=== PATIENT | female | born 1950 | race Caucasian/White ===

== ENCOUNTER 2018-10-10 15:31 | Inpatient (IN) | payer MEDICARE ==
--- NOTE | 2018-10-10 15:56 | ED ---
General Adult HPI <Murtaza Jewell - Last Filed: 10/10/18 18:41> - General Source: patient, RN notes reviewed Mode of arrival: ambulatory Limitations: no limitations <Anish Traylor - Last Filed: 10/10/18 19:13> - General Chief complaint: Recheck/Abnormal Lab/Rx Stated complaint: Side pain, Cough Time Seen by Provider: 10/10/18 15:50 - History of Present Illness Initial comments: 68 year old female presents to the emergency department for a chief cough 1.5 months. Patient states she has had a dry hacking cough since right after [place]. She states she was seen by her primary care provider who gave her oral antibiotics for 10 days and breathing treatments. She states she was not getting better. She states that she has had increasing shortness of breath. She states that 2 days ago she started to have left-sided pleuritic chest pain. She states she can no longer handle the pain and this is what brought her in to the emergency department. Patient denies any recent admissions to the hospital.Patient has no other complaints at this time including shortness of breath, chest pain, abdominal pain, nausea or vomiting, headache, or visual changes. (Anish Traylor) - Related Data Home Medications Medication Instructions Recorded Confirmed ALPRAZolam [Xanax] 0.5 mg PO DAILY PRN 10/10/18 10/10/18 Cyanocobalamin [Vitamin B-12 1,000 mcg SQ Q14D 10/10/18 10/10/18 Injection] Escitalopram [Lexapro] 20 mg PO DAILY 10/10/18 10/10/18 Allergies Allergy/AdvReac Type Severity Reaction Status Date / Time codeine AdvReac Nausea & Verified 10/10/18 16:43 Vomiting prednisone AdvReac Rapid Verified 10/10/18 16:43 Heart Rate Review of Systems ROS Other: All systems not noted in ROS Statement are negative. <Murtaza Jewell - Last Filed: 10/10/18 18:41> ROS Other: All systems not noted in ROS Statement are negative. <Anish Traylor - Last Filed: 10/10/18 19:13> ROS Statement: Those systems with pertinent positive or pertinent negative responses have been documented in the HPI. Past Medical History Past Medical History: Pneumonia, Thyroid Disorder History of Any Multi-Drug Resistant Organisms: None Reported Past Surgical History: Breast Surgery, Cholecystectomy, Tonsillectomy Additional Past Surgical History / Comment(s): thyroid lobectomy, partial hysterecomy, multiple D&C Past Psychological History: Anxiety Smoking Status: Current every day smoker Past Alcohol Use History: Occasional Past Drug Use History: None Reported <Anish Traylor - Last Filed: 10/10/18 19:13> General Exam Limitations: no limitations General appearance: alert, in no apparent distress Head exam: Present: atraumatic, normocephalic, normal inspection Eye exam: Present: normal appearance, PERRL, EOMI. Absent: scleral icterus, conjunctival injection, periorbital swelling ENT exam: Present: normal exam, mucous membranes moist Neck exam: Present: normal inspection, full ROM. Absent: tenderness, meningismus, lymphadenopathy Respiratory exam: Present: decreased breath sounds (Diminished breath sounds due to decreased inspiration from pain). Absent: respiratory distress, wheezes , rales, rhonchi, stridor Cardiovascular Exam: Present: normal rhythm, tachycardia, other (murmur noted, patient states this is chronic). Absent: rubs, gallop, clicks GI/Abdominal exam: Present: soft, normal bowel sounds. Absent: distended, tenderness, guarding, rebound, rigid Neurological exam: Present: alert, oriented X3, CN II-XII intact Psychiatric exam: Present: normal affect, normal mood <Anish Traylor - Last Filed: 10/10/18 19:13> Vital Signs 10/10/18 10/10/18 15:34 18:35 Temperature 98.4 F Pulse Rate 117 H 107 H Respiratory 18 18 Rate Blood Pressure 105/64 138/82 O2 Sat by Pulse 94 L 91 L Oximetry EKG Findings - EKG Comments: EKG Findings:: Sinus tachycardia, ventricular rate 110, KS interval 148, QTC 446 <Anish Traylor - Last Filed: 10/10/18 19:13> Medical Decision Making - Lab Data Result diagrams: 10/10/18 16:30 10/10/18 16:30 <Murtaza Jewell - Last Filed: 10/10/18 18:41> - Lab Data Result diagrams: 10/10/18 16:30 10/10/18 16:30 <Anish Traylor - Last Filed: 10/10/18 19:13> - Medical Decision Making Medical decision making; this is a 68-year-old female reports she's been on antibiotics for approximately 20 days for a left-sided pneumonia. She presents today to emergency room because of persistent cough and left lateral rib cage pain. The workup here included a white count of 14.6. Her d- dimer is elevated at 1.47. Chest x-ray showed left pleural consolidation and pleural effusion but no evidence of congestive heart failure. Because of the elevated d-dimer persistent pain the patient had a CAT scan done with IV contrast. The radiologist reports no pulmonary embolism. But does report that there is a left pleural effusion with lower lobe consolidation and also a 3 cm rounded low-density area in the left lower lobe possible lung abscess. In emergency room the patient was started on Rocephin and a azithromycin. I discussed the case with , patient be admitted his service with consultation from Dr. Sow . I discussed the case Dr. Sow. He recommends Zosyn and Levaquin. Dr. Jewell (Murtaza Jewell) 68-year-old female presents to the emergency department for a chief complaint of left-sided chest pain and cough 1.5 months. Patient has had outpatient antibiotic therapy about 1.5 months ago but did not get better. She has had increasing shortness of breath and pleuritic chest pain. She does have tenderness noted to the lateral chest wall. Patient is tachycardic with a pulse rate of 117 and 94% on room air. Patient was put on 2 L of nasal cannula and given a liter fluid bolus. CBC does show a white count of 14.6. Chest x-ray shows a left-sided pulmonary consolidation and pleural fluid. Blood cultures and lactic ordered at the time x-ray was reviewed. Patient was started on azithromycin and Rocephin. Due to tachycardia, pleuritic chest pain and shortness of breath d-dimer was ordered which was elevated to 1.47. CT showed no evidence of pulmonary embolism. However there is a moderate left pleural effusion with left lower lobe consolidation and atelectasis. There is also a 3 cm rounded low-density area in the left lower lobe that could be a lung abscess. Dr. Jewell also saw the patient. At this time patient will be admitted for IV antibiotics with pulmonary consult due to possible abscess. ( Kymberly,Anihs P) - Lab Data Lab Results 10/10/18 10/10/18 10/10/18 Range/Units 16:30 16:30 16:30 WBC 14.6 H (3.8-10.6) k/uL RBC 4.13 (3.80-5.40) m/uL Hgb 11.8 (11.4-16.0) gm/dL Hct 36.0 (34.0-46.0) % MCV 87.1 (80.0-100.0) fL MCH 28.5 (25.0-35.0) pg MCHC 32.7 (31.0-37.0) g/dL RDW 15.6 H (11.5-15.5) % Plt Count 379 (150-450) k/uL Neutrophils % 83 % Lymphocytes % 11 % Monocytes % 5 % Eosinophils % 0 % Basophils % 0 % Neutrophils # 12.2 H (1.3-7.7) k/uL Lymphocytes # 1.6 (1.0-4.8) k/uL Monocytes # 0.7 (0-1.0) k/uL Eosinophils # 0.1 (0-0.7) k/uL Basophils # 0.0 (0-0.2) k/uL PT 10.6 (9.0-12.0) sec INR 1.0 (<1.2) APTT 24.6 (22.0-30.0) sec D-Dimer 1.47 H (<0.60) mg/L FEU Sodium 140 (137-145) mmol/L Potassium 5.0 (3.5-5.1) mmol/L Chloride 105 (98-107) mmol/L Carbon Dioxide 26 (22-30) mmol/L Anion Gap 9 mmol/L BUN 14 (7-17) mg/dL Creatinine 0.70 (0.52-1.04) mg/dL Est GFR (CKD-EPI)AfAm >90 (>60 ml/min/1.73 sqM) Est GFR (CKD-EPI)NonAf >90 (>60 ml/min/1.73 sqM) Glucose 135 H (74-99) mg/dL Plasma Lactic Acid Albert (0.7-2.0) mmol/L Calcium 9.7 (8.4-10.2) mg/dL Total Bilirubin 0.6 (0.2-1.3) mg/dL AST 15 (14-36) U/L ALT 32 (9-52) U/L Alkaline Phosphatase 110 (38-126) U/L Troponin I (0.000-0.034) ng/mL NT-Pro-B Natriuret Pep pg/mL Total Protein 6.6 (6.3-8.2) g/dL Albumin 3.5 (3.5-5.0) g/dL 10/10/18 10/10/18 10/10/18 Range/Units 16:30 16:30 18:27 WBC (3.8-10.6) k/uL RBC (3.80-5.40) m/uL Hgb (11.4-16.0) gm/dL Hct (34.0-46.0) % MCV (80.0-100.0) fL MCH (25.0-35.0) pg MCHC (31.0-37.0) g/dL RDW (11.5-15.5) % Plt Count (150-450) k/uL Neutrophils % % Lymphocytes % % Monocytes % % Eosinophils % % Basophils % % Neutrophils # (1.3-7.7) k/uL Lymphocytes # (1.0-4.8) k/uL Monocytes # (0-1.0) k/uL Eosinophils # (0-0.7) k/uL Basophils # (0-0.2) k/uL PT (9.0-12.0) sec INR (<1.2) APTT (22.0-30.0) sec D-Dimer (<0.60) mg/L FEU Sodium (137-145) mmol/L Potassium (3.5-5.1) mmol/L Chloride (98-107) mmol/L Carbon Dioxide (22-30) mmol/L Anion Gap mmol/L BUN (7-17) mg/dL Creatinine (0.52-1.04) mg/dL Est GFR (CKD-EPI)AfAm (>60 ml/min/1.73 sqM) Est GFR (CKD-EPI)NonAf (>60 ml/min/1.73 sqM) Glucose (74-99) mg/dL Plasma Lactic Acid Albert 1.7 (0.7-2.0) mmol/L Calcium (8.4-10.2) mg/dL Total Bilirubin (0.2-1.3) mg/dL AST (14-36) U/L ALT (9-52) U/L Alkaline Phosphatase (38-126) U/L Troponin I <0.012 (0.000-0.034) ng/mL NT-Pro-B Natriuret Pep 1080 pg/mL Total Protein (6.3-8.2) g/dL Albumin (3.5-5.0) g/dL Disposition <Murtaza Jewell - Last Filed: 10/10/18 18:41> Is patient prescribed a controlled substance at d/c from ED?: No Time of Disposition: 18:41 <Anish Traylor - Last Filed: 10/10/18 19:13> Clinical Impression: Pneumonia, Leukocytosis Disposition: ADMITTED IP TO THIS HOSP Condition: Fair Referrals: Murtaza Silver MD [Primary Care Provider] - 1-2 days
[2018-10-10] MEDS ORDERED: SODIUM CHLORIDE 0.9% 1,000 ML IV STA (16:09)
[2018-10-10 16:58] LABS: Basophils % (A) 0 %; Eosinophils # (A) 0.1 k/uL (0-0.7); Eosinophils % (A) 0 %; HGB 11.8 gm/dL (11.4-16.0); Lymphocytes # (A) 1.6 k/uL (1.0-4.8); Lymphocytes % (A) 11 %; MCH 28.5 pg (25.0-35.0); MCHC 32.7 g/dL (31.0-37.0); MCV 87.1 fL (80.0-100.0); Mean Platelet Volume 7.1; Monocytes # (A) 0.7 k/uL (0-1.0); Monocytes % (A) 5 %; Neutrophils # (A) 12.2 k/uL (1.3-7.7); Neutrophils % (A) 83 %; Platelet Count 379 k/uL (150-450); RBC 4.13 m/uL (3.80-5.40); RDW 15.6 % (11.5-15.5); WBC 14.6 k/uL (3.8-10.6)
[2018-10-10 17:04] LABS: ALT 32 U/L (9-52); AST 15 U/L (14-36); Albumin 3.5 g/dL (3.5-5.0); Alkaline Phosphatase 110 U/L (38-126); Anion Gap 9 mmol/L; Blood Urea Nitrogen 14 mg/dL (7-17); Calcium 9.7 mg/dL (8.4-10.2); Carbon Dioxide 26 mmol/L (22-30); Chloride 105 mmol/L (98-107); Glucose 135 mg/dL (74-99); Sodium 140 mmol/L (137-145); Total Bilirubin 0.6 mg/dL (0.2-1.3); Total Protein 6.6 g/dL (6.3-8.2)
[2018-10-10 17:08] LABS: Prothrombin Time 10.6 sec (9.0-12.0)
[2018-10-10 17:09] LABS: Partial Thromboplastin Time 24.6 sec (22.0-30.0)
[2018-10-10 17:15] LABS: D-Dimer 1.47 mg/L FEU (<0.60)
--- NOTE | 2018-10-10 17:27 | XR ---
EXAMINATION TYPE: XR chest 2V DATE OF EXAM: 10/10/2018 COMPARISON: NONE HISTORY: Difficulty breathing TECHNIQUE: Frontal and lateral views of the chest are obtained. FINDINGS: Heart is enlarged. There is hiatal hernia. There is infiltrate in the left lower lobe with consolidation. There is probably also pleural effusion on the left side. Right lung is clear. There is no heart failure. Bony thorax is intact. IMPRESSION: There is left side pulmonary consolidation and pleural fluid. Hiatal hernia. No heart fa ilure.
[2018-10-10] MEDS ORDERED: AZITHROMYCIN 500 MG in SODIUM CHLORIDE 0.9% 250 ML IVPB STA (17:52)
--- NOTE | 2018-10-10 17:58 | CT ---
EXAMINATION TYPE: CT chest angio for PE DATE OF EXAM: 10/10/2018 COMPARISON: None HISTORY: LEFT SIDE CHEST PAIN, SOB CT DLP: 256.9 mGycm Automated exposure control for dose reduction was used. CONTRAST: CT Chest for pulmonary embolism performed with with IV Contrast, patient injected with 100 mL of Isov ue 370. There are 3-D post processed images. FINDINGS: There is moderate left pleural effusion. There is left lower lobe consolidation and atelectasis. Ther e is a rounded 3 cm area of fluid density within the posterior left lower lobe. There is no pericardial effusion. The ascending aorta measures 3.8 cm. There is no evidence of dissec tion. There is normal contrast opacification of the pulmonary arteries. I see no filling defect. Ther e is a large hiatal hernia. There is no pneumothorax. The bony thorax is intact. IMPRESSION: No evidence of pulmonary embolism. Moderate left pleural effusion with left lower lobe consolidation and atelectasis. 3 cm rounded low-d ensity area in the left lower lobe could be lung abscess. Large hiatal hernia.
[2018-10-10] MEDS ORDERED: MORPHINE SULFATE 2 MG/ML SYRINGE IVP STA (18:18)
[2018-10-10] MEDS ORDERED: ONDANSETRON 4 MG/2 ML VIAL IVP STA (18:29)
[2018-10-10] MEDS ORDERED: SODIUM CHLORIDE 0.9% 500 ML 500 ML IV STA (19:06)
[2018-10-10] MEDS ORDERED: MORPHINE SULFATE 2 MG/ML SYRINGE IV PRN (19:09)
[2018-10-10] MEDS ORDERED: IBUPROFEN 400 MG TAB PO PRN (19:09)
[2018-10-10] MEDS ORDERED: NALOXONE 0.4 MG/ML 1 ML VIAL IV PRN (19:09)
[2018-10-10] MEDS: LEVOFLOXACIN 750MG-D5W PMX 750 MG in DEXTROSE/WATER 1 150ML.BAG IVPB SCH (19:16)
[2018-10-10] MEDS: SODIUM CHLORIDE 0.9% 1,000 ML IV SCH (19:46)
[2018-10-10] MEDS: ESCITALOPRAM 20 MG TAB PO SCH (20:33)
[2018-10-10] MEDS: PIPERACILLIN-TAZOBACTAM 3.375 GM in SODIUM CHLORIDE 0.9% 100 ML IVPB SCH (21:00)
--- NOTE | 2018-10-10 23:51 | P.HPIM ---
History of Present Illness H&P Date: 10/10/18 Chief Complaint: Cough, left-sided chest pain 68-year-old female with history of anxiety, hypothyroid Patient presented the hospital with 1 day history of left-sided chest pain, described it as severe pleuritic chest pain that gets worse with coughing and movement localized to the left side of the chest over the lower aspect of the lateral left-sided chest, nonradiating. Patient has been complaining of lingering cough over the past one month and a half. She has seen her PCP gave her a course of antibiotics for pneumonia that she finished 3 weeks ago. She has never been hospitalized for this problem and denies any recent hospitalization. Her cough kept on getting worse initially was nonproductive hacking dry cough but recently has become occasionally productive of greenish sputum denies any hemoptysis denies any recent traveling denies any leg pain. She reports occasional subjective fevers and some chills. She also reports some weight loss of around 12 pounds over the past 2 months which she thinks due to poor appetite. However last night she felt severe pain over the right side of the chest for which she decided come to the hospital today seeking medical attention. In the emergency department she was found to have elevated d-dimer for which computed tomography scan of the chest was done there was no evidence of acute PE however did show consolidation over the left lower lung with pleural effusion and possibility of lung abscess. Patient admitted for further care and workup Otherwise she reports generalized decrease in energy and sleeping more than usual, denies any nausea vomiting or abdominal pain denies any GI bleeding. She denies any sick contacts or recent travel Review of Systems Pertinent positives as noted in HPI. All other systems were reviewed and are negative Past Medical History Past Medical History: Pneumonia, Thyroid Disorder History of Any Multi-Drug Resistant Organisms: None Reported Past Surgical History: Breast Surgery, Cholecystectomy, Tonsillectomy Additional Past Surgical History / Comment(s): thyroid lobectomy, partial hysterecomy, multiple D&C Past Anesthesia/Blood Transfusion Reactions: No Reported Reaction Past Psychological History: Anxiety Smoking Status: Current every day smoker Past Alcohol Use History: Occasional Past Drug Use History: None Reported - Past Family History Father Family Medical History: Coronary Artery Disease (CAD), Renal Disease Mother Family Medical History: No Reported History Medications and Allergies Home Medications Medication Instructions Recorded Confirmed Type ALPRAZolam [Xanax] 0.5 mg PO DAILY PRN 10/10/18 10/10/18 History Cyanocobalamin [Vitamin B-12 1,000 mcg SQ Q14D 10/10/18 10/10/18 History Injection] Escitalopram [Lexapro] 20 mg PO DAILY 10/10/18 10/10/18 History Allergies Allergy/AdvReac Type Severity Reaction Status Date / Time codeine AdvReac Nausea & Verified 10/10/18 16:43 Vomiting prednisone AdvReac Rapid Verified 10/10/18 16:43 Heart Rate Physical Exam Vitals: Vital Signs Temp Pulse Resp BP Pulse Ox 10/10/18 20:34 94 L 10/10/18 19:15 99.7 F H 88 20 112/96 95 10/10/18 18:35 107 H 18 138/82 91 L 10/10/18 15:34 98.4 F 117 H 18 105/64 94 L Intake and Output 10/10/18 10/10/18 10/10/18 06:59 14:59 22:59 Other: Weight 166.9 kg Constitutional: No acute distress, conversant, pleasant Eyes: Anicteric sclerae, moist conjunctiva, no lid-lag Pupils equal round reactive to light ENMT: NC/AT Oropharynx clear, no erythema, exudates Neck: Supple, FROM, no masses, or JVD No carotid bruits No thyromegaly Lungs: Clear to auscultation Clear to percussion Normal respiratory effort, no accessory muscle use Cardiovascular: Heart regular in rate and rhythm, Loud systolic murmur mostly over the aortic region, no gallops, or rubs No peripheral edema Abdominal: Soft Nontender, no guarding, rebound or rigidity Abdomen moving with respiration Normoactive bowel sounds No hepatomegaly, No splenomegaly No palpable mass No abdominal wall hernia noted Skin: Normal temperature, tone, texture, turgor No induration No subcutaneous nodules No rash, lesions No ulcers Extremities: No digital cyanosis No clubbing Pedal pulses intact and symmetrical Radial pulses intact and symmetrical No calf tenderness Psychiatric: Alert and oriented to person, place and time Appropriate affect fair judgment Neuro Muscles Strength 4/5 in all 4 extremities Sensation to light touch grossly present throughout Cranial nerves II-XII grossly intact No focal sensory deficits Lymphatics: no palpable cervical or supraclavicular , or inguinal lymph nodes Results CBC & Chem 7: 10/10/18 16:30 10/10/18 16:30 Labs: Abnormal Lab Results - Last 24 Hours (Table) 10/10/18 10/10/18 10/10/18 Range/Units 16:30 16:30 16:30 WBC 14.6 H (3.8-10.6) k/uL RDW 15.6 H (11.5-15.5) % Neutrophils # 12.2 H (1.3-7.7) k/uL D-Dimer 1.47 H (<0.60) mg/L FEU Glucose 135 H (74-99) mg/dL Thrombosis Risk Factor Assmnt - Choose All That Apply Each Risk Factor Represents 2 Points: Age 61-74 years Thrombosis Risk Factor Assessment Total Risk Factor Score: 2 Thrombosis Risk Factor Assessment Level: Low Risk Assessment and Plan Assessment: 68-year-old female with history of hypothyroid and anxiety admitted as an inpatient with anticipated length of stay more than 48 hours due to left-sided pleuritic chest pain and pneumonia with possible underlying lung abscess for further care and evaluation by pulmonary service. Patient reports 1.5 month history of dry hacking cough with progressive worsening of her coughing and energy level. 3 weeks ago she finished a course of antibiotic for pneumonia Plan: Sepsis Community-acquired pneumonia, rule out lung abscess Cultures obtained IV fluid hydration Zosyn and levofloxacin seen Pulmonary consult Follow-up vital signs and labs Hypothyroidism Patient is not sure of the levothyroxine dose DVT prophylaxis Heparin subcu 3 times a day Continue home medications for anxiety Surrogate decision-maker: Patient CODE STATUS: Full code Discussed with: Patient, ER, RN Anticipated discharge: 48-[address]: Home A total of 60 minutes was spent on the care of this complex patient more than 50 % of the time was spent in counseling and care coordination.
[2018-10-11] MEDS: KETOROLAC 30 MG/ML 1 ML VIAL IVP SCH ×4 (00:13→17:27)
[2018-10-11] MEDS: HEPARIN SODIUM,PORCINE 5,000 UNIT/ML 1 ML VIAL SQ SCH ×3 (00:13→15:16)
[2018-10-11] MEDS: MELATONIN 3 MG TABLET PO SCH ×2 (00:13→20:11)
[2018-10-11] MEDS: ONDANSETRON 4 MG/2 ML VIAL IVP PRN (02:53)
[2018-10-11] MEDS: PIPERACILLIN-TAZOBACTAM 3.375 GM in SODIUM CHLORIDE 0.9% 100 ML IVPB SCH ×3 (02:54→22:31)
[2018-10-11] MEDS: MORPHINE SULFATE 4 MG/ML SYRINGE IV PRN ×3 (02:54→12:30)
[2018-10-11] MEDS: SODIUM CHLORIDE 0.9% 1,000 ML IV SCH ×2 (05:27→15:17)
[2018-10-11] MEDS: ESCITALOPRAM 20 MG TAB PO SCH (08:18)
[2018-10-11] MEDS ORDERED: VANCOMYCIN IV PER PHARMACY 1 EACH MISC MISCELLANE PRN (11:53)
[2018-10-11] MEDS ORDERED: VANCOMYCIN 1,500 MG in SODIUM CHLORIDE 0.9% 250 ML IVPB ONE (13:00)
--- NOTE | 2018-10-11 13:08 | XR ---
EXAMINATION TYPE: XR chest 1V portable DATE OF EXAM: 10/11/2018 COMPARISON: 10/10/2018 HISTORY: Status post left-sided thoracentesis TECHNIQUE: Single frontal view of the chest is obtained. FINDINGS: There is a small left layering pleural effusion and left-sided airspace disease. No postpr ocedural pneumothorax is appreciated. Right lung remains clear. Cardiomediastinal silhouette is enlar ged as seen on the prior. Osseous structures are grossly intact. IMPRESSION: Small residual left pleural effusion with associated left-sided airspace disease, likely atelectasis. No postprocedural pneumothorax.
--- NOTE | 2018-10-11 13:52 | P.PN ---
Subjective Progress Note Date: 10/11/18 Principal diagnosis: The patient is a 68-year-old female that was admitted for sepsis secondary to a complicated pneumonia after failing previous outpatient therapy after completing 2 courses of oral antibiotics with azithromycin and clindamycin respectively. she presented with pleuritic chest pain fever and a white count of 14.6 with elevated d-dimer subsequent CTA of the chest was negative for PE but did show consolidation of the left lower lung with pleural effusion and concern for rule out abscess. She was started on empiric IV antibiotics with Levaquin and Zosyn and vancomycin. Pulmonary was consulted and a left-sided thoracentesis was performed Patient complaining of pleuritic chest discomfort on the left with shortness of breath and cough. Patient afebrile overnight, family present at bedside. Patient with saturations of 93.94% on 2 L nasal cannula. Objective - Vital Signs Vital signs: Vital Signs Temp 98.5 F 10/11/18 09:25 Pulse 80 10/11/18 09:25 Resp 16 10/11/18 09:25 BP 96/66 10/11/18 09:25 Pulse Ox 93 L 10/11/18 09:25 Intake & Output 10/10/18 10/11/18 10/11/18 18:59 06:59 18:59 Intake Total 300 Balance 300 Weight 166.9 kg 75.551 kg Intake: Oral 300 Other: Voiding Method Toilet # Voids 1 - Exam Constitutional: No acute distress, conversant, pleasant Eyes: Anicteric sclerae, moist conjunctiva, no lid-lag, PERRLA ENMT: NC/AT,Oropharynx clear, no erythema, exudates Neck:Supple, FROM, no masses, or JVD, No carotid bruits; No thyromegaly Lungs: Diminished in the bases left greater than right Normal respiratory effort , no accessory muscle use Cardiovascular: Heart regular in rate and rhythm, No murmurs, gallops, or rubs no peripheral edema Abdominal: Soft Nontender, nom distended, no guarding, no rebound or rigidity, Normoactive bowel sounds No hepatomegaly, No splenomegaly, No palpable mass No abdominal wall hernia noted Skin: Normal temperature, tone, texture, turgor, No induration No subcutaneous nodules, No rash, lesions, No ulcers Extremities:No digital cyanosis No clubbing, Pedal pulses intact and symmetrical Radial pulses intact and symmetrical Normal gait and station, No calf tenderness Psychiatric: Alert and oriented to person, place and time, Appropriate affect Intact judgement Neuro: Muscles Strength 5/5 in all 4 extremities, Sensation to light touch grossly present throughout, Cranial nerves II-XII grossly intact. No focal sensory deficits - Labs CBC & Chem 7: 10/10/18 16:30 10/10/18 16:30 Labs: Abnormal Lab Results - Last 24 Hours (Table) 10/10/18 10/10/18 10/10/18 Range/Units 16:30 16:30 16:30 WBC 14.6 H (3.8-10.6) k/uL RDW 15.6 H (11.5-15.5) % Neutrophils # 12.2 H (1.3-7.7) k/uL D-Dimer 1.47 H (<0.60) mg/L FEU Glucose 135 H (74-99) mg/dL Assessment and Plan (1) Sepsis Narrative/Plan: * Secondary to complicated pneumonia concern for underlying lung abscess and parapneumonic effusion * Recheck CBC today, continue empiric IV antibiotics with vancomycin and Zosyn and Levaquin * Pulmonary consulted for thoracentesis Current Visit: Yes Status: Acute Code(s): A41.9 - SEPSIS, UNSPECIFIED ORGANISM SNOMED Code(s): 92682518 (2) Pneumonia Narrative/Plan: * Treatment regimen as above * Initiated Albuterol Atrovent DuoNeb bronchodilator breathing treatments Current Visit: Yes Status: Acute Code(s): J18.9 - PNEUMONIA, UNSPECIFIED ORGANISM SNOMED Code(s): 068098455 (3) Parapneumonic effusion Narrative/Plan: * Moderate pleural effusion with left lower lobe consolidation and atelectasis * Patient scheduled for thoracentesis later today Current Visit: Yes Status: Acute Code(s): J18.9 - PNEUMONIA, UNSPECIFIED ORGANISM; J91.8 - PLEURAL EFFUSION IN OTHER CONDITIONS CLASSIFIED ELSEWHERE SNOMED Code(s): 14813188 Plan: * Anticipated discharge to be determined by course * Continue current treatment regimen
[2018-10-11] MEDS ORDERED: IPRATROPIUM-ALBUTEROL 3 ML NEB INHALATION PRN (13:55)
[2018-10-11] MEDS: ALPRAZolam 0.5 MG TAB PO PRN (14:18)
[2018-10-11 14:35] LABS: Calcium 8.4 mg/dL (8.4-10.2); Potassium 4.4 mmol/L (3.5-5.1)
[2018-10-11 14:37] LABS: Basophils % (A) 0 %; Eosinophils # (A) 0.1 k/uL (0-0.7); Eosinophils % (A) 1 %; HCT 31.1 % (34.0-46.0); Hypochromasia Moderate; Lymphocytes % (A) 8 %; MCH 27.9 pg (25.0-35.0); MCHC 31.6 g/dL (31.0-37.0); MCV 88.5 fL (80.0-100.0); Mean Platelet Volume 6.4; Monocytes # (A) 0.7 k/uL (0-1.0); Monocytes % (A) 5 %; Neutrophils % (A) 85 %; Platelet Count 315 k/uL (150-450); RBC 3.51 m/uL (3.80-5.40); RDW 15.5 % (11.5-15.5)
[2018-10-11 14:47] LABS: HGB 9.8 gm/dL (11.4-16.0)
[2018-10-11 14:52] LABS: Appearance,BF Cloudy; Color,BF Orange; Nucleated Cells, Body Fluid 19240 /uL
[2018-10-11 14:53] LABS: RBC, Body Fluid 8240 /uL
[2018-10-11 14:56] LABS: Mononuclear WBC,Body Fluid 4 %; Polynuclear WBC,Body Fluid 96 %; Total Cells Counted,Body Fluid 100
--- NOTE | 2018-10-11 15:27 | P.CNPUL ---
History of Present Illness Consult date: 10/11/18 Reason for consult: pneumonia History of present illness: Very pleasant 68-year-old female patient with a batwing pneumonias since early August. The patient presents her primary care physician and she was having symptoms of pneumonia with cough and congestion and shortness of breath. She was initially given a course of antibiotics which she thinks was Zithromax. Subsequently, she went back as the patient was not improving and she was seen by the nurse practitioner and the patient was given another round of antibiotics. I recovery was not complete. Yesterday she came into the emergency department with a subacute pleuritic chest pain involving the left chest which progressively got worse over the past 24 hours. She was having considerable amount of pain. She was still having cough. No stiffness sputum production. She reported occasional subjective fevers and chills. She had some weight loss in order of 12 pounds over the past 2 months. No hemoptysis. She is a chronic smoker. The chest x-ray was done that showed a left lower lobe consolidation. Following that the patient a CAT scan of the chest that showed evidence of a moderate-sized left-sided pleural effusion and a left lower lobe consolidation/atelectasis. There was a rounded 3 cm area of fluid density within the posterior segment of the left lower lobe which obviously raises the concern for a lung abscess. There was no evidence of any pulmonary embolism. The patient was given IV antibiotics. The patient was given a combination of Zosyn and Levaquin and vancomycin was also added to the regimen. The patient is currently hemodynamically stable. I saw this patient the bedside. She had diminished breath on the left lung base along with some dullness to percussion. I performed a bedside thoracentesis and a turbid dark yellowish pleural effusion was drained from the left lung and the total amount was around 500 mL. The procedure done without any complications. Her current white cell count is at 14.6. Rest of the blood work and electrodes are all within normal limits. Awaiting the results from the fluid analysis. She is a chronic smoker. No history of pulmonary disease although the CAT scan of the chest showed some emphysematous changes bilaterally. Review of Systems Constitutional: Reports fatigue, Reports fever Eyes: denies as per HPI, denies blurred vision, denies bulging eye, denies decreased vision, denies diplopia, denies discharge, denies dry eye, denies irritation, denies itching, denies pain, denies photophobia, denies loss of peripheral vision, denies loss of vision, denies tunnel vision/blind spots Ears: deny: decreased hearing, ear discharge, earache, tinnitus Ears, nose, mouth and throat: Denies headache, Denies sore throat Breasts: absent: as per HPI, change in shape, gynecomastia, masses, nipple discharge, pain, skin changes, swelling Cardiovascular: Reports decreased exercise tolerance, Reports dyspnea on exertion Respiratory: Reports cough, Reports dyspnea Gastrointestinal: Reports as per HPI Genitourinary: Reports as per HPI Menstruation: Reports as per HPI Musculoskeletal: Reports as per HPI Musculoskeletal: absent: ankle pain, ankle stiffness, ankle swelling, as per HPI , elbow pain, elbow stiffness, elbow swelling, foot pain, foot stiffness, foot swelling, hand pain, hand stiffness, hand swelling, hip pain, hip stiffness, hip swelling, knee pain, knee stiffness, knee swelling, shoulder pain, shoulder stiffness, shoulder swelling, wrist pain, wrist stiffness, wrist swelling Integumentary: Reports as per HPI Neurological: Reports as per HPI Psychiatric: Reports as per HPI Past Medical History Past Medical History: COPD, Pneumonia, Thyroid Disorder History of Any Multi-Drug Resistant Organisms: None Reported Past Surgical History: Breast Surgery, Cholecystectomy, Tonsillectomy Additional Past Surgical History / Comment(s): thyroid lobectomy, partial hysterecomy, multiple D&C Past Anesthesia/Blood Transfusion Reactions: No Reported Reaction Past Psychological History: Anxiety Smoking Status: Current every day smoker Past Alcohol Use History: Occasional Past Drug Use History: None Reported - Past Family History Father Family Medical History: Coronary Artery Disease (CAD), Renal Disease Mother Family Medical History: No Reported History Medications and Allergies Home Medications Medication Instructions Recorded Confirmed Type ALPRAZolam [Xanax] 0.5 mg PO DAILY PRN 10/10/18 10/10/18 History Cyanocobalamin [Vitamin B-12 1,000 mcg SQ Q14D 10/10/18 10/10/18 History Injection] Escitalopram [Lexapro] 20 mg PO DAILY 10/10/18 10/10/18 History Allergies Allergy/AdvReac Type Severity Reaction Status Date / Time codeine AdvReac Nausea & Verified 10/10/18 16:43 Vomiting prednisone AdvReac Rapid Verified 10/10/18 16:43 Heart Rate Physical Exam Vitals: Vital Signs Temp Pulse Pulse Resp BP BP Pulse Ox 10/11/18 14:33 98.3 F 76 16 93/59 98 10/11/18 09:25 98.5 F 80 16 96/66 93 L 10/11/18 02:38 98.1 F 77 15 91/55 94 L 10/10/18 20:34 94 L 10/10/18 20:04 98.4 F 101 H 16 106/63 95 10/10/18 19:15 99.7 F H 88 20 112/96 95 10/10/18 18:35 107 H 18 138/82 91 L 10/10/18 15:34 98.4 F 117 H 18 105/64 94 L Intake and Output 10/11/18 10/11/18 10/11/18 06:59 14:59 22:59 Intake Total 300 Balance 300 Intake: Oral 300 Other: # Voids 2 Weight 75.551 kg Gen. appearance, comfortable no acute distress Head exam was generally normal. There was no scleral icterus or corneal arcus. Mucous membranes were moist. Neck was supple and without jugular venous distension, thyromegaly, or carotid bruits. Carotids were easily palpable bilaterally. There was no adenopathy. Lungs sounds are diminished in the left lung base along with some dullness to percussion Cardiac exam revealed the PMI to be normally situated and sized. The rhythm was regular and no extrasystoles were noted during several minutes of auscultation. The first and second heart sounds were normal and physiologic splitting of the second heart sound was noted. There were no murmurs, rubs, clicks, or gallops. Abdominal exam revealed normal bowel sounds. The abdomen was soft, non-tender, and without masses, organomegaly, or appreciable enlargement of the abdominal aorta. Examination of the extremities revealed easily palpable radial, femoral and pedal pulses. There was no cyanosis, clubbing or edema. Examination of the skin revealed no evidence of significant rashes, suspicious appearing nevi or other concerning lesions. Neurologically the patient is awake and alert and is no focal neurological deficits. Results - Laboratory Findings CBC and BMP: 10/11/18 13:59 10/11/18 13:59 PT/INR, D-dimer PT 10.6 sec (9.0-12.0) 10/10/18 16:30 INR 1.0 (<1.2) 10/10/18 16:30 D-Dimer 1.47 mg/L FEU (<0.60) H 10/10/18 16:30 Abnormal lab findings: Abnormal Labs 10/10/18 10/10/18 10/10/18 16:30 16:30 16:30 WBC 14.6 H RBC Hgb Hct RDW 15.6 H Neutrophils # 12.2 H D-Dimer 1.47 H Chloride BUN Glucose 135 H 10/11/18 10/11/18 13:59 13:59 WBC 13.0 H RBC 3.51 L Hgb 9.8 L D Hct 31.1 L RDW Neutrophils # 11.0 H D-Dimer Chloride 108 H BUN 18 H Glucose 136 H - Diagnostic Findings Chest x-ray: image reviewed CT scan - chest: image reviewed Assessment and Plan Plan: Assessment 1 left lower lobe pneumonia with consolidation and a parapneumonic loculated left-sided pleural effusion, questionable early abscess formation in the posterior segment of the left lower lobe. The patient underwent a thoracentesis with evacuation of 500 mL of turbid dark yellowish pleural fluid from the left pleural space. Fluid analysis still pending for now. Procedure was done without any complications. The patient is currently on a combination of Zosyn and Levaquin and vancomycin 2 left-sided pleural effusion, loculated, likely parapneumonic 3 questionable left lung abscess 4 COPD 5 smoker 6 hypothyroidism Plan Repeat CAT scan of the chest in a.m. Continue same antibiotic coverage. Send the pleural fluid for analysis including LDH, protein, glucose, cytology Gram stain and culture, and cytology. Provide the patient incentive spirometer. Pain control. We'll continue to follow. Case was explained and discussed with the family at the bedside. We'll offer this patient DuoNeb nebulized treatments around the clock. We'll continue to follow.
[2018-10-11] MEDS ORDERED: RX INFO: IV CONTRAST WAS GIVEN 1 EACH MISC MISCELLANE PRN (15:30)
[2018-10-11] MEDS: IPRATROPIUM-ALBUTEROL 3 ML NEB INHALATION SCH ×3 (16:24→23:57)
[2018-10-11 18:50] LABS: Total Protein, Body Fluid 4100 mg/dL
[2018-10-11] MEDS: LEVOFLOXACIN 750MG-D5W PMX 750 MG in DEXTROSE/WATER 1 150ML.BAG IVPB SCH (20:10)
[2018-10-12] MEDS: HEPARIN SODIUM,PORCINE 5,000 UNIT/ML 1 ML VIAL SQ SCH ×4 (00:34→23:43)
[2018-10-12] MEDS: KETOROLAC 30 MG/ML 1 ML VIAL IVP SCH ×5 (00:34→23:42)
[2018-10-12] MEDS: MORPHINE SULFATE 4 MG/ML SYRINGE IV PRN ×2 (02:10→20:00)
[2018-10-12] MEDS: ONDANSETRON 4 MG/2 ML VIAL IVP PRN ×2 (02:10→20:01)
[2018-10-12] MEDS: SODIUM CHLORIDE 0.9% 1,000 ML IV SCH ×2 (03:10→14:21)
[2018-10-12] MEDS: IPRATROPIUM-ALBUTEROL 3 ML NEB INHALATION SCH ×6 (04:08→23:32)
[2018-10-12] MEDS: VANCOMYCIN 1,250 MG in SODIUM CHLORIDE 0.9% 250 ML IVPB SCH ×2 (04:41→16:29)
[2018-10-12] MEDS: PIPERACILLIN-TAZOBACTAM 3.375 GM in SODIUM CHLORIDE 0.9% 100 ML IVPB SCH ×3 (05:01→20:01)
--- NOTE | 2018-10-12 06:42 | PCN ---
PROCEDURE NOTE THORACENTESIS: PREOP DIAGNOSIS: Left sided pleural effusion. POSTOP DIAGNOSIS: Left sided pleural effusion. A time-out was completed verifying correct patient, procedure, site, positioning , and implant (s) or special equipment if applicable. Ultrasound guidance was not used and appropriate fluid pocket was identified and marked. Patient was positioned, prepped and draped in usual sterile fashion. Lidocaine was used to anesthetize the area. A Thoracentesis catheter was introduced into the pleural space and fluid was removed. Blood loss was none. A chest x-ray was ordered to evaluate for pneumothorax. Total Fluid Removed: 500 mL Color of Fluid: Dark turbid yellow pleural effusion. Fluid was sent for appropriate laboratory tests. Patient tolerated the procedure well and there were no complications. The fluid was sent for analysis. No bedside complication or bleeding. No pneumothorax. MMODL / IJN: [id number] /
[2018-10-12 07:53] LABS: Potassium 4.5 mmol/L (3.5-5.1)
[2018-10-12 08:04] LABS: Basophils % (A) 0 %; Eosinophils # (A) 0.2 k/uL (0-0.7); Eosinophils % (A) 2 %; HCT 26.2 % (34.0-46.0); HGB 8.5 gm/dL (11.4-16.0); Hypochromasia Moderate; Lymphocytes # (A) 1.1 k/uL (1.0-4.8); Lymphocytes % (A) 12 %; MCH 28.6 pg (25.0-35.0); MCHC 32.4 g/dL (31.0-37.0); MCV 88.4 fL (80.0-100.0); Mean Platelet Volume 6.5; Monocytes # (A) 0.4 k/uL (0-1.0); Monocytes % (A) 4 %; Neutrophils % (A) 80 %; Platelet Count 258 k/uL (150-450); RBC 2.96 m/uL (3.80-5.40); RDW 15.5 % (11.5-15.5); WBC 8.8 k/uL (3.8-10.6)
--- NOTE | 2018-10-12 08:12 | CT ---
EXAMINATION TYPE: CT chest w con DATE OF EXAM: 10/12/2018 COMPARISON: 10/10/2017 HISTORY: Pneumonia CT DLP: 286.9 mGycm Automated exposure control for dose reduction was used. CONTRAST: CT scan of the chest is performed with IV Contrast, patient injected with 100 mL of Isovue 300. FINDINGS: LUNGS: Is a persistent left-sided pleural effusion with small amount of air-containing the pleural ef fusion likely related to recent thoracentesis. There remains a small rounded density within the left lung with consolidation. Measures similar in size of 2.7 cm. Difficult to determine if this is relate d to an intrapulmonary abscess or portal part of the pleural fluid. Small amount of fluid in the medi astinum is also noted adjacent to the esophagus and there is a small right pleural effusion with basi lar consolidation. Changes of COPD are noted. There is a 3 mm right lower lobe pulmonary nodule. MEDIASTINUM: The heart is enlarged and there is a large hiatal hernia. Ascending aorta measures 4.1 c m suggest mild aneurysmal dilation. There is faint coronary artery calcification. Small shotty adenop athy in the left cardiophrenic angle. OTHER: Hypertrophic and degenerative change of the vertebral column. Postcholecystectomy changes are noted. Small accessory spleen IMPRESSION: 1. Remains a sizable left-sided pleural effusion with a few tiny air bubbles slightly postthoracentes is. Persistent consolidation and rounded 2.7 cm area of low density within an area of consolidated vernon ng. This still may represent a small intrapulmonary abscess. Due to the amount of pleural fluid is di fficult to determine if this communicates with the surrounding pleural effusion. 2. COPD 3. Small amount of mediastinal fluid cardiomegaly 4. Large hiatal hernia 5. Right lower lobe subsegmental consolidation and small pleural effusion. 6. There is a 3 mm right lower lobe pulmonary nodule too small to characterize recommend 6 month foll ow-up CT of the chest to assess for stability given small size.
[2018-10-12] MEDS: ESCITALOPRAM 20 MG TAB PO SCH (09:30)
--- NOTE | 2018-10-12 11:21 | P.PN ---
Subjective Progress Note Date: 10/12/18 Principal diagnosis: The patient is a 68-year-old female that was admitted for sepsis secondary to a complicated pneumonia after failing previous outpatient therapy after completing 2 courses of oral antibiotics with azithromycin and clindamycin respectively. she presented with pleuritic chest pain fever and a white count of 14.6 with elevated d-dimer subsequent CTA of the chest was negative for PE but did show consolidation of the left lower lung with pleural effusion and concern for rule out abscess. She was started on empiric IV antibiotics with Levaquin and Zosyn and vancomycin. Pulmonary was consulted and a left-sided thoracentesis was performed Patient reporting some left-sided pleuritic chest pain with coughing and receiving her breathing treatments, the patient had repeat chest CT earlier this morning, hemoglobin down 3 g down to 8.5 g today, patient reports she is scheduled to have a colonoscopy later this year. patient afebrile, patient denies any lightheadedness or dizziness. Blood pressure borderline this morning. Objective - Vital Signs Vital signs: Vital Signs Temp 98.5 F 10/12/18 08:47 Pulse 88 10/12/18 08:47 Resp 16 10/12/18 08:47 BP 88/56 10/12/18 09:06 Pulse Ox 91 L 10/12/18 08:47 Intake & Output 10/11/18 10/12/18 10/12/18 18:59 06:59 18:59 Intake Total 300 650 Balance 300 650 Intake: Intake, IV Titration 650 Amount Sodium Chloride 0.9% 1, 400 000 ml @ 100 mls/hr IV . Q10H [facility] Rx#:[id number] Vancomycin 1,250 mg In 250 Sodium Chloride 0.9% 250 ml @ 125 mls/hr IVPB Q12H [facility] Rx#:[id number] Oral 300 Other: Voiding Method Toilet # Voids 2 1 - Exam Constitutional: No acute distress, conversant, pleasant Eyes: Anicteric sclerae, moist conjunctiva, no lid-lag, PERRLA ENMT: NC/AT,Oropharynx clear, no erythema, exudates Neck:Supple, FROM, no masses, or JVD, No carotid bruits; No thyromegaly Lungs: Diminished in the bases left greater than right Normal respiratory effort , no accessory muscle use Cardiovascular: Heart regular in rate and rhythm, No murmurs, gallops, or rubs no peripheral edema Abdominal: Soft Nontender, nom distended, no guarding, no rebound or rigidity, Normoactive bowel sounds No hepatomegaly, No splenomegaly, No palpable mass No abdominal wall hernia noted Skin: Normal temperature, tone, texture, turgor, No induration No subcutaneous nodules, No rash, lesions, No ulcers Extremities:No digital cyanosis No clubbing, Pedal pulses intact and symmetrical Radial pulses intact and symmetrical Normal gait and station, No calf tenderness Psychiatric: Alert and oriented to person, place and time, Appropriate affect Intact judgement Neuro: Muscles Strength 5/5 in all 4 extremities, Sensation to light touch grossly present throughout, Cranial nerves II-XII grossly intact. No focal sensory deficits - Labs CBC & Chem 7: 10/12/18 07:05 10/12/18 07:05 Labs: Abnormal Lab Results - Last 24 Hours (Table) 10/11/18 10/11/18 10/12/18 Range/Units 13:59 13:59 07:05 WBC 13.0 H (3.8-10.6) k/uL RBC 3.51 L 2.96 L (3.80-5.40) m/uL Hgb 9.8 L D 8.5 L (11.4-16.0) gm/dL Hct 31.1 L 26.2 L (34.0-46.0) % Neutrophils # 11.0 H (1.3-7.7) k/uL Chloride 108 H (98-107) mmol/L BUN 18 H (7-17) mg/dL Glucose 136 H (74-99) mg/dL Calcium (8.4-10.2) mg/dL 10/12/18 Range/Units 07:05 WBC (3.8-10.6) k/uL RBC (3.80-5.40) m/uL Hgb (11.4-16.0) gm/dL Hct (34.0-46.0) % Neutrophils # (1.3-7.7) k/uL Chloride 108 H (98-107) mmol/L BUN 19 H (7-17) mg/dL Glucose 109 H (74-99) mg/dL Calcium 8.0 L (8.4-10.2) mg/dL Microbiology - Last 24 Hours (Table) 10/11/18 12:43 Acid Fast Bacilli Smear - Final Pleural Fluid Acid Fast Bacilli Culture - Preliminary 10/11/18 12:43 Gram Stain - Preliminary Pleural Fluid Body Fluid Culture - Preliminary 10/10/18 18:27 Blood Culture - Preliminary Blood No Growth after 24 hours 10/11/18 12:43 Fungal Culture - Preliminary Pleural Fluid Assessment and Plan (1) Sepsis Narrative/Plan: * Secondary to complicated pneumonia concern for underlying lung abscess and parapneumonic effusion * Leukocytosis now resolved, continue empiric IV antibiotics with vancomycin and Zosyn and Levaquin * Pulmonary consulted for thoracentesis Current Visit: Yes Status: Acute Code(s): A41.9 - SEPSIS, UNSPECIFIED ORGANISM SNOMED Code(s): 76959420 (2) Pneumonia Narrative/Plan: * Treatment regimen as above * Consult ID for further recommendations * Initiated Albuterol Atrovent DuoNeb bronchodilator breathing treatments Current Visit: Yes Status: Acute Code(s): J18.9 - PNEUMONIA, UNSPECIFIED ORGANISM SNOMED Code(s): 065569718 (3) Parapneumonic effusion Narrative/Plan: * Status post left-sided thoracentesis * Chest CT shows a stable left-sided pleural effusion with a few tiny air bubbles with persistent consolidation approximately 2.7 cm which may represent abscess * Patient will likely need IR consultation for ultrasound-guided drainage we'll continue to follow Current Visit: Yes Status: Acute Code(s): J18.9 - PNEUMONIA, UNSPECIFIED ORGANISM; J91.8 - PLEURAL EFFUSION IN OTHER CONDITIONS CLASSIFIED ELSEWHERE SNOMED Code(s): 14284726 (4) Normocytic anemia Narrative/Plan: * Check Hemoccult and iron studies * Continue to follow hemoglobin * We'll plan to transfuse if it drops below 7 Current Visit: Yes Status: Acute Code(s): D64.9 - ANEMIA, UNSPECIFIED SNOMED Code(s): 062732734 Plan: * Anticipated discharge to be determined by course * Continue current treatment regimen * Awaiting consultants recommendations
[2018-10-12] MEDS: ALPRAZolam 0.5 MG TAB PO PRN (12:45)
--- NOTE | 2018-10-12 14:14 | P.PN ---
Subjective Progress Note Date: 10/12/18 Principal diagnosis: Lower lobe pneumonia with consolidation and parapneumonic loculated left sided pleural effusion. Very pleasant 68-year-old female patient with a batwing pneumonias since early August. The patient presents her primary care physician and she was having symptoms of pneumonia with cough and congestion and shortness of breath. She was initially given a course of antibiotics which she thinks was Zithromax. Subsequently, she went back as the patient was not improving and she was seen by the nurse practitioner and the patient was given another round of antibiotics. I recovery was not complete. Yesterday she came into the emergency department with a subacute pleuritic chest pain involving the left chest which progressively got worse over the past 24 hours. She was having considerable amount of pain. She was still having cough. No stiffness sputum production. She reported occasional subjective fevers and chills. She had some weight loss in order of 12 pounds over the past 2 months. No hemoptysis. She is a chronic smoker. The chest x-ray was done that showed a left lower lobe consolidation. Following that the patient a CAT scan of the chest that showed evidence of a moderate-sized left-sided pleural effusion and a left lower lobe consolidation/atelectasis. There was a rounded 3 cm area of fluid density within the posterior segment of the left lower lobe which obviously raises the concern for a lung abscess. There was no evidence of any pulmonary embolism. The patient was given IV antibiotics. The patient was given a combination of Zosyn and Levaquin and vancomycin was also added to the regimen. The patient is currently hemodynamically stable. I saw this patient the bedside. She had diminished breath on the left lung base along with some dullness to percussion. I performed a bedside thoracentesis and a turbid dark yellowish pleural effusion was drained from the left lung and the total amount was around 500 mL. The procedure done without any complications. Her current white cell count is at 14.6. Rest of the blood work and electrodes are all within normal limits. Awaiting the results from the fluid analysis. She is a chronic smoker. No history of pulmonary disease although the CAT scan of the chest showed some emphysematous changes bilaterally. The patient is seen today 10/12/2017 in follow-up on the regular medical floor. She is awake and alert in no acute distress. He is maintaining O2 saturations in the low 90s on room air. She's afebrile. She is status post left-sided thoracentesis with 500 ml's. Cultures are pending. Fluid analysis reveals glucose less than 4, protein 4100, LDH 1412. Suspect parapneumonic effusion. She has been initiated on vancomycin, Zosyn and Levaquin. Follow-up computed tomography scan of the chest revealed acute recurrent sizable left pleural effusion with persistent consolidation and rounded 2.7 cm area of low density within the consolidated lung. Intrapulmonary abscess is within the differential. There is a 3 mm right lower lobe pulmonary nodule too small to characterize as well. Objective - Vital Signs Vital signs: Vital Signs Temp 98.5 F 10/12/18 08:47 Pulse 88 10/12/18 08:47 Resp 16 10/12/18 08:47 BP 88/56 10/12/18 09:06 Pulse Ox 91 L 10/12/18 08:47 Intake & Output 10/11/18 10/12/18 10/12/18 18:59 06:59 18:59 Intake Total 300 650 Balance 300 650 Intake: Intake, IV Titration 650 Amount Sodium Chloride 0.9% 1, 400 000 ml @ 100 mls/hr IV . Q10H [facility] Rx#:[id number] Vancomycin 1,250 mg In 250 Sodium Chloride 0.9% 250 ml @ 125 mls/hr IVPB Q12H [facility] Rx#:[id number] Oral 300 Other: Voiding Method Toilet # Voids 2 1 - Exam GENERAL EXAM: Alert, active, comfortable in no apparent distress. HEAD: Normocephalic. EYES: Normal reaction of pupils, equal size. NOSE: Clear with pink turbinates. THROAT: No erythema or exudates. NECK: No masses, no JVD. CHEST: No chest wall deformity. LUNGS: Equal air entry with scattered rhonchi as, crackles in the left posterior bases. Diminished. CVS: S1 and S2 normal with no audible murmur, regular rhythm. ABDOMEN: No hepatosplenomegaly, normal bowel sounds, no guarding or rigidity. SPINE: No scoliosis or deformity SKIN: No rashes CENTRAL NERVOUS SYSTEM: No focal deficits, tone is normal in all 4 extremities. EXTREMITIES: There is no peripheral edema. No clubbing, no cyanosis. Peripheral pulses are intact. - Labs CBC & Chem 7: 10/12/18 07:05 10/12/18 07:05 Labs: Abnormal Lab Results - Last 24 Hours (Table) 10/11/18 10/11/18 10/12/18 Range/Units 13:59 13:59 07:05 WBC 13.0 H (3.8-10.6) k/uL RBC 3.51 L 2.96 L (3.80-5.40) m/uL Hgb 9.8 L D 8.5 L (11.4-16.0) gm/dL Hct 31.1 L 26.2 L (34.0-46.0) % Neutrophils # 11.0 H (1.3-7.7) k/uL Chloride 108 H (98-107) mmol/L BUN 18 H (7-17) mg/dL Glucose 136 H (74-99) mg/dL Calcium (8.4-10.2) mg/dL 10/12/18 Range/Units 07:05 WBC (3.8-10.6) k/uL RBC (3.80-5.40) m/uL Hgb (11.4-16.0) gm/dL Hct (34.0-46.0) % Neutrophils # (1.3-7.7) k/uL Chloride 108 H (98-107) mmol/L BUN 19 H (7-17) mg/dL Glucose 109 H (74-99) mg/dL Calcium 8.0 L (8.4-10.2) mg/dL Microbiology - Last 24 Hours (Table) 10/11/18 12:43 Gram Stain - Preliminary Pleural Fluid Body Fluid Culture - Preliminary 10/11/18 12:43 Acid Fast Bacilli Smear - Final Pleural Fluid Acid Fast Bacilli Culture - Preliminary 10/10/18 18:27 Blood Culture - Preliminary Blood No Growth after 24 hours 10/11/18 12:43 Fungal Culture - Preliminary Pleural Fluid Assessment and Plan Assessment: Assessment 1 left lower lobe pneumonia with consolidation and a parapneumonic loculated left-sided pleural effusion, questionable early abscess formation in the posterior segment of the left lower lobe. The patient underwent a thoracentesis with evacuation of 500 mL of turbid dark yellowish pleural fluid from the left pleural space. Fluid analysis reveals suspected parapneumonic effusion with glucose < 4, protein 4.1, LDH 1412. The patient is currently on a combination of Zosyn and Levaquin and vancomycin and there was significant reaccumulation of fluid on the follow-up computed tomography scan of the chest. A pigtail catheter was inserted today per interventional radiology. 2 left-sided pleural effusion, loculated, likely parapneumonic 3 questionable left lung abscess 4 COPD 5 smoker 6 hypothyroidism Plan The patient was seen and evaluated by Dr. Sow. CAT scan and labs were reviewed. Fluid analysis reviewed. He did request interventional radiology to place a left-sided pigtail catheter for continued drainage of the suspected empyema. We'll continue with the current antibiotic coverage for now. We will increase her activity as tolerated. We'll continue to follow and make further recommendations based on her clinical status. I, the cosigning physician, performed a history & physical examination of the patient. Lungs sounds few scattered rhonchi, crackles, diminished over left posterior base. Maintaining good O2 saturations in the 90s on room air. I discussed the assessment and plan of care with my nurse practitioner, Evelyn Benites. I attest to the above note as dictated by her.
[2018-10-12] MEDS: LEVOFLOXACIN 750MG-D5W PMX 750 MG in DEXTROSE/WATER 1 150ML.BAG IVPB SCH (20:01)
[2018-10-12] MEDS: MELATONIN 3 MG TABLET PO SCH (21:22)
[2018-10-13] MEDS: IPRATROPIUM-ALBUTEROL 3 ML NEB INHALATION SCH ×3 (03:05→21:53)
[2018-10-13] MEDS: PIPERACILLIN-TAZOBACTAM 3.375 GM in SODIUM CHLORIDE 0.9% 100 ML IVPB SCH ×3 (04:36→19:40)
[2018-10-13] MEDS: VANCOMYCIN 1,250 MG in SODIUM CHLORIDE 0.9% 250 ML IVPB SCH ×2 (04:36→17:29)
--- NOTE | 2018-10-13 06:12 | CONS ---
CONSULTATION DATE OF SERVICE: 10/12/2018 REASON FOR CONSULTATION: wound antibiotic recommendation. HISTORY OF PRESENT ILLNESS: The patient is a 68-year-old, female presenting to the ER at [facility] 10/10/2018 with chief complaints of chest pain and cough. The patient's symptoms has been going on for almost a month and a half. The symptoms started after the Martin. The patient did have some cough, congestion, with initial URI symptoms, the patient at this time was evaluated by her primary care physician and the patient treated with a course of Zithromax. The patient subsequently presented to the PCP within 10 days where the patient did have a chest x-ray that showed the patient did have a left lower lobe pneumonia. She was given a 2nd course of oral antibiotic. Unfortunately, the patient the antibiotic. The patient did follow up after 10 days and she did have a repeat x-ray. She thought the pneumonia was improving and she was given another course of antibiotics. The patient's symptoms never completely resolved and presented to the ER at [facility] 10/10/2018 with chief complaints of left-sided chest pain that apparently has been getting worse. Up to 3 days before she was admitted to the hospital, the patient described the pain on the left chest to be sharp almost 8/10, and she was admitted hospital with no radiation, worse with a deep breath. The patient continued to have a dry hacking cough, but not bringing up any sputum. With these symptoms, the patient was evaluated by the ER physician. On arrival to the ER, the patient did have a low-grade fever. White count elevated to 14.6. The patient did have a chest x-ray followed by a CT angiogram that was negative for PE. However, the patient did have moderate left pleural effusion with left lower lobe consolidation atelectasis low-density area in the left lower lobe could be a lung abscess. The patient has been started on Levaquin, Zosyn and vancomycin. Infectious disease was consulted for further recommendation of antibiotic therapy as of today. The patient did have left-sided thoracentesis done by Dr. Sow and a chest tube placement. The pleural fluid obtained was with an LDH of 1412 and white count of gram-negative PMNs. REVIEW OF SYMPTOMS: Constitutional: Positive for weakness and some chills. Eyes: No complaint. ENT no complaint. Respiratory: As per HPI. Cardiovascular: No complaint. Genitourinary: No complaint. Gastrointestinal: No complaint. Musculoskeletal: No complaint. INTEGUMENTARY: No complaint. Psychological: No complaint. Endocrine: No complaint. NEUROLOGICAL: No complaint. PAST MEDICAL HISTORY: COPD, pneumonia, hypothyroidism. PAST SURGICAL HISTORY: Cholecystectomy, tonsillectomy and partial hysterectomy D&C. SOCIAL HISTORY: Patient currently every day smoker. Occasionally drinks. No drug use. FAMILY HISTORY: Father history of coronary artery disease. and insufficiency. ALLERGIES: TO CODEINE, PENICILLIN. MEDICATION: Medications include the patient is currently on Tylenol, DuoNeb, Xanax, Lexapro, heparin, Toradol, Levaquin, Zosyn, vancomycin 1250 q.12 hours, Narcan, morphine sulfate and Zofran. PHYSICAL EXAMINATION: Blood pressure 106/70 with a pulse of 99, temperature 98.8, T-max is 99. She is 95% on 2 L nasal cannula. General description is an elderly female up in the bed in no distress. No tachypnea or accessory muscles of respiration use. HEENT: Shows slight pallor. No scleral icterus. Oral mucosa membranes are dry. No pharyngeal erythema or thrush. Neck: Trachea is central. No thyromegaly. Lungs unlabored breathing with decreased breath sounds in the bases. No wheeze or crackles. Heart S1, S2. Regular rate and rhythm. ABDOMEN: Soft, no tenderness. No guarding. No rigidity. Extremities: No edema of the feet. Skin examination: No rash or mass palpable. Neurological: Patient is awake, alert, oriented. Mood and affect normal. LABS: Hemoglobin 8.5, admission white count was 14.6, BUN of 19, creatinine 0.95, white count has been normal. Liver enzymes have been normal. culture [place] [address], . Chest x-ray and CT report as mentioned above. DIAGNOSTIC IMPRESSION AND PLAN: Patient admitted to the hospital with left-sided pneumonia failing outpatient oral antibiotic therapy with evidence of /empyema status post chest tube placement. In view of failure of oral antibiotic, we will need to cover for resistant gram positive as well as gram-negative pathogen and less likely atypical pathogen. PLAN: 1. Vancomycin, pharmacy to dose target of 15 while watching clinical course closely and Vanco trough. 2. Zosyn 3.375 g q.8 hours and discontinue the . 3. We will follow up on clinical condition and culture to further adjust medication if needed. However in view of extensive infection, she will need a PICC line for outpatient IV antibiotic therapy. 4. Continue supportive care. MMODL / IJN: [id number] /
[2018-10-13 06:58] LABS: Basophils % (A) 0 %; Eosinophils # (A) 0.3 k/uL (0-0.7); Eosinophils % (A) 3 %; HCT 26.4 % (34.0-46.0); HGB 8.2 gm/dL (11.4-16.0); Hypochromasia Marked; Lymphocytes # (A) 0.9 k/uL (1.0-4.8); Lymphocytes % (A) 11 %; MCH 27.5 pg (25.0-35.0); MCHC 31.2 g/dL (31.0-37.0); MCV 88.1 fL (80.0-100.0); Mean Platelet Volume 6.9; Monocytes # (A) 0.5 k/uL (0-1.0); Monocytes % (A) 6 %; Neutrophils # (A) 6.5 k/uL (1.3-7.7); Neutrophils % (A) 79 %; Platelet Count 301 k/uL (150-450); RBC 2.99 m/uL (3.80-5.40); RDW 15.3 % (11.5-15.5); WBC 8.2 k/uL (3.8-10.6)
[2018-10-13 07:16] LABS: Anion Gap 1 mmol/L; Blood Urea Nitrogen 14 mg/dL (7-17); Calcium 8.3 mg/dL (8.4-10.2); Carbon Dioxide 26 mmol/L (22-30); Chloride 111 mmol/L (98-107); Glucose 102 mg/dL (74-99); Potassium 4.7 mmol/L (3.5-5.1); Sodium 138 mmol/L (137-145)
[2018-10-13] MEDS: KETOROLAC 30 MG/ML 1 ML VIAL IVP SCH ×3 (08:02→19:39)
[2018-10-13] MEDS: ESCITALOPRAM 20 MG TAB PO SCH (08:03)
[2018-10-13] MEDS: HEPARIN SODIUM,PORCINE 5,000 UNIT/ML 1 ML VIAL SQ SCH ×2 (08:03→19:22)
--- NOTE | 2018-10-13 09:24 | P.PN ---
Subjective Progress Note Date: 10/13/18 Principal diagnosis: The patient is a 68-year-old female that was admitted for sepsis secondary to a complicated pneumonia after failing previous outpatient therapy after completing 2 courses of oral antibiotics with azithromycin and clindamycin respectively. she presented with pleuritic chest pain fever and a white count of 14.6 with elevated d-dimer subsequent CTA of the chest was negative for PE but did show consolidation of the left lower lung with pleural effusion and concern for rule out abscess. She was started on empiric IV antibiotics with Levaquin and Zosyn and vancomycin. Pulmonary was consulted and a left-sided thoracentesis was performed Patient reporting some improvement left-sided pleuritic chest pain with coughing , patient has been working with her incentive spirometry achieving approximately 550 hemoglobin down approximately 3 g from presentation down to 8.2 g today, patient reports she is scheduled to have a colonoscopy later this year. patient afebrile, patient denies any lightheadedness or dizziness. Status post left thoracentesis and thoracotomy with placement of catheter having approximately 250 mL of blood-tinged purulent drainage. Patient continues to be afebrile without leukocytosis Objective - Vital Signs Vital signs: Vital Signs Temp 97.7 F 10/13/18 07:14 Pulse 84 10/13/18 07:14 Resp 16 10/13/18 07:14 BP 113/64 10/13/18 07:14 Pulse Ox 100 10/13/18 08:50 Intake & Output 10/12/18 10/13/18 10/13/18 18:59 06:59 18:59 Intake Total 1750 Output Total 190 95 Balance -190 1655 Intake: Intake, IV Titration 1150 Amount Piperacillin-Tazobactam 3 100 .375 gm In Sodium Chloride 0.9% 100 ml @ 25 mls/hr IVPB Q8H [facility]I Rx#: [id number] Sodium Chloride 0.9% 1, 800 000 ml @ 100 mls/hr IV . Q10H [facility]I Rx#:[id number] Vancomycin 1,250 mg In 250 Sodium Chloride 0.9% 250 ml @ 125 mls/hr IVPB Q12H [facility]I Rx#:[id number] Oral 600 Output: Chest Tube Drainage 190 95 Pleural Catheter Left 190 95 Posterior Chest Other: Voiding Method Toilet # Voids 3 - Exam Constitutional: No acute distress, conversant, pleasant Eyes: Anicteric sclerae, moist conjunctiva, no lid-lag, PERRLA ENMT: NC/AT,Oropharynx clear, no erythema, exudates Neck:Supple, FROM, no masses, or JVD, No carotid bruits; No thyromegaly Lungs: Left-sided pigtail catheter from thoracotomy, diminished in the bases Cardiovascular: Heart regular in rate and rhythm, No murmurs, gallops, or rubs no peripheral edema Abdominal: Soft Nontender, nom distended, no guarding, no rebound or rigidity, Normoactive bowel sounds No hepatomegaly, No splenomegaly, No palpable mass No abdominal wall hernia noted Skin: Normal temperature, tone, texture, turgor, No induration No subcutaneous nodules, No rash, lesions, No ulcers Extremities:No digital cyanosis No clubbing, Pedal pulses intact and symmetrical Radial pulses intact and symmetrical Normal gait and station, No calf tenderness Psychiatric: Alert and oriented to person, place and time, Appropriate affect Intact judgement Neuro: Muscles Strength 5/5 in all 4 extremities, Sensation to light touch grossly present throughout, Cranial nerves II-XII grossly intact. No focal sensory deficits - Labs CBC & Chem 7: 10/13/18 06:35 10/13/18 06:35 Labs: Abnormal Lab Results - Last 24 Hours (Table) 10/13/18 10/13/18 Range/Units 06:35 06:35 RBC 2.99 L (3.80-5.40) m/uL Hgb 8.2 L (11.4-16.0) gm/dL Hct 26.4 L (34.0-46.0) % Lymphocytes # 0.9 L (1.0-4.8) k/uL Chloride 111 H (98-107) mmol/L Glucose 102 H (74-99) mg/dL Calcium 8.3 L (8.4-10.2) mg/dL Microbiology - Last 24 Hours (Table) 10/10/18 18:27 Blood Culture - Preliminary Blood No Growth after 48 hours 10/11/18 12:43 Gram Stain - Preliminary Pleural Fluid Body Fluid Culture - Preliminary 10/11/18 12:43 Acid Fast Bacilli Smear - Final Pleural Fluid Acid Fast Bacilli Culture - Preliminary Assessment and Plan (1) Sepsis Narrative/Plan: * Secondary to complicated pneumonia concern for underlying lung abscess and empyema and parapneumonic effusion * Leukocytosis now resolved, continue empiric IV antibiotics with vancomycin and Zosyn and Levaquin * Appreciate ID recommendations Current Visit: Yes Status: Acute Code(s): A41.9 - SEPSIS, UNSPECIFIED ORGANISM SNOMED Code(s): 80446451 (2) Pneumonia Narrative/Plan: * Treatment regimen as above * Consult ID for further recommendations * Initiated Albuterol Atrovent DuoNeb bronchodilator breathing treatments Current Visit: Yes Status: Acute Code(s): J18.9 - PNEUMONIA, UNSPECIFIED ORGANISM SNOMED Code(s): 678700987 (3) Parapneumonic effusion Narrative/Plan: * Status post left-sided thoracentesis and thoracotomy with pigtail catheter placement * Chest CT shows a stable left-sided pleural effusion with a few tiny air bubbles with persistent consolidation approximately 2.7 cm which may represent abscess * Pleural fluid analysis consistent with parapneumonic effusion with glucose < 4, protein 4.1, LDH 1412. Pleural fluid cultures are pending, ID following Current Visit: Yes Status: Acute Code(s): J18.9 - PNEUMONIA, UNSPECIFIED ORGANISM; J91.8 - PLEURAL EFFUSION IN OTHER CONDITIONS CLASSIFIED ELSEWHERE SNOMED Code(s): 44379182 (4) Empyema Narrative/Plan: * Treatment as above Current Visit: Yes Status: Acute Code(s): J86.9 - PYOTHORAX WITHOUT FISTULA SNOMED Code(s): 806156648 (5) Normocytic anemia Narrative/Plan: * Check Hemoccult and iron studies * Continue to follow hemoglobin * We'll plan to transfuse if it drops below 7 Current Visit: Yes Status: Acute Code(s): D64.9 - ANEMIA, UNSPECIFIED SNOMED Code(s): 505321277
[2018-10-13] MEDS ORDERED: ALTEPLASE 10 MG in SODIUM CHLORIDE 0.9% 100 ML IRRIGATION ONE (10:37)
--- NOTE | 2018-10-13 11:21 | XR ---
EXAMINATION TYPE: XR chest 1V portable DATE OF EXAM: 10/13/2018 COMPARISON: 10/11/2018 INDICATION: Chest tube placement TECHNIQUE: Single frontal view of the chest is obtained. FINDINGS: The heart size is at the upper limits of normal. The pulmonary vasculature is normal. Left pleural fluid collection is present. Left lower lobe infiltrate may be present. Small right pleu ral effusion has developed. Left-sided chest tube is present in the left infrahilar region. IMPRESSION: 1. Diminished small left pleural effusion. Developing small right pleural effusion. 2. Mild infiltrate at the left base may be atelectasis. 3. No pneumothorax is evident.
[2018-10-13] MEDS: MORPHINE SULFATE 4 MG/ML SYRINGE IV PRN ×2 (12:50→21:40)
[2018-10-13] MEDS: ONDANSETRON 4 MG/2 ML VIAL IVP PRN (12:50)
[2018-10-13] MEDS ORDERED: VANCOMYCIN TROUGH DUE 1 EACH MISC MISCELLANE ONE (15:00)
[2018-10-13] MEDS ORDERED: FUROSEMIDE 10 MG/ML 4 ML VIAL IV STA (15:10)
--- NOTE | 2018-10-13 15:14 | P.PN ---
Subjective Progress Note Date: 10/13/18 Principal diagnosis: Very pleasant 68-year-old female patient with a batwing pneumonias since early August. The patient presents her primary care physician and she was having symptoms of pneumonia with cough and congestion and shortness of breath. She was initially given a course of antibiotics which she thinks was Zithromax. Subsequently, she went back as the patient was not improving and she was seen by the nurse practitioner and the patient was given another round of antibiotics. I recovery was not complete. Yesterday she came into the emergency department with a subacute pleuritic chest pain involving the left chest which progressively got worse over the past 24 hours. She was having considerable amount of pain. She was still having cough. No stiffness sputum production. She reported occasional subjective fevers and chills. She had some weight loss in order of 12 pounds over the past 2 months. No hemoptysis. She is a chronic smoker. The chest x-ray was done that showed a left lower lobe consolidation. Following that the patient a CAT scan of the chest that showed evidence of a moderate-sized left-sided pleural effusion and a left lower lobe consolidation/atelectasis. There was a rounded 3 cm area of fluid density within the posterior segment of the left lower lobe which obviously raises the concern for a lung abscess. There was no evidence of any pulmonary embolism. The patient was given IV antibiotics. The patient was given a combination of Zosyn and Levaquin and vancomycin was also added to the regimen. The patient is currently hemodynamically stable. I saw this patient the bedside. She had diminished breath on the left lung base along with some dullness to percussion. I performed a bedside thoracentesis and a turbid dark yellowish pleural effusion was drained from the left lung and the total amount was around 500 mL. The procedure done without any complications. Her current white cell count is at 14.6. Rest of the blood work and electrodes are all within normal limits. Awaiting the results from the fluid analysis. She is a chronic smoker. No history of pulmonary disease although the CAT scan of the chest showed some emphysematous changes bilaterally. The patient is seen today 10/12/2018 in follow-up on the regular medical floor. She is awake and alert in no acute distress. He is maintaining O2 saturations in the low 90s on room air. She's afebrile. She is status post left-sided thoracentesis with 500 ml's. Cultures are pending. Fluid analysis reveals glucose less than 4, protein 4100, LDH 1412. Suspect parapneumonic effusion. She has been initiated on vancomycin, Zosyn and Levaquin. Follow-up computed tomography scan of the chest revealed acute recurrent sizable left pleural effusion with persistent consolidation and rounded 2.7 cm area of low density within the consolidated lung. Intrapulmonary abscess is within the differential. There is a 3 mm right lower lobe pulmonary nodule too small to characterize as well. On 10/13/2018, the patient is being seen in follow-up. She is doing well. Her pain on the left lung has subsided. The patient is afebrile. She is post an initial thoracentesis and the fluid with a complicated parapneumonic effusion with low glucose high LDH and high protein. Obviously complicated exudate, R early empyema. Subsequent CAT scan of the chest shows atrial fibrillation of a left-sided pleural effusion possibly an abscess formation. A percutaneous catheter was inserted, a pigtail catheter and the residual fluid was removed. Output is past several hours have dropped. I reviewed the chest x-ray and there is still residual opacification of left lung base and consolidation. Based on that, I infused into the pleural TPA and will monitor this patient's progress. On today's chest x-ray there is also development of a small right- sided pleural effusion. Despite all this changes, the patient is feeling better. White cell count is down to 8.2. She is hemodynamically stable. The cultures collected from the pleural fluid are still negative for now. We'll continue to follow. She is using incentive spirometer. Objective - Vital Signs Vital signs: Vital Signs Temp 97.7 F 10/13/18 07:14 Pulse 84 10/13/18 07:14 Resp 16 10/13/18 07:14 BP 113/64 10/13/18 07:14 Pulse Ox 100 10/13/18 08:50 Intake & Output 10/12/18 10/13/18 10/13/18 18:59 06:59 18:59 Intake Total 1750 Output Total 190 95 40 Balance -190 1655 -40 Intake: Intake, IV Titration 1150 Amount Piperacillin-Tazobactam 3 100 .375 gm In Sodium Chloride 0.9% 100 ml @ 25 mls/hr IVPB Q8H [facility] Rx#: [id number] Sodium Chloride 0.9% 1, 800 000 ml @ 100 mls/hr IV . Q10H [facility] Rx#:[id number] Vancomycin 1,250 mg In 250 Sodium Chloride 0.9% 250 ml @ 125 mls/hr IVPB Q12H [facility] Rx#:[id number] Oral 600 Output: Chest Tube Drainage 190 95 40 Pleural Catheter Left 190 95 40 Posterior Chest Other: Voiding Method Toilet # Voids 3 - Exam GENERAL EXAM: Alert, active, comfortable in no apparent distress. HEAD: Normocephalic. EYES: Normal reaction of pupils, equal size. NOSE: Clear with pink turbinates. THROAT: No erythema or exudates. NECK: No masses, no JVD. CHEST: No chest wall deformity. LUNGS: Equal air entry with scattered rhonchi as, crackles in the left posterior bases. Diminished. The patient has a pigtail catheter and left lung posteriorly. This is attached to Pleur-evac. CVS: S1 and S2 normal with no audible murmur, regular rhythm. ABDOMEN: No hepatosplenomegaly, normal bowel sounds, no guarding or rigidity. SPINE: No scoliosis or deformity SKIN: No rashes CENTRAL NERVOUS SYSTEM: No focal deficits, tone is normal in all 4 extremities. EXTREMITIES: There is no peripheral edema. No clubbing, no cyanosis. Peripheral pulses are intact. - Labs CBC & Chem 7: 10/13/18 06:35 10/13/18 06:35 Labs: Abnormal Lab Results - Last 24 Hours (Table) 10/13/18 10/13/18 Range/Units 06:35 06:35 RBC 2.99 L (3.80-5.40) m/uL Hgb 8.2 L (11.4-16.0) gm/dL Hct 26.4 L (34.0-46.0) % Lymphocytes # 0.9 L (1.0-4.8) k/uL Chloride 111 H (98-107) mmol/L Glucose 102 H (74-99) mg/dL Calcium 8.3 L (8.4-10.2) mg/dL Microbiology - Last 24 Hours (Table) 10/11/18 12:43 Gram Stain - Preliminary Pleural Fluid Body Fluid Culture - Preliminary 10/10/18 18:27 Blood Culture - Preliminary Blood No Growth after 48 hours Assessment and Plan Plan: Assessment 1 left lower lobe pneumonia with consolidation and a parapneumonic loculated left-sided pleural effusion, questionable early abscess formation in the posterior segment of the left lower lobe. The patient underwent a thoracentesis with evacuation of 500 mL of turbid dark yellowish pleural fluid from the left pleural space. Fluid was a complicated parapneumonic effusion/ empyema and the cultures of been negative. The follow-up CAT scan shows reaccumulation of the pleural fluid with loculation concern for an underlying lung abscess. A pig tail catheter was inserted. The patient remains on broad- spectrum antibiotics for now 2 left-sided pleural effusion, loculated, likely parapneumonic 3 questionable left lung abscess 4 COPD 5 smoker 6 hypothyroidism Plan Suggest infusion of a intrapleural TPA and monitor the output from the pigtail catheter from the left lung. Repeat chest x-ray in the morning. Continue same antibiotic coverage. Awaiting the final cultures and sensitivities from the pleural fluid cultures. May need a follow-up CAT scan probably within next 24 hours. We'll continue to follow make further recommendations based on her progress. She will need long-term antibiotics. ID is on the case. May need a thoracoscopic evaluation F no improvement by percutaneous drainage and TPA instillation.
[2018-10-14] MEDS: MELATONIN 3 MG TABLET PO SCH ×2 (01:17→22:27)
[2018-10-14] MEDS: HEPARIN SODIUM,PORCINE 5,000 UNIT/ML 1 ML VIAL SQ SCH ×2 (01:18→09:27)
[2018-10-14] MEDS: KETOROLAC 30 MG/ML 1 ML VIAL IVP SCH ×4 (01:18→17:29)
[2018-10-14] MEDS: PIPERACILLIN-TAZOBACTAM 3.375 GM in SODIUM CHLORIDE 0.9% 100 ML IVPB SCH ×2 (04:50→12:34)
[2018-10-14] MEDS: VANCOMYCIN 1,500 MG in SODIUM CHLORIDE 0.9% 250 ML IVPB SCH ×2 (04:50→18:07)
--- NOTE | 2018-10-14 06:42 | PN ---
PROGRESS NOTE DATE OF SERVICE: 10/13/2018. REASON FOR FOLLOWUP: Left sided pneumonia and empyema. INTERVAL HISTORY: The patient is currently afebrile. She is breathing comfortably. Patient has been complaining of urinary frequency after she received. Her overall breathing has improved. Cough is decreased intensity and left-sided chest pain decreased in intensity. PHYSICAL EXAMINATION: On examination, blood pressure 124/82 with a pulse of 110, temperature 97.7. She is 92% on room air. General description is an elderly female up in the chair in no distress. RESPIRATORY SYSTEM: Unlabored breathing with decreased breath sounds at the bases. No wheeze. HEART: S1, S2. Regular rate and rhythm. ABDOMEN: Soft, no tenderness. LABS: Hemoglobin 8.2 with a white count 8.2, BUN of 14, creatinine 0.72. Cultures are currently pending. DIAGNOSTIC IMPRESSION AND PLAN: Patient with left-sided complicated pneumonia with empyema status post chest tube placement. Cultures are currently pending. The patient is covered with vancomycin and Zosyn. Will continue for now. Will monitor her clinical course closely. Continue supportive care. MMODL / IJN: [id number] /
[2018-10-14 07:51] LABS: Basophils % (A) 0 %; Eosinophils # (A) 0.1 k/uL (0-0.7); Eosinophils % (A) 2 %; HCT 27.8 % (34.0-46.0); HGB 8.8 gm/dL (11.4-16.0); Hypochromasia Slight; Lymphocytes # (A) 1.1 k/uL (1.0-4.8); Lymphocytes % (A) 15 %; MCH 27.7 pg (25.0-35.0); MCHC 31.7 g/dL (31.0-37.0); MCV 87.5 fL (80.0-100.0); Monocytes # (A) 0.6 k/uL (0-1.0); Monocytes % (A) 8 %; Neutrophils % (A) 72 %; Platelet Count 328 k/uL (150-450); RBC 3.17 m/uL (3.80-5.40); RDW 15.5 % (11.5-15.5); WBC 6.9 k/uL (3.8-10.6)
[2018-10-14] MEDS: ESCITALOPRAM 20 MG TAB PO SCH (09:17)
[2018-10-14 09:41] LABS: Iron Saturation 7.27 (12.00-45.00)
--- NOTE | 2018-10-14 09:41 | CT ---
EXAMINATION TYPE: CT chest wo con DATE OF EXAM: 10/14/2018 COMPARISON: Chest CT from 2 days ago. HISTORY: Pleural effusion. CT DLP: 289 mGycm. Automated Exposure Control for Dose Reduction was Utilized. TECHNIQUE: CT scan of the thorax is performed without IV contrast. FINDINGS: LUNGS: There is increasing size small right pleural effusion now identified with associated right bas ilar compressive atelectasis. New patchy groundglass opacities posterior right lung apex in the anter ior right lung apex are noted near axial image 7. There is interval placement of posterior pigtail dr aijudy catheter in left-sided pleural fluid collection. Small to moderate-sized left pleural fluid co llection is slightly smaller in size versus prior CT. There is associated left mid to lower lung cent ral atelectasis and/or consolidation redemonstrated. A few scattered thin-walled cysts are identified bilaterally. No suspicious nodules or masses. No new mediastinal shift. MEDIASTINUM: Lack of IV contrast is noted to limit evaluation for mediastinal and especially hilar a denopathy. There are no definitive greater than 1 cm hilar or mediastinal lymph nodes. New tiny peric ardial pericardial effusion is seen. Heart size is upper limits of normal. Coronary artery calcificat ion is redemonstrated which is noted marker for coronary artery disease. Moderate to severe Calcifica tion at level of aortic valve is redemonstrated. Stable moderate size hiatal hernia is noted. Ascendi ng aorta measures up to 3.9 cm in diameter on today's study. OTHER: No cholecystectomy clips are present. Visualized liver is heterogeneously hypodense consisten t with fatty infiltration. Slight underlying scoliotic curvature is seen. Exaggerated thoracic kyphos is is noted. IMPRESSION: 1. New percutaneous left-sided pigtail drainage catheter. Persistent small to moderate-sized left ple ural fluid collection only slightly diminished in size from prior study with associated compressive a telectasis and/or Limited consolidation. 2. Small to tiny right pleural effusion slightly larger versus prior study with associated compressiv e atelectasis. New small foci of groundglass opacity right lung apex could reflect developing infiltr ates. Correlate clinically.
[2018-10-14] MEDS ORDERED: ALTEPLASE 10 MG in SODIUM CHLORIDE 0.9% 100 ML IRRIGATION ONE (11:08)
[2018-10-14] MEDS: HYDROcodone/APAP 5-325MG 1 EACH TAB PO SCH ×3 (12:35→22:26)
--- NOTE | 2018-10-14 14:16 | P.GSCN ---
History of Present Illness Consult date: 10/14/18 Reason for Consult: Left-sided pneumonia, possible abscess, status post pigtail chest tube placement , surgical recommendations Requesting physician: Nancy Sow History of present illness: This is a 68-year-old female patient to follows on an outpatient basis with Dr. Murtaza Silver. She has a medical history of current tobacco dependence approximately half a pack a day for 50 years, COPD, pneumonia, and anxiety. Apparently she has had a dry hacking type cough since . She did see her primary care physician who prescribed antibiotics and updrafts without any relief for the patient. She began to develop pleuritic type left sided chest pain which she tolerated for a couple of days, but then the pain got so bad that she presented to [facility] emergency room on 10/10/2018. Chest x- ray was completed demonstrating a left effusion and consolidation. Computed tomography scan of the chest confirmed left-sided pleural effusion and consolidation, and there was evidence of a 3 cm density questionable as an abscess. She was diagnosed with left lower lobe pneumonia and was admitted for evaluation and treatment with consults placed for pulmonology and infectious disease. She has remained afebrile. Upon admission her white blood cell count was 14.6, now down to 6.9. Lactic acid was 1.7. She is being treated with IV vancomycin and Zosyn. On October 11 Dr. Sow performed a left sided thoracentesis with evacuation of 500 mL of dark turbid yellow pleural fluid which was sent for analysis, protein 4100, LDH 1412, glucose less than 4. Cultures remain negative at this time. Repeat computed tomography scan demonstrated continued sizable left-sided pleural effusion. Pigtail catheter was placed by interventional radiology and alteplase was instilled yesterday to break up any loculations. Repeat computed tomography scan this morning demonstrated persistent small to moderate size left pleural effusion only slightly diminished in size as well as new small right pleural effusion. Dr. Hayden from cardiothoracic surgery was consulted for surgical recommendations. Review of Systems Review of systems was completed and was negative except as noted. - Cardiovascular Reports as per HPI, Reports chest pain - Respiratory Reports as per HPI, Reports cough Past Medical History Past Medical History: COPD, Pneumonia, Thyroid Disorder History of Any Multi-Drug Resistant Organisms: None Reported Past Surgical History: Breast Surgery, Cholecystectomy, Tonsillectomy Additional Past Surgical History / Comment(s): thyroid lobectomy, partial hysterecomy, multiple D&C Past Anesthesia/Blood Transfusion Reactions: No Reported Reaction Past Psychological History: Anxiety Smoking Status: Current every day smoker Past Alcohol Use History: Occasional Past Drug Use History: None Reported - Past Family History Father Family Medical History: Coronary Artery Disease (CAD), Renal Disease Mother Family Medical History: No Reported History Medications and Allergies Home Medications Medication Instructions Recorded Confirmed Type ALPRAZolam [Xanax] 0.5 mg PO DAILY PRN 10/10/18 10/10/18 History Cyanocobalamin [Vitamin B-12 1,000 mcg SQ Q14D 10/10/18 10/10/18 History Injection] Escitalopram [Lexapro] 20 mg PO DAILY 10/10/18 10/10/18 History Allergies Allergy/AdvReac Type Severity Reaction Status Date / Time codeine AdvReac Nausea & Verified 10/10/18 16:43 Vomiting prednisone AdvReac Rapid Verified 10/10/18 16:43 Heart Rate Surgical - Exam Vital Signs Temp Pulse Resp BP Pulse Ox 98.4 F 117 H 18 105/64 94 L 10/10/18 15:34 10/10/18 15:34 10/10/18 15:34 10/10/18 15:34 10/10/18 15:34 - General well developed, well nourished, no distress, moderate pain - Eyes PERRL, normal ocular movement - ENT no hearing loss - Neck no masses, no bruits, trachea midline - Respiratory Lungs sounds very diminished on the left. Respirations even, nonlabored. Currently on 2 L nasal cannula with oxygen saturation 97%. Able to achieve 1000 mL on her incentive spirometry. Left-sided pigtail catheter present, 380 mL drainage in the last 24 hours, 950 mL total output in the atrium, no air leak present. - Cardiovascular S1, S2 present. Regular rate and rhythm. Palpable peripheral pulses bilaterally. No edema present. No calf pain or tenderness noted. - Abdomen Abdomen: soft, non tender, bowel sounds - Genitourinary Deferred - Rectum Deferred - Integumentary no rash, no growths - Neurologic normal coordination, normal sensation - Musculoskeletal normal posture - Psychiatric oriented to time, oriented to person, oriented to place, speech is normal, memory intact Results - Labs 10/14/18 06:50 10/13/18 06:35 Abnormal Lab Results - Last 24 Hours (Table) 10/13/18 10/14/18 Range/Units 06:35 06:50 RBC 3.17 L (3.80-5.40) m/uL Hgb 8.8 L (11.4-16.0) gm/dL Hct 27.8 L (34.0-46.0) % Iron 16 L (50-170) ug/dL TIBC 220 L (228-460) ug/dL Iron Saturation 7.27 L (12.00-45.00) Microbiology - Last 24 Hours (Table) 10/10/18 18:27 Blood Culture - Preliminary Blood No Growth after 72 hours 10/11/18 12:43 Gram Stain - Preliminary Pleural Fluid Body Fluid Culture - Preliminary - Imaging Chest x-ray: report reviewed, image reviewed CT scan - chest: report reviewed, image reviewed EKG: image reviewed Assessment and Plan Assessment: 1. Left-sided loculated pleural effusion status post thoracentesis, pigtail placement, questionable abscess formation 2. Left lower lobe pneumonia 3. Current tobacco dependence 4. COPD 5. Anxiety Plan: The patient was seen and examined at the bedside. Chart/diagnostics were reviewed. Alteplase was instilled again today. Continue antibiotics per infectious disease recommendations, will monitor for final culture results. Bronchodilators per pulmonology. Encourage continued incentive spirometry use. Encourage smoking cessation. Pain control per primary care service. Will discuss the case in detail with Dr. Hayden to determine if surgical intervention is warranted at this point in time. Continue medical management per primary care service. Thank you Dr. Sow for this consult. We look forward to working with you in the care of your patient. Time with Patient: Greater than 30
[2018-10-14] MEDS: IPRATROPIUM-ALBUTEROL 3 ML NEB INHALATION SCH ×2 (15:50→19:05)
--- NOTE | 2018-10-14 16:13 | P.PN ---
Subjective Progress Note Date: 10/14/18 Principal diagnosis: Left lower lobe pneumonia with consolidation in the parapneumonic loculated left-sided pleural effusion Very pleasant 68-year-old female patient with a batwing pneumonias since early August. The patient presents her primary care physician and she was having symptoms of pneumonia with cough and congestion and shortness of breath. She was initially given a course of antibiotics which she thinks was Zithromax. Subsequently, she went back as the patient was not improving and she was seen by the nurse practitioner and the patient was given another round of antibiotics. I recovery was not complete. Yesterday she came into the emergency department with a subacute pleuritic chest pain involving the left chest which progressively got worse over the past 24 hours. She was having considerable amount of pain. She was still having cough. No stiffness sputum production. She reported occasional subjective fevers and chills. She had some weight loss in order of 12 pounds over the past 2 months. No hemoptysis. She is a chronic smoker. The chest x-ray was done that showed a left lower lobe consolidation. Following that the patient a CAT scan of the chest that showed evidence of a moderate-sized left-sided pleural effusion and a left lower lobe consolidation/atelectasis. There was a rounded 3 cm area of fluid density within the posterior segment of the left lower lobe which obviously raises the concern for a lung abscess. There was no evidence of any pulmonary embolism. The patient was given IV antibiotics. The patient was given a combination of Zosyn and Levaquin and vancomycin was also added to the regimen. The patient is currently hemodynamically stable. I saw this patient the bedside. She had diminished breath on the left lung base along with some dullness to percussion. I performed a bedside thoracentesis and a turbid dark yellowish pleural effusion was drained from the left lung and the total amount was around 500 mL. The procedure done without any complications. Her current white cell count is at 14.6. Rest of the blood work and electrodes are all within normal limits. Awaiting the results from the fluid analysis. She is a chronic smoker. No history of pulmonary disease although the CAT scan of the chest showed some emphysematous changes bilaterally. The patient is seen today 10/12/2018 in follow-up on the regular medical floor. She is awake and alert in no acute distress. He is maintaining O2 saturations in the low 90s on room air. She's afebrile. She is status post left-sided thoracentesis with 500 ml's. Cultures are pending. Fluid analysis reveals glucose less than 4, protein 4100, LDH 1412. Suspect parapneumonic effusion. She has been initiated on vancomycin, Zosyn and Levaquin. Follow-up computed tomography scan of the chest revealed acute recurrent sizable left pleural effusion with persistent consolidation and rounded 2.7 cm area of low density within the consolidated lung. Intrapulmonary abscess is within the differential. There is a 3 mm right lower lobe pulmonary nodule too small to characterize as well. On 10/13/2018, the patient is being seen in follow-up. She is doing well. Her pain on the left lung has subsided. The patient is afebrile. She is post an initial thoracentesis and the fluid with a complicated parapneumonic effusion with low glucose high LDH and high protein. Obviously complicated exudate, R early empyema. Subsequent CAT scan of the chest shows atrial fibrillation of a left-sided pleural effusion possibly an abscess formation. A percutaneous catheter was inserted, a pigtail catheter and the residual fluid was removed. Output is past several hours have dropped. I reviewed the chest x-ray and there is still residual opacification of left lung base and consolidation. Based on that, I infused into the pleural TPA and will monitor this patient's progress. On today's chest x-ray there is also development of a small right- sided pleural effusion. Despite all this changes, the patient is feeling better. White cell count is down to 8.2. She is hemodynamically stable. The cultures collected from the pleural fluid are still negative for now. We'll continue to follow. She is using incentive spirometer. On 10/14/2018 patient seen in follow-up on medical surgical floor. She is resting comfortably in bed, in no acute distress, lung sounds are diminished, with some limited rales at the right base. Patient has a left-sided pigtail chest tube in place and there is a total of 760 mL of serosanguineous thin pleural fluid drainage in the Pleur-evac. She was given a dose of TPA yesterday , today we obtain a follow-up CT chest in showed resistance small to moderate- sized left pleural fluid collection which only slightly diminished in size from prior study with associated compressive atelectasis and consolidation. Small to tiny right pleural effusion slightly larger and associated compressive atelectasis. Today's labs have been reviewed, with blood cell, 6.9, hemoglobin is 8.8. Pleural fluid cultures remain negative thus far, blood culture showed no growth. Patient is on antibiotic coverage including Zosyn and vancomycin. Patient is on 2 L per nasal cannula she is maintaining O2 saturations above 90% , she is 92-97%, afebrile, hemodynamically patient is stable. Objective - Vital Signs Vital signs: Vital Signs Temp 98.2 F 10/14/18 14:34 Pulse 75 10/14/18 14:34 Resp 16 10/14/18 07:25 BP 95/63 10/14/18 14:34 Pulse Ox 92 L 10/14/18 14:34 Intake & Output 10/13/18 10/14/18 10/14/18 18:59 06:59 18:59 Intake Total 830 Output Total 100 45 520 Balance -100 785 -520 Intake: Intake, IV Titration 350 Amount Piperacillin-Tazobactam 3 100 .375 gm In Sodium Chloride 0.9% 100 ml @ 25 mls/hr IVPB Q8H [facility] Rx#: [id number] Vancomycin 1,250 mg In 250 Sodium Chloride 0.9% 250 ml @ 125 mls/hr IVPB Q12H [facility] Rx#:[id number] Oral 480 Output: Chest Tube Drainage 100 45 520 Pleural Catheter Left 100 45 520 Posterior Chest Other: Voiding Method Toilet # Voids 4 3 - Exam GENERAL EXAM: Alert, pleasant, 68-year-old white female on 2 L per nasal cannula resting in bed comfortable in no apparent distress. HEAD: Normocephalic/atraumatic. EYES: Normal reaction of pupils, equal size. Conjunctiva pink, sclera white. NOSE: Clear with pink turbinates. THROAT: No erythema or exudates. NECK: No masses, no JVD, no thyroid enlargement, no adenopathy. CHEST: No chest wall deformity. Symmetrical expansion. Left posterior pigtail chest tube connected to Pleur-evac and wall suction, 760 mL of thin serosanguineous output in the Pleur-evac LUNGS: Equal air entry sounds bilaterally, with some limited crackles at the right base CVS: Regular rate and rhythm, normal S1 and S2, no gallops, no murmurs, no rubs ABDOMEN: Soft, nontender. No hepatosplenomegaly, normal bowel sounds, no guarding or rigidity. EXTREMITIES: No clubbing, no edema, no cyanosis, 2+ pulses and upper and lower extremities. MUSCULOSKELETAL: Muscle strength and tone normal. SPINE: No scoliosis or deformity SKIN: No rashes CENTRAL NERVOUS SYSTEM: Alert and oriented -3. No focal deficits, tone is normal in all 4 extremities. PSYCHIATRIC: Alert and oriented -3. Appropriate affect. Intact judgment and insight. - Labs CBC & Chem 7: 10/14/18 06:50 10/13/18 06:35 Labs: Abnormal Lab Results - Last 24 Hours (Table) 10/13/18 10/14/18 Range/Units 06:35 06:50 RBC 3.17 L (3.80-5.40) m/uL Hgb 8.8 L (11.4-16.0) gm/dL Hct 27.8 L (34.0-46.0) % Iron 16 L (50-170) ug/dL TIBC 220 L (228-460) ug/dL Iron Saturation 7.27 L (12.00-45.00) Microbiology - Last 24 Hours (Table) 10/10/18 18:27 Blood Culture - Preliminary Blood No Growth after 72 hours 10/11/18 12:43 Gram Stain - Preliminary Pleural Fluid Body Fluid Culture - Preliminary Assessment and Plan Plan: Assessment: 1 left lower lobe pneumonia with consolidation and a parapneumonic loculated left-sided pleural effusion, questionable early abscess formation in the posterior segment of the left lower lobe. The patient underwent a thoracentesis with evacuation of 500 mL of turbid dark yellowish pleural fluid from the left pleural space. Fluid was a complicated parapneumonic effusion/ empyema and the cultures of been negative. The follow-up CAT scan shows reaccumulation of the pleural fluid with loculation concern for an underlying lung abscess. A pig tail catheter was inserted. The patient remains on broad- spectrum antibiotics for now 2 left-sided pleural effusion, loculated, likely parapneumonic 3 questionable left lung abscess 4 COPD 5 smoker 6 hypothyroidism Plan: Patient was given a dose of TPA in the left-sided chest tube yesterday, today's follow-up CT chest has been reviewed by Dr. Sow, and shows only slight decrease in size of the loculated left pleural effusion, with extensive consolidation. We will likely order another dose of TPA, consult Dr. Hayden of CT surgery. Cultures the pleural fluid remained negative thus far, clinically patient is afebrile, vital signs are stable, continue with Zosyn and vancomycin. Maintaining stable oxygenation on 2 L per nasal cannula, no worsening dyspnea, no hemoptysis, no worsening shortness of breath, continue encouraging incentive spirometer. We'll continue to follow and make further recommendations based on the clinical course I performed a history & physical examination of the patient and discussed their management with my nurse practitioner, Angelika Sharma. I reviewed the nurse practitioner's note and agree with the documented findings and plan of care. Lung sounds are positive for diminished breath sounds, with some crackles at the right base. The findings and the impression was discussed with the patient. I attest to the documentation by the nurse practitioner. Time with Patient: Less than 30
--- NOTE | 2018-10-14 17:01 | PN ---
PROGRESS NOTE DATE OF SERVICE: October 14, 2018. PRESENTING COMPLAINT: Short of breath. INTERVAL HISTORY: This patient who failed outpatient treatment for pneumonia presented with worsening pneumonia and found to have a left parapneumonic effusion. Thoracentesis of 100 mL was carried out. Now has a pigtail catheter. TPA was also placed. Pain is controlled. Tolerating some diet. Daughter at the bedside. REVIEW OF SYSTEMS: Done for constitutional, cardiovascular, GI, pulmonary; relevant findings as above. CURRENT MEDICATIONS: Reviewed that include IV Zosyn and vancomycin. PHYSICAL EXAMINATION: VITAL SIGNS: Temperature 98.2, pulse 75, respiration 16, blood pressure 95/63, pulse ox 92 percent on 2 L. GENERAL: Sitting up, not in distress. EYES: Pupils are equal. Conjunctivae normal. NECK: JVD unable to assess. Mass not palpable. RESPIRATORY: Effort increased. LUNGS: Diminished breath sounds. CARDIOVASCULAR: 1st and 2nd sounds normal. No edema. ABDOMEN: Soft, nontender. Liver and spleen not palpable. PSYCHIATRY: Alert and oriented times three. Mood and affect normal. CHEST WALL: Left chest wall pigtail catheter in place. INVESTIGATIONS: White count 6.9, hemoglobin 8.8. CT scan of the chest showing decreased left pleural effusion. ASSESSMENT: 1. Left-sided pneumonia having failed outpatient treatment with secondary parapneumonic effusion followed by thoracentesis, now pigtail catheter in place. Clinically improving. No fever. White count has come down. 2. Chronic nicotine dependence. Patient an active cigarette smoker. 3. Chronic obstructive pulmonary disease in a current smoker. 4. Hypothyroid. 5. Anxiety/depression otherwise specified. PLAN: Continue with current medication and treatment plan including IV Zosyn and vancomycin. We will change patient's DuoNeb to scheduled. Care was discussed with the patient daughter at the bedside. Follow. MMODL / IJN: [id number] /
--- NOTE | 2018-10-14 17:19 | PN ---
PROGRESS NOTE DATE OF SERVICE: 10/14/2018. REASON FOR FOLLOW UP: Left-sided pneumonia, empyema. INTERVAL HISTORY: The patient is currently afebrile. The patient is breathing comfortably. The patient pain to the left lower chest area slightly improved with pain medication. She did have some cough, not bringing up any sputum. No nausea, vomiting, or any diarrhea. PHYSICAL EXAMINATION: Blood pressure is 95/63 with pulse of 75, temperature 98.2. She is 92% on 2 L nasal cannula. General description is an elderly female, lying in bed in no distress. Respiratory system: Unlabored breathing with decreased breath sounds in the base, with no wheeze. Heart S1, S2. Regular rate and rhythm. ABDOMEN: Soft, no tenderness. Extremities are feet. LABS: Hemoglobin 8.8, white count 6.9, vanco trough of 14.1, pleural culture so far pending. DIAGNOSTIC IMPRESSION AND PLAN: Patient with left side pneumonia with empyema status post chest tube placement. Culture so far negative for any resistant pathogen. We will go ahead and discontinue the Zosyn and add Rocephin 2 g daily. Continue vancomycin. However morphine will be discontinued vancomycin and will need a PICC line for outpatient IV antibiotic therapy. Continue supportive care. MMODL / IJN: [id number] /
[2018-10-15] MEDS: SODIUM CHLORIDE 0.9% 1,000 ML IV SCH ×2 (00:07→18:38)
[2018-10-15] MEDS: VANCOMYCIN 1,500 MG in SODIUM CHLORIDE 0.9% 250 ML IVPB SCH (04:55)
[2018-10-15] MEDS: HYDROcodone/APAP 5-325MG 1 EACH TAB PO SCH ×3 (05:07→20:00)
[2018-10-15] MEDS: IPRATROPIUM-ALBUTEROL 3 ML NEB INHALATION SCH ×4 (07:21→20:16)
--- NOTE | 2018-10-15 08:11 | XR ---
EXAMINATION TYPE: XR chest 1V portable DATE OF EXAM: 10/15/2018 COMPARISON: Prior chest x-ray 10/13/2018 HISTORY: Pleural effusion and chest tube TECHNIQUE: Single frontal view of the chest is obtained. FINDINGS: Left-sided pleural drainage catheter remains in place. There is blunting the costophrenic angles. Heart remains borderline enlarged. No evident pneumothorax. Patchy basilar density again seen . IMPRESSION: Essentially stable findings. Pleural effusions. There is associated atelectasis, correla te to exclude pneumonia.
[2018-10-15] MEDS ORDERED: FUROSEMIDE 10 MG/ML 2 ML VIAL IV ONE (08:27)
[2018-10-15] MEDS ORDERED: ALTEPLASE 10 MG in SODIUM CHLORIDE 0.9% 100 ML IRRIGATION ONE (09:00)
[2018-10-15 09:18] LABS: Basophils % (A) 0 %; Eosinophils # (A) 0.3 k/uL (0-0.7); Eosinophils % (A) 3 %; HCT 32.9 % (34.0-46.0); Hypochromasia Moderate; Lymphocytes # (A) 1.2 k/uL (1.0-4.8); Lymphocytes % (A) 11 %; MCH 26.7 pg (25.0-35.0); MCHC 30.2 g/dL (31.0-37.0); MCV 88.2 fL (80.0-100.0); Mean Platelet Volume 6.2; Monocytes # (A) 1.1 k/uL (0-1.0); Monocytes % (A) 10 %; Neutrophils % (A) 74 %; Platelet Count 452 k/uL (150-450); RBC 3.73 m/uL (3.80-5.40); RDW 15.5 % (11.5-15.5); WBC 10.7 k/uL (3.8-10.6)
--- NOTE | 2018-10-15 09:57 | P.PN ---
Subjective Progress Note Date: 10/15/18 Principal diagnosis: Left-sided pneumonia, possible abscess, status post pigtail chest tube placement. Medical history of current tobacco dependence, COPD, pneumonia, and anxiety. The patient was currently sitting up in bed this morning in no significant distress, although she does complain of some pain under her left breast which she states is not as bad as when she came in, denies shortness of breath except when she gets this pain. She has been ambulatory back and forth to the bathroom without difficulty. Alteplase instilled the last 2 days with increase in drainage amount over the last 24 hours. Pleural cultures remain negative to date. Patient does remain afebrile but does have a white blood cell count today of 10.7, was 6.9 yesterday. Objective - Vital Signs Vital signs: Vital Signs Temp 98.1 F 10/15/18 01:10 Pulse 64 10/15/18 01:10 Resp 14 10/15/18 01:10 BP 91/53 10/15/18 01:10 Pulse Ox 97 10/15/18 01:10 Intake & Output 10/14/18 10/15/18 10/15/18 18:59 06:59 18:59 Output Total 670 700 50 Balance -670 -700 -50 Output: Chest Tube Drainage 670 700 50 Pleural Catheter Left 670 700 50 Posterior Chest Other: Voiding Method Toilet # Voids 3 1 - Constitutional General appearance: Present: no acute distress - Respiratory Details: Lungs sounds remained very diminished on the left. Respirations even, nonlabored. Currently on 2 L nasal cannula with oxygen saturation 97%. Able to achieve 750-1000 mL on her incentive spirometry. Left-sided pigtail catheter present, 600 mL serosanguineous drainage overnight, 850 mL drainage in the last 24 hours, no air leak present. - Cardiovascular Details: S1, S2 present. Regular rate and rhythm. Palpable peripheral pulses bilaterally. No edema present. No calf pain or tenderness noted. - Gastrointestinal Gastrointestinal Comment(s): Abdomen soft, nontender, nondistended. Active bowel sounds 4 quadrants. Tolerating diet. - Genitourinary Genitourinary Comment(s): Continues to void clear, yellow urine. - Integumentary Integumentary Comment(s): Skin is warm dry with evidence of good perfusion. - Neurologic Neurologic: Present: CNII-XII intact - Musculoskeletal Musculoskeletal: Present: gait normal, strength equal bilaterally - Psychiatric Psychiatric: Present: A&O x's 3, appropriate affect, intact judgment & insight - Allied health notes Allied health notes reviewed: nursing - Labs CBC & Chem 7: 10/15/18 08:30 10/15/18 08:30 Labs: Abnormal Lab Results - Last 24 Hours (Table) 10/13/18 Range/Units 06:35 Iron 16 L (50-170) ug/dL TIBC 220 L (228-460) ug/dL Iron Saturation 7.27 L (12.00-45.00) Microbiology - Last 24 Hours (Table) 10/10/18 18:27 Blood Culture - Preliminary Blood No Growth after 96 hours - Imaging and Cardiology Chest x-ray: report reviewed, image reviewed Assessment and Plan Assessment: 1. Left-sided loculated pleural effusion status post thoracentesis, pigtail placement, questionable abscess formation 2. Left lower lobe pneumonia 3. Current tobacco dependence 4. COPD 5. Anxiety Plan: 1. Will instill alteplase again today. Will continue to monitor output. Lasix 20 mg IV push [address] Sow. Will hold off on surgical intervention at this point as long as patient is still effectively draining. Will monitor x-rays, CTs. 2. Continue antibiotics per infectious disease recommendations, final culture results pending. 3. Bronchodilators per pulmonology. 4. Wean O2 as tolerated. Encourage incentive spirometry 10 times every hour while awake. 5. Pain control per primary care service. 6. Encourage smoking cessation. 7. DVT prophylaxis with Lovenox. 8. Will continue to monitor and make recommendations based on patient's clinical course. Time with Patient: Greater than 30
[2018-10-15] MEDS: ENOXAPARIN 40 MG/0.4 ML SYRINGE SQ SCH (10:24)
[2018-10-15] MEDS: ESCITALOPRAM 20 MG TAB PO SCH (10:25)
--- NOTE | 2018-10-15 11:12 | P.PN ---
Subjective Progress Note Date: 10/15/18 Principal diagnosis: Left lower lobe pneumonia with consolidation in the parapneumonic loculated left-sided pleural effusion Very pleasant 68-year-old female patient with a batwing pneumonias since early August. The patient presents her primary care physician and she was having symptoms of pneumonia with cough and congestion and shortness of breath. She was initially given a course of antibiotics which she thinks was Zithromax. Subsequently, she went back as the patient was not improving and she was seen by the nurse practitioner and the patient was given another round of antibiotics. I recovery was not complete. Yesterday she came into the emergency department with a subacute pleuritic chest pain involving the left chest which progressively got worse over the past 24 hours. She was having considerable amount of pain. She was still having cough. No stiffness sputum production. She reported occasional subjective fevers and chills. She had some weight loss in order of 12 pounds over the past 2 months. No hemoptysis. She is a chronic smoker. The chest x-ray was done that showed a left lower lobe consolidation. Following that the patient a CAT scan of the chest that showed evidence of a moderate-sized left-sided pleural effusion and a left lower lobe consolidation/atelectasis. There was a rounded 3 cm area of fluid density within the posterior segment of the left lower lobe which obviously raises the concern for a lung abscess. There was no evidence of any pulmonary embolism. The patient was given IV antibiotics. The patient was given a combination of Zosyn and Levaquin and vancomycin was also added to the regimen. The patient is currently hemodynamically stable. I saw this patient the bedside. She had diminished breath on the left lung base along with some dullness to percussion. I performed a bedside thoracentesis and a turbid dark yellowish pleural effusion was drained from the left lung and the total amount was around 500 mL. The procedure done without any complications. Her current white cell count is at 14.6. Rest of the blood work and electrodes are all within normal limits. Awaiting the results from the fluid analysis. She is a chronic smoker. No history of pulmonary disease although the CAT scan of the chest showed some emphysematous changes bilaterally. The patient is seen today 10/12/2018 in follow-up on the regular medical floor. She is awake and alert in no acute distress. He is maintaining O2 saturations in the low 90s on room air. She's afebrile. She is status post left-sided thoracentesis with 500 ml's. Cultures are pending. Fluid analysis reveals glucose less than 4, protein 4100, LDH 1412. Suspect parapneumonic effusion. She has been initiated on vancomycin, Zosyn and Levaquin. Follow-up computed tomography scan of the chest revealed acute recurrent sizable left pleural effusion with persistent consolidation and rounded 2.7 cm area of low density within the consolidated lung. Intrapulmonary abscess is within the differential. There is a 3 mm right lower lobe pulmonary nodule too small to characterize as well. On 10/13/2018, the patient is being seen in follow-up. She is doing well. Her pain on the left lung has subsided. The patient is afebrile. She is post an initial thoracentesis and the fluid with a complicated parapneumonic effusion with low glucose high LDH and high protein. Obviously complicated exudate, R early empyema. Subsequent CAT scan of the chest shows atrial fibrillation of a left-sided pleural effusion possibly an abscess formation. A percutaneous catheter was inserted, a pigtail catheter and the residual fluid was removed. Output is past several hours have dropped. I reviewed the chest x-ray and there is still residual opacification of left lung base and consolidation. Based on that, I infused into the pleural TPA and will monitor this patient's progress. On today's chest x-ray there is also development of a small right- sided pleural effusion. Despite all this changes, the patient is feeling better. White cell count is down to 8.2. She is hemodynamically stable. The cultures collected from the pleural fluid are still negative for now. We'll continue to follow. She is using incentive spirometer. On 10/14/2018 patient seen in follow-up on medical surgical floor. She is resting comfortably in bed, in no acute distress, lung sounds are diminished, with some limited rales at the right base. Patient has a left-sided pigtail chest tube in place and there is a total of 760 mL of serosanguineous thin pleural fluid drainage in the Pleur-evac. She was given a dose of TPA yesterday , today we obtain a follow-up CT chest in showed resistance small to moderate- sized left pleural fluid collection which only slightly diminished in size from prior study with associated compressive atelectasis and consolidation. Small to tiny right pleural effusion slightly larger and associated compressive atelectasis. Today's labs have been reviewed, with blood cell, 6.9, hemoglobin is 8.8. Pleural fluid cultures remain negative thus far, blood culture showed no growth. Patient is on antibiotic coverage including Zosyn and vancomycin. Patient is on 2 L per nasal cannula she is maintaining O2 saturations above 90% , she is 92-97%, afebrile, hemodynamically patient is stable. On 10/15/2018 patient seen in follow-up on medical surgical floor. She is sitting up in the chair, in no acute distress, currently on room air, [place] 97% , no fever or chills, hemodynamically stable, lung sounds are diminished bilaterally, even more so at the bases. Yesterday patient received additional dose of TPA per CT surgery, and there has been an additional 860 mL of thin serosanguineous pleural fluid output in the last 24 hours. Today's chest x-ray has been reviewed with Dr. Sow, and shows essentially stable findings, bilateral pleural effusions, with associated atelectasis. Labs have been reviewed, with blood cell count is 10.7, hemoglobin is 10.0, today's creatinine is 1.63, the rest of the BMP panel is pending right now, we will give the patient a dose of IV Lasix today, which is uncomfortable, in no distress, she is working on her incentive spirometer, achieving 750 ml today. Pleural fluid cultures remain negative thus far, antibiotic coverage with Rocephin and vancomycin continues. Objective - Vital Signs Vital signs: Vital Signs Temp 97.7 F 10/15/18 10:26 Pulse 66 10/15/18 10:26 Resp 16 10/15/18 10:26 BP 110/72 10/15/18 10:26 Pulse Ox 97 10/15/18 10:26 Intake & Output 10/14/18 10/15/18 10/15/18 18:59 06:59 18:59 Output Total 670 700 50 Balance -670 -700 -50 Output: Chest Tube Drainage 670 700 50 Pleural Catheter Left 670 700 50 Posterior Chest Other: Voiding Method Toilet # Voids 3 1 - Exam GENERAL EXAM: Alert, pleasant, 68-year-old white female on room air resting in bed comfortable in no apparent distress. HEAD: Normocephalic/atraumatic. EYES: Normal reaction of pupils, equal size. Conjunctiva pink, sclera white. NOSE: Clear with pink turbinates. THROAT: No erythema or exudates. NECK: No masses, no JVD, no thyroid enlargement, no adenopathy. CHEST: No chest wall deformity. Symmetrical expansion. Left posterior pigtail chest tube connected to Pleur-evac and wall suction, with thin serosanguineous output in the Pleur-evac LUNGS: Equal air entry sounds bilaterally, with some limited crackles at the right base CVS: Regular rate and rhythm, normal S1 and S2, no gallops, no murmurs, no rubs ABDOMEN: Soft, nontender. No hepatosplenomegaly, normal bowel sounds, no guarding or rigidity. EXTREMITIES: No clubbing, no edema, no cyanosis, 2+ pulses and upper and lower extremities. MUSCULOSKELETAL: Muscle strength and tone normal. SPINE: No scoliosis or deformity SKIN: No rashes CENTRAL NERVOUS SYSTEM: Alert and oriented -3. No focal deficits, tone is normal in all 4 extremities. PSYCHIATRIC: Alert and oriented -3. Appropriate affect. Intact judgment and insight. - Labs CBC & Chem 7: 10/15/18 08:30 10/15/18 08:30 Labs: Abnormal Lab Results - Last 24 Hours (Table) 10/15/18 10/15/18 Range/Units 08:30 08:30 WBC 10.7 H (3.8-10.6) k/uL RBC 3.73 L (3.80-5.40) m/uL Hgb 10.0 L (11.4-16.0) gm/dL Hct 32.9 L (34.0-46.0) % MCHC 30.2 L (31.0-37.0) g/dL Plt Count 452 H (150-450) k/uL Neutrophils # 8.0 H (1.3-7.7) k/uL Monocytes # 1.1 H (0-1.0) k/uL Creatinine 1.63 H (0.52-1.04) mg/dL Microbiology - Last 24 Hours (Table) 10/11/18 12:43 Gram Stain - Final Pleural Fluid Body Fluid Culture - Final 10/10/18 18:27 Blood Culture - Preliminary Blood No Growth after 96 hours Assessment and Plan Plan: Assessment: 1 left lower lobe pneumonia with consolidation and a parapneumonic loculated left-sided pleural effusion, questionable early abscess formation in the posterior segment of the left lower lobe. The patient underwent a thoracentesis with evacuation of 500 mL of turbid dark yellowish pleural fluid from the left pleural space. Fluid was a complicated parapneumonic effusion/ empyema and the cultures of been negative. The follow-up CAT scan shows reaccumulation of the pleural fluid with loculation concern for an underlying lung abscess. A pig tail catheter was inserted. The patient remains on broad- spectrum antibiotics for now 2 left-sided pleural effusion, loculated, likely parapneumonic, post left pigtail chest tube insertion, patient has received 2 doses of TPA, with significant amount of output, a total of 1620 ML of thin serosanguineous pleural fluid in the last 48 hours after the TPA infusion. Cultures remained negative thus far, current antibiotic coverage with Rocephin and vancomycin. Cytology showed no malignant cells. 3 questionable left lung abscess 4 COPD 5 smoker 6 hypothyroidism Plan: Continue current antibiotic coverage, cultures remain negative thus far, cytology was negative, patient will be given a dose of IV Lasix today, today's chest x-ray has been reviewed by Dr. Sow, showed bilateral pleural effusions, and adjacent atelectasis, there has been significant amount of drainage out of the left pleural chest tube after the repeat dose of TPA yesterday. The patient is doing good, continue encouraging deep breathing and coughing, she is on room air. Repeat CT chest tomorrow. I performed a history & physical examination of the patient and discussed their management with my nurse practitioner, Angelika Sharma. I reviewed the nurse practitioner's note and agree with the documented findings and plan of care. Lung sounds are positive for diminished breath sounds, with some crackles at the right base. The findings and the impression was discussed with the patient. I attest to the documentation by the nurse practitioner. Time with Patient: Less than 30
[2018-10-15] MEDS: ONDANSETRON 4 MG/2 ML VIAL IVP PRN (13:16)
[2018-10-15] MEDS ORDERED: VANCOMYCIN TROUGH DUE 1 EACH MISC MISCELLANE ONE (15:00)
[2018-10-15] MEDS ORDERED: VANCOMYCIN IV PER PHARMACY 1 EACH MISC MISCELLANE PRN (15:52)
[2018-10-15] MEDS: ACETAMINOPHEN TAB 325 MG TAB PO PRN (18:44)
[2018-10-15] MEDS: MELATONIN 3 MG TABLET PO SCH (20:01)
--- NOTE | 2018-10-15 20:20 | PN ---
PROGRESS NOTE DATE OF SERVICE: 10/15/2018 PRESENTING COMPLAINT: Tired. INTERVAL HISTORY: This is a patient who failed outpatient treatment for pneumonia and presented with worsening respiratory symptoms and a left parapneumonic effusion. Thoracentesis was initially carried out. Patient has a pigtail catheter; tPA x2 was done. Good output. Some pain is present. Did tolerate some diet. Fevers have been down. The patient was not able to tolerate bronchodilators, getting bouts of cough; hence did not take it. REVIEW OF SYSTEMS: Done for constitutional, cardiovascular, GI, pulmonary; relevant findings as above. CURRENT MEDICATIONS: Reviewed. They include IV ceftriaxone. PHYSICAL EXAMINATION: VITAL SIGNS: Temperature 97.7, pulse 66, respiration 16, blood pressure 110/72, pulse ox 97% on room air. GENERAL APPEARANCE: Propped up, sitting up. Awake. EYES: Pupils equal. Conjunctivae normal. HEENT: External appearance of nose and ears normal. Oral cavity normal. NECK: JVD unable to assess. Mass not palpable. RESPIRATORY: Effort increased. LUNGS: Diminished breath sounds. CARDIOVASCULAR: First and second sounds normal. No edema. ABDOMEN: Soft, nontender. Liver and spleen not palpable. PSYCHIATRY: Alert and oriented x3. Mood and affect normal. CHEST WALL: Left-sided pigtail catheter in place. INVESTIGATIONS: White count 10.7, hemoglobin 10, creatinine 1.63. Vancomycin level 36.4. Chest x-ray film, personally reviewed by me, shows bilateral pleural effusion, left greater than right. ASSESSMENT: 1. Left-sided pneumonia, having failed outpatient treatment, with secondary parapneumonic effusion, followed by thoracentesis with a pigtail catheter in place, tPA x2 with a good output, overall slow to respond. 2. Chronic nicotine dependence. Patient is an active cigarette smoker. 3. Chronic obstructive pulmonary disease in a current smoker. 4. Hypothyroid. 5. Anxiety and depression not otherwise specified. PLAN: Continue current medication and treatment plan. Antibiotic will be changed to ceftriaxone. Patient's pleural fluid cultures remain negative. Care was discussed with the patient. Patient has had a fair amount of output through the chest tube following tPA. MMODL / IJN: [id number] /
[2018-10-16] MEDS: HYDROcodone/APAP 5-325MG 1 EACH TAB PO SCH ×4 (00:10→16:33)
[2018-10-16] MEDS: SODIUM CHLORIDE 0.9% 1,000 ML IV SCH ×2 (04:00→21:52)
--- NOTE | 2018-10-16 05:29 | PN ---
PROGRESS NOTE DATE OF SERVICE: 10/15/2018 REASON FOR FOLLOWUP: Left-sided empyema. INTERVAL HISTORY: The patient is afebrile. The patient is breathing slightly comfortably. The left-sided chest pain, slight decreased in intensity. Minimal cough, not bringing up any sputum. No nausea, no vomiting. No abdominal pain. No diarrhea. PHYSICAL EXAMINATION: On examination, blood pressure is 99/68 with a pulse of 82, temperature 98.4. She is 93% on room air. General description is an elderly female up in the chair in no distress. RESPIRATORY SYSTEM: Unlabored breathing, decreased breath sounds at the bases. No wheeze. HEART: S1, S2. Regular rate and rhythm. ABDOMEN: Soft, no tenderness. LABS: Hemoglobin is 10, white count is 10.7. Vanco trough elevated 36.4. DIAGNOSTIC IMPRESSION AND PLAN: Patient with left-sided pneumonia and empyema, status post chest tube placement. Culture has been negative for resistant pathogen so far. We will keep the patient on Rocephin. Discontinue vancomycin and monitor her kidney function closely. Continue with supportive care. MMODL / IJN: [id number] /
--- NOTE | 2018-10-16 08:04 | CT ---
EXAMINATION TYPE: CT chest tube insertion DATE OF EXAM: 10/12/2018 COMPARISON: 10/12/2018 HISTORY: Chest tube insertion CT DLP: 466 mGycm The procedure is discussed with the patient, the risks, complications, benefits and alternatives, wer e discussed and any questions were answered. Informed consent was obtained. The patient is placed p marko on the CT table, prepped and draped in the usual sterile fashion. Utilizing a 22-gauge Chiba needle access into the left pleural space was achieved with placement of a n 018 wire. There is conversion to an O.035 system and serial dilation 8 Pashto with placement 8 Fren ch drainage tube.. Repeat imaging demonstrated ideal placement of chest tube. Sample sent to pathology for analysis. All elements of maximal barrier and sterile technique were ut ilized. The patient remained stable throughout the procedure with no immediate postprocedural compli cation. IMPRESSION: 1. Successful CT guided fine left-sided chest tube placement for empyema
[2018-10-16] MEDS: ESCITALOPRAM 20 MG TAB PO SCH (09:13)
[2018-10-16] MEDS: ENOXAPARIN 40 MG/0.4 ML SYRINGE SQ SCH (09:13)
[2018-10-16] MEDS: IPRATROPIUM-ALBUTEROL 3 ML NEB INHALATION SCH ×4 (09:47→19:10)
[2018-10-16 09:58] LABS: Calcium 8.8 mg/dL (8.4-10.2); Potassium 4.3 mmol/L (3.5-5.1)
--- NOTE | 2018-10-16 10:28 | CT ---
EXAMINATION TYPE: CT chest wo con DATE OF EXAM: 10/16/2018 COMPARISON: 10/14/2018 HISTORY: Follow up to chest tube progress CT DLP: 305.2 mGycm, Automated exposure control for dose reduction was used. CONTRAST: Performed injected with 0 mL of Isovue 300. TECHNIQUE: Axial images were obtained at 5 mm thick sections. Reconstructed images are reviewed on [employer] computer in the coronal plane. FINDINGS: Thyroid is not included within the [id number]-cx-ecab. There is a small right pleural effusion which may be slightly diminished over the interval. There is a loculated left pleural effusion with scattered air. This is similar in size to the prior study. A d rainage catheter is present posteriorly. Some adjacent compressive atelectasis is likely present. Cor relate for pneumonia. Moderate size paraesophageal hernia is present. This could be a morganii hernia. No enlarged mediastinal or hilar adenopathy is evident. There are multiple scattered small lymph no adrianne within the pretracheal space, aortopulmonic window, and peribronchial regions. The ascending aort a diameter at the level of the main pulmonary artery is 4.0 cm. The main pulmonary artery diameter a t the bifurcation is 2.6 cm. Coronary artery calcification is present. Small to moderate pericardial effusion is present. There is a focal area of infiltrate within the posterior lateral right apex extending to the pleural margin measuring approximately 3.5 x 2.3 cm. This was present previously. Infection scarring and mass could be considered. Couple of scattered blebs are present. There is a 0.4 cm nodule within the posterior lateral right lower lobe. Series 201 image [address] ows. Limited CT sections are obtained through the upper abdomen. Abdomen is essentially unremarkable. IMPRESSIONS: 1. Pigtail catheter within the posterior left pleural fluid collection. Scattered air is within this fluid collection. Consider empyema. 2. Small right pleural effusion. 3. 0.4 cm nodule posterior lateral right lobe. 4. Shotty lymphadenopathy throughout the mediastinum. No enlarged mediastinal lymph nodes are present . 5. Ascending thoracic aorta is 4.0 cm. 6. 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
[2018-10-16] MEDS ORDERED: ALTEPLASE 10 MG in SODIUM CHLORIDE 0.9% 100 ML IRRIGATION ONE (11:02)
[2018-10-16] MEDS: ONDANSETRON 4 MG/2 ML VIAL IVP PRN ×2 (11:51→21:18)
--- NOTE | 2018-10-16 11:59 | P.PN ---
Subjective Progress Note Date: 10/16/18 Principal diagnosis: Left-sided pneumonia, possible abscess, status post pigtail chest tube placement. Medical history of current tobacco dependence, COPD, pneumonia, and anxiety. The patient is currently lying in bed with her head elevated. She is in no acute distress. She is complaining of some minor left lower chest pain rating her pain 2 out of 10 on the pain scale. She reports that the pain is much improved today. She denies any complaints of shortness of breath although she is on oxygen 2 L nasal cannula with oxygen saturations 96%. Alteplase has been instilled in the last 3 days with 250 mL of serosanguineous drainage in the last 24 hours. The patient remains afebrile. She reports she has been ambulating in her room with minimal assistance. She did have a computed tomography scan of her chest completed today with results pending. Objective - Vital Signs Vital signs: Vital Signs Temp 98.2 F 10/16/18 09:08 Pulse 74 10/16/18 09:08 Resp 16 10/16/18 09:08 BP 111/73 10/16/18 09:08 Pulse Ox 96 10/16/18 09:08 Intake & Output 10/15/18 10/16/18 10/16/18 18:59 06:59 18:59 Intake Total 240 220 240 Output Total 155 95 20 Balance 85 125 220 Intake: Intake, IV Titration 70 Amount Sodium Chloride 0.9% 1, 70 000 ml @ 10 mls/hr IV . Q24H [facility] Rx#:[id number] Oral 240 150 240 Output: Chest Tube Drainage 155 95 20 Pleural Catheter Left 155 95 20 Posterior Chest Other: Voiding Method Toilet # Voids 2 3 - Constitutional General appearance: Present: cooperative, no acute distress, obese - Respiratory Details: Lung sounds are diminished to her bilateral bases left greater than right. Respirations are symmetrical and nonlabored. Oxygen saturation are 96% on 2 L nasal cannula. She is achieving 750 mL on her incentive spirometry. Left- sided pigtail catheter in place and draining thin serosanguineous drainage. No air leak is present. Continuous low wall suction in place -20 cm H2O. 250 mL output in the last 24 hours. - Cardiovascular Details: Regular rhythm and rate. S1 and S2 present, with positive systolic heart murmur 3/6. No edema present. - Gastrointestinal Gastrointestinal Comment(s): Abdomen is soft, nontender and nondistended. Active bowel sounds to all 4 abdominal quadrants. Tolerating oral intake. No guarding or rigidity. No organomegaly. - Genitourinary Genitourinary Comment(s): Voiding clear yellow urine. - Integumentary Integumentary Comment(s): Skin is warm and dry. No clubbing or cyanosis is present. No rash or abnormal pigmentation is present. Left pigtail catheter in place, dressing clean, dry and intact. - Neurologic Neurologic: Present: CNII-XII intact - Musculoskeletal Musculoskeletal: Present: gait normal, strength equal bilaterally - Psychiatric Psychiatric: Present: A&O x's 3, appropriate affect, intact judgment & insight - Labs CBC & Chem 7: 10/15/18 08:30 10/16/18 08:36 Labs: Abnormal Lab Results - Last 24 Hours (Table) 10/15/18 10/16/18 Range/Units 14:55 08:36 Creatinine 2.49 H (0.52-1.04) mg/dL Glucose 131 H (74-99) mg/dL Vancomycin Trough 36.4 H* ug/mL Microbiology - Last 24 Hours (Table) 10/10/18 18:27 Blood Culture - Preliminary Blood No Growth after 120 hours 10/11/18 12:43 Gram Stain - Final Pleural Fluid Body Fluid Culture - Final - Imaging and Cardiology CT scan - chest: image reviewed Assessment and Plan Assessment: 1. Left-sided loculated pleural effusion status post thoracentesis, pigtail placement, questionable abscess formation 2. Left lower lobe pneumonia 3. Current tobacco dependence 4. COPD 5. Anxiety Plan: 1. Will instill alteplase again today. Will continue to monitor output. Dr. Hayden will review the CAT scan of his chest results tomorrow with recommendations on surgical intervention versus medical treatment. 2. Continue antibiotics per infectious disease recommendations, final culture results pending. 3. Bronchodilators per pulmonology. 4. Wean O2 as tolerated. Encourage incentive spirometry 10 times every hour while awake. 5. Pain control per primary care service. 6. Encourage smoking cessation. 7. DVT prophylaxis with Lovenox. 8. We will order a 2-D echocardiogram to assess the patient's murmur. 9. Further recommendations to follow based on patient's clinical course. Time with Patient: Greater than 30
--- NOTE | 2018-10-16 15:44 | P.PN ---
Subjective Progress Note Date: 10/16/18 Principal diagnosis: Left lower lobe pneumonia with consolidation in the parapneumonic loculated left-sided pleural effusion Very pleasant 68-year-old female patient with a batwing pneumonias since early August. The patient presents her primary care physician and she was having symptoms of pneumonia with cough and congestion and shortness of breath. She was initially given a course of antibiotics which she thinks was Zithromax. Subsequently, she went back as the patient was not improving and she was seen by the nurse practitioner and the patient was given another round of antibiotics. I recovery was not complete. Yesterday she came into the emergency department with a subacute pleuritic chest pain involving the left chest which progressively got worse over the past 24 hours. She was having considerable amount of pain. She was still having cough. No stiffness sputum production. She reported occasional subjective fevers and chills. She had some weight loss in order of 12 pounds over the past 2 months. No hemoptysis. She is a chronic smoker. The chest x-ray was done that showed a left lower lobe consolidation. Following that the patient a CAT scan of the chest that showed evidence of a moderate-sized left-sided pleural effusion and a left lower lobe consolidation/atelectasis. There was a rounded 3 cm area of fluid density within the posterior segment of the left lower lobe which obviously raises the concern for a lung abscess. There was no evidence of any pulmonary embolism. The patient was given IV antibiotics. The patient was given a combination of Zosyn and Levaquin and vancomycin was also added to the regimen. The patient is currently hemodynamically stable. I saw this patient the bedside. She had diminished breath on the left lung base along with some dullness to percussion. I performed a bedside thoracentesis and a turbid dark yellowish pleural effusion was drained from the left lung and the total amount was around 500 mL. The procedure done without any complications. Her current white cell count is at 14.6. Rest of the blood work and electrodes are all within normal limits. Awaiting the results from the fluid analysis. She is a chronic smoker. No history of pulmonary disease although the CAT scan of the chest showed some emphysematous changes bilaterally. The patient is seen today 10/12/2018 in follow-up on the regular medical floor. She is awake and alert in no acute distress. He is maintaining O2 saturations in the low 90s on room air. She's afebrile. She is status post left-sided thoracentesis with 500 ml's. Cultures are pending. Fluid analysis reveals glucose less than 4, protein 4100, LDH 1412. Suspect parapneumonic effusion. She has been initiated on vancomycin, Zosyn and Levaquin. Follow-up computed tomography scan of the chest revealed acute recurrent sizable left pleural effusion with persistent consolidation and rounded 2.7 cm area of low density within the consolidated lung. Intrapulmonary abscess is within the differential. There is a 3 mm right lower lobe pulmonary nodule too small to characterize as well. On 10/13/2018, the patient is being seen in follow-up. She is doing well. Her pain on the left lung has subsided. The patient is afebrile. She is post an initial thoracentesis and the fluid with a complicated parapneumonic effusion with low glucose high LDH and high protein. Obviously complicated exudate, R early empyema. Subsequent CAT scan of the chest shows atrial fibrillation of a left-sided pleural effusion possibly an abscess formation. A percutaneous catheter was inserted, a pigtail catheter and the residual fluid was removed. Output is past several hours have dropped. I reviewed the chest x-ray and there is still residual opacification of left lung base and consolidation. Based on that, I infused into the pleural TPA and will monitor this patient's progress. On today's chest x-ray there is also development of a small right- sided pleural effusion. Despite all this changes, the patient is feeling better. White cell count is down to 8.2. She is hemodynamically stable. The cultures collected from the pleural fluid are still negative for now. We'll continue to follow. She is using incentive spirometer. On 10/14/2018 patient seen in follow-up on medical surgical floor. She is resting comfortably in bed, in no acute distress, lung sounds are diminished, with some limited rales at the right base. Patient has a left-sided pigtail chest tube in place and there is a total of 760 mL of serosanguineous thin pleural fluid drainage in the Pleur-evac. She was given a dose of TPA yesterday , today we obtain a follow-up CT chest in showed resistance small to moderate- sized left pleural fluid collection which only slightly diminished in size from prior study with associated compressive atelectasis and consolidation. Small to tiny right pleural effusion slightly larger and associated compressive atelectasis. Today's labs have been reviewed, with blood cell, 6.9, hemoglobin is 8.8. Pleural fluid cultures remain negative thus far, blood culture showed no growth. Patient is on antibiotic coverage including Zosyn and vancomycin. Patient is on 2 L per nasal cannula she is maintaining O2 saturations above 90% , she is 92-97%, afebrile, hemodynamically patient is stable. On 10/15/2018 patient seen in follow-up on medical surgical floor. She is sitting up in the chair, in no acute distress, currently on room air, [place] 97% , no fever or chills, hemodynamically stable, lung sounds are diminished bilaterally, even more so at the bases. Yesterday patient received additional dose of TPA per CT surgery, and there has been an additional 860 mL of thin serosanguineous pleural fluid output in the last 24 hours. Today's chest x-ray has been reviewed with Dr. Sow, and shows essentially stable findings, bilateral pleural effusions, with associated atelectasis. Labs have been reviewed, with blood cell count is 10.7, hemoglobin is 10.0, today's creatinine is 1.63, the rest of the BMP panel is pending right now, we will give the patient a dose of IV Lasix today, which is uncomfortable, in no distress, she is working on her incentive spirometer, achieving 750 ml today. Pleural fluid cultures remain negative thus far, antibiotic coverage with Rocephin and vancomycin continues. On 10/16/2018 patient seen in follow-up on medical surgical floor. She is resting comfortably in bed, she received on dose of TPA yesterday, there has been additional 250 mL of serosanguineous pleural drainage in the last 24 hours. Follow-up chest CT shows pigtail catheter within the posterior left pleural fluid collection, and scattered air within the fluid collection within the compressive atelectasis. Today's lab work has been reviewed, electrodes are within normal limits, however renal profile has worsened, BUN is 15, and creatinine is up to 2.49, vancomycin was discontinued yesterday, yesterday patient did receive a dose of IV Lasix. She did produce 1300 mL of urine output yesterday, clinically patient is comfortable, she is on 2 L per nasal cannula she is ambulating around the room, in no acute distress, afebrile. Pleural fluid cultures remain negative thus far. Antibiotic coverage with Rocephin. Objective - Vital Signs Vital signs: Vital Signs Temp 98.2 F 10/16/18 09:08 Pulse 74 10/16/18 09:08 Resp 16 10/16/18 09:08 BP 111/73 10/16/18 09:08 Pulse Ox 96 10/16/18 09:08 Intake & Output 10/15/18 10/16/18 10/16/18 18:59 06:59 18:59 Intake Total 240 220 240 Output Total 155 95 40 Balance 85 125 200 Intake: Intake, IV Titration 70 Amount Sodium Chloride 0.9% 1, 70 000 ml @ 75 mls/hr IV . [id number] [facility] Rx#:[id number] Oral 240 150 240 Output: Chest Tube Drainage 155 95 40 Pleural Catheter Left 155 95 40 Posterior Chest Other: Voiding Method Toilet # Voids 2 3 2 - Exam GENERAL EXAM: Alert, pleasant, 68-year-old white female on room air resting in bed comfortable in no apparent distress. HEAD: Normocephalic/atraumatic. EYES: Normal reaction of pupils, equal size. Conjunctiva pink, sclera white. NOSE: Clear with pink turbinates. THROAT: No erythema or exudates. NECK: No masses, no JVD, no thyroid enlargement, no adenopathy. CHEST: No chest wall deformity. Symmetrical expansion. Left posterior pigtail chest tube connected to Pleur-evac and wall suction, with thin serosanguineous output in the Pleur-evac LUNGS: Equal air entry sounds bilaterally, with some limited crackles at the right base CVS: Regular rate and rhythm, normal S1 and S2, no gallops, no murmurs, no rubs ABDOMEN: Soft, nontender. No hepatosplenomegaly, normal bowel sounds, no guarding or rigidity. EXTREMITIES: No clubbing, no edema, no cyanosis, 2+ pulses and upper and lower extremities. MUSCULOSKELETAL: Muscle strength and tone normal. SPINE: No scoliosis or deformity SKIN: No rashes CENTRAL NERVOUS SYSTEM: Alert and oriented -3. No focal deficits, tone is normal in all 4 extremities. PSYCHIATRIC: Alert and oriented -3. Appropriate affect. Intact judgment and insight. - Labs CBC & Chem 7: 10/15/18 08:30 10/16/18 08:36 Labs: Abnormal Lab Results - Last 24 Hours (Table) 10/15/18 10/16/18 Range/Units 14:55 08:36 Creatinine 2.49 H (0.52-1.04) mg/dL Glucose 131 H (74-99) mg/dL Vancomycin Trough 36.4 H* ug/mL Microbiology - Last 24 Hours (Table) 10/10/18 18:27 Blood Culture - Preliminary Blood No Growth after 120 hours Assessment and Plan Plan: Assessment: 1 left lower lobe pneumonia with consolidation and a parapneumonic loculated left-sided pleural effusion, questionable early abscess formation in the posterior segment of the left lower lobe. The patient underwent a thoracentesis with evacuation of 500 mL of turbid dark yellowish pleural fluid from the left pleural space. Fluid was a complicated parapneumonic effusion/ empyema and the cultures of been negative. The follow-up CAT scan shows reaccumulation of the pleural fluid with loculation concern for an underlying lung abscess. A pig tail catheter was inserted. The patient remains on broad- spectrum antibiotics for now 2 left-sided pleural effusion, loculated, likely parapneumonic, post left pigtail chest tube insertion, patient has received 2 doses of TPA, with significant amount of output, a total of 1620 ML of thin serosanguineous pleural fluid in the last 48 hours after the TPA infusion. Cultures remained negative thus far, current antibiotic coverage with Rocephin and vancomycin. Cytology showed no malignant cells. 3 questionable left lung abscess 4 acute kidney injury related to combination of diuretics, and vancomycin 5 COPD 6 smoker 7 hypothyroidism Plan: Continue current antibiotic coverage, vancomycin has been discontinued, IV hydration at a rate of 75 ML per hour. Patient was received another dose of TPA. Today's CT chest has been reviewed with Dr. Sow, showed persistent consolidation in the left lower lobe, and the pigtail catheter within the left pleural fluid collection, patient had a more modest output in last 24 hours after the last dose of TPA, will be given another dose of TPA today. CT surgery is following, and there is a likelihood that patient may need decortication. We'll hold off on diuretics, encourage deep breathing and coughing. I performed a history & physical examination of the patient and discussed their management with my nurse practitioner, Angelika Sharma. I reviewed the nurse practitioner's note and agree with the documented findings and plan of care. Lung sounds are positive for diminished breath sounds, with some crackles at the right base. The findings and the impression was discussed with the patient. I attest to the documentation by the nurse practitioner. Time with Patient: Less than 30
--- NOTE | 2018-10-16 16:55 | ECHOF ---
Referral Reason:Systolic heart murmur MEASUREMENTS -------- HEIGHT: 170.2 cm WEIGHT: 75.3 kg BP: 111/73 RVIDd: 2.1 cm (< 3.3) IVSd: 1.2 cm (0.6 - 1.1) LVIDd: 4.5 cm (3.9 - 5.3) LVPWd: 1.2 cm (0.6 - 1.1) IVSs: 1.5 cm LVIDs: 3.1 cm LVPWs: 1.6 cm LA Diam: 1.8 cm (2.7 - 3.8) Ao Diam: 3.2 cm (2.0 - 3.7) AV Cusp: 1.1 cm (1.5 - 2.6) LA Diam: 2.0 cm (2.7 - 3.8) MV E Alfonso: 0.98 m/s MV DecT: 258 ms MV A Alfonso: 1.28 m/s MV E/A Ratio: 0.76 AV maxP.36 mmHg AV meanP.38 mmHg RAP: 5.00 mmHg RVSP: 60.50 mmHg MV EF SLOPE: 98.71 mm/s (70 - 150) MV EXCURSION: 1.82 cm (> 18.000) FINDINGS -------- Sinus rhythm. This was a technically adequate study. The left ventricular size is normal. There is mild concentric left ventricular hypertrophy. Overa ll left ventricular systolic function is normal with, an EF between 55 - 60 %. The right ventricle is normal in size and function. The left atrial size is normal. RA appears enlarged. 3 ml of Lumason was utilized for enhancement of images. There is moderate to severe aortic valve sclerosis. There is no evidence of aortic regurgitation. There is severe aortic stenosis present. Peak/mean gradient across the Aortic Valve is 84.36mmHg / 55.38mmHg. The mitral valve leaflets are mildly thickened. Mild mitral annular calcification present. Mild m itral regurgitation is present. There is moderately calcified chordae. Mild tricuspid regurgitation present. There is moderate pulmonary hypertension. The right ventric ular systolic pressure, as measured by Doppler, is 60.50mmHg. The pulmonic valve was not well visualized. The aortic root size is normal. Normal inferior vena cava with normal inspiratory collapse consistent with estimated right atrial pre ssure of 5 mmHg. There is a small, generalized pericardial effusion present. CONCLUSIONS -------- 1. Sinus rhythm. 2. This was a technically adequate study. 3. The left ventricular size is normal. 4. There is mild concentric left ventricular hypertrophy. 5. Overall left ventricular systolic function is normal with, an EF between 55 - 60 %. 6. The left atrial size is normal. 7. RA appears enlarged. 8. 3 ml of Lumason was utilized for enhancement of images. 9. There is moderate to severe aortic valve sclerosis. 10. There is severe aortic stenosis present. 11. Peak/mean gradient across the Aortic Valve is 84.36mmHg / 55.38mmHg. 12. The mitral valve leaflets are mildly thickened. 13. Mild mitral annular calcification present. 14. Mild mitral regurgitation is present. 15. There is moderately calcified chordae. 16. Mild tricuspid regurgitation present. 17. There is moderate pulmonary hypertension. 18. The right ventricular systolic pressure, as measured by Doppler, is 60.50mmHg. 19. The pulmonic valve was not well visualized. 20. The aortic root size is normal. 21. There is a small, generalized pericardial effusion present. TIRE TESTER: Chavo Nieves RDCS
[2018-10-16] MEDS: MELATONIN 3 MG TABLET PO SCH (21:18)
[2018-10-17] MEDS: HYDROcodone/APAP 5-325MG 1 EACH TAB PO SCH ×5 (00:16→23:51)
[2018-10-17] MEDS: ALPRAZolam 0.5 MG TAB PO PRN ×2 (00:17→17:46)
--- NOTE | 2018-10-17 05:24 | PN ---
PROGRESS NOTE DATE OF SERVICE: 10/16/2018 REASON FOR FOLLOWUP: Left-sided pneumonia and empyema. INTERVAL HISTORY: The patient is currently afebrile. The patient is breathing comfortably. The patient denies having any worsening chest pain. He did have some cough which is dry in nature. No nausea, no vomiting. No abdominal pain and no diarrhea. PHYSICAL EXAMINATION: On examination, blood pressure 104/63 with a pulse of 81, temperature 98.6. She is 95% 2 L nasal cannula. General description is an elderly female up in the bed in no distress. RESPIRATORY SYSTEM: Unlabored breathing with decreased breath sounds at the bases. HEART: S1, S2. Regular rate and rhythm. ABDOMEN: Soft, no tenderness. LABS: Creatinine is 2.49 today. The pleural fluid cultures have been negative. DIAGNOSTIC IMPRESSION AND PLAN: Patient with left-sided pneumonia with empyema status post chest tube and the patient's cultures remain negative. Patient is currently on Rocephin. Vancomycin discontinued yesterday. She did have a jump in her creatinine. We will monitor closely. IV fluid has been added and avoid any nephrotoxic . Continue supportive care. MMODL / IJN: [id number] /
--- NOTE | 2018-10-17 08:21 | XR ---
EXAMINATION TYPE: XR chest 1V portable DATE OF EXAM: 10/17/2018 CLINICAL HISTORY: Left-sided effusion with pigtail catheter. TECHNIQUE: Single AP portable upright view of the chest is obtained. COMPARISON: Chest x-ray from [address] chest from yesterday. FINDINGS: There is redemonstration of posterior left mid to lower lung pigtail pleural drainage kiera ter. There is improving left basilar opacity. There are however persistent bibasilar opacities. Cardi ac silhouette size is stable and mildly enlarged. Osseous structures are intact. IMPRESSION: Cardiomegaly with small bilateral pleural effusions remain present. Improved aeration manuel r location of left pigtail pleural drainage catheter.
[2018-10-17 08:38] LABS: Calcium 8.3 mg/dL (8.4-10.2); Potassium 4.5 mmol/L (3.5-5.1)
[2018-10-17] MEDS: IPRATROPIUM-ALBUTEROL 3 ML NEB INHALATION SCH ×4 (08:57→20:40)
--- NOTE | 2018-10-17 09:38 | P.PN ---
Subjective Progress Note Date: 10/17/18 Principal diagnosis: Left-sided pneumonia, possible abscess, status post pigtail chest tube placement. Medical history of current tobacco dependence, COPD, pneumonia, and anxiety. The patient was currently sitting up in bed this morning in no significant distress, although she does complain of some pain under her left breast which she states is not as bad as when she came in, denies shortness of breath except when she gets this pain. She has been ambulatory back and forth to the bathroom without difficulty. Alteplase instilled the last 3 days with increase in drainage amount over the last 24 hours. Pleural cultures remain negative to date. Patient does remain afebrile. Objective - Vital Signs Vital signs: Vital Signs Temp 98.3 F 10/17/18 07:00 Pulse 75 10/17/18 07:00 Resp 16 10/17/18 07:00 BP 105/65 10/17/18 07:00 Pulse Ox 96 10/17/18 07:00 Intake & Output 10/16/18 10/17/18 10/17/18 18:59 06:59 18:59 Intake Total 240 1450 Output Total 100 410 Balance 140 1040 Intake: Intake, IV Titration 750 Amount Sodium Chloride 0.9% 1, 750 000 ml @ 75 mls/hr IV . [id number] [facility] Rx#:[id number] Oral 240 700 Output: Chest Tube Drainage 100 410 Pleural Catheter Left 100 410 Posterior Chest Other: Voiding Method Toilet # Voids 2 2 - Constitutional General appearance: Present: cooperative, no acute distress - Respiratory Details: Lungs sounds remained very diminished on the left. Respirations even, nonlabored. Currently on 2 L nasal cannula with oxygen saturation 96%. Able to achieve 750 mL on her incentive spirometry. Left-sided pigtail catheter present, 330 mL serosanguineous drainage overnight, 700 mL drainage in the last 24 hours, no air leak present. - Cardiovascular Details: S1, S2 present, positive systolic murmur. Regular rate and rhythm. Palpable peripheral pulses bilaterally. No edema present. No calf pain or tenderness noted. - Gastrointestinal Gastrointestinal Comment(s): Abdomen soft, nontender, nondistended. Active bowel sounds 4 quadrants. Tolerating diet. - Genitourinary Genitourinary Comment(s): Continues to void clear, yellow urine. - Integumentary Integumentary Comment(s): Skin is warm dry with evidence of good perfusion. - Neurologic Neurologic: Present: CNII-XII intact - Musculoskeletal Musculoskeletal: Present: gait normal, strength equal bilaterally - Psychiatric Psychiatric: Present: A&O x's 3, appropriate affect, intact judgment & insight - Allied health notes Allied health notes reviewed: nursing - Labs CBC & Chem 7: 10/15/18 08:30 10/17/18 07:49 Labs: Abnormal Lab Results - Last 24 Hours (Table) 10/16/18 Range/Units 08:36 Creatinine 2.49 H (0.52-1.04) mg/dL Glucose 131 H (74-99) mg/dL Microbiology - Last 24 Hours (Table) 10/10/18 18:27 Blood Culture - Final Blood No Growth after 144 hours - Imaging and Cardiology Chest x-ray: report reviewed, image reviewed Transthoracic echocardiogram results reviewed Assessment and Plan Assessment: 1. Left-sided loculated pleural effusion status post thoracentesis, pigtail placement, questionable abscess formation 2. Left lower lobe pneumonia 3. Current tobacco dependence 4. COPD 5. Anxiety 6. Severe aortic stenosis on current echocardiogram, peak/mean gradient 84.36 mmHg/55.38 mmHg 7. Elevated creatinine, possibly from vancomycin. Plan: 1. Will instill alteplase again today. Will continue to monitor output. Dr. Hayden reviewed chest x-rays and CT scans, will hold off on surgical intervention at this point as long as patient is still effectively draining. Will monitor x-rays, CTs. 2. Continue antibiotics per infectious disease recommendations, final culture results negative. Vancomycin stopped secondary to increased creatinine. 3. Bronchodilators per pulmonology. 4. Wean O2 as tolerated. Encourage incentive spirometry 10 times every hour while awake. 5. Pain control per primary care service. 6. Encourage smoking cessation. 7. DVT prophylaxis with Lovenox. 8. Cardiology consulted for severe aortic stenosis on transthoracic echocardiogram. Appreciate recommendations. 9. Will continue to monitor and make recommendations based on patient's clinical course. Time with Patient: Greater than 30
[2018-10-17] MEDS ORDERED: ALTEPLASE 10 MG in SODIUM CHLORIDE 0.9% 100 ML IRRIGATION ONE (10:00)
[2018-10-17] MEDS: ENOXAPARIN 30 MG/0.3 ML SYRINGE SQ SCH (10:33)
[2018-10-17] MEDS: ESCITALOPRAM 20 MG TAB PO SCH (10:35)
[2018-10-17 13:17] VITALS: BMI 26.1
--- NOTE | 2018-10-17 14:05 | P.CRDCN ---
History of Present Illness History of present illness: This is a pleasant 68-year-old female past medical history significant for COPD and chronic nicotine dependence. She denies history of coronary artery disease, hypertension or dyslipidemia. She states her father and her son both have had aortic valve disease and subsequent valve repair. She denies rheumatic fever as a child. We have been asked to see her in consultation for aortic stenosis noted echocardiogram. She initially presented to the hospital with symptoms of cough x1.5 months. CTA of the chest revealed left sided pleural effusion with left lower lobe pneumonia with 3 cm area of possible abscess. She underwent thoracentesis on 10/10 as well as chest tube placement. Echocardiogram was obtained due auscultation of a murmur revealing preserved LV systolic function with EF 55-60%, moderate aortic valve sclerosis, severe aortic stenosis with mean gradient 55 mmHg, mild MR, mild TR and moderate pulmonary hypertension with RVSP 60 mmHg. She is seen and examined resting comfortably in bed. She has a pig-tail catheter chest tube in the place in the left mid-back. She complains of pain around the site and with movement. She denies chest pain, shortness of breath, dizziness or palpitations. EKG on admission reveals sinus tachycardia heart rate of [address] abnormalities noted. Most recent chest CT performed last night revealed pigtail catheter within the posterior left pleura fluid collection, scattered air within this fluid collection, small right pleural effusion, 0.4 cm l nodule posterior lateral right lobe, shotty lymphadenopathy throughout the mediastinum with no mediastinal lymph node enlargement and descending aorta is 4 cm. Chest x-ray obtained this morning reveals cardiomegaly with small bilateral pleural effusions and improved aeration at the location of the left pigtail pleural drainage catheter. Laboratory data reviewed, WBC 10.7, hemoglobin 10, platelets 452, sodium 137, potassium 4.5, creatinine 2.73. She takes no daily cardiac medications. At the time of my exam: CONSTITUTIONAL: Denies fever. Denies chills. EYES: Denies blurred vision. Denies vision changes. Denies eye pain. EARS, NOSE, MOUTH & THROAT: Denies headache. Denies sore throat. Denies ear pain. CARDIOVASCULAR: Denies chest pain. Denies shortness of breath. Denies orthopnea. Denies PND. Denies palpitations. RESPIRATORY: Denies cough. GASTROINTESTINAL: Denies abdominal pain. Denies diarrhea. Denies constipation. Denies nausea. Denies vomiting. MUSCULOSKELETAL: Denies myalgias. INTEGUMENTARY: Denies pruitis. Denies rash. NEUROLOGIC: Denies numbness. Denies tingling. Denies weakness. PSYCHIATRIC: Denies anxiety. Denies depression. ENDOCRINE: Denies fatigue. Denies weight change. Denies polydipsia. Denies polyurina. GENITOURINARY: Denies burning, hematuria or urgency with micturation. HEMATOLOGIC: Denies history of anemia. Denies bleeding. Blood pressure 105/65 heart rate 75 afebrile maintaining oxygen saturation on nasal cannula GENERAL: This is a 68-year-old female in no apparent distress at the time of my examination. HEENT: Head is atraumatic, normocephalic. Pupils are equal, round. Sclerae anicteric. Conjunctivae are clear. Mucous membranes of the mouth are moist. Neck is supple. There is no jugular venous distention. No carotid bruit is heard. LUNGS: Diminished bilaterally, worse on the left with faint bibasilar rales. No wheezes or rhonchi. Tenderness around the site of the pig tail catheter in the mid thoracic area posteriorly. No chest wall tenderness is noted on palpation or with deep breathing. HEART: Regular rate and rhythm with systolic ejection murmur at the base, no rubs or gallops. S1 and S2 heard. ABDOMEN: Soft, nontender. Bowel sounds are heard. No organomegaly noted. EXTREMITIES: No evidence of peripheral edema and no calf tenderness noted. VASCULAR: Radial and dorsalis pedis pulses palpated, no evidence of clubbing. NEUROLOGIC: Patient is awake, alert and oriented x3. ASSESSMENT Severe aortic stenosis, mean gradient 55. Suspect bicuspid aortic valve. Left sided loculated pleural effusion status post thoracentesis, pigtail placement with questionable abscess formation COPD Chronic nicotine dependence Acute kidney injury PLAN Lengthy discussion had with the patient regarding her aortic valve and the need for a MARIO to further assess the aortic valve. She likely will require aortic valve repair at some point. This will be further addressed when she is stable from a respiratory standpoint. Thank you kindly for this consultation. Nurse Practitioner note has been reviewed, I agree with a documented findings and plan of care. Patient was seen and examined. Past Medical History Past Medical History: COPD, Pneumonia, Thyroid Disorder History of Any Multi-Drug Resistant Organisms: None Reported Past Surgical History: Breast Surgery, Cholecystectomy, Tonsillectomy Additional Past Surgical History / Comment(s): thyroid lobectomy, partial hysterecomy, multiple D&C Past Anesthesia/Blood Transfusion Reactions: No Reported Reaction Past Psychological History: Anxiety Smoking Status: Current every day smoker Past Alcohol Use History: Occasional Past Drug Use History: None Reported - Past Family History Father Family Medical History: Coronary Artery Disease (CAD), Renal Disease Mother Family Medical History: No Reported History Medications and Allergies Home Medications Medication Instructions Recorded Confirmed Type ALPRAZolam [Xanax] 0.5 mg PO DAILY PRN 10/10/18 10/10/18 History Cyanocobalamin [Vitamin B-12 1,000 mcg SQ Q14D 10/10/18 10/10/18 History Injection] Escitalopram [Lexapro] 20 mg PO DAILY 10/10/18 10/10/18 History Allergies Allergy/AdvReac Type Severity Reaction Status Date / Time codeine AdvReac Nausea & Verified 10/10/18 16:43 Vomiting prednisone AdvReac Rapid Verified 10/10/18 16:43 Heart Rate Physical Exam Vitals: Vital Signs Temp Pulse Resp BP BP Pulse Ox 10/17/18 07:00 98.3 F 75 16 105/65 96 10/17/18 01:07 18 10/17/18 00:02 98.5 F 91 14 101/62 96 10/16/18 21:06 98.1 F 84 16 116/73 95 10/16/18 15:00 98.6 F 81 16 104/63 95 Intake and Output 10/16/18 10/17/18 10/17/18 22:59 06:59 14:59 Intake Total 600 850 Output Total 130 340 290 Balance 470 510 -290 Intake: Intake, IV Titration 150 600 Amount Sodium Chloride 0.9% 1, 150 600 000 ml @ 75 mls/hr IV . [id number] [facility] Rx#:[id number] Oral 450 250 Output: Chest Tube Drainage 130 340 290 Pleural Catheter Left 130 340 290 Posterior Chest Other: Voiding Method Toilet # Voids 2 2 Results 10/15/18 08:30 10/17/18 07:49 Comprehensive Metabolic Panel 10/17/18 Range/Units 07:49 Sodium 137 (137-145) mmol/L Potassium 4.5 (3.5-5.1) mmol/L Chloride 106 (98-107) mmol/L Carbon Dioxide 26 (22-30) mmol/L BUN 17 (7-17) mg/dL Creatinine 2.73 H (0.52-1.04) mg/dL Glucose 124 H (74-99) mg/dL Calcium 8.3 L (8.4-10.2) mg/dL Current Medications Generic Name Dose Route Start Last Admin Trade Name Freq PRN Reason Stop Dose Admin Acetaminophen 650 mg 10/10/18 19:09 10/15/18 18:44 Tylenol Tab PO 650 mg Q6HR PRN Administration Mild Pain or Fever > 100.5 Hydrocodone Bitart/Acetaminophen 1 each 10/14/18 12:00 10/17/18 12:42 [place] 5-325 PO 1 each Q6HR SAVI Administration Albuterol/Ipratropium 3 ml 10/14/18 16:00 10/17/18 12:23 Duoneb 0.5 Mg-3 Mg/3 Ml Soln INHALATION Not Given RT-QID SAVI Alprazolam 0.5 mg 10/10/18 19:11 10/17/18 00:17 Xanax PO 0.5 mg DAILY PRN Administration Anxiety Enoxaparin Sodium 30 mg 10/17/18 09:00 10/17/18 10:33 Lovenox SQ 30 mg DAILY SAVI Administration Escitalopram Oxalate 20 mg 10/10/18 19:15 10/17/18 10:35 Lexapro PO 20 mg DAILY SAVI Administration Sodium Chloride 1,000 mls @ 75 mls/hr 10/10/18 19:15 10/16/18 21:52 Saline 0.9% IV Not Given .[id number] SAVI Ceftriaxone Sodium 2 gm/ 50 mls @ 100 mls/hr 10/14/18 16:30 10/17/18 10:33 Sodium Chloride IVPB 100 mls/hr Q24HR SAVI Administration Melatonin 3 mg 10/10/18 23:45 10/16/18 21:18 Melatonin PO 3 mg HS SAVI Administration Morphine Sulfate 4 mg 10/10/18 19:40 10/13/18 21:40 Morphine Sulfate (Inj) IV 4 mg Q4HR PRN Administration Severe Pain Naloxone HCl 0.2 mg 10/10/18 19:09 Narcan IV Q2M PRN Opioid Reversal Ondansetron HCl 4 mg 10/10/18 19:09 10/16/18 21:18 Zofran IVP 4 mg Q8HR PRN Administration Nausea And Vomiting Intake and Output 10/16/18 10/17/18 10/17/18 22:59 06:59 14:59 Intake Total 600 850 Output Total 130 340 290 Balance 470 510 -290 Intake: Intake, IV Titration 150 600 Amount Sodium Chloride 0.9% 1, 150 600 000 ml @ 75 mls/hr IV . [id number] [facility] Rx#:[id number] Oral 450 250 Output: Chest Tube Drainage 130 340 290 Pleural Catheter Left 130 340 290 Posterior Chest Other: Voiding Method Toilet # Voids 2 2 10/15/18 08:30 10/17/18 07:49
--- NOTE | 2018-10-17 15:32 | P.PN ---
Subjective Progress Note Date: 10/17/18 Principal diagnosis: Left lower lobe pneumonia with consolidation in the parapneumonic loculated left-sided pleural effusion Very pleasant 68-year-old female patient with a batwing pneumonias since early August. The patient presents her primary care physician and she was having symptoms of pneumonia with cough and congestion and shortness of breath. She was initially given a course of antibiotics which she thinks was Zithromax. Subsequently, she went back as the patient was not improving and she was seen by the nurse practitioner and the patient was given another round of antibiotics. I recovery was not complete. Yesterday she came into the emergency department with a subacute pleuritic chest pain involving the left chest which progressively got worse over the past 24 hours. She was having considerable amount of pain. She was still having cough. No stiffness sputum production. She reported occasional subjective fevers and chills. She had some weight loss in order of 12 pounds over the past 2 months. No hemoptysis. She is a chronic smoker. The chest x-ray was done that showed a left lower lobe consolidation. Following that the patient a CAT scan of the chest that showed evidence of a moderate-sized left-sided pleural effusion and a left lower lobe consolidation/atelectasis. There was a rounded 3 cm area of fluid density within the posterior segment of the left lower lobe which obviously raises the concern for a lung abscess. There was no evidence of any pulmonary embolism. The patient was given IV antibiotics. The patient was given a combination of Zosyn and Levaquin and vancomycin was also added to the regimen. The patient is currently hemodynamically stable. I saw this patient the bedside. She had diminished breath on the left lung base along with some dullness to percussion. I performed a bedside thoracentesis and a turbid dark yellowish pleural effusion was drained from the left lung and the total amount was around 500 mL. The procedure done without any complications. Her current white cell count is at 14.6. Rest of the blood work and electrodes are all within normal limits. Awaiting the results from the fluid analysis. She is a chronic smoker. No history of pulmonary disease although the CAT scan of the chest showed some emphysematous changes bilaterally. The patient is seen today 10/12/2018 in follow-up on the regular medical floor. She is awake and alert in no acute distress. He is maintaining O2 saturations in the low 90s on room air. She's afebrile. She is status post left-sided thoracentesis with 500 ml's. Cultures are pending. Fluid analysis reveals glucose less than 4, protein 4100, LDH 1412. Suspect parapneumonic effusion. She has been initiated on vancomycin, Zosyn and Levaquin. Follow-up computed tomography scan of the chest revealed acute recurrent sizable left pleural effusion with persistent consolidation and rounded 2.7 cm area of low density within the consolidated lung. Intrapulmonary abscess is within the differential. There is a 3 mm right lower lobe pulmonary nodule too small to characterize as well. On 10/13/2018, the patient is being seen in follow-up. She is doing well. Her pain on the left lung has subsided. The patient is afebrile. She is post an initial thoracentesis and the fluid with a complicated parapneumonic effusion with low glucose high LDH and high protein. Obviously complicated exudate, R early empyema. Subsequent CAT scan of the chest shows atrial fibrillation of a left-sided pleural effusion possibly an abscess formation. A percutaneous catheter was inserted, a pigtail catheter and the residual fluid was removed. Output is past several hours have dropped. I reviewed the chest x-ray and there is still residual opacification of left lung base and consolidation. Based on that, I infused into the pleural TPA and will monitor this patient's progress. On today's chest x-ray there is also development of a small right- sided pleural effusion. Despite all this changes, the patient is feeling better. White cell count is down to 8.2. She is hemodynamically stable. The cultures collected from the pleural fluid are still negative for now. We'll continue to follow. She is using incentive spirometer. On 10/14/2018 patient seen in follow-up on medical surgical floor. She is resting comfortably in bed, in no acute distress, lung sounds are diminished, with some limited rales at the right base. Patient has a left-sided pigtail chest tube in place and there is a total of 760 mL of serosanguineous thin pleural fluid drainage in the Pleur-evac. She was given a dose of TPA yesterday , today we obtain a follow-up CT chest in showed resistance small to moderate- sized left pleural fluid collection which only slightly diminished in size from prior study with associated compressive atelectasis and consolidation. Small to tiny right pleural effusion slightly larger and associated compressive atelectasis. Today's labs have been reviewed, with blood cell, 6.9, hemoglobin is 8.8. Pleural fluid cultures remain negative thus far, blood culture showed no growth. Patient is on antibiotic coverage including Zosyn and vancomycin. Patient is on 2 L per nasal cannula she is maintaining O2 saturations above 90% , she is 92-97%, afebrile, hemodynamically patient is stable. On 10/15/2018 patient seen in follow-up on medical surgical floor. She is sitting up in the chair, in no acute distress, currently on room air, [place] 97% , no fever or chills, hemodynamically stable, lung sounds are diminished bilaterally, even more so at the bases. Yesterday patient received additional dose of TPA per CT surgery, and there has been an additional 860 mL of thin serosanguineous pleural fluid output in the last 24 hours. Today's chest x-ray has been reviewed with Dr. Sow, and shows essentially stable findings, bilateral pleural effusions, with associated atelectasis. Labs have been reviewed, with blood cell count is 10.7, hemoglobin is 10.0, today's creatinine is 1.63, the rest of the BMP panel is pending right now, we will give the patient a dose of IV Lasix today, which is uncomfortable, in no distress, she is working on her incentive spirometer, achieving 750 ml today. Pleural fluid cultures remain negative thus far, antibiotic coverage with Rocephin and vancomycin continues. On 10/16/2018 patient seen in follow-up on medical surgical floor. She is resting comfortably in bed, she received on dose of TPA yesterday, there has been additional 250 mL of serosanguineous pleural drainage in the last 24 hours. Follow-up chest CT shows pigtail catheter within the posterior left pleural fluid collection, and scattered air within the fluid collection within the compressive atelectasis. Today's lab work has been reviewed, electrodes are within normal limits, however renal profile has worsened, BUN is 15, and creatinine is up to 2.49, vancomycin was discontinued yesterday, yesterday patient did receive a dose of IV Lasix. She did produce 1300 mL of urine output yesterday, clinically patient is comfortable, she is on 2 L per nasal cannula she is ambulating around the room, in no acute distress, afebrile. Pleural fluid cultures remain negative thus far. Antibiotic coverage with Rocephin. On 2 10/09/2018 patient seen in follow-up on selective care unit, she is awake and alert, in no acute distress, she is on room air, pulse ox is 92%, afebrile, today's chest x-ray has been reviewed by Dr. Sow, and shows improvement in aeration of the left basal capacity, and pleural effusion. There has been additional 510 mL of serosanguineous pleural fluid in the Pleur-evac her last 24 hours, cultures remain negative thus far, antibiotic coverage with IV Rocephin, vancomycin remains on hold, patient is receiving IV hydration with 0.9 normal saline at a rate of 75 ML per hour, today's labs have been reviewed, and there has been no further worsening of the renal function, BUN 17 and creatinine is 2.73. Lung sounds are diminished at the bases, with a few scattered crackles, otherwise patient is doing well, tolerating ambulation, surgery is following, patient is given another dose of alteplase today. Objective - Vital Signs Vital signs: Vital Signs Temp 97.5 F L 10/17/18 14:32 Pulse 87 10/17/18 14:32 Resp 15 10/17/18 14:32 BP 99/56 10/17/18 14:32 Pulse Ox 92 L 10/17/18 14:32 Intake & Output 10/16/18 10/17/18 10/17/18 18:59 06:59 18:59 Intake Total 240 1450 Output Total 100 410 290 Balance 140 1040 -290 Weight 75.551 kg Intake: Intake, IV Titration 750 Amount Sodium Chloride 0.9% 1, 750 000 ml @ 75 mls/hr IV . [id number] [facility] Rx#:[id number] Oral 240 700 Output: Chest Tube Drainage 100 410 290 Pleural Catheter Left 100 410 290 Posterior Chest Other: Voiding Method Toilet # Voids 2 2 3 - Exam GENERAL EXAM: Alert, pleasant, 68-year-old white female on room air resting in bed comfortable in no apparent distress. HEAD: Normocephalic/atraumatic. EYES: Normal reaction of pupils, equal size. Conjunctiva pink, sclera white. NOSE: Clear with pink turbinates. THROAT: No erythema or exudates. NECK: No masses, no JVD, no thyroid enlargement, no adenopathy. CHEST: No chest wall deformity. Symmetrical expansion. Left posterior pigtail chest tube connected to Pleur-evac and wall suction, with thin serosanguineous output in the Pleur-evac LUNGS: Equal air entry sounds bilaterally, with some limited crackles at the right base CVS: Regular rate and rhythm, normal S1 and S2, no gallops, no murmurs, no rubs ABDOMEN: Soft, nontender. No hepatosplenomegaly, normal bowel sounds, no guarding or rigidity. EXTREMITIES: No clubbing, no edema, no cyanosis, 2+ pulses and upper and lower extremities. MUSCULOSKELETAL: Muscle strength and tone normal. SPINE: No scoliosis or deformity SKIN: No rashes CENTRAL NERVOUS SYSTEM: Alert and oriented -3. No focal deficits, tone is normal in all 4 extremities. PSYCHIATRIC: Alert and oriented -3. Appropriate affect. Intact judgment and insight. - Labs CBC & Chem 7: 10/15/18 08:30 10/17/18 07:49 Labs: Abnormal Lab Results - Last 24 Hours (Table) 10/17/18 Range/Units 07:49 Creatinine 2.73 H (0.52-1.04) mg/dL Glucose 124 H (74-99) mg/dL Calcium 8.3 L (8.4-10.2) mg/dL Microbiology - Last 24 Hours (Table) 10/10/18 18:27 Blood Culture - Final Blood No Growth after 144 hours Assessment and Plan Plan: Assessment: 1 left lower lobe pneumonia with consolidation and a parapneumonic loculated left-sided pleural effusion, questionable early abscess formation in the posterior segment of the left lower lobe. The patient underwent a thoracentesis with evacuation of 500 mL of turbid dark yellowish pleural fluid from the left pleural space. Fluid was a complicated parapneumonic effusion/ empyema and the cultures of been negative. The follow-up CAT scan shows reaccumulation of the pleural fluid with loculation concern for an underlying lung abscess. A pig tail catheter was inserted. The patient remains on broad- spectrum antibiotics for now 2 left-sided pleural effusion, loculated, likely parapneumonic, post left pigtail chest tube insertion, patient has received 2 doses of TPA, with significant amount of output, a total of 1620 ML of thin serosanguineous pleural fluid in the last 48 hours after the TPA infusion. Cultures remained negative thus far, current antibiotic coverage with Rocephin and vancomycin. Cytology showed no malignant cells. 3 questionable left lung abscess 4 acute kidney injury related to combination of diuretics, and vancomycin 5 COPD 6 smoker 7 hypothyroidism Plan: Continue with IV Rocephin with Rocephin, vancomycin is on hold, continue with IV hydration, patient will receive another dose of TPA per CT surgery, today's chest x-ray was reviewed with Dr. Sow, and shows improvement in aeration of the left basilar opacity, pleural effusion. I performed a history & physical examination of the patient and discussed their management with my nurse practitioner, Angelika Sharma. I reviewed the nurse practitioner's note and agree with the documented findings and plan of care. Lung sounds are positive for diminished breath sounds, with some crackles at the right base. The findings and the impression was discussed with the patient. I attest to the documentation by the nurse practitioner. Time with Patient: Less than 30
[2018-10-17] MEDS: ONDANSETRON 4 MG/2 ML VIAL IVP PRN (21:18)
[2018-10-17] MEDS: MORPHINE SULFATE 4 MG/ML SYRINGE IV PRN (21:18)
[2018-10-17] MEDS: MELATONIN 3 MG TABLET PO SCH (21:19)
[2018-10-17] MEDS: SODIUM CHLORIDE 0.9% 1,000 ML IV SCH ×2 (22:27)
--- NOTE | 2018-10-17 23:25 | PN ---
PROGRESS NOTE DATE OF SERVICE: 10/17/2018. REASON FOR FOLLOW UP: Left lower lobe pneumonia and empyema. INTERVAL HISTORY: The patient is currently afebrile. The patient is breathing more comfortably. The left lower chest pain has improved. He did have some cough which is dry in nature. No nausea or vomiting. No abdominal pain, no chest pain, no diarrhea. PHYSICAL EXAMINATION: Blood pressure 119/78 with a pulse of 83, temperature 98.1, she is 96% on 2 L nasal cannula. GENERAL DESCRIPTION: An elderly female up in the bed in no distress. RESPIRATORY SYSTEM: Unlabored breathing with decreased ( ). No wheeze. HEART: S1, S2. Regular rate and rhythm. ABDOMEN: Soft, no tenderness. LABS: Creatinine is 2.73. The blood culture remains to be negative. DIAGNOSTIC IMPRESSION AND PLAN: Patient with left lower lobe pneumonia with second drain pain status post chest tube placement and multiple doses of ( ). Patient slowly clinically ( ). The culture has been negative for resistant pathogen. The patient has been maintained on Rocephin that will be continued in the outpatient setting. The wound PICC line was replaced. Continue supportive care. MMODL / IJN: [id number] /
--- NOTE | 2018-10-18 00:19 | PN ---
PROGRESS NOTE DATE OF SERVICE: October 16 2018. PRESENTING COMPLAINT: Tired. INTERVAL HISTORY: This patient was seen by me yesterday, having failed outpatient treatment for pneumonia presented with left parapneumonic effusion status post thoracentesis. Renal function is worsening. Diuretics were held. Vancomycin was also discontinued. Otherwise, patient's breathing is stable. Did tolerate some diet. REVIEW OF SYSTEMS: Done for constitutional, cardiovascular, GI, pulmonary and relevant findings as above. CURRENT MEDICATIONS: Reviewed and include IV ceftriaxone. PHYSICAL EXAMINATION: VITAL SIGNS: Temperature 98.2. Pulse 74, respirations 16, blood pressure 111/73. Pulse ox 96% on 2 L. GENERAL APPEARANCE: Sitting up awake, not in distress. EYES: Pupils are equal. Conjunctivae normal. NECK: JVD not raised. Mass not palpable. RESPIRATORY: Effort increased. LUNGS: Decreased breath sounds on the left side with pigtail catheter in place. CARDIOVASCULAR: 1st and 2nd sounds normal. No edema. ABDOMEN: Soft, nontender. Liver and spleen not palpable. PSYCHIATRY: Alert and oriented x2. Mood and affect normal. INVESTIGATIONS: Potassium 4.3, BUN 15, creatinine 2.49. ASSESSMENT: 1. Left-sided pneumonia with parapneumonic effusion, having failed outpatient treatment, status post tPA x2. No response. 2. Chronic nicotine dependence, patient is an active cigarette smoker. 3. Chronic obstructive pulmonary disease in a current smoker. 4. Hypothyroid. 5. Anxiety, depression not otherwise specified. 6. Acute renal failure likely acute tubular necrosis from drug induce with the patient being on vancomycin. 7. Left-sided pneumonia parapneumonic effusion, slow to respond. 8. Severe aortic stenosis. 9. Moderate secondary pulmonary hypertension. PLAN: Cardiothoracic surgery was consulted. Vancomycin has been held. Diuretics have been held. MMODL / IJN: [id number] /
--- NOTE | 2018-10-18 00:25 | PN ---
PROGRESS NOTE DATE OF SERVICE: 10/17/2018 PRESENTING COMPLAINT: Tired. INTERVAL HISTORY: The patient outpatient failed treatment of pneumonia with left-sided parapneumonic effusion, status post tPA x2, acute renal failure felt to be from vancomycin. Per Cardiothoracic surgery, no intervention at the present time. Antibiotics are to continue. REVIEW OF SYSTEMS: Done for constitutional, cardiovascular, GI, pulmonary and relevant findings as above. CURRENT MEDICATIONS: Reviewed and include IV ceftriaxone. PHYSICAL EXAMINATION: VITAL SIGNS: Temperature 98.3, pulse 75, respiration 16, blood pressure 105/65, pulse ox 96% on 2 L. GENERAL APPEARANCE: Sitting up, awake. EYES: Pupils equal. Conjunctivae normal. NECK: JVD not raised. Mass not palpable. RESPIRATORY: Effort increased. LUNGS: Decreased breath sounds on the left side. CARDIOVASCULAR: 1st and 2nd sounds normal. No edema. ABDOMEN: Soft, nontender. Liver and spleen not palpable. PSYCHIATRY: Alert and oriented x3. Mood and affect normal. INVESTIGATIONS: Potassium 4.5, BUN 16, creatinine 2.73. ASSESSMENT: 1. Left sided pneumonia. Parapneumonic effusion, slow to respond, followed by thoracentesis and tPA. 2. Chronic nicotine dependence patient is an active cigarette smoker. 3. Chronic obstructive pulmonary disease in a current smoker. 4. Hypothyroid. 5. Anxiety and depression, not otherwise specified. 6. Acute renal failure likely acute tubular necrosis/drug-induced from Vancomycin with worsening. 7. Normocytic anemia. 8. Severe aortic stenosis, nonrheumatic. 9. Secondary pulmonary hypertension due to chronic obstructive pulmonary disease. PLAN: Continue current medication and treatment plan. Care was discussed with the patient and family at the bedside. Follow closely. MMODL / IJN: [id number] /
[2018-10-18] MEDS: HYDROcodone/APAP 5-325MG 1 EACH TAB PO SCH ×3 (05:55→18:49)
[2018-10-18 08:00] LABS: Anisocytosis Slight; Basophils # (A) 0.1 k/uL (0-0.2); Basophils % (A) 1 %; Eosinophils # (A) 0.2 k/uL (0-0.7); Eosinophils % (A) 2 %; HCT 28.9 % (34.0-46.0); HGB 9.1 gm/dL (11.4-16.0); Hypochromasia Moderate; Lymphocytes # (A) 1.9 k/uL (1.0-4.8); Lymphocytes % (A) 16 %; MCH 27.6 pg (25.0-35.0); MCHC 31.4 g/dL (31.0-37.0); MCV 88.1 fL (80.0-100.0); Mean Platelet Volume 6.1; Monocytes # (A) 0.8 k/uL (0-1.0); Monocytes % (A) 7 %; Neutrophils # (A) 8.5 k/uL (1.3-7.7); Neutrophils % (A) 73 %; Platelet Count 467 k/uL (150-450); RBC 3.28 m/uL (3.80-5.40); RDW 16.2 % (11.5-15.5); WBC 11.7 k/uL (3.8-10.6)
[2018-10-18] MEDS ORDERED: ALTEPLASE 10 MG in SODIUM CHLORIDE 0.9% 100 ML IRRIGATION ONE (08:00)
[2018-10-18 08:10] LABS: Calcium 8.3 mg/dL (8.4-10.2); Potassium 4.2 mmol/L (3.5-5.1)
[2018-10-18] MEDS: ENOXAPARIN 30 MG/0.3 ML SYRINGE SQ SCH (08:16)
[2018-10-18] MEDS: ONDANSETRON 4 MG/2 ML VIAL IVP PRN (08:21)
[2018-10-18] MEDS: MORPHINE SULFATE 4 MG/ML SYRINGE IV PRN (08:21)
[2018-10-18] MEDS: ESCITALOPRAM 20 MG TAB PO SCH (08:39)
[2018-10-18] MEDS: IPRATROPIUM-ALBUTEROL 3 ML NEB INHALATION SCH ×4 (08:55→20:59)
[2018-10-18 09:25] LABS: Erythrocyte Sedimentation Rate 101 mm/hr (0-20)
[2018-10-18 09:51] LABS: C Reactive Protein 248.9 mg/L (<10.0)
--- NOTE | 2018-10-18 11:22 | XR ---
EXAMINATION TYPE: XR chest 2V DATE OF EXAM: 10/18/2018 COMPARISON: Prior chest x-ray 10/17/2017 HISTORY: Empyema TECHNIQUE: Frontal and lateral views of the chest are obtained. FINDINGS: Left-sided chest tube remains in place, air-fluid level present in the pleural space on th e left. There is some improvement in lung volume. Bibasilar increased density persists. Heart is enla rged. No pneumothorax. Surgical clips in the right upper quadrant. IMPRESSION: Basilar atelectasis and associated effusion bilaterally, correlate to exclude pneumonia. Stable chest tube. Suspect cardiomegaly.
--- NOTE | 2018-10-18 11:30 | P.PN ---
Subjective Progress Note Date: 10/18/18 Principal diagnosis: Left-sided pneumonia, possible abscess, status post pigtail chest tube placement. Medical history of current chronic tobacco dependence, COPD, pneumonia, newly diagnosed severe aortic valve stenosis with a mean gradient of 55, possible bicuspid aortic valve and anxiety. The patient is currently lying in bed with her head elevated. She is in no acute distress. She denies any complaints of pain or shortness of breath at this time. Her oxygen saturation are 94% on 2 L nasal cannula. Alteplase has been instilled in the last 5 days with 500 mL of serosanguineous drainage in the last 24 hours. The patient remains afebrile. She reports she has been ambulating in her room with minimal assistance. Patient remained afebrile and her WBC count today is 11.7. All of her cultures remain negative to date. Objective - Vital Signs Vital signs: Vital Signs Temp 98.3 F 10/18/18 08:00 Pulse 94 10/18/18 10:15 Resp 19 10/18/18 10:15 BP 104/67 10/18/18 08:00 Pulse Ox 94 L 10/18/18 08:00 Intake & Output 10/17/18 10/18/18 10/18/18 18:59 06:59 18:59 Intake Total 750 60 Output Total 340 130 Balance -340 620 60 Weight 75.551 kg Intake: Intake, IV Titration 750 Amount Sodium Chloride 0.9% 1, 750 000 ml @ 75 mls/hr IV . [id number] [facility] Rx#:[id number] Oral 60 Output: Chest Tube Drainage 340 130 Pleural Catheter Left 340 130 Posterior Chest Other: Voiding Method Toilet Toilet # Voids 3 1 - Constitutional General appearance: Present: cooperative, no acute distress - Respiratory Details: Lung sounds are diminished to her bilateral bases left greater than right. Respirations are symmetrical and nonlabored. Oxygen saturation are 96% on 2 L nasal cannula. She is achieving 750 mL on her incentive spirometry. Left sided pleural pigtail catheter remains intact to low continuous wall suction at -20 cm H2O. Draining thin serosanguineous drainage. 500 mL output in the last 24 hours. - Cardiovascular Details: Regular rhythm and rate. S1 and S2 present, positive for 3/6 systolic murmur. No edema present. Sequential compression devices in place for bilateral lower extremities. - Gastrointestinal Gastrointestinal Comment(s): Abdomen is soft, nontender and nondistended. Active bowel sounds to all 4 abdominal quadrants. Tolerating oral intake. Passing flatus. No guarding or rigidity. - Genitourinary Genitourinary Comment(s): Voiding clear yellow urine. - Neurologic Neurologic: Present: CNII-XII intact - Musculoskeletal Musculoskeletal: Present: gait normal, strength equal bilaterally - Psychiatric Psychiatric: Present: A&O x's 3, appropriate affect, intact judgment & insight - Allied health notes Allied health notes reviewed: nursing - Labs CBC & Chem 7: 10/18/18 07:36 10/18/18 07:36 Labs: Abnormal Lab Results - Last 24 Hours (Table) 10/18/18 10/18/18 Range/Units 07:36 07:36 WBC 11.7 H (3.8-10.6) k/uL RBC 3.28 L (3.80-5.40) m/uL Hgb 9.1 L (11.4-16.0) gm/dL Hct 28.9 L (34.0-46.0) % RDW 16.2 H (11.5-15.5) % Plt Count 467 H (150-450) k/uL Neutrophils # 8.5 H (1.3-7.7) k/uL ESR 101 H (0-20) mm/hr Chloride 109 H (98-107) mmol/L Creatinine 2.80 H (0.52-1.04) mg/dL Glucose 118 H (74-99) mg/dL Calcium 8.3 L (8.4-10.2) mg/dL C-Reactive Protein 248.9 H (<10.0) mg/L - Imaging and Cardiology Chest x-ray: report reviewed, image reviewed Assessment and Plan Assessment: 1. Left-sided loculated pleural effusion status post thoracentesis, pigtail placement, questionable abscess formation 2. Left lower lobe pneumonia 3. Current tobacco dependence 4. COPD 5. Anxiety 6. Newly diagnosed severe aortic stenosis. 7. Systolic murmur. Plan: 1. Will instill alteplase again today. Will continue to monitor output. No surgical intervention recommended at this time. 2. Continue antibiotics per infectious disease recommendations, final culture results pending. 3. Bronchodilators per pulmonology. 4. Wean O2 as tolerated. Encourage incentive spirometry 10 times every hour while awake. 5. Pain control per primary care service. 6. Encourage smoking cessation. 7. DVT prophylaxis with Lovenox and sequential compression devices. 8. Cardiology following for aortic stenosis. 9. Further recommendations to follow based on patient's clinical course. Time with Patient: Greater than 30
--- NOTE | 2018-10-18 13:12 | P.PN ---
Subjective Progress Note Date: 10/18/18 Principal diagnosis: Left lower lobe pneumonia with consolidation in the parapneumonic loculated left-sided pleural effusion Very pleasant 68-year-old female patient with a batwing pneumonias since early August. The patient presents her primary care physician and she was having symptoms of pneumonia with cough and congestion and shortness of breath. She was initially given a course of antibiotics which she thinks was Zithromax. Subsequently, she went back as the patient was not improving and she was seen by the nurse practitioner and the patient was given another round of antibiotics. I recovery was not complete. Yesterday she came into the emergency department with a subacute pleuritic chest pain involving the left chest which progressively got worse over the past 24 hours. She was having considerable amount of pain. She was still having cough. No stiffness sputum production. She reported occasional subjective fevers and chills. She had some weight loss in order of 12 pounds over the past 2 months. No hemoptysis. She is a chronic smoker. The chest x-ray was done that showed a left lower lobe consolidation. Following that the patient a CAT scan of the chest that showed evidence of a moderate-sized left-sided pleural effusion and a left lower lobe consolidation/atelectasis. There was a rounded 3 cm area of fluid density within the posterior segment of the left lower lobe which obviously raises the concern for a lung abscess. There was no evidence of any pulmonary embolism. The patient was given IV antibiotics. The patient was given a combination of Zosyn and Levaquin and vancomycin was also added to the regimen. The patient is currently hemodynamically stable. I saw this patient the bedside. She had diminished breath on the left lung base along with some dullness to percussion. I performed a bedside thoracentesis and a turbid dark yellowish pleural effusion was drained from the left lung and the total amount was around 500 mL. The procedure done without any complications. Her current white cell count is at 14.6. Rest of the blood work and electrodes are all within normal limits. Awaiting the results from the fluid analysis. She is a chronic smoker. No history of pulmonary disease although the CAT scan of the chest showed some emphysematous changes bilaterally. The patient is seen today 10/12/2018 in follow-up on the regular medical floor. She is awake and alert in no acute distress. He is maintaining O2 saturations in the low 90s on room air. She's afebrile. She is status post left-sided thoracentesis with 500 ml's. Cultures are pending. Fluid analysis reveals glucose less than 4, protein 4100, LDH 1412. Suspect parapneumonic effusion. She has been initiated on vancomycin, Zosyn and Levaquin. Follow-up computed tomography scan of the chest revealed acute recurrent sizable left pleural effusion with persistent consolidation and rounded 2.7 cm area of low density within the consolidated lung. Intrapulmonary abscess is within the differential. There is a 3 mm right lower lobe pulmonary nodule too small to characterize as well. On 10/13/2018, the patient is being seen in follow-up. She is doing well. Her pain on the left lung has subsided. The patient is afebrile. She is post an initial thoracentesis and the fluid with a complicated parapneumonic effusion with low glucose high LDH and high protein. Obviously complicated exudate, R early empyema. Subsequent CAT scan of the chest shows atrial fibrillation of a left-sided pleural effusion possibly an abscess formation. A percutaneous catheter was inserted, a pigtail catheter and the residual fluid was removed. Output is past several hours have dropped. I reviewed the chest x-ray and there is still residual opacification of left lung base and consolidation. Based on that, I infused into the pleural TPA and will monitor this patient's progress. On today's chest x-ray there is also development of a small right- sided pleural effusion. Despite all this changes, the patient is feeling better. White cell count is down to 8.2. She is hemodynamically stable. The cultures collected from the pleural fluid are still negative for now. We'll continue to follow. She is using incentive spirometer. On 10/14/2018 patient seen in follow-up on medical surgical floor. She is resting comfortably in bed, in no acute distress, lung sounds are diminished, with some limited rales at the right base. Patient has a left-sided pigtail chest tube in place and there is a total of 760 mL of serosanguineous thin pleural fluid drainage in the Pleur-evac. She was given a dose of TPA yesterday , today we obtain a follow-up CT chest in showed resistance small to moderate- sized left pleural fluid collection which only slightly diminished in size from prior study with associated compressive atelectasis and consolidation. Small to tiny right pleural effusion slightly larger and associated compressive atelectasis. Today's labs have been reviewed, with blood cell, 6.9, hemoglobin is 8.8. Pleural fluid cultures remain negative thus far, blood culture showed no growth. Patient is on antibiotic coverage including Zosyn and vancomycin. Patient is on 2 L per nasal cannula she is maintaining O2 saturations above 90% , she is 92-97%, afebrile, hemodynamically patient is stable. On 10/15/2018 patient seen in follow-up on medical surgical floor. She is sitting up in the chair, in no acute distress, currently on room air, [place] 97% , no fever or chills, hemodynamically stable, lung sounds are diminished bilaterally, even more so at the bases. Yesterday patient received additional dose of TPA per CT surgery, and there has been an additional 860 mL of thin serosanguineous pleural fluid output in the last 24 hours. Today's chest x-ray has been reviewed with Dr. Sow, and shows essentially stable findings, bilateral pleural effusions, with associated atelectasis. Labs have been reviewed, with blood cell count is 10.7, hemoglobin is 10.0, today's creatinine is 1.63, the rest of the BMP panel is pending right now, we will give the patient a dose of IV Lasix today, which is uncomfortable, in no distress, she is working on her incentive spirometer, achieving 750 ml today. Pleural fluid cultures remain negative thus far, antibiotic coverage with Rocephin and vancomycin continues. On 10/16/2018 patient seen in follow-up on medical surgical floor. She is resting comfortably in bed, she received on dose of TPA yesterday, there has been additional 250 mL of serosanguineous pleural drainage in the last 24 hours. Follow-up chest CT shows pigtail catheter within the posterior left pleural fluid collection, and scattered air within the fluid collection within the compressive atelectasis. Today's lab work has been reviewed, electrodes are within normal limits, however renal profile has worsened, BUN is 15, and creatinine is up to 2.49, vancomycin was discontinued yesterday, yesterday patient did receive a dose of IV Lasix. She did produce 1300 mL of urine output yesterday, clinically patient is comfortable, she is on 2 L per nasal cannula she is ambulating around the room, in no acute distress, afebrile. Pleural fluid cultures remain negative thus far. Antibiotic coverage with Rocephin. On 2 10/09/2018 patient seen in follow-up on selective care unit, she is awake and alert, in no acute distress, she is on room air, pulse ox is 92%, afebrile, today's chest x-ray has been reviewed by Dr. Sow, and shows improvement in aeration of the left basal capacity, and pleural effusion. There has been additional 510 mL of serosanguineous pleural fluid in the Pleur-evac her last 24 hours, cultures remain negative thus far, antibiotic coverage with IV Rocephin, vancomycin remains on hold, patient is receiving IV hydration with 0.9 normal saline at a rate of 75 ML per hour, today's labs have been reviewed, and there has been no further worsening of the renal function, BUN 17 and creatinine is 2.73. Lung sounds are diminished at the bases, with a few scattered crackles, otherwise patient is doing well, tolerating ambulation, surgery is following, patient is given another dose of alteplase today. On 10/18/2018 patient seen in follow-up on medical surgical floor. She is resting comfortably in bed, appears a bit sedated on today's exam, but patient easily wakes up, and responds appropriately. Yesterday she got additional dose of TPA yesterday, and there has been additional 500 mL out of the left-sided pigtail chest tube. Today's chest x-ray has been reviewed by Dr. Sow, showed continued improvement in the appearance of the left consolidation, and associated effusion. She remains on 2 L per nasal cannula and her pulse ox is 94%, afebrile, hemodynamically stable. Labs showed a white blood cell count 11.7, hemoglobin 9.1, sodium 140, potassium is 4.2, renal profile is stable, with BUN of 17 and creatinine of 2.80. Pleural fluid cultures remain negative thus far. No fever no chills, patient's breathing easier, she is working on her incentive spirometer, having increased pain in the left chest, we'll hold today's dose of TPA in view of continued improvement on the chest x-ray, and increased drainage from the pleural chest tube. Objective - Vital Signs Vital signs: Vital Signs Temp 98.3 F 10/18/18 08:00 Pulse 94 10/18/18 10:15 Resp 19 10/18/18 10:15 BP 104/67 10/18/18 08:00 Pulse Ox 94 L 10/18/18 08:00 Intake & Output 10/17/18 10/18/18 10/18/18 18:59 06:59 18:59 Intake Total 750 60 Output Total 340 130 Balance -340 620 60 Weight 75.551 kg Intake: Intake, IV Titration 750 Amount Sodium Chloride 0.9% 1, 750 000 ml @ 75 mls/hr IV . [id number] [facility] Rx#:[id number] Oral 60 Output: Chest Tube Drainage 340 130 Pleural Catheter Left 340 130 Posterior Chest Other: Voiding Method Toilet Toilet # Voids 3 1 - Exam GENERAL EXAM: Alert, pleasant, 68-year-old white female on room air resting in bed comfortable in no apparent distress. HEAD: Normocephalic/atraumatic. EYES: Normal reaction of pupils, equal size. Conjunctiva pink, sclera white. NOSE: Clear with pink turbinates. THROAT: No erythema or exudates. NECK: No masses, no JVD, no thyroid enlargement, no adenopathy. CHEST: No chest wall deformity. Symmetrical expansion. Left posterior pigtail chest tube connected to Pleur-evac and wall suction, with thin serosanguineous output in the Pleur-evac LUNGS: Equal air entry sounds bilaterally, with some limited crackles at the right base CVS: Regular rate and rhythm, normal S1 and S2, no gallops, no murmurs, no rubs ABDOMEN: Soft, nontender. No hepatosplenomegaly, normal bowel sounds, no guarding or rigidity. EXTREMITIES: No clubbing, no edema, no cyanosis, 2+ pulses and upper and lower extremities. MUSCULOSKELETAL: Muscle strength and tone normal. SPINE: No scoliosis or deformity SKIN: No rashes CENTRAL NERVOUS SYSTEM: Alert and oriented -3. No focal deficits, tone is normal in all 4 extremities. PSYCHIATRIC: Alert and oriented -3. Appropriate affect. Intact judgment and insight. - Labs CBC & Chem 7: 10/18/18 07:36 10/18/18 07:36 Labs: Abnormal Lab Results - Last 24 Hours (Table) 10/18/18 10/18/18 Range/Units 07:36 07:36 WBC 11.7 H (3.8-10.6) k/uL RBC 3.28 L (3.80-5.40) m/uL Hgb 9.1 L (11.4-16.0) gm/dL Hct 28.9 L (34.0-46.0) % RDW 16.2 H (11.5-15.5) % Plt Count 467 H (150-450) k/uL Neutrophils # 8.5 H (1.3-7.7) k/uL ESR 101 H (0-20) mm/hr Chloride 109 H (98-107) mmol/L Creatinine 2.80 H (0.52-1.04) mg/dL Glucose 118 H (74-99) mg/dL Calcium 8.3 L (8.4-10.2) mg/dL C-Reactive Protein 248.9 H (<10.0) mg/L Assessment and Plan Plan: Assessment: 1 left lower lobe pneumonia with consolidation and a parapneumonic loculated left-sided pleural effusion, questionable early abscess formation in the posterior segment of the left lower lobe. The patient underwent a thoracentesis with evacuation of 500 mL of turbid dark yellowish pleural fluid from the left pleural space. Fluid was a complicated parapneumonic effusion/ empyema and the cultures of been negative. The follow-up CAT scan shows reaccumulation of the pleural fluid with loculation concern for an underlying lung abscess. A pig tail catheter was inserted. The patient remains on broad- spectrum antibiotics for now 2 left-sided pleural effusion, loculated, likely parapneumonic, post left pigtail chest tube insertion, patient has received 2 doses of TPA, with significant amount of output, a total of 1620 ML of thin serosanguineous pleural fluid in the last 48 hours after the TPA infusion. Cultures remained negative thus far, current antibiotic coverage with Rocephin and vancomycin. Cytology showed no malignant cells. 3 questionable left lung abscess 4 acute kidney injury related to combination of diuretics, and vancomycin 5 COPD 6 smoker 7 hypothyroidism Plan: We'll continue with IV hydration, will hold today's dose of TPA, left chest tube is draining well, and there has been additional 500 mL of pleural drainage from the chest tube. Today's chest x-ray been reviewed by Dr. Sow, and shows improvement in the appearance of the left consolidation and associated effusion. Continue with IV hydration, renal profile is stable, no fever or chills, encourage incentive spirometry use. I performed a history & physical examination of the patient and discussed their management with my nurse practitioner, Angelika Sharma. I reviewed the nurse practitioner's note and agree with the documented findings and plan of care. Lung sounds are positive for diminished breath sounds, with some crackles at the right base. The findings and the impression was discussed with the patient. I attest to the documentation by the nurse practitioner. Time with Patient: Less than 30
[2018-10-18] MEDS ORDERED: KETOROLAC 30 MG/ML 1 ML VIAL IVP PRN (13:32)
--- NOTE | 2018-10-18 13:36 | P.NPCON ---
History of Present Illness - Reason for Consult acute renal failure - History of Present Illness Reason for consultation: Acute kidney injury History of present illness: Patient is a 68-year-old female seen in renal consultation for acute kidney injury. Her baseline creatinine is 1 and is up to 2.8 today. Patient presented to the hospital with pneumonia. Her symptoms of cough have been going on Martin. She did complete multiple rounds of antibiotics as an outpatient with no resolution of symptoms. The patient came to the hospital she underwent a CTA which revealed no evidence of PE. However she had a chest tube placed for empyema. She was also placed on IV vancomycin and a vancomycin level was noted to be elevated at 36.4 on October 15. That's for renal function also started to worsen and creatinine was 1.63 on October 15. She admits to good urine output. No hematuria or dysuria. No recent use of nonsteroidals. No vomiting or diarrhea. Oral intake is good. Blood pressure is stable but on the lower side. Denies significant history of family disease. She is maintained on normal saline at 75 mL an hour. Vital signs are stable. General: The patient appeared well nourished and normally developed. HEENT: Head exam is unremarkable. Neck is without jugular venous distension. LUNGS: Lungs are clear to auscultation and percussion. Breath sounds decreased. Chest tube noted. HEART: Rate and Rhythm are regular. First and second heart sounds normal. No murmurs, rubs or gallops. ABDOMEN: Abdominal exam reveals normal bowel sounds. Non-tender and non- distended. No evidence of peritonitis. EXTREMITITES: Trace edema. Past Medical History Past Medical History: COPD, Pneumonia, Thyroid Disorder History of Any Multi-Drug Resistant Organisms: None Reported Past Surgical History: Breast Surgery, Cholecystectomy, Tonsillectomy Additional Past Surgical History / Comment(s): thyroid lobectomy, partial hysterecomy, multiple D&C Past Anesthesia/Blood Transfusion Reactions: No Reported Reaction Past Psychological History: Anxiety Smoking Status: Current every day smoker Past Alcohol Use History: Occasional Past Drug Use History: None Reported - Past Family History Father Family Medical History: Coronary Artery Disease (CAD), Renal Disease Mother Family Medical History: No Reported History Medications and Allergies Home Medications Medication Instructions Recorded Confirmed Type ALPRAZolam [Xanax] 0.5 mg PO DAILY PRN 10/10/18 10/10/18 History Cyanocobalamin [Vitamin B-12 1,000 mcg SQ Q14D 10/10/18 10/10/18 History Injection] Escitalopram [Lexapro] 20 mg PO DAILY 10/10/18 10/10/18 History Allergies Allergy/AdvReac Type Severity Reaction Status Date / Time codeine AdvReac Nausea & Verified 10/10/18 16:43 Vomiting prednisone AdvReac Rapid Verified 10/10/18 16:43 Heart Rate Physical Exam Vitals: Vital Signs Temp Pulse Resp BP Pulse Ox 10/18/18 10:15 94 19 10/18/18 08:00 98.3 F 94 19 104/67 94 L 10/17/18 23:32 98.4 F 91 16 104/68 97 10/17/18 20:54 98.1 F 83 14 119/78 96 10/17/18 14:32 97.5 F L 87 15 99/56 92 L Intake and Output 10/17/18 10/18/18 10/18/18 22:59 06:59 14:59 Intake Total 750 180 Output Total 80 100 Balance -80 650 180 Intake: Intake, IV Titration 750 Amount Sodium Chloride 0.9% 1, 750 000 ml @ 75 mls/hr IV . [id number] [facility] Rx#:[id number] Oral 180 Output: Chest Tube Drainage 80 100 Pleural Catheter Left 80 100 Posterior Chest Other: Voiding Method Toilet Toilet # Voids 1 1 Results - Lab Results Most recent lab results Calcium 8.3 mg/dL (8.4-10.2) L 10/18/18 07:36 10/18/18 07:36 10/18/18 07:36 Assessment and Plan Plan: Assessment: 1. Acute kidney injury secondary to ATN secondary to vancomycin toxicity and infection. Baseline creatinine is 1 and is elevated at 2.8 today. 2. Left-sided pneumonia with empyema status post chest tube placement. Maintain on IV antibiotics. Infectious disease following. 3. Severe aortic stenosis. Plan: Check urinalysis. Check renal ultrasound. Decreased rate of normal saline to 50 mL an hour. Avoid nephrotoxins. Repeat electrolytes in the morning. Thank you for the consultation. I will continue to follow the patient during her hospital stay.
--- NOTE | 2018-10-18 14:44 | IR ---
EXAMINATION TYPE: IR cvc insert >=5 years DATE OF EXAM: 10/18/2018 COMPARISON: NONE CLINICAL HISTORY: Infection, pneumonia Needs long-term intravenous access for antibiotics. PROCEDURE: After informed consent, the skin overlying the left basilic vein was localized with ultrasound and no samra to be compressible and patent. An ultrasound image was obtained and submitted on the patient's c finch. The overlying skin was prepped and draped and Lidocaine was used for local anesthesia. A skin amy was made with a scalpel. Access was gained to the vein under ultrasound guidance with a 21 gau ge needle and a 0.018 inch wire was advanced. Access site was dilated with Peel-Away sheath and cath eter tailored to the appropriate length and advanced such that the distal tip is at the cavoatrial ju nction. Spot image was obtained verifying placement. Catheter was fixed to the skin and a sterile d ressing was placed following hemostasis. Catheter was aspirated and flushed with saline. Patient wa s discharged in stable condition without complication. Maximal barrier technique is utilized. Ultras ound image is documented on the chart. Ultrasound used with sterile technique. Fluoro time and fluoroscopic images submitted to document procedure: 0.2 minutes fluoroscopy time, 11 intraoperative C-arm images document the procedure IMPRESSION: STATUS POST ULTRASOUND AND FLUOROSCOPIC GUIDED PICC LINE PLACEMENT, READY FOR USE. THIS PROCEDURE WAS PERFORMED BY THE UNDERSIGNED.
--- NOTE | 2018-10-18 16:52 | US ---
EXAMINATION TYPE: US kidneys/renal and bladder DATE OF EXAM: 10/18/2018 COMPARISON: NONE CLINICAL HISTORY: elana. Pneumonia, leukocytosis EXAM MEASUREMENTS: Right Kidney: 11.7 x 5.7 x 5.3 cm Left Kidney: 11.5 x 5.8 x 6.1 cm Post Void Residual Volume: not assessed on inpatient Right Kidney: No hydronephrosis or masses seen Left Kidney: No hydronephrosis or masses seen , cortical medullary differentiation is maintained bila terally. Bladder: wnl Bilateral Jets seen: yes There is no evidence for hydronephrosis at this point in time. No nephrolithiasis is seen. No elia s are identified. The urinary bladder is anechoic. Bilateral ureteral jets are seen. IMPRESSION: Renal sizes as described.
--- NOTE | 2018-10-18 18:47 | PN ---
PROGRESS NOTE DATE OF SERVICE: 10/18/2018 REASON FOR FOLLOWUP: Left-sided pneumonia empyema. INTERVAL HISTORY: The patient is afebrile. The patient overall is feeling better. She is breathing more comfortably. The left lower chest pain has improved. No nausea, no vomiting. No abdominal pain and no diarrhea. PHYSICAL EXAMINATION: Blood pressure 104/67 with a pulse of 94, temperature 98.3. She is 94% on 2 L nasal cannula. General description is an elderly female up in the bed in no distress. Respiratory system: Unlabored breathing. Slightly decreased breath sounds in the left base. No wheeze. HEART: S1, S2. Regular rate and rhythm. ABDOMEN: Soft. No tenderness. LABS: Hemoglobin 9.1, white count 11.7, BUN of 17, creatinine 2.80. DIAGNOSTIC IMPRESSION AND PLAN: Patient with left lower lobe pneumonia with concern for empyema, status post chest tube. Culture so far negative for any resistant pathogen. Patient is currently covered with Rocephin. That will be continued for now, monitoring her clinical course closely. Continue with supportive care. MMODL / IJN: [id number] /
[2018-10-19] MEDS: MELATONIN 3 MG TABLET PO SCH ×2 (00:02→20:05)
[2018-10-19] MEDS: HYDROcodone/APAP 5-325MG 1 EACH TAB PO SCH ×5 (05:13→23:45)
--- NOTE | 2018-10-19 07:07 | XR ---
EXAMINATION TYPE: XR chest 1V portable DATE OF EXAM: 10/19/2018 CLINICAL HISTORY: Difficulty breathing progress study. Left loculated effusions. TECHNIQUE: Single AP portable upright view of the chest is obtained. COMPARISON: Chest x-ray from one day earlier and older studies. FINDINGS: There is new left-sided PICC line terminating at cavoatrial junction. There is stable left mid lung pigtail pleural drainage catheter. There is persistent mild cardiomegaly. There is persiste nt bibasilar opacities. Upper lungs remain clear without pneumothorax. Osseous structures are intact. IMPRESSION: Left-sided pleural drainage catheter remains in place. There is cardiomegaly with small b ilateral pleural effusions and associated bibasilar atelectasis and/or infiltrate all redemonstrated. No significant interval change except new PICC line noted.
[2018-10-19 07:26] LABS: Calcium 7.9 mg/dL (8.4-10.2); Potassium 4.2 mmol/L (3.5-5.1)
[2018-10-19] MEDS: SODIUM CHLORIDE 0.9% 1,000 ML IV SCH ×3 (07:41→20:05)
[2018-10-19] MEDS: IPRATROPIUM-ALBUTEROL 3 ML NEB INHALATION SCH ×4 (08:26→20:14)
[2018-10-19] MEDS ORDERED: ALTEPLASE 10 MG in SODIUM CHLORIDE 0.9% 100 ML IRRIGATION ONE (09:00)
[2018-10-19] MEDS: ESCITALOPRAM 20 MG TAB PO SCH (10:52)
[2018-10-19] MEDS: ENOXAPARIN 30 MG/0.3 ML SYRINGE SQ SCH (10:52)
--- NOTE | 2018-10-19 12:05 | PN ---
PROGRESS NOTE DATE OF SERVICE: 10/18/2018 PRESENTING COMPLAINT: Chest infection. INTERVAL HISTORY: This patient was seen by me yesterday. Because of computers being very slow, I was unable to dictate. The patient presented with pneumonia, left parapneumonic effusion, status post lytics being infused x2. Also had acute renal failure from vancomycin. She was seen Cardiothoracic today; planning to give further alteplase. Patient is making good output from the chest tube. Pain is controlled. Tolerating a diet. REVIEW OF SYSTEMS: Done for constitutional, cardiovascular, GI, pulmonary; relevant findings as above. CURRENT MEDICATIONS: Reviewed. They include IV ceftriaxone. Vancomycin has been discontinued. PHYSICAL EXAMINATION: Temperature 98.4, pulse 98, respiration 17, blood pressure 113/71, pulse ox 94% on room air. GENERAL APPEARANCE: Sitting up in bed, awake, comfortable. EYES: Pupils equal. Conjunctivae normal. NECK: JVD not raised. Mass not palpable. RESPIRATORY: Effort increased. LUNGS: Diminished breath sounds. CARDIOVASCULAR: First and second sounds normal. No edema. ABDOMEN: Soft, non-tender. Liver and spleen not palpable. PSYCHIATRY: Alert and oriented x3. Mood and affect normal. CHEST WALL: Left-sided chest tube is present. INVESTIGATIONS: Cultures remain negative. White count 11.7, hemoglobin 9.1, potassium 4.2, BUN 17, creatinine 2.80. ASSESSMENT: 1. Left-sided pneumonia with parapneumonic effusion, slow to respond. Cultures have been negative. Status post thoracentesis and intrapulmonary lytics. 2. Chronic nicotine dependence. Patient is an active cigarette smoker. 3. Chronic obstructive pulmonary disease in a current smoker. 4. Hypothyroid. 5. Anxiety, depression not otherwise specified. 6. Acute renal failure, likely acute tubular necrosis, drug-induced, probably from vancomycin, slow to respond. 7. Normocytic anemia. 8. Severe aortic stenosis, non-rheumatic. 9. Secondary pulmonary hypertension due to chronic obstructive pulmonary disease. 10.Normocytic anemia from underlying infection. 11.Reactive thrombocytosis. PLAN: Continue with IV antibiotics. Patient is also on IV fluids. Expect renal functions to start coming down by tomorrow. Care was discussed with the patient. MMODL / IJN: [id number] /
--- NOTE | 2018-10-19 12:31 | P.PN ---
Subjective Progress Note Date: 10/19/18 Principal diagnosis: Left-sided pneumonia, possible abscess, status post pigtail chest tube placement. Medical history of current tobacco dependence, COPD, pneumonia, and anxiety. Severe aortic stenosis with peak/mean gradient 84.36 mmHg/55.38 mmHg. Patient sitting up in bed in no acute distress this morning. States pain is much better than yesterday. Denies shortness of breath. TPA was not instilled yesterday per request from pulmonology secondary to patient's significant pain. Objective - Vital Signs Vital signs: Vital Signs Temp 99.2 F 10/19/18 07:33 Pulse 97 10/19/18 07:33 Resp 20 10/19/18 07:33 BP 137/78 10/19/18 07:33 Pulse Ox 95 10/19/18 07:33 Intake & Output 10/18/18 10/19/18 10/19/18 18:59 06:59 18:59 Intake Total 660 1780 Output Total 200 55 Balance 460 1725 Intake: Intake, IV Titration 800 Amount Sodium Chloride 0.9% 1, 800 000 ml @ 50 mls/hr IV . Q20H [facility] Rx#:[id number] Oral 660 980 Output: Chest Tube Drainage 200 55 Pleural Catheter Left 200 55 Posterior Chest Other: Voiding Method Toilet Toilet # Voids 1 1 - Constitutional General appearance: Present: cooperative, no acute distress - Respiratory Details: Lungs sounds remained very diminished on the left. Respirations even, nonlabored. Currently on room air with oxygen saturation 95%. Able to achieve 750 mL on her incentive spirometry. Left-sided pigtail catheter present, 35 mL serosanguineous drainage overnight, 250 mL drainage in the last 24 hours, no air leak present. - Cardiovascular Details: S1, S2 present, positive systolic murmur. Regular rate and rhythm. Palpable peripheral pulses bilaterally. No edema present. No calf pain or tenderness noted. - Gastrointestinal Gastrointestinal Comment(s): Abdomen soft, nontender, nondistended. Active bowel sounds 4 quadrants. Tolerating diet. - Genitourinary Genitourinary Comment(s): Continues to void clear, yellow urine. - Integumentary Integumentary Comment(s): Skin is warm dry with evidence of good perfusion. - Neurologic Neurologic: Present: CNII-XII intact - Musculoskeletal Musculoskeletal: Present: gait normal, strength equal bilaterally - Psychiatric Psychiatric: Present: A&O x's 3, appropriate affect, intact judgment & insight - Allied health notes Allied health notes reviewed: nursing - Labs CBC & Chem 7: 10/18/18 07:36 10/19/18 06:27 Labs: Abnormal Lab Results - Last 24 Hours (Table) 10/19/18 Range/Units 06:27 Chloride 110 H (98-107) mmol/L BUN 19 H (7-17) mg/dL Creatinine 2.72 H (0.52-1.04) mg/dL Calcium 7.9 L (8.4-10.2) mg/dL - Imaging and Cardiology Chest x-ray: report reviewed, image reviewed Assessment and Plan Assessment: 1. Left-sided loculated pleural effusion status post thoracentesis, pigtail placement with daily alteplase instillation 2. Left lower lobe pneumonia 3. Current tobacco dependence 4. COPD 5. Anxiety 6. Severe aortic stenosis on current echocardiogram, peak/mean gradient 84.36 mmHg/55.38 mmHg, possibly bicuspid aortic valve 7. Elevated creatinine, possibly from vancomycin. Plan: 1. Will instill alteplase again today. Will continue to monitor output. Dr. Hayden reviewed chest x-rays and CT scans, will hold off on surgical intervention at this point as long as patient is still effectively draining. Will monitor x-rays, CTs. 2. Continue antibiotics per infectious disease recommendations, final culture results negative. Vancomycin stopped secondary to increased creatinine. 3. Bronchodilators per pulmonology. 4. Encourage incentive spirometry 10 times every hour while awake. 5. Pain control per primary care service. 6. Encourage smoking cessation. 7. DVT prophylaxis with Lovenox. 8. Cardiology following for severe aortic stenosis on transthoracic echocardiogram. 9. Will continue to monitor and make recommendations based on patient's clinical course. Time with Patient: Greater than 30
--- NOTE | 2018-10-19 12:44 | P.PN ---
Subjective Progress Note Date: 10/19/18 Principal diagnosis: Lower lobe pneumonia with consolidation and parapneumonic loculated left sided pleural effusion. The patient is seen today 10/19/2018 in follow-up on the regular medical floor. She is awake and alert in no acute distress. She is currently sitting up in the at the bedside. Planning to take a walk. She denies any worsening shortness of breath, cough or congestion. She is maintaining good O2 saturations in the 90s on room air. She's been afebrile. Hemodynamically stable. Chest tube remains in place to the left chest. Continues with bloody purulent output output. Preliminary cultures are revealing no growth. Creatinine improving at 2.72. C-reactive protein 248. She remains on antibiotics in the form of ceftriaxone. PICC line has been placed. She also received an additional alteplase infusion today. Chest x-ray reveals left- sided pleural effusions with new right pleural effusion. Objective - Vital Signs Vital signs: Vital Signs Temp 99.2 F 10/19/18 07:33 Pulse 97 10/19/18 07:33 Resp 20 10/19/18 07:33 BP 137/78 10/19/18 07:33 Pulse Ox 95 10/19/18 07:33 Intake & Output 10/18/18 10/19/18 10/19/18 18:59 06:59 18:59 Intake Total 660 1780 Output Total 200 55 150 Balance 460 1725 -150 Intake: Intake, IV Titration 800 Amount Sodium Chloride 0.9% 1, 800 000 ml @ 50 mls/hr IV . Q20H [facility] Rx#:[id number] Oral 660 980 Output: Chest Tube Drainage 200 55 150 Pleural Catheter Left 200 55 150 Posterior Chest Other: Voiding Method Toilet Toilet Toilet # Voids 1 1 - Exam GENERAL EXAM: Alert, active, comfortable in no apparent distress. On room air. HEAD: Normocephalic. EYES: Normal reaction of pupils, equal size. NOSE: Clear with pink turbinates. THROAT: No erythema or exudates. NECK: No masses, no JVD. CHEST: No chest wall deformity. LUNGS: Equal air entry with scattered rhonchi as, crackles in the left posterior bases. Chest tube remains in place. CVS: S1 and S2 normal with no audible murmur, regular rhythm. ABDOMEN: No hepatosplenomegaly, normal bowel sounds, no guarding or rigidity. SPINE: No scoliosis or deformity SKIN: No rashes CENTRAL NERVOUS SYSTEM: No focal deficits, tone is normal in all 4 extremities. EXTREMITIES: There is no peripheral edema. No clubbing, no cyanosis. Peripheral pulses are intact. - Labs CBC & Chem 7: 10/18/18 07:36 10/19/18 06:27 Labs: Abnormal Lab Results - Last 24 Hours (Table) 10/19/18 Range/Units 06:27 Chloride 110 H (98-107) mmol/L BUN 19 H (7-17) mg/dL Creatinine 2.72 H (0.52-1.04) mg/dL Calcium 7.9 L (8.4-10.2) mg/dL Assessment and Plan Assessment: Assessment 1 left lower lobe pneumonia with consolidation and a parapneumonic loculated left-sided pleural effusion, questionable early abscess formation in the posterior segment of the left lower lobe. Left-sided chest tube remains in place. Continues to drain. Alteplase today. 2 left-sided pleural effusion, loculated, likely parapneumonic 3 questionable left lung abscess 4 COPD 5 smoker 6 hypothyroidism Plan The patient was seen and evaluated by Dr. Sow. Chest x-ray reviewed fluid analysis reviewed. To receive another dose of alteplase today per CT services. PICC line has been placed. Continues on ceftriaxone. ID is on the case. We will increase her activity as tolerated. We'll continue to follow and make further recommendations based on her clinical status. I, the cosigning physician, performed a history & physical examination of the patient. Lungs sounds few scattered rhonchi, crackles, diminished over left posterior base. Maintaining good O2 saturations in the 90s on room air. I discussed the assessment and plan of care with my nurse practitioner, Evelyn Benites. I attest to the above note as dictated by her.
--- NOTE | 2018-10-19 12:58 | P.PN ---
Subjective Progress Note Date: 10/19/18 Seen and examined for the follow-up of acute kidney injury. Objective - Vital Signs Vital signs: Vital Signs Temp 99.2 F 10/19/18 07:33 Pulse 97 10/19/18 07:33 Resp 20 10/19/18 07:33 BP 137/78 10/19/18 07:33 Pulse Ox 95 10/19/18 07:33 Intake & Output 10/18/18 10/19/18 10/19/18 18:59 06:59 18:59 Intake Total 660 1780 Output Total 200 55 150 Balance 460 1725 -150 Intake: Intake, IV Titration 800 Amount Sodium Chloride 0.9% 1, 800 000 ml @ 50 mls/hr IV . Q20H [facility] Rx#:[id number] Oral 660 980 Output: Chest Tube Drainage 200 55 150 Pleural Catheter Left 200 55 150 Posterior Chest Other: Voiding Method Toilet Toilet Toilet # Voids 1 1 - Exam Lying in bed no acute distress S1-S2 heard Left chest tube Trace edema - Labs CBC & Chem 7: 10/18/18 07:36 10/19/18 06:27 Labs: Abnormal Lab Results - Last 24 Hours (Table) 10/19/18 Range/Units 06:27 Chloride 110 H (98-107) mmol/L BUN 19 H (7-17) mg/dL Creatinine 2.72 H (0.52-1.04) mg/dL Calcium 7.9 L (8.4-10.2) mg/dL Assessment and Plan Assessment: #1 acute kidney injury secondary to hemodynamic and toxic ATN from vancomycin. Baseline creatinine 1.0 MG per DL. #2 left empyema status post chest tube #3 metabolic acidosis #4 severe aortic stenosis #5 anemia Plan: #1 renal function stable. No obstruction on renal ultrasound. Urine analysis pending #2 avoid nephrotoxic agents and hypotensive episodes. #3 anticipate recovery of renal function soon. #4 labs in the morning, continue with IV fluids for now
[2018-10-19 13:57] LABS: Appearance,Urine Cloudy (Clear); Bacteria,Urine Rare /hpf; Bilirubin,Urine Negative (Negative); Blood,Urine Negative (Negative); Color,Urine Yellow; Glucose,Urine (UA) Negative (Negative); Ketones,Urine Negative (Negative); Leukocyte Esterase,Urine Moderate (Negative); Nitrite,Urine Negative (Negative); PH, Urine 5.5 (5.0-8.0); Protein,Urine 1+ (Negative); RBC,Urine 2 /hpf (0-5); Specific Gravity,Urine 1.012 (1.001-1.035); Squamous Epithelial Cell,Urine 16 /hpf (0-4); Urobilinogen,Urine <2.0 mg/dL (<2.0); WBC,Urine 5 /hpf (0-5)
[2018-10-19] MEDS: ONDANSETRON 4 MG/2 ML VIAL IVP PRN (15:36)
[2018-10-19 20:43] LABS: Glucose,Whole Blood 148 mg/dL (75-99)
--- NOTE | 2018-10-19 21:30 | PN ---
PROGRESS NOTE DATE OF SERVICE: October 19, 2018. PRESENTING COMPLAINT: Pleural effusion. INTERVAL HISTORY: This patient admitted with pneumonia, left parapneumonic effusion with left chest tube status post and continues with antibiotic. Tolerating some diet. Had a bowel movement. REVIEW OF SYSTEMS: Done for constitutional, cardiovascular, GI, pulmonary; relevant findings as above. CURRENT MEDICATIONS: Reviewed that include IV ceftriaxone. PHYSICAL EXAMINATION: VITAL SIGNS: Temperature 98.7, pulse 84, respiratory rate 16, blood pressure 125/73, pulse ox 98% on 2 L. GENERAL APPEARANCE: Sitting up, awake. EYES: Pupils are equal. Conjunctivae normal. NECK: JVD not raised. Mass not palpable. RESPIRATORY: Effort increased. LUNGS: Diminished breath sounds. Cardiovascular: 1st and 2nd sounds normal. No edema. ABDOMEN: Soft, nontender. Liver and spleen not palpable. PSYCHIATRY: Alert and oriented times three. Mood and affect normal. Chest wall: Chest tube is present. INVESTIGATIONS: Potassium 4.2, BUN 19, creatinine 2.72. ASSESSMENT: 1. Left-sided pneumonia with parapneumonic effusion, slow to respond. Cultures remain negative, status post thoracentesis with a intrapulmonary lytics. 2. Chronic nicotine dependence, patient an active cigarette smoker. 3. Chronic obstructive pulmonary disease in a current smoker. 4. Hypothyroid. 5. Anxiety and depression, not otherwise specified. 6. Acute renal failure likely acute tubular necrosis, drug-induced probably from vancomycin, slow to respond. 7. Normocytic anemia. 8. Severe aortic stenosis nonrheumatic. 9. Secondary pulmonary hypertension due to chronic obstructive pulmonary disease. 10.Normocytic anemia probably from underlying infection. 11.Reactive thrombocytosis. PLAN: Continue current medication and treatment plan. Care was discussed with the patient. Follow. MMODL / IJN: [id number] /
--- NOTE | 2018-10-19 23:15 | PN ---
PROGRESS NOTE DATE OF SERVICE: 10/19/2018. REASON FOR FOLLOWUP: Left lower lobe pneumonia and pain. INTERVAL HISTORY: The patient is afebrile. The patient pain to the left area is currently controlled. The patient denies having any worsening shortness of breath. No nausea, no vomiting. No abdominal pain. No diarrhea. PHYSICAL EXAMINATION: Blood pressure 125/73 with a pulse of 84, temperature 98.7. She is 98% on 2 L nasal cannula. General description is an elderly female up in the bed in no distress. Respiratory system: Unlabored breathing with decreased breath sounds in the bases. No wheeze. Heart S1, S2. Regular rate and rhythm. Abdomen: Soft, no tenderness. LABS: BUN of 19, creatinine 2.7. DIAGNOSTIC IMPRESSION AND PLAN: Patient with left lower lobe pneumonia with parapneumonic effusion/empyema, status post chest tube placement and did have repeated installation of . The patient culture so far negative for resistant pathogen. Patient on Rocephin. Continue to follow while watching clinical course closely. Continue supportive care. MMODL / IJN: [id number] /
[2018-10-20] MEDS: HYDROcodone/APAP 5-325MG 1 EACH TAB PO SCH ×4 (05:53→23:20)
[2018-10-20] MEDS ORDERED: ALTEPLASE 10 MG in SODIUM CHLORIDE 0.9% 100 ML IRRIGATION ONE (06:51)
[2018-10-20 07:52] LABS: Potassium 4.3 mmol/L (3.5-5.1)
[2018-10-20] MEDS: ESCITALOPRAM 20 MG TAB PO SCH (08:54)
[2018-10-20] MEDS: ENOXAPARIN 30 MG/0.3 ML SYRINGE SQ SCH (08:54)
[2018-10-20] MEDS: IPRATROPIUM-ALBUTEROL 3 ML NEB INHALATION SCH ×4 (09:01→20:52)
--- NOTE | 2018-10-20 10:43 | P.PN ---
Subjective Progress Note Date: 10/20/18 Principal diagnosis: Left-sided pneumonia, possible abscess, status post pigtail chest tube placement. Medical history of current tobacco dependence, COPD, pneumonia, and anxiety. Severe aortic stenosis with peak/mean gradient 84.36 mmHg/55.38 mmHg. Patient sitting up in bed in no acute distress this morning. Does continue to complain of pain in left lateral chest. Denies shortness of breath. Alteplase instilled yesterday. Objective - Vital Signs Vital signs: Vital Signs Temp 97.8 F 10/20/18 07:32 Pulse 81 10/20/18 07:32 Resp 16 10/20/18 07:32 BP 126/76 10/20/18 07:32 Pulse Ox 99 10/20/18 07:32 Intake & Output 10/19/18 10/20/18 10/20/18 18:59 06:59 18:59 Intake Total 400 Output Total 150 300 Balance 250 -300 Intake: IV 400 Sodium Chloride 0.9% 1, 400 000 ml @ 50 mls/hr IV . Q20H [facility] Rx#:[id number] Output: Chest Tube Drainage 150 300 Pleural Catheter Left 150 300 Posterior Chest Other: Voiding Method Toilet Toilet # Voids 1 4 # Bowel Movements 1 - Constitutional General appearance: Present: cooperative, no acute distress - Respiratory Details: Lungs sounds remained diminished on the left but she does have increased air exchange compared to yesterday. Respirations even, nonlabored. Currently on 2 L nasal cannula with oxygen saturation 98%. Able to achieve 1000 mL on her incentive spirometry. Left-sided pigtail catheter present, 186 mL serosanguineous drainage overnight, 500 mL drainage in the last 24 hours, 350 mL since alteplase instillation yesterday around noon. - Cardiovascular Details: S1, S2 present, positive systolic murmur. Regular rate and rhythm. Palpable peripheral pulses bilaterally. No edema present. No calf pain or tenderness noted. - Gastrointestinal Gastrointestinal Comment(s): Abdomen soft, nontender, nondistended. Active bowel sounds 4 quadrants. Tolerating diet. - Genitourinary Genitourinary Comment(s): Continues to void clear, yellow urine. - Integumentary Integumentary Comment(s): Skin is warm dry with evidence of good perfusion. Pigtail catheter dressing dry and intact. - Neurologic Neurologic: Present: CNII-XII intact - Musculoskeletal Musculoskeletal: Present: gait normal, strength equal bilaterally - Psychiatric Psychiatric: Present: A&O x's 3, appropriate affect, intact judgment & insight - Allied health notes Allied health notes reviewed: nursing - Labs CBC & Chem 7: 10/18/18 07:36 10/20/18 06:54 Labs: Abnormal Lab Results - Last 24 Hours (Table) 10/19/18 10/19/18 10/20/18 Range/Units 13:21 20:41 06:54 Chloride 110 H (98-107) mmol/L BUN 19 H (7-17) mg/dL Creatinine 2.70 H (0.52-1.04) mg/dL POC Glucose (mg/dL) 148 H (75-99) mg/dL Calcium 8.0 L (8.4-10.2) mg/dL Urine Appearance Cloudy H (Clear) Urine Protein 1+ H (Negative) Ur Leukocyte Esterase Moderate H (Negative) Ur Squamous Epith Cells 16 H (0-4) /hpf Urine Bacteria Rare H (None) /hpf Assessment and Plan Assessment: 1. Left-sided loculated pleural effusion status post thoracentesis, pigtail placement with daily alteplase instillation 2. Left lower lobe pneumonia 3. Current tobacco dependence 4. COPD 5. Anxiety 6. Severe aortic stenosis on current echocardiogram, peak/mean gradient 84.36 mmHg/55.38 mmHg, possibly bicuspid aortic valve 7. Elevated creatinine, possibly from vancomycin. Plan: 1. Will instill alteplase again today. Will continue to monitor output. Will hold off on surgical intervention at this point as long as patient is still effectively draining. Will monitor x-rays, CTs. 2. Continue antibiotics per infectious disease recommendations, final culture results negative. Remains on ceftriaxone. 3. Bronchodilators per pulmonology. 4. Wean O2 as tolerated. Encourage incentive spirometry 10 times every hour while awake. 5. Pain control per primary care service. Toradol stopped secondary to increased creatinine. 6. Encourage smoking cessation. 7. DVT prophylaxis with Lovenox. 8. Cardiology following for severe aortic stenosis on transthoracic echocardiogram. 9. Will continue to monitor and make recommendations based on patient's clinical course. Time with Patient: Greater than 30
[2018-10-20] MEDS: ONDANSETRON 4 MG/2 ML VIAL IVP PRN ×2 (11:25→20:22)
[2018-10-20] MEDS: MORPHINE SULFATE 4 MG/ML SYRINGE IV PRN ×2 (11:25→20:22)
[2018-10-20] MEDS: SODIUM CHLORIDE 0.9% 1,000 ML IV SCH (13:41)
--- NOTE | 2018-10-20 14:29 | P.PN ---
Subjective Progress Note Date: 10/20/18 Seen and examined for the follow-up of acute kidney injury. Objective - Vital Signs Vital signs: Vital Signs Temp 97.8 F 10/20/18 07:32 Pulse 81 10/20/18 07:32 Resp 16 10/20/18 07:32 BP 126/76 10/20/18 07:32 Pulse Ox 99 10/20/18 07:32 Intake & Output 10/19/18 10/20/18 10/20/18 18:59 06:59 18:59 Intake Total 400 50 Output Total 150 300 Balance 250 -300 50 Intake: IV 400 Sodium Chloride 0.9% 1, 400 000 ml @ 50 mls/hr IV . Q20H [facility] Rx#:[id number] Intake, IV Titration 50 Amount cefTRIAXone 2 gm In 50 Sodium Chloride 0.9% 50 ml @ 100 mls/hr IVPB Q24HR [facility] Rx#:[id number] Output: Chest Tube Drainage 150 300 Pleural Catheter Left 150 300 Posterior Chest Other: Voiding Method Toilet Toilet # Voids 1 4 2 # Bowel Movements 1 2 - Exam Lying in bed no acute distress S1-S2 heard Left chest tube Trace edema - Labs CBC & Chem 7: 10/18/18 07:36 10/20/18 06:54 Labs: Abnormal Lab Results - Last 24 Hours (Table) 10/19/18 10/20/18 Range/Units 20:41 06:54 Chloride 110 H (98-107) mmol/L BUN 19 H (7-17) mg/dL Creatinine 2.70 H (0.52-1.04) mg/dL POC Glucose (mg/dL) 148 H (75-99) mg/dL Calcium 8.0 L (8.4-10.2) mg/dL Assessment and Plan Assessment: #1 acute kidney injury secondary to hemodynamic and toxic ATN from vancomycin. Baseline creatinine 1.0 MG per DL. #2 left empyema status post chest tube #3 metabolic acidosis #4 severe aortic stenosis #5 anemia Plan: #1 renal function stable. No obstruction on renal ultrasound. Urine analysis noted. #2 avoid nephrotoxic agents and hypotensive episodes. #3 anticipate recovery of renal function soon. #4 labs in the morning, continue with IV fluids for now
--- NOTE | 2018-10-20 15:21 | P.PN ---
Subjective Progress Note Date: 10/20/18 On 10/20/2018 of seeing this patient for a follow-up. She is also receiving daily TPA infusion. She received a dose yesterday and she put out approximately 300 mL of pleural fluid. Through her pigtail catheter in her left lower lobe area. No fever. No chills. No significant respiratory distress. She is ambulating. She is using incentive spirometer. Another dose of alteplase will be given today. Hemodynamically stable. Renal function is also stable in the creatinine stable at 2.7. Antibiotic coverage remains unchanged. No repeated chest x-ray from today. Objective - Vital Signs Vital signs: Vital Signs Temp 98.2 F 10/20/18 14:47 Pulse 91 10/20/18 14:47 Resp 16 10/20/18 14:47 BP 115/80 10/20/18 14:47 Pulse Ox 95 10/20/18 14:47 Intake & Output 10/19/18 10/20/18 10/20/18 18:59 06:59 18:59 Intake Total 400 50 Output Total 150 300 Balance 250 -300 50 Intake: IV 400 Sodium Chloride 0.9% 1, 400 000 ml @ 50 mls/hr IV . Q20H [facility] Rx#:[id number] Intake, IV Titration 50 Amount cefTRIAXone 2 gm In 50 Sodium Chloride 0.9% 50 ml @ 100 mls/hr IVPB Q24HR [facility] Rx#:[id number] Output: Chest Tube Drainage 150 300 Pleural Catheter Left 150 300 Posterior Chest Other: Voiding Method Toilet Toilet # Voids 1 4 1 # Bowel Movements 1 2 - Exam GENERAL EXAM: Alert, active, comfortable in no apparent distress. On room air. HEAD: Normocephalic. EYES: Normal reaction of pupils, equal size. NOSE: Clear with pink turbinates. THROAT: No erythema or exudates. NECK: No masses, no JVD. CHEST: No chest wall deformity. LUNGS: Equal air entry with scattered rhonchi as, crackles in the left posterior bases. Chest tube remains in place. CVS: S1 and S2 normal with no audible murmur, regular rhythm. ABDOMEN: No hepatosplenomegaly, normal bowel sounds, no guarding or rigidity. SPINE: No scoliosis or deformity SKIN: No rashes CENTRAL NERVOUS SYSTEM: No focal deficits, tone is normal in all 4 extremities. EXTREMITIES: There is no peripheral edema. No clubbing, no cyanosis. Peripheral pulses are intact. - Labs CBC & Chem 7: 10/18/18 07:36 10/20/18 06:54 Labs: Abnormal Lab Results - Last 24 Hours (Table) 10/19/18 10/20/18 Range/Units 20:41 06:54 Chloride 110 H (98-107) mmol/L BUN 19 H (7-17) mg/dL Creatinine 2.70 H (0.52-1.04) mg/dL POC Glucose (mg/dL) 148 H (75-99) mg/dL Calcium 8.0 L (8.4-10.2) mg/dL Assessment and Plan Plan: Assessment 1 left lower lobe pneumonia with consolidation/ empyema , and the patient is having daily out of place treatments and there is still ongoing output from the left pleural space. Clinically improved. Chest x-ray showing improvement in the volume elevation of the left lung base. 2 left-sided pleural effusion, loculated, likely parapneumonic 3 questionable left lung abscess 4 COPD 5 smoker 6 hypothyroidism 7 acute kidney injury, stable creatinine. This is likely her vancomycin- induced ATN and the patient is nonoliguric. Plan Alteplase treatment today. Daily chest x-rays. Monitor the output from the left-sided chest tube. The breathing and incentive spirometer. Continue same antibiotic coverage. We'll continue to follow. CT surgery is on the case.
--- NOTE | 2018-10-20 19:10 | PN ---
PROGRESS NOTE DATE OF SERVICE: 10/20/2018. REASON FOR FOLLOWUP: Left lower lobe pneumonia and empyema. INTERVAL HISTORY: The patient is currently afebrile. The patient is breathing comfortably. The patient denies having any worsening chest pain. Minimal cough. No nausea, vomiting. No abdominal pain. No diarrhea. PHYSICAL EXAMINATION: Blood pressure 115/80 with a pulse of 90, temperature 98.2. She is 95% on room air. General description is an elderly female up in the room in no distress. Respiratory system: Unlabored breathing with decreased breath sounds in the bases. No wheeze. Heart S1, S2. Regular rate and rhythm. ABDOMEN: Soft, no tenderness. LABS: BUN of 19, creatinine 2.70. DIAGNOSTIC IMPRESSION AND PLAN: Patient with left-sided pneumonia and status post chest tube with multiple TPA's. Cultures have been negative for pathogen so far. Currently to continue for now. Continue supportive care. MMODL / IJN: [id number] /
--- NOTE | 2018-10-20 19:49 | PN ---
PROGRESS NOTE DATE OF SERVICE: October 20, 2018. PRESENTING COMPLAINT: Pleural effusion. INTERVAL HISTORY: This patient was admitted with pneumonia, left parapneumonic effusion, having failed outpatient treatment. Has got a left-sided pigtail chest tube and has been getting the tPA. The patient is making good output. Sometimes gets pain. Otherwise tolerating a diet. at the bedside. REVIEW OF SYSTEMS: Done for constitutional, cardiovascular, GI, pulmonary; relevant findings as above. CURRENT MEDICATIONS: Reviewed that include IV ceftriaxone. PHYSICAL EXAMINATION: VITAL SIGNS: Temperature 98.2, pulse 91, respirations 16, blood pressure 115/80, pulse ox 95% on room air. GENERAL APPEARANCE: Sitting up a bit tired-appearing. EYES: Pupils equal. Conjunctivae pale. NECK: JVD not raised. Mass not palpable. RESPIRATORY: Effort increased. LUNGS: Diminished breath sounds. CARDIOVASCULAR: 1st and 2nd sounds normal. No edema. ABDOMEN: Soft and nontender. Liver and spleen not palpable. PSYCHIATRY: Alert and oriented times three. Mood and affect normal. CHEST WALL: Left-sided chest tube is present. INVESTIGATIONS: Potassium 4.3, BUN 19, creatinine 2.7. ASSESSMENT: 1. Left-sided pneumonia with parapneumonic effusions, slow to respond. Cultures remain negative, status post thoracentesis and getting lytics. 2. Chronic nicotine dependence, patient is a cigarette smoker. 3. Chronic obstructive pulmonary disease in a current smoker. 4. Hypothyroid. 5. Anxiety and depression, not otherwise specified. 6. Acute renal failure likely acute tubular necrosis, drug-induced from Vancomycin. Expect creatinine to start coming down. 7. Normocytic anemia. 8. Severe aortic stenosis, nonrheumatic. 9. Secondary pulmonary hypertension due to chronic obstructive pulmonary disease. 10.Normocytic anemia probably underlying infection. 11.Reactive thrombocytosis. PLAN: Continue current medication and treatment plan. Care was discussed with the patient and the . Expect creatinine to start coming down. Remains on IV antibiotics. Also getting tPA. MMODL / IJN: [id number] /
[2018-10-20] MEDS: MELATONIN 3 MG TABLET PO SCH (20:22)
[2018-10-21] MEDS: MORPHINE SULFATE 4 MG/ML SYRINGE IV PRN ×3 (02:05→17:40)
[2018-10-21] MEDS: HYDROcodone/APAP 5-325MG 1 EACH TAB PO SCH ×4 (05:22→23:17)
[2018-10-21] MEDS: ESCITALOPRAM 20 MG TAB PO SCH (08:00)
[2018-10-21] MEDS: ENOXAPARIN 30 MG/0.3 ML SYRINGE SQ SCH (08:00)
--- NOTE | 2018-10-21 08:23 | XR ---
EXAMINATION TYPE: XR chest 2V DATE OF EXAM: 10/21/2018 COMPARISON: 10/19/2018 TECHNIQUE: PA and lateral views submitted. HISTORY: Abnormal x-ray FINDINGS: Bilateral pleural effusions and consolidation are stable. PICC line noted and there is a left-sided c hest tube. Small component of hydropneumothorax noted on the lateral view. Tube appears to be overlyi ng at the edge of the pleural space on the lateral view. Surgical clips in the abdomen noted. IMPRESSION: 1. Bilateral consolidation and pleural effusion is stable. There is a small hydropneumothorax compone nt on the left. Chest tube appears to be at the edge of the pleural space.
--- NOTE | 2018-10-21 08:58 | P.PN ---
Subjective Progress Note Date: 10/21/18 Principal diagnosis: Left-sided pneumonia, possible abscess, status post pigtail chest tube placement. Medical history of current tobacco dependence, COPD, pneumonia, and anxiety. Severe aortic stenosis with peak/mean gradient 84.36 mmHg/55.38 mmHg. Patient sitting up in bed in no acute distress this morning. States left-sided chest pain is controlled on current medication regimen, especially with morphine administration at time of alteplase instillation. Denies shortness of breath. Alteplase instilled again yesterday. Objective - Vital Signs Vital signs: Vital Signs Temp 97.4 F L 10/21/18 07:23 Pulse 68 10/21/18 07:23 Resp 17 10/21/18 07:23 BP 147/77 10/21/18 07:23 Pulse Ox 95 10/21/18 07:23 Intake & Output 10/20/18 10/21/18 10/21/18 18:59 06:59 18:59 Intake Total 50 800 Output Total 175 175 Balance -125 625 Intake: Intake, IV Titration 50 600 Amount Sodium Chloride 0.9% 1, 600 000 ml @ 50 mls/hr IV . Q20H [facility] Rx#:[id number] cefTRIAXone 2 gm In 50 Sodium Chloride 0.9% 50 ml @ 100 mls/hr IVPB Q24HR [facility] Rx#:[id number] Oral 200 Output: Chest Tube Drainage 175 175 Pleural Catheter Left 175 175 Posterior Chest Other: Voiding Method Toilet # Voids 1 # Bowel Movements 2 - Constitutional General appearance: Present: cooperative, no acute distress - Respiratory Details: Lungs sounds remained diminished on the left but she has continued to have increased air exchange. Respirations even, nonlabored. Currently on room air with oxygen saturation 91%. Able to achieve 750 mL on her incentive spirometry. Left-sided pigtail catheter present, 175 mL serosanguineous drainage overnight, 350 mL drainage in the last 24 hours. - Cardiovascular Details: S1, S2 present, positive systolic murmur. Regular rate and rhythm. Palpable peripheral pulses bilaterally. No edema present. No calf pain or tenderness noted. Left-sided PICC line present. - Gastrointestinal Gastrointestinal Comment(s): Abdomen soft, nontender, nondistended. Active bowel sounds 4 quadrants. Tolerating diet. - Genitourinary Genitourinary Comment(s): Continues to void clear, yellow urine. - Integumentary Integumentary Comment(s): Skin is warm dry with evidence of good perfusion. Pigtail catheter dressing dry and intact. - Neurologic Neurologic: Present: CNII-XII intact - Musculoskeletal Musculoskeletal: Present: gait normal, strength equal bilaterally - Psychiatric Psychiatric: Present: A&O x's 3, appropriate affect, intact judgment & insight - Allied health notes Allied health notes reviewed: nursing - Labs CBC & Chem 7: 10/18/18 07:36 10/20/18 06:54 - Imaging and Cardiology Chest x-ray: report reviewed, image reviewed Assessment and Plan Assessment: 1. Left-sided loculated pleural effusion status post thoracentesis, pigtail placement with daily alteplase instillation 2. Left lower lobe pneumonia 3. Current tobacco dependence 4. COPD 5. Anxiety 6. Severe aortic stenosis on current echocardiogram, peak/mean gradient 84.36 mmHg/55.38 mmHg, possibly bicuspid aortic valve 7. Elevated creatinine, possibly from vancomycin. Plan: 1. Will instill alteplase again today. Will continue to monitor output. Will hold off on surgical intervention at this point as long as patient is still effectively draining. Will monitor x-rays, CTs. 2. Continue antibiotics per infectious disease recommendations, final culture results negative. Remains on ceftriaxone. 3. Bronchodilators per pulmonology. 4. Encourage incentive spirometry 10 times every hour while awake. 5. Pain control per primary care service. Toradol stopped secondary to increased creatinine. Administer morphine when alteplase instilled. 6. Encourage smoking cessation. 7. DVT prophylaxis with Lovenox. 8. Cardiology following for severe aortic stenosis on transthoracic echocardiogram. 9. Will continue to monitor and make recommendations based on patient's clinical course. Time with Patient: Greater than 30
[2018-10-21] MEDS ORDERED: ALTEPLASE 10 MG in SODIUM CHLORIDE 0.9% 100 ML IRRIGATION ONE (09:00)
[2018-10-21] MEDS: IPRATROPIUM-ALBUTEROL 3 ML NEB INHALATION SCH ×4 (09:08→19:31)
[2018-10-21 10:00] LABS: Anisocytosis Slight; HGB 8.1 gm/dL (11.4-16.0); Hypochromasia Marked; MCH 26.8 pg (25.0-35.0); MCV 89.2 fL (80.0-100.0); Mean Platelet Volume 6.6; Platelet Count 388 k/uL (150-450); RBC 3.03 m/uL (3.80-5.40); RDW 16.6 % (11.5-15.5); WBC 10.7 k/uL (3.8-10.6)
[2018-10-21] MEDS ORDERED: MORPHINE SULFATE 2 MG/ML SYRINGE IVP STA (10:04)
[2018-10-21 10:15] LABS: Calcium 8.2 mg/dL (8.4-10.2); Potassium 4.8 mmol/L (3.5-5.1)
--- NOTE | 2018-10-21 11:12 | P.PN ---
Subjective Progress Note Date: 10/21/18 Principal diagnosis: Left lower lobe pneumonia with consolidation in the parapneumonic loculated left-sided pleural effusion Very pleasant 68-year-old female patient with a batwing pneumonias since early August. The patient presents her primary care physician and she was having symptoms of pneumonia with cough and congestion and shortness of breath. She was initially given a course of antibiotics which she thinks was Zithromax. Subsequently, she went back as the patient was not improving and she was seen by the nurse practitioner and the patient was given another round of antibiotics. I recovery was not complete. Yesterday she came into the emergency department with a subacute pleuritic chest pain involving the left chest which progressively got worse over the past 24 hours. She was having considerable amount of pain. She was still having cough. No stiffness sputum production. She reported occasional subjective fevers and chills. She had some weight loss in order of 12 pounds over the past 2 months. No hemoptysis. She is a chronic smoker. The chest x-ray was done that showed a left lower lobe consolidation. Following that the patient a CAT scan of the chest that showed evidence of a moderate-sized left-sided pleural effusion and a left lower lobe consolidation/atelectasis. There was a rounded 3 cm area of fluid density within the posterior segment of the left lower lobe which obviously raises the concern for a lung abscess. There was no evidence of any pulmonary embolism. The patient was given IV antibiotics. The patient was given a combination of Zosyn and Levaquin and vancomycin was also added to the regimen. The patient is currently hemodynamically stable. I saw this patient the bedside. She had diminished breath on the left lung base along with some dullness to percussion. I performed a bedside thoracentesis and a turbid dark yellowish pleural effusion was drained from the left lung and the total amount was around 500 mL. The procedure done without any complications. Her current white cell count is at 14.6. Rest of the blood work and electrodes are all within normal limits. Awaiting the results from the fluid analysis. She is a chronic smoker. No history of pulmonary disease although the CAT scan of the chest showed some emphysematous changes bilaterally. The patient is seen today 10/12/2018 in follow-up on the regular medical floor. She is awake and alert in no acute distress. He is maintaining O2 saturations in the low 90s on room air. She's afebrile. She is status post left-sided thoracentesis with 500 ml's. Cultures are pending. Fluid analysis reveals glucose less than 4, protein 4100, LDH 1412. Suspect parapneumonic effusion. She has been initiated on vancomycin, Zosyn and Levaquin. Follow-up computed tomography scan of the chest revealed acute recurrent sizable left pleural effusion with persistent consolidation and rounded 2.7 cm area of low density within the consolidated lung. Intrapulmonary abscess is within the differential. There is a 3 mm right lower lobe pulmonary nodule too small to characterize as well. On 10/13/2018, the patient is being seen in follow-up. She is doing well. Her pain on the left lung has subsided. The patient is afebrile. She is post an initial thoracentesis and the fluid with a complicated parapneumonic effusion with low glucose high LDH and high protein. Obviously complicated exudate, R early empyema. Subsequent CAT scan of the chest shows atrial fibrillation of a left-sided pleural effusion possibly an abscess formation. A percutaneous catheter was inserted, a pigtail catheter and the residual fluid was removed. Output is past several hours have dropped. I reviewed the chest x-ray and there is still residual opacification of left lung base and consolidation. Based on that, I infused into the pleural TPA and will monitor this patient's progress. On today's chest x-ray there is also development of a small right- sided pleural effusion. Despite all this changes, the patient is feeling better. White cell count is down to 8.2. She is hemodynamically stable. The cultures collected from the pleural fluid are still negative for now. We'll continue to follow. She is using incentive spirometer. On 10/14/2018 patient seen in follow-up on medical surgical floor. She is resting comfortably in bed, in no acute distress, lung sounds are diminished, with some limited rales at the right base. Patient has a left-sided pigtail chest tube in place and there is a total of 760 mL of serosanguineous thin pleural fluid drainage in the Pleur-evac. She was given a dose of TPA yesterday , today we obtain a follow-up CT chest in showed resistance small to moderate- sized left pleural fluid collection which only slightly diminished in size from prior study with associated compressive atelectasis and consolidation. Small to tiny right pleural effusion slightly larger and associated compressive atelectasis. Today's labs have been reviewed, with blood cell, 6.9, hemoglobin is 8.8. Pleural fluid cultures remain negative thus far, blood culture showed no growth. Patient is on antibiotic coverage including Zosyn and vancomycin. Patient is on 2 L per nasal cannula she is maintaining O2 saturations above 90% , she is 92-97%, afebrile, hemodynamically patient is stable. On 10/15/2018 patient seen in follow-up on medical surgical floor. She is sitting up in the chair, in no acute distress, currently on room air, [place] 97% , no fever or chills, hemodynamically stable, lung sounds are diminished bilaterally, even more so at the bases. Yesterday patient received additional dose of TPA per CT surgery, and there has been an additional 860 mL of thin serosanguineous pleural fluid output in the last 24 hours. Today's chest x-ray has been reviewed with Dr. Sow, and shows essentially stable findings, bilateral pleural effusions, with associated atelectasis. Labs have been reviewed, with blood cell count is 10.7, hemoglobin is 10.0, today's creatinine is 1.63, the rest of the BMP panel is pending right now, we will give the patient a dose of IV Lasix today, which is uncomfortable, in no distress, she is working on her incentive spirometer, achieving 750 ml today. Pleural fluid cultures remain negative thus far, antibiotic coverage with Rocephin and vancomycin continues. On 10/16/2018 patient seen in follow-up on medical surgical floor. She is resting comfortably in bed, she received on dose of TPA yesterday, there has been additional 250 mL of serosanguineous pleural drainage in the last 24 hours. Follow-up chest CT shows pigtail catheter within the posterior left pleural fluid collection, and scattered air within the fluid collection within the compressive atelectasis. Today's lab work has been reviewed, electrodes are within normal limits, however renal profile has worsened, BUN is 15, and creatinine is up to 2.49, vancomycin was discontinued yesterday, yesterday patient did receive a dose of IV Lasix. She did produce 1300 mL of urine output yesterday, clinically patient is comfortable, she is on 2 L per nasal cannula she is ambulating around the room, in no acute distress, afebrile. Pleural fluid cultures remain negative thus far. Antibiotic coverage with Rocephin. On 2 10/09/2018 patient seen in follow-up on selective care unit, she is awake and alert, in no acute distress, she is on room air, pulse ox is 92%, afebrile, today's chest x-ray has been reviewed by Dr. Sow, and shows improvement in aeration of the left basal capacity, and pleural effusion. There has been additional 510 mL of serosanguineous pleural fluid in the Pleur-evac her last 24 hours, cultures remain negative thus far, antibiotic coverage with IV Rocephin, vancomycin remains on hold, patient is receiving IV hydration with 0.9 normal saline at a rate of 75 ML per hour, today's labs have been reviewed, and there has been no further worsening of the renal function, BUN 17 and creatinine is 2.73. Lung sounds are diminished at the bases, with a few scattered crackles, otherwise patient is doing well, tolerating ambulation, surgery is following, patient is given another dose of alteplase today. On 10/18/2018 patient seen in follow-up on medical surgical floor. She is resting comfortably in bed, appears a bit sedated on today's exam, but patient easily wakes up, and responds appropriately. Yesterday she got additional dose of TPA yesterday, and there has been additional 500 mL out of the left-sided pigtail chest tube. Today's chest x-ray has been reviewed by Dr. Sow, showed continued improvement in the appearance of the left consolidation, and associated effusion. She remains on 2 L per nasal cannula and her pulse ox is 94%, afebrile, hemodynamically stable. Labs showed a white blood cell count 11.7, hemoglobin 9.1, sodium 140, potassium is 4.2, renal profile is stable, with BUN of 17 and creatinine of 2.80. Pleural fluid cultures remain negative thus far. No fever no chills, patient's breathing easier, she is working on her incentive spirometer, having increased pain in the left chest, we'll hold today's dose of TPA in view of continued improvement on the chest x-ray, and increased drainage from the pleural chest tube. On 10/21/2018 patient seen in follow-up on medical surgical floor. She is sitting up in bed, in no acute distress, she received another dose of alteplase , and there has been additional 350 mL of serosanguineous pleural fluid output in the left-sided pigtail chest tube. No fever or chills, pleural fluid cultures remain negative thus far, Gram stain showed no organisms. Blood cultures show no growth. Room air pulse ox was 91%, patient is wearing 2 L of oxygen intermittently, she does verbalize some discomfort after the TPA instillation, but no acute distress, and the pain subsides after a while. Overall she states she is breathing easier, lung sounds reveal diminished breath sounds over left lower base. Today's chest x-ray has been reviewed with Dr. Arzate, and shows bilateral consolidation and pleural effusion appeared to be stable compared to previous chest x-ray on 10/19/2018. Patient will receive another dose of TPA per CT surgery. Antibiotic coverage in the form of Rocephin , ID service is following, patient is working on her incentive spirometer, able to achieve 500-750 on it today. Patient denies any shortness of breath, only occasional cough, no phlegm production. No surgical intervention is planned at this time view of good response to alteplase instillation, and responds to IV antibiotics. Today's labs have been reviewed, white blood cell count is 10.7, electrolytes are within normal limits, and there has been a slight improvement if patient's renal profile, with BUN down to 18 and creatinine of 2.54. Patient remains on IV hydration with 0.9 normal saline at a rate of 50 ML per hour, awaiting oral intake, no nausea, no vomiting no diarrhea. Objective - Vital Signs Vital signs: Vital Signs Temp 97.4 F L 10/21/18 07:23 Pulse 68 10/21/18 07:23 Resp 17 10/21/18 08:00 BP 147/77 10/21/18 07:23 Pulse Ox 95 10/21/18 07:23 Intake & Output 10/20/18 10/21/18 10/21/18 18:59 06:59 18:59 Intake Total 50 800 Output Total 175 175 0 Balance -125 625 0 Intake: Intake, IV Titration 50 600 Amount Sodium Chloride 0.9% 1, 600 000 ml @ 50 mls/hr IV . Q20H [facility] Rx#:[id number] cefTRIAXone 2 gm In 50 Sodium Chloride 0.9% 50 ml @ 100 mls/hr IVPB Q24HR [facility] Rx#:[id number] Oral 200 Output: Chest Tube Drainage 175 175 0 Pleural Catheter Left 175 175 0 Posterior Chest Other: Voiding Method Toilet # Voids 1 # Bowel Movements 2 - Exam GENERAL EXAM: Alert, pleasant, 68-year-old white female on room air resting in bed comfortable in no apparent distress. HEAD: Normocephalic/atraumatic. EYES: Normal reaction of pupils, equal size. Conjunctiva pink, sclera white. NOSE: Clear with pink turbinates. THROAT: No erythema or exudates. NECK: No masses, no JVD, no thyroid enlargement, no adenopathy. CHEST: No chest wall deformity. Symmetrical expansion. Left posterior pigtail chest tube connected to Pleur-evac and wall suction, with thin serosanguineous output in the Pleur-evac LUNGS: Equal air entry sounds bilaterally, with some limited crackles at the right base CVS: Regular rate and rhythm, normal S1 and S2, no gallops, no murmurs, no rubs ABDOMEN: Soft, nontender. No hepatosplenomegaly, normal bowel sounds, no guarding or rigidity. EXTREMITIES: No clubbing, no edema, no cyanosis, 2+ pulses and upper and lower extremities. MUSCULOSKELETAL: Muscle strength and tone normal. SPINE: No scoliosis or deformity SKIN: No rashes CENTRAL NERVOUS SYSTEM: Alert and oriented -3. No focal deficits, tone is normal in all 4 extremities. PSYCHIATRIC: Alert and oriented -3. Appropriate affect. Intact judgment and insight. - Labs CBC & Chem 7: 10/21/18 09:25 10/21/18 09:25 Labs: Abnormal Lab Results - Last 24 Hours (Table) 10/21/18 10/21/18 Range/Units 09:25 09:25 WBC 10.7 H (3.8-10.6) k/uL RBC 3.03 L (3.80-5.40) m/uL Hgb 8.1 L (11.4-16.0) gm/dL Hct 27.0 L (34.0-46.0) % MCHC 30.0 L (31.0-37.0) g/dL RDW 16.6 H (11.5-15.5) % BUN 18 H (7-17) mg/dL Creatinine 2.54 H (0.52-1.04) mg/dL Glucose 107 H (74-99) mg/dL Calcium 8.2 L (8.4-10.2) mg/dL Assessment and Plan Plan: Assessment: 1 left lower lobe pneumonia with consolidation and a parapneumonic loculated left-sided pleural effusion, questionable early abscess formation in the posterior segment of the left lower lobe. The patient underwent a thoracentesis with evacuation of 500 mL of turbid dark yellowish pleural fluid from the left pleural space. Fluid was a complicated parapneumonic effusion/ empyema and the cultures of been negative. The follow-up CAT scan shows reaccumulation of the pleural fluid with loculation concern for an underlying lung abscess. A pig tail catheter was inserted. The patient remains on broad- spectrum antibiotics for now 2 left-sided pleural effusion, loculated, likely parapneumonic, post left pigtail chest tube insertion, patient has received multiple doses of TPA, with significant amount of output, cultures remained negative thus far, current antibiotic coverage with Rocephin. Cytology showed no malignant cells. Patient has had good response to alteplase infusions, with improvement in the appearance of the left sided pleural effusion, and consolidation 3 questionable left lung abscess 4 acute kidney injury related to combination of diuretics, and vancomycin 5 COPD 6 smoker 7 hypothyroidism Plan: Continue current medical treatment, today's chest x-ray shows stable bilateral consolidation, and a left-sided pleural effusion, patient has had good pleural fluid output with each instillation of TPA. ID service following, patient remains on Rocephin for antibiotic coverage. All cultures remain negative thus far. His labs showed slight improvement in patient's renal profile, continue with IV hydration, patient tolerating oral intake, no nausea, no vomiting diarrhea. No worsening shortness of breath, patient is tolerating ambulation. No surgical intervention is planned at this time, will continue with current medical treatment. PICC line has been inserted for IV antibiotic infusion after discharge. I performed a history & physical examination of the patient and discussed their management with my nurse practitioner, Angelika Sharma. I reviewed the nurse practitioner's note and agree with the documented findings and plan of care. Lung sounds are positive for diminished breath sounds, with some crackles at the right base. The findings and the impression was discussed with the patient. I attest to the documentation by the nurse practitioner. Time with Patient: Less than 30
--- NOTE | 2018-10-21 16:29 | PN ---
PROGRESS NOTE DATE OF SERVICE: 10/21/2018 REASON FOR FOLLOWUP: Left-sided pneumonia and empyema. INTERVAL HISTORY: The patient is currently afebrile. She is breathing comfortably. Still having some pain in the left lower chest area, but no worsening. No nausea, no vomiting, no abdominal pain and no diarrhea. PHYSICAL EXAMINATION: Blood pressure 102/64 with a pulse of 77, temperature 98.9. She is 95% on room air. General description is an elderly female lying in bed in no distress. RESPIRATORY SYSTEM: Unlabored breathing with decreased breath sounds at the base. No wheeze. HEART: S1, S2. Regular rate and rhythm. ABDOMEN: Soft. No tenderness. LABS: Hemoglobin 8.9, white count 10.7, BUN of 18, creatinine 2.54. DIAGNOSTIC IMPRESSION AND PLAN: Patient with left-sided pneumonia and empyema, status post chest tube with multiple TPAs. Cultures have been negative for any resistant pathogen. Patient is currently on Rocephin; to continue for now while monitoring her clinical course closely. Continue supportive care. MMODL / IJN: [id number] /
[2018-10-21] MEDS: ONDANSETRON 4 MG/2 ML VIAL IVP PRN (17:40)
[2018-10-21] MEDS: CLOTRIMAZOLE TROCHE 10 MG TROCHE MUCOUS MEM SCH ×3 (17:46→23:17)
[2018-10-21] MEDS: ACETAMINOPHEN TAB 325 MG TAB PO PRN (19:28)
--- NOTE | 2018-10-21 19:59 | PN ---
PROGRESS NOTE Patient is seen for followup for acute kidney injury. Her renal function is improving. Creatinine peaked at about 2.8. It is down to 2.5 today. Her previous creatinine was as low as 0.72 on 10/13/2018. Patient had vancomycin toxicity. She also has left empyema and currently has a chest tube. Patient has been voiding well. She denies any significant complaints. On examination, blood pressure this morning was 147/77, heart rate of 77 per minute. Patient is afebrile. EXAMINATION OF THE HEART: S1 and S2. EXAMINATION OF LUNGS: Bilateral breath sounds are heard. ABDOMEN: Soft, obese. Examination of lower extremities shows no significant edema. [employer] exam is grossly intact. Labs show sodium 138, potassium 4.8, BUN 18, serum creatinine 2.54, hemoglobin 8.1 g/dL. UA shows 1+ protein, RBCs 2. There is no blood. ASSESSMENT: 1. Acute kidney injury, acute tubular necrosis, mainly toxic acute tubular necrosis from vancomycin toxicity, currently improving. Patient is nonoliguric. Creatinine is decreasing. 2. Left lower lobe pneumonia with parapneumonic effusion, status post chest tube placement and tPA injection. Cultures negative thus far. Patient remains on antibiotics. 3. Chronic obstructive pulmonary disease. 4. Hypothyroidism. 5. Severe aortic stenosis. PLAN: Continue IV fluids at 50 mL/hour. Repeat labs in a.m. Continue to avoid nephrotoxic agents. MMODL / IJN: [id number] /
[2018-10-21] MEDS ORDERED: CLOTRIMAZOLE TROCHE 10 MG TROCHE MUCOUS MEM SCH (20:00)
--- NOTE | 2018-10-21 20:20 | PN ---
PROGRESS NOTE DATE OF SERVICE: 10/21/2018 PRESENTING COMPLAINT: Pleural effusion. INTERVAL HISTORY: Patient was admitted with pneumonia, left parapneumonic effusion, having failed outpatient treatment. Patient has been getting frequent tPAs, making good chest tube output. She does get intermittent pain; otherwise she has been tolerating a diet, sitting up on the bed. Her is present. REVIEW OF SYSTEMS: Done for constitutional, cardiovascular, GI, pulmonary; relevant findings as above. CURRENT MEDICATIONS: Current medications include IV ceftriaxone and tPA. PHYSICAL EXAMINATION: VITAL SIGNS: Temperature 98.9, pulse 77, respiration 16, blood pressure 102/64, pulse 95% on 2 L. GENERAL APPEARANCE: Sitting up, tired-appearing. EYES: Pupils equal. Conjunctivae pale. NECK: JVD not raised. Mass not palpable. RESPIRATORY: Effort increased. LUNGS: Diminished breath sounds. CARDIOVASCULAR: First and second sounds normal. No edema. ABDOMEN: Soft, non-tender. Liver and spleen not palpable. PSYCHIATRY: Alert and oriented x3. Mood and affect normal. CHEST WALL: Left-sided chest tube is present attached to the drain. INVESTIGATIONS: White count 10.7, hemoglobin 8.1, BUN 18, creatinine 2.54. ASSESSMENT: 1. Left-sided pneumonia with parapneumonic effusion, slow to respond, getting intrapulmonary tPA and making significant output. 2. Chronic nicotine dependence. Patient is a cigarette smoker. 3. Chronic obstructive pulmonary disease in a current smoker. 4. Hypothyroid. 5. Anxiety, depression not otherwise specified. 6. Acute renal failure, likely acute tubular necrosis, drug-induced from vancomycin. Creatinine has started to come down. 7. Normocytic anemia. 8. Severe aortic stenosis, non-rheumatic. 9. Secondary pulmonary hypertension due to chronic obstructive pulmonary disease. 10.Normocytic anemia, probably from underlying infection. 11.Reactive thrombocytosis. PLAN: Care was discussed with the patient and her . She is still making reasonable output. PICC line has been placed. Will follow renal function closely. MMODL / IJN: [id number] /
[2018-10-21] MEDS: MELATONIN 3 MG TABLET PO SCH (20:25)
[2018-10-21] MEDS: SODIUM CHLORIDE 0.9% 1,000 ML IV SCH (22:52)
[2018-10-22] MEDS: ACETAMINOPHEN TAB 325 MG TAB PO PRN (03:53)
[2018-10-22] MEDS: CLOTRIMAZOLE TROCHE 10 MG TROCHE MUCOUS MEM SCH ×5 (05:09→23:50)
[2018-10-22] MEDS: HYDROcodone/APAP 5-325MG 1 EACH TAB PO SCH ×4 (05:09→23:50)
[2018-10-22] MEDS ORDERED: ALTEPLASE 10 MG in SODIUM CHLORIDE 0.9% 100 ML IRRIGATION ONE (08:19)
--- NOTE | 2018-10-22 08:42 | CT ---
EXAMINATION TYPE: CT chest wo con DATE OF EXAM: 10/22/2018 COMPARISON: Prior CT chest 03/15/2019 HISTORY: Follow up to Lt sided effusion CT DLP: 311.7 mGycm. Automated Exposure Control for Dose Reduction was Utilized. TECHNIQUE: CT scan of the thorax is performed without IV contrast. FINDINGS: Posterior pleural drain shows a pigtail appearance and may withdrawn slightly in the interv al. Minimal residual air-fluid levels are present, the effusion has decreased in size but is likely m ultilocular. There is associated pleural thickening and basilar air bronchograms are noted at the lef t lung base greater than right. Small right effusion is present. No evident mediastinal, axillary, or hilar adenopathy. There is a hiatal hernia with partial intrathoracic stomach. No other significant interval change. Trace pericardial effusion noted. Calcifications noted at the root of the aorta, cor onary arteries. Central venous catheter is present with the distal tip overlying the superior vena ca va. Emphysematous changes are present within the lungs. Lack of contrast could compromise sensitivity. IMPRESSION: Decreased pleural fluid, empyema has decreased in size as compared to prior exam as descr ibed. Chest tube may have partially been withdrawn. Correlate for basilar pneumonia.
[2018-10-22] MEDS: ENOXAPARIN 30 MG/0.3 ML SYRINGE SQ SCH (08:51)
[2018-10-22] MEDS: ESCITALOPRAM 20 MG TAB PO SCH (08:55)
[2018-10-22] MEDS ORDERED: ALTEPLASE 5 MG in SODIUM CHLORIDE 0.9% 50 ML IRRIGATION ONE (09:00)
[2018-10-22] MEDS: IPRATROPIUM-ALBUTEROL 3 ML NEB INHALATION SCH ×4 (09:04→19:23)
--- NOTE | 2018-10-22 11:57 | P.PN ---
Subjective Progress Note Date: 10/22/18 Principal diagnosis: Left lower lobe pneumonia with consolidation in the parapneumonic loculated left-sided pleural effusion Very pleasant 68-year-old female patient with a batwing pneumonias since early August. The patient presents her primary care physician and she was having symptoms of pneumonia with cough and congestion and shortness of breath. She was initially given a course of antibiotics which she thinks was Zithromax. Subsequently, she went back as the patient was not improving and she was seen by the nurse practitioner and the patient was given another round of antibiotics. I recovery was not complete. Yesterday she came into the emergency department with a subacute pleuritic chest pain involving the left chest which progressively got worse over the past 24 hours. She was having considerable amount of pain. She was still having cough. No stiffness sputum production. She reported occasional subjective fevers and chills. She had some weight loss in order of 12 pounds over the past 2 months. No hemoptysis. She is a chronic smoker. The chest x-ray was done that showed a left lower lobe consolidation. Following that the patient a CAT scan of the chest that showed evidence of a moderate-sized left-sided pleural effusion and a left lower lobe consolidation/atelectasis. There was a rounded 3 cm area of fluid density within the posterior segment of the left lower lobe which obviously raises the concern for a lung abscess. There was no evidence of any pulmonary embolism. The patient was given IV antibiotics. The patient was given a combination of Zosyn and Levaquin and vancomycin was also added to the regimen. The patient is currently hemodynamically stable. I saw this patient the bedside. She had diminished breath on the left lung base along with some dullness to percussion. I performed a bedside thoracentesis and a turbid dark yellowish pleural effusion was drained from the left lung and the total amount was around 500 mL. The procedure done without any complications. Her current white cell count is at 14.6. Rest of the blood work and electrodes are all within normal limits. Awaiting the results from the fluid analysis. She is a chronic smoker. No history of pulmonary disease although the CAT scan of the chest showed some emphysematous changes bilaterally. The patient is seen today 10/12/2018 in follow-up on the regular medical floor. She is awake and alert in no acute distress. He is maintaining O2 saturations in the low 90s on room air. She's afebrile. She is status post left-sided thoracentesis with 500 ml's. Cultures are pending. Fluid analysis reveals glucose less than 4, protein 4100, LDH 1412. Suspect parapneumonic effusion. She has been initiated on vancomycin, Zosyn and Levaquin. Follow-up computed tomography scan of the chest revealed acute recurrent sizable left pleural effusion with persistent consolidation and rounded 2.7 cm area of low density within the consolidated lung. Intrapulmonary abscess is within the differential. There is a 3 mm right lower lobe pulmonary nodule too small to characterize as well. On 10/13/2018, the patient is being seen in follow-up. She is doing well. Her pain on the left lung has subsided. The patient is afebrile. She is post an initial thoracentesis and the fluid with a complicated parapneumonic effusion with low glucose high LDH and high protein. Obviously complicated exudate, R early empyema. Subsequent CAT scan of the chest shows atrial fibrillation of a left-sided pleural effusion possibly an abscess formation. A percutaneous catheter was inserted, a pigtail catheter and the residual fluid was removed. Output is past several hours have dropped. I reviewed the chest x-ray and there is still residual opacification of left lung base and consolidation. Based on that, I infused into the pleural TPA and will monitor this patient's progress. On today's chest x-ray there is also development of a small right- sided pleural effusion. Despite all this changes, the patient is feeling better. White cell count is down to 8.2. She is hemodynamically stable. The cultures collected from the pleural fluid are still negative for now. We'll continue to follow. She is using incentive spirometer. On 10/14/2018 patient seen in follow-up on medical surgical floor. She is resting comfortably in bed, in no acute distress, lung sounds are diminished, with some limited rales at the right base. Patient has a left-sided pigtail chest tube in place and there is a total of 760 mL of serosanguineous thin pleural fluid drainage in the Pleur-evac. She was given a dose of TPA yesterday , today we obtain a follow-up CT chest in showed resistance small to moderate- sized left pleural fluid collection which only slightly diminished in size from prior study with associated compressive atelectasis and consolidation. Small to tiny right pleural effusion slightly larger and associated compressive atelectasis. Today's labs have been reviewed, with blood cell, 6.9, hemoglobin is 8.8. Pleural fluid cultures remain negative thus far, blood culture showed no growth. Patient is on antibiotic coverage including Zosyn and vancomycin. Patient is on 2 L per nasal cannula she is maintaining O2 saturations above 90% , she is 92-97%, afebrile, hemodynamically patient is stable. On 10/15/2018 patient seen in follow-up on medical surgical floor. She is sitting up in the chair, in no acute distress, currently on room air, [place] 97% , no fever or chills, hemodynamically stable, lung sounds are diminished bilaterally, even more so at the bases. Yesterday patient received additional dose of TPA per CT surgery, and there has been an additional 860 mL of thin serosanguineous pleural fluid output in the last 24 hours. Today's chest x-ray has been reviewed with Dr. Sow, and shows essentially stable findings, bilateral pleural effusions, with associated atelectasis. Labs have been reviewed, with blood cell count is 10.7, hemoglobin is 10.0, today's creatinine is 1.63, the rest of the BMP panel is pending right now, we will give the patient a dose of IV Lasix today, which is uncomfortable, in no distress, she is working on her incentive spirometer, achieving 750 ml today. Pleural fluid cultures remain negative thus far, antibiotic coverage with Rocephin and vancomycin continues. On 10/16/2018 patient seen in follow-up on medical surgical floor. She is resting comfortably in bed, she received on dose of TPA yesterday, there has been additional 250 mL of serosanguineous pleural drainage in the last 24 hours. Follow-up chest CT shows pigtail catheter within the posterior left pleural fluid collection, and scattered air within the fluid collection within the compressive atelectasis. Today's lab work has been reviewed, electrodes are within normal limits, however renal profile has worsened, BUN is 15, and creatinine is up to 2.49, vancomycin was discontinued yesterday, yesterday patient did receive a dose of IV Lasix. She did produce 1300 mL of urine output yesterday, clinically patient is comfortable, she is on 2 L per nasal cannula she is ambulating around the room, in no acute distress, afebrile. Pleural fluid cultures remain negative thus far. Antibiotic coverage with Rocephin. On 2 10/09/2018 patient seen in follow-up on selective care unit, she is awake and alert, in no acute distress, she is on room air, pulse ox is 92%, afebrile, today's chest x-ray has been reviewed by Dr. Sow, and shows improvement in aeration of the left basal capacity, and pleural effusion. There has been additional 510 mL of serosanguineous pleural fluid in the Pleur-evac her last 24 hours, cultures remain negative thus far, antibiotic coverage with IV Rocephin, vancomycin remains on hold, patient is receiving IV hydration with 0.9 normal saline at a rate of 75 ML per hour, today's labs have been reviewed, and there has been no further worsening of the renal function, BUN 17 and creatinine is 2.73. Lung sounds are diminished at the bases, with a few scattered crackles, otherwise patient is doing well, tolerating ambulation, surgery is following, patient is given another dose of alteplase today. On 10/18/2018 patient seen in follow-up on medical surgical floor. She is resting comfortably in bed, appears a bit sedated on today's exam, but patient easily wakes up, and responds appropriately. Yesterday she got additional dose of TPA yesterday, and there has been additional 500 mL out of the left-sided pigtail chest tube. Today's chest x-ray has been reviewed by Dr. Sow, showed continued improvement in the appearance of the left consolidation, and associated effusion. She remains on 2 L per nasal cannula and her pulse ox is 94%, afebrile, hemodynamically stable. Labs showed a white blood cell count 11.7, hemoglobin 9.1, sodium 140, potassium is 4.2, renal profile is stable, with BUN of 17 and creatinine of 2.80. Pleural fluid cultures remain negative thus far. No fever no chills, patient's breathing easier, she is working on her incentive spirometer, having increased pain in the left chest, we'll hold today's dose of TPA in view of continued improvement on the chest x-ray, and increased drainage from the pleural chest tube. On 10/21/2018 patient seen in follow-up on medical surgical floor. She is sitting up in bed, in no acute distress, she received another dose of alteplase , and there has been additional 350 mL of serosanguineous pleural fluid output in the left-sided pigtail chest tube. No fever or chills, pleural fluid cultures remain negative thus far, Gram stain showed no organisms. Blood cultures show no growth. Room air pulse ox was 91%, patient is wearing 2 L of oxygen intermittently, she does verbalize some discomfort after the TPA instillation, but no acute distress, and the pain subsides after a while. Overall she states she is breathing easier, lung sounds reveal diminished breath sounds over left lower base. Today's chest x-ray has been reviewed with Dr. Arzate, and shows bilateral consolidation and pleural effusion appeared to be stable compared to previous chest x-ray on 10/19/2018. Patient will receive another dose of TPA per CT surgery. Antibiotic coverage in the form of Rocephin , ID service is following, patient is working on her incentive spirometer, able to achieve 500-750 on it today. Patient denies any shortness of breath, only occasional cough, no phlegm production. No surgical intervention is planned at this time view of good response to alteplase instillation, and responds to IV antibiotics. Today's labs have been reviewed, white blood cell count is 10.7, electrolytes are within normal limits, and there has been a slight improvement if patient's renal profile, with BUN down to 18 and creatinine of 2.54. Patient remains on IV hydration with 0.9 normal saline at a rate of 50 ML per hour, awaiting oral intake, no nausea, no vomiting no diarrhea. On 10/22/2018 patient seen in follow-up on medical surgical floor. She is awake and alert, in no acute distress, room air pulse ox is 96%, IV antibiotics in the form of Rocephin, cultures remain negative thus far, including pleural fluid cultures. No fever or chills, patient is tolerating ambulation, lung sounds reveal diminished breath sounds are so at the left lower base, there has been 120 mL of pleural fluid drainage from the detail chest tube catheter in the last 24 hours, yesterday patient received another dose of TPA, and there has been some leaking around the catheter noted, and today with TPA infusion there has been increased leaking noted. CT chest has been obtained, and showed decreased pleural fluid, decreased empyema/likely a pleural effusion compared to prior exam. Left-sided chest tube appears to have been partially withdrawn. There is associated pleural thickening and basilar air bronchograms in the left lung base within the right side. This was discussed with CT surgery, and the left pigtail chest tube catheter will likely be discontinued this afternoon. Clinically patient is stable, today's BMP is pending. Patient is tolerating oral intake, she is maintained on IV hydration at 50 ML per hour. Objective - Vital Signs Vital signs: Vital Signs Temp 98.5 F 10/22/18 08:50 Pulse 72 10/22/18 08:50 Resp 16 10/22/18 08:50 BP 138/75 10/22/18 08:50 Pulse Ox 96 10/22/18 08:50 Intake & Output 10/21/18 10/22/18 10/22/18 18:59 06:59 18:59 Intake Total 400 Output Total 120 Balance 280 Weight 75.551 kg Intake: Intake, IV Titration 400 Amount Sodium Chloride 0.9% 1, 350 000 ml @ 50 mls/hr IV . Q20H [facility] Rx#:[id number] cefTRIAXone 2 gm In 50 Sodium Chloride 0.9% 50 ml @ 100 mls/hr IVPB Q24HR [facility] Rx#:[id number] Output: Chest Tube Drainage 120 Pleural Catheter Left 120 Posterior Chest Other: Voiding Method Toilet # Voids 2 1 - Exam GENERAL EXAM: Alert, pleasant, 68-year-old white female on room air resting in bed comfortable in no apparent distress. HEAD: Normocephalic/atraumatic. EYES: Normal reaction of pupils, equal size. Conjunctiva pink, sclera white. NOSE: Clear with pink turbinates. THROAT: No erythema or exudates. NECK: No masses, no JVD, no thyroid enlargement, no adenopathy. CHEST: No chest wall deformity. Symmetrical expansion. Left posterior pigtail chest tube connected to Pleur-evac and wall suction, with thin serosanguineous output in the Pleur-evac LUNGS: Equal air entry sounds bilaterally, with some limited crackles at the right base CVS: Regular rate and rhythm, normal S1 and S2, no gallops, no murmurs, no rubs ABDOMEN: Soft, nontender. No hepatosplenomegaly, normal bowel sounds, no guarding or rigidity. EXTREMITIES: No clubbing, no edema, no cyanosis, 2+ pulses and upper and lower extremities. MUSCULOSKELETAL: Muscle strength and tone normal. SPINE: No scoliosis or deformity SKIN: No rashes CENTRAL NERVOUS SYSTEM: Alert and oriented -3. No focal deficits, tone is normal in all 4 extremities. PSYCHIATRIC: Alert and oriented -3. Appropriate affect. Intact judgment and insight. - Labs CBC & Chem 7: 10/21/18 09:25 10/21/18 09:25 Labs: Abnormal Lab Results - Last 24 Hours (Table) 10/22/18 Range/Units 07:35 C-Reactive Protein 156.4 H (<10.0) mg/L Microbiology - Last 24 Hours (Table) 10/11/18 12:43 Acid Fast Bacilli Smear - Final Pleural Fluid Acid Fast Bacilli Culture - Preliminary 10/11/18 12:43 Fungal Culture - Preliminary Pleural Fluid Assessment and Plan Plan: Assessment: 1 left lower lobe pneumonia with consolidation and a parapneumonic loculated left-sided pleural effusion, questionable early abscess formation in the posterior segment of the left lower lobe. The patient underwent a thoracentesis with evacuation of 500 mL of turbid dark yellowish pleural fluid from the left pleural space. Fluid was a complicated parapneumonic effusion/ empyema and the cultures of been negative. The follow-up CAT scan shows reaccumulation of the pleural fluid with loculation concern for an underlying lung abscess. A pig tail catheter was inserted. The patient remains on broad- spectrum antibiotics for now 2 left-sided pleural effusion, loculated, likely parapneumonic, post left pigtail chest tube insertion, patient has received multiple doses of TPA, with significant amount of output, cultures remained negative thus far, current antibiotic coverage with Rocephin. Cytology showed no malignant cells. Patient has had good response to alteplase infusions, with improvement in the appearance of the left sided pleural effusion, and consolidation 3 questionable left lung abscess 4 acute kidney injury related to combination of diuretics, and vancomycin 5 COPD 6 smoker 7 hypothyroidism Plan: Today's CT chest has been reviewed with Dr. Arzate, and shows improvement in the size of the left-sided loculated pleural effusion. The drainage out of the chest tube has been decreasing, and CT chest shows partial withdrawal of the chest tube. Patient has received multiple doses of TPA with good response. Clinically she is doing well, no fever or chills, vital signs are stable, remains on broad-spectrum antibiotics, currently on Rocephin, ID service is following, cultures remain negative thus far. We'll likely discontinue the pigtail catheter later this afternoon, this will be done by interventional radiology. We'll continue to follow. I performed a history & physical examination of the patient and discussed their management with my nurse practitioner, Angelika Sharma. I reviewed the nurse practitioner's note and agree with the documented findings and plan of care. Lung sounds are positive for diminished breath sounds, with some crackles at the right base. The findings and the impression was discussed with the patient. I attest to the documentation by the nurse practitioner. Time with Patient: Less than 30
[2018-10-22 12:11] LABS: Calcium 8.3 mg/dL (8.4-10.2); Potassium 4.5 mmol/L (3.5-5.1)
--- NOTE | 2018-10-22 12:34 | PN ---
PROGRESS NOTE Patient is seen for followup for acute kidney injury. She is currently doing fairly okay. Patient still has the chest tube in place. Renal function has improved with creatinine down to 2.54 from yesterday. I do not have labs from today. PHYSICAL EXAMINATION: Patient is comfortable. Blood pressure is 138/75, heart rate is 72 per minute. She is afebrile. Examination of the heart, S1, S2. Examination of the lungs, bilateral breath sounds are heard. Crackles are heard on the left base. Chest tube is present on the left side. Abdomen is soft, nontender. Examination of the lower extremities shows no significant edema. LABS: Show sodium 138, potassium 4.8, BUN 18, serum creatinine 2.54 from yesterday. ASSESSMENT: 1. Acute kidney injury, acute tubular necrosis, nonoliguric, currently improving. Check labs from today. 2. Left lung pneumonia with a parapneumonic effusion, status post chest tube placement and tPA injections. Cultures negative. The patient is maintained on antibiotics. 3. Chronic obstructive pulmonary disease. 4. Severe aortic stenosis. 5. Vancomycin toxicity, currently improved. PLAN: Continue to encourage increased oral intake. Avoid nephrotoxic agents. Repeat labs today as well as in a.m.. MMODL / IJN: [id number] /
--- NOTE | 2018-10-22 13:26 | P.PN ---
Subjective Progress Note Date: 10/22/18 Principal diagnosis: Left-sided pneumonia, possible abscess, status post pigtail chest tube placement. Medical history of current tobacco dependence, COPD, pneumonia, and anxiety. Severe aortic stenosis with peak/mean gradient 84.36 mmHg/55.38 mmHg. Patient sitting up in bed in no acute distress this morning. States she had a difficult time last night for quite a while with left-sided chest pain, she was unable to sleep until about 3:00 this morning. Denies shortness of breath. Alteplase instilled again yesterday, however there was some leakage as it was being instilled. Objective - Vital Signs Vital signs: Vital Signs Temp 98.5 F 10/22/18 08:50 Pulse 72 10/22/18 08:50 Resp 16 10/22/18 08:50 BP 138/75 10/22/18 08:50 Pulse Ox 96 10/22/18 08:50 Intake & Output 10/21/18 10/22/18 10/22/18 18:59 06:59 18:59 Intake Total 400 Output Total 120 Balance 280 Weight 75.551 kg Intake: Intake, IV Titration 400 Amount Sodium Chloride 0.9% 1, 350 000 ml @ 50 mls/hr IV . Q20H [facility] Rx#:[id number] cefTRIAXone 2 gm In 50 Sodium Chloride 0.9% 50 ml @ 100 mls/hr IVPB Q24HR [facility] Rx#:[id number] Output: Chest Tube Drainage 120 Pleural Catheter Left 120 Posterior Chest Other: Voiding Method Toilet # Voids 2 1 - Constitutional General appearance: Present: cooperative, no acute distress - Respiratory Details: Lungs sounds remained diminished on the left but she has continued to have increased air exchange. Respirations even, nonlabored. Currently on 2 L nasal cannula with oxygen saturation 98%. Able to achieve 1000 mL on her incentive spirometry. Left-sided pigtail catheter present, 110 mL serosanguineous drainage overnight, 350 mL drainage in the last 24 hours. - Cardiovascular Details: S1, S2 present, positive systolic murmur. Regular rate and rhythm. Palpable peripheral pulses bilaterally. No edema present. No calf pain or tenderness noted. Left-sided PICC line present. - Gastrointestinal Gastrointestinal Comment(s): Abdomen soft, nontender, nondistended. Active bowel sounds 4 quadrants. Tolerating diet. - Genitourinary Genitourinary Comment(s): Continues to void clear, yellow urine. - Integumentary Integumentary Comment(s): Skin is warm dry with evidence of good perfusion. Pigtail catheter dressing dry and intact. - Neurologic Neurologic: Present: CNII-XII intact - Musculoskeletal Musculoskeletal: Present: gait normal, strength equal bilaterally - Psychiatric Psychiatric: Present: A&O x's 3, appropriate affect - Allied health notes Allied health notes reviewed: nursing - Labs CBC & Chem 7: 10/21/18 09:25 10/22/18 07:35 Labs: Abnormal Lab Results - Last 24 Hours (Table) 10/21/18 10/21/18 10/22/18 Range/Units 09:25 09:25 07:35 WBC 10.7 H (3.8-10.6) k/uL RBC 3.03 L (3.80-5.40) m/uL Hgb 8.1 L (11.4-16.0) gm/dL Hct 27.0 L (34.0-46.0) % MCHC 30.0 L (31.0-37.0) g/dL RDW 16.6 H (11.5-15.5) % BUN 18 H (7-17) mg/dL Creatinine 2.54 H (0.52-1.04) mg/dL Glucose 107 H (74-99) mg/dL Calcium 8.2 L (8.4-10.2) mg/dL C-Reactive Protein 156.4 H (<10.0) mg/L Microbiology - Last 24 Hours (Table) 10/11/18 12:43 Acid Fast Bacilli Smear - Final Pleural Fluid Acid Fast Bacilli Culture - Preliminary 10/11/18 12:43 Fungal Culture - Preliminary Pleural Fluid - Imaging and Cardiology CT scan - chest: report reviewed, image reviewed Assessment and Plan Assessment: 1. Left-sided loculated pleural effusion status post thoracentesis, pigtail placement with daily alteplase instillation 2. Left lower lobe pneumonia 3. Current tobacco dependence 4. COPD 5. Anxiety 6. Severe aortic stenosis on current echocardiogram, peak/mean gradient 84.36 mmHg/55.38 mmHg, possibly bicuspid aortic valve 7. Elevated creatinine, possibly from vancomycin, resolving. Plan: 1. Attempted to instill alteplase again today, however site was leaking continuously as alteplase was being administered. Pigtail catheter clearly not in optimal position anymore. Recommend discontinuing pigtail catheter, this was discussed with pulmonology. 2. Continue antibiotics per infectious disease recommendations, final culture results negative. Remains on ceftriaxone. 3. Bronchodilators per pulmonology. 4. Encourage incentive spirometry 10 times every hour while awake. 5. Pain control per primary care service. Toradol stopped secondary to increased creatinine. 6. Encourage smoking cessation. 7. DVT prophylaxis with Lovenox. 8. Cardiology following for severe aortic stenosis on transthoracic echocardiogram. 9. No surgery warranted at this time. Will continue to see patient PRN while hospitalized. Please call us with any further questions. Time with Patient: Greater than 30
[2018-10-22] MEDS: MELATONIN 3 MG TABLET PO SCH (20:17)
[2018-10-22] MEDS: SODIUM CHLORIDE 0.9% 1,000 ML IV SCH (21:58)
--- NOTE | 2018-10-23 01:07 | PN ---
PROGRESS NOTE DATE OF SERVICE: 10/22/2018. REASON FOR FOLLOWUP: Left-sided pneumonia, empyema. INTERVAL HISTORY: The patient is currently afebrile. The patient is breathing comfortably. Left-sided chest pain has improved. No nausea, no vomiting. No abdominal pain. No diarrhea. PHYSICAL EXAMINATION: Blood pressure is 105/71 with a pulse of 77, temperature 98.3. She is 95% on room air. General description is an elderly female lying in bed in no distress. Respiratory system: Unlabored breathing with decreased breath sounds in the bases. No wheeze. Heart S1, S2. Regular rate and rhythm. Abdomen soft, no tenderness. LABS: BUN of 17, creatinine is 2.50. CRP is currently down to 156, compared to 48 a few days ago. DIAGNOSTIC IMPRESSION AND PLAN: Patient with left-sided pneumonia with parapneumonic effusion with underlying empyema status post chest tube placement. Patient is currently covered on Zosyn that will continue for now while monitoring her clinical course closely. Continue supportive care. MMODL / IJN: [id number] /
--- NOTE | 2018-10-23 02:06 | PN ---
PROGRESS NOTE DATE OF SERVICE: October 22, 2018. PRESENTING COMPLAINT: Pleural effusion. INTERVAL HISTORY: The patient admitted with pneumonia, left parapneumonic effusion with a pigtail catheter in place. Earlier today CT scan was ordered that is showing decrease of the same. PICC line is in place. Hoping that the pigtail catheter probably will be discontinued as per discussion with Pulmonary and Cardiothoracic. REVIEW OF SYSTEMS: Done for constitutional, cardiovascular, GI, pulmonary and relevant findings as above. CURRENT MEDICATIONS: Reviewed that include IV ceftriaxone. PHYSICAL EXAMINATION: VITAL SIGNS: Temperature 98.1, pulse 56, respirations 16, blood pressure 111/70, pulse ox 96 percent on room air. GENERAL APPEARANCE: Sitting up, awake. EYES: Pupils equal. Conjunctivae pale NECK: JVD not raised. Mass not palpable. RESPIRATORY: Effort increased. LUNGS: Diminished breath sounds. CARDIOVASCULAR: 1st and 2nd sounds normal. No edema. ABDOMEN: Soft, nontender. Liver and spleen is not palpable. PSYCHIATRY: Alert and oriented times three. Mood and affect normal. Chest wall: Left-sided chest tube/PICC catheter is present. INVESTIGATIONS: Potassium 4.5, BUN 17, creatinine 2.50. C-reactive protein 156.4. ASSESSMENT: 1. Left-sided pneumonia with parapneumonic effusion. CT scan showing some improvement, plan is for a possible take the tube out. 2. Chronic nicotine dependence, patient is a cigarette smoker. 3. Chronic obstructive pulmonary disease in a current smoker. 4. Hypothyroid. 5. Anxiety and depression, not otherwise specified. 6. Acute renal failure likely acute tubular necrosis, drug-induced from Vancomycin slowly coming down. 7. Normocytic anemia. 8. Severe aortic stenosis nonrheumatic. 9. Secondary pulmonary hypertension due to chronic obstructive pulmonary disease. 10.Normocytic anemia probably underlying infection. 11.Reactive thrombocytosis. Continue current medication and treatment plan. Chest tubes removed when okay with Pulmonary and Cardiothoracic surgery. Antibiotics are to continue. Care was discussed with the patient. Follow. MMODL / IJN: [id number] /
[2018-10-23] MEDS: SODIUM CHLORIDE 0.9% 1,000 ML IV SCH (02:59)
[2018-10-23] MEDS: HYDROcodone/APAP 5-325MG 1 EACH TAB PO SCH ×3 (05:08→13:44)
[2018-10-23] MEDS: CLOTRIMAZOLE TROCHE 10 MG TROCHE MUCOUS MEM SCH ×2 (05:09→11:41)
[2018-10-23] MEDS: ALPRAZolam 0.5 MG TAB PO PRN (07:44)
[2018-10-23] MEDS: IPRATROPIUM-ALBUTEROL 3 ML NEB INHALATION SCH ×3 (07:57→15:25)
[2018-10-23 08:40] VITALS: TEMP 97.9
--- NOTE | 2018-10-23 09:09 | P.PN ---
Subjective Progress Note Date: 10/23/18 Principal diagnosis: Left lower lobe pneumonia with consolidation in the parapneumonic loculated left-sided pleural effusion Very pleasant 68-year-old female patient with a batwing pneumonias since early August. The patient presents her primary care physician and she was having symptoms of pneumonia with cough and congestion and shortness of breath. She was initially given a course of antibiotics which she thinks was Zithromax. Subsequently, she went back as the patient was not improving and she was seen by the nurse practitioner and the patient was given another round of antibiotics. I recovery was not complete. Yesterday she came into the emergency department with a subacute pleuritic chest pain involving the left chest which progressively got worse over the past 24 hours. She was having considerable amount of pain. She was still having cough. No stiffness sputum production. She reported occasional subjective fevers and chills. She had some weight loss in order of 12 pounds over the past 2 months. No hemoptysis. She is a chronic smoker. The chest x-ray was done that showed a left lower lobe consolidation. Following that the patient a CAT scan of the chest that showed evidence of a moderate-sized left-sided pleural effusion and a left lower lobe consolidation/atelectasis. There was a rounded 3 cm area of fluid density within the posterior segment of the left lower lobe which obviously raises the concern for a lung abscess. There was no evidence of any pulmonary embolism. The patient was given IV antibiotics. The patient was given a combination of Zosyn and Levaquin and vancomycin was also added to the regimen. The patient is currently hemodynamically stable. I saw this patient the bedside. She had diminished breath on the left lung base along with some dullness to percussion. I performed a bedside thoracentesis and a turbid dark yellowish pleural effusion was drained from the left lung and the total amount was around 500 mL. The procedure done without any complications. Her current white cell count is at 14.6. Rest of the blood work and electrodes are all within normal limits. Awaiting the results from the fluid analysis. She is a chronic smoker. No history of pulmonary disease although the CAT scan of the chest showed some emphysematous changes bilaterally. The patient is seen today 10/12/2018 in follow-up on the regular medical floor. She is awake and alert in no acute distress. He is maintaining O2 saturations in the low 90s on room air. She's afebrile. She is status post left-sided thoracentesis with 500 ml's. Cultures are pending. Fluid analysis reveals glucose less than 4, protein 4100, LDH 1412. Suspect parapneumonic effusion. She has been initiated on vancomycin, Zosyn and Levaquin. Follow-up computed tomography scan of the chest revealed acute recurrent sizable left pleural effus ion with persistent consolidation and rounded 2.7 cm area of low density within the consolidated lung. Intrapulmonary abscess is within the differential. There is a 3 mm right lower lobe pulmonary nodule too small to characterize as well. On 10/13/2018, the patient is being seen in follow-up. She is doing well. Her pain on the left lung has subsided. The patient is afebrile. She is post an initial thoracentesis and the fluid with a complicated parapneumonic effusion with low glucose high LDH and high protein. Obviously complicated exudate, R early empyema. Subsequent CAT scan of the chest shows atrial fibrillation of a left-sided pleural effusion possibly an abscess formation. A percutaneous catheter was inserted, a pigtail catheter and the residual fluid was removed. Output is past several hours have dropped. I reviewed the chest x-ray and there is still residual opacification of left lung base and consolidation. Based on that, I infused into the pleural TPA and will monitor this patient's progress. On today's chest x-ray there is also development of a small right-sided pleural effusion. Despite all this changes, the patient is feeling better. White cell count is down to 8.2. She is hemodynamically stable. The cultures collected from the pleural fluid are still negative for now. We'll continue to follow. She is using incentive spirometer. On 10/14/2018 patient seen in follow-up on medical surgical floor. She is resting comfortably in bed, in no acute distress, lung sounds are diminished, with some limited rales at the right base. Patient has a left-sided pigtail chest tube in place and there is a total of 760 mL of serosanguineous thin pleural fluid drainage in the Pleur-evac. She was given a dose of TPA yesterday, today we obtain a follow-up CT chest in showed resistance small to moderate-sized left pleural fluid collection which only slightly diminished in size from prior study with associated compressive atelectasis and consolidation. Small to tiny right pleural effusion slightly larger and associated compressive atelectasis. Today's labs have been reviewed, with blood cell, 6.9, hemoglobin is 8.8. Pleural fluid cultures remain negative thus far, blood culture showed no growth. Patient is on antibiotic coverage including Zosyn and vancomycin. Patient is on 2 L per nasal cannula she is maintaining O2 saturations above 90%, she is 92-97%, afebrile, hemodynamically patient is stable. On 10/15/2018 patient seen in follow-up on medical surgical floor. She is sitting up in the chair, in no acute distress, currently on room air, [place] 97%, no fever or chills, hemodynamically stable, lung sounds are diminished bilaterally, even more so at the bases. Yesterday patient received additional dose of TPA per CT surgery, and there has been an additional 860 mL of thin serosanguineous pleural fluid output in the last 24 hours. Today's chest x-ray has been reviewed with Dr. Sow, and shows essentially stable findings, kristina ateral pleural effusions, with associated atelectasis. Labs have been reviewed, with blood cell count is 10.7, hemoglobin is 10.0, today's creatinine is 1.63, the rest of the BMP panel is pending right now, we will give the patient a dose of IV Lasix today, which is uncomfortable, in no distress, she is working on her incentive spirometer, achieving 750 ml today. Pleural fluid cultures remain n egative thus far, antibiotic coverage with Rocephin and vancomycin continues. On 10/16/2018 patient seen in follow-up on medical surgical floor. She is resting comfortably in bed, she received on dose of TPA yesterday, there has been additional 250 mL of serosanguineous pleural drainage in the last 24 hours. Follow-up chest CT shows pigtail catheter within the posterior left pleural fluid collection, and scattered air within the fluid collection within the compressive atelectasis. Today's lab work has been reviewed, electrodes are within normal limits, however renal profile has worsened, BUN is 15, and creatinine is up to 2.49, vancomycin was discontinued yesterday, yesterday patient did receive a dose of IV Lasix. She did produce 1300 mL of urine output yesterday, clinically patient is comfortable, she is on 2 L per nasal cannula she is ambulating around the room, in no acute distress, afebrile. Pleural fluid cultures remain negative thus far. Antibiotic coverage with Rocephin. On 2 10/09/2018 patient seen in follow-up on selective care unit, she is awake and alert, in no acute distress, she is on room air, pulse ox is 92%, afebrile, today's chest x-ray has been reviewed by Dr. Sow, and shows improvement in aeration of the left basal capacity, and pleural effusion. There has been additional 510 mL of serosanguineous pleural fluid in the Pleur-evac her last 24 hours, cultures remain negative thus far, antibiotic coverage with IV Rocephin, vancomycin remains on hold, patient is receiving IV hydration with 0.9 normal saline at a rate of 75 ML per hour, today's labs have been reviewed, and there has been no further worsening of the renal function, BUN 17 and creatinine is 2.73. Lung sounds are diminished at the bases, with a few scattered crackles, otherwise patient is doing well, tolerating ambulation, surgery is following, patient is given another dose of alteplase today. On 10/18/2018 patient seen in follow-up on medical surgical floor. She is rest ing comfortably in bed, appears a bit sedated on today's exam, but patient easily wakes up, and responds appropriately. Yesterday she got additional dose of TPA yesterday, and there has been additional 500 mL out of the left-sided pigtail chest tube. Today's chest x-ray has been reviewed by Dr. Sow, showed continued improvement in the appearance of the left consolidation, and associated effusion. She remains on 2 L per nasal cannula and her pulse ox is 94%, afebrile, hemodynamically stable. Labs showed a white blood cell count 11.7, hemoglobin 9.1, sodium 140, potassium is 4.2, renal profile is stable, with BUN of 17 and creatinine of 2.80. Pleural fluid cultures remain negative thus far. No fever no chills, patient's breathing easier, she is working on her incentive spirometer, having increased pain in the left chest, we'll hold today's dose of TPA in view of continued improvement on the chest x-ray, and increased drainage from the pleural chest tube. On 10/21/2018 patient seen in follow-up on medical surgical floor. She is sitting up in bed, in no acute distress, she received another dose of alteplase, and there has been additional 350 mL of serosanguineous pleural fluid output in the left-sided pigtail chest tube. No fever or chills, pleural fluid cultures remain negative thus far, Gram stain showed no organisms. Blood cultures show no growth. Room air pulse ox was 91%, patient is wearing 2 L of oxygen intermittently, she does verbalize some discomfort after the TPA instillation, but no acute distress, and the pain subsides after a while. Overall she states she is breathing easier, lung sounds reveal diminished breath sounds over left lower base. Today's chest x-ray has been reviewed with Dr. Arzate, and shows bilateral consolidation and pleural effusion appeared to be stable compared to previous chest x-ray on 10/19/2018. Patient will receive another dose of TPA per CT surgery. Antibiotic coverage in the form of Rocephin, ID service is following, patient is working on her incentive spirometer, able to achieve 500- 750 on it today. Patient denies any shortness of breath, only occasional cough, no phlegm production. No surgical intervention is planned at this time view of good response to alteplase instillation, and responds to IV antibiotics. Today's labs have been reviewed, white blood cell count is 10.7, electrolytes are within normal limits, and there has been a slight improvement if patient's renal profile, with BUN down to 18 and creatinine of 2.54. Patient remains on IV hydration with 0.9 normal saline at a rate of 50 ML per hour, awaiting oral intake, no nausea, no vomiting no diarrhea. On 10/22/2018 patient seen in follow-up on medical surgical floor. She is awake and alert, in no acute distress, room air pulse ox is 96%, IV antibiotics in the form of Rocephin, cultures remain negative thus far, including pleural fluid cultures. No fever or chills, patient is tolerating ambulation, lung sounds reveal diminished breath sounds are so at the left lower base, there has been 120 mL of pleural fluid drainage from the detail chest tube catheter in the last 24 hours, yesterday patient received another dose of TPA, and there has been some leaking around the catheter noted, and today with TPA infusion there has been increased leaking noted. CT chest has been obtained, and showed decreased pleural fluid, decreased empyema/likely a pleural effusion compared to prior exam. Left-sided chest tube appears to have been partially withdrawn. There is associated pleural thickening and basilar air bronchograms in the left lung base within the right side. This was discussed with CT surgery, and the left pigtail chest tube catheter will likely be discontinued this afternoon. Clinically patient is stable, today's BMP is pending. Patient is tolerating oral intake, she is maintained on IV hydration at 50 ML per hour. On 10/23/2018 patient seen in follow-up on medical surgical floor. No acute distress, resting in bed, a little bit lethargic, but easily arousable, she had Xanax this morning for an episode of anxiety. No acute distress, patient is on 2 L per nasal cannula and her pulse ox of 97%, no fever or chills, but signs are stable, pleural fluid cultures and blood cultures remain negative, antibiotic coverage in the form of Rocephin, there has been no acute events overnight, patient has been working on her incentive spirometer, there has been only 20 mL from her left-sided chest tube in the last 24 hours, will put a consult for interventional radiology to remove the chest tube today. Labs have been reviewed, renal profile is stable, BUN 17 and creatinine is 2.50. Continues on IV hydration with 0.9 normal saline at a rate of 50 ML per hour. Objective - Vital Signs Vital signs: Vital Signs Temp 97.9 F 10/23/18 08:30 Pulse 70 10/23/18 08:30 Resp 14 10/23/18 08:30 BP 130/72 10/23/18 08:30 Pulse Ox 97 10/23/18 08:30 Intake & Output 10/22/18 10/23/18 10/23/18 18:59 06:59 18:59 Intake Total 400 Output Total 20 0 Balance 380 0 Intake: IV 350 Sodium Chloride 0.9% 1, 350 000 ml @ 50 mls/hr IV . Q20H [facility] Rx#:[id number] Intake, IV Titration 50 Amount cefTRIAXone 2 gm In 50 Sodium Chloride 0.9% 50 ml @ 100 mls/hr IVPB Q24HR [facility] Rx#:[id number] Output: Chest Tube Drainage 20 0 Pleural Catheter Left 20 0 Posterior Chest Other: Voiding Method Toilet # Voids 2 - Exam GENERAL EXAM: Alert, pleasant, 68-year-old white female on room air resting in bed comfortable in no apparent distress. HEAD: Normocephalic/atraumatic. EYES: Normal reaction of pupils, equal size. Conjunctiva pink, sclera white. NOSE: Clear with pink turbinates. THROAT: No erythema or exudates. NECK: No masses, no JVD, no thyroid enlargement, no adenopathy. CHEST: No chest wall deformity. Symmetrical expansion. Left posterior pigtail chest tube connected to Pleur-evac and wall suction, with thin serosanguineous output in the Pleur-evac LUNGS: Equal air entry sounds bilaterally, with some limited crackles at the right base CVS: Regular rate and rhythm, normal S1 and S2, no gallops, no murmurs, no rubs ABDOMEN: Soft, nontender. No hepatosplenomegaly, normal bowel sounds, no guarding or rigidity. EXTREMITIES: No clubbing, no edema, no cyanosis, 2+ pulses and upper and lower extremities. MUSCULOSKELETAL: Muscle strength and tone normal. SPINE: No scoliosis or deformity SKIN: No rashes CENTRAL NERVOUS SYSTEM: Alert and oriented -3. No focal deficits, tone is normal in all 4 extremities. PSYCHIATRIC: Alert and oriented -3. Appropriate affect. Intact judgment and insight. - Labs CBC & Chem 7: 10/21/18 09:25 10/22/18 07:35 Labs: Abnormal Lab Results - Last 24 Hours (Table) 10/22/18 Range/Units 07:35 Chloride 108 H (98-107) mmol/L Creatinine 2.50 H (0.52-1.04) mg/dL Calcium 8.3 L (8.4-10.2) mg/dL Microbiology - Last 24 Hours (Table) 10/11/18 12:43 Acid Fast Bacilli Smear - Final Pleural Fluid Acid Fast Bacilli Culture - Preliminary Assessment and Plan Plan: Assessment: 1 left lower lobe pneumonia with consolidation and a parapneumonic loculated left-sided pleural effusion, questionable early abscess formation in the posterior segment of the left lower lobe. The patient underwent a thoracentesis with evacuation of 500 mL of turbid dark yellowish pleural fluid from the left pleural space. Fluid was a complicated parapneumonic effusion/empyema and the cultures of been negative. The follow-up CAT scan shows reaccumulation of the pleural fluid with loculation concern for an underlying lung abscess. A pig tail catheter was inserted. The patient remains on broad-spectrum antibiotics for now 2 left-sided pleural effusion, loculated, likely parapneumonic, post left pigtail chest tube insertion, patient has received multiple doses of TPA, with significant amount of output, cultures remained negative thus far, current antibiotic coverage with Rocephin. Cytology showed no malignant cells. Patient has had good response to alteplase infusions, with improvement in the appearance of the left sided pleural effusion, and consolidation 3 questionable left lung abscess 4 acute kidney injury related to combination of diuretics, and vancomycin 5 COPD 6 smoker 7 hypothyroidism Plan: There has been minimal drainage from the left-sided chest tube in the last 24 hours, 20 mL, patient is doing well, vital signs are stable, no fever or chills, cultures remain negative, interventional radiology to remove the chest tube. Ambulate the patient, likely discharge home today or in the next 24 hours patient is doing well. I performed a history & physical examination of the patient and discussed their management with my nurse practitioner, Angelika Sharma. I reviewed the nurse practitioner's note and agree with the documented findings and plan of care. Lung sounds are positive for diminished breath sounds, with some crackles at the right base. The findings and the impression was discussed with the patient. I attest to the documentation by the nurse practitioner. Time with Patient: Less than 30
[2018-10-23] MEDS: ENOXAPARIN 30 MG/0.3 ML SYRINGE SQ SCH (09:49)
[2018-10-23] MEDS: ESCITALOPRAM 20 MG TAB PO SCH (09:49)
--- NOTE | 2018-10-23 13:58 | PN ---
PROGRESS NOTE DATE OF SERVICE: 10/23/2018 REASON FOR FOLLOWUP: Left lower lobe pneumonia and empyema. INTERVAL HISTORY: The patient is currently afebrile. The patient is breathing comfortably. The patient's left lower chest pain has improved. No nausea, no vomiting, no abdominal pain, no diarrhea. PHYSICAL EXAMINATION: Blood pressure 130/72 with a pulse of 70, temperature 97.9. She is 97% on 2 L nasal cannula. General description is an elderly female, up in the bed in no distress. RESPIRATORY SYSTEM: Unlabored breathing with decreased breath sounds in the bases, no wheeze. HEART: S1, S2. Regular rate and rhythm. ABDOMEN: Soft, no tenderness. LABS: No new labs been obtained today. DIAGNOSTIC IMPRESSION AND PLAN: Patient has left lower lobe pneumonia with empyema, status post chest tube. Patient at this time is to continue with Rocephin 2 g daily. Continue outpatient setting for at least another 2 weeks with weekly monitoring of CBC, BMP and CRP and a close outpatient followup. Questions were answered. MMODL / IJN: [id number] /
--- NOTE | 2018-10-23 14:23 | XR ---
EXAMINATION TYPE: XR chest 1V portable DATE OF EXAM: 10/23/2018 COMPARISON: Prior chest x-ray 10/21/2018 HISTORY: Status post chest tube removal TECHNIQUE: Single frontal view of the chest is obtained. FINDINGS: Pigtail catheter is been removed. There is no evident pneumothorax. Bibasilar density pers ists. PICC line is stable. Heart size is unchanged. IMPRESSION: No evident complication status post chest tube removal
[2018-10-23 14:42] VITALS: BP 146/76; PULSE 69; RESP 16
--- NOTE | 2018-10-23 22:08 | PN ---
PROGRESS NOTE Patient was seen this morning for followup for acute kidney injury secondary to vancomycin toxicity. Her renal function is stable. Serum creatinine has been at about 2.5 mg/dL. She has had good urine output. Patient is possibly being discharged today. On examination, blood pressure was 146/76, heart rate 69 per minute. Patient was afebrile. EXAMINATION OF THE HEART: S1 and S2. EXAMINATION OF LUNGS: Bilateral breath sounds are heard. ABDOMEN: Soft, non-tender. Examination of lower extremities shows no significant edema. [employer] exam is grossly intact. Patient has the chest tube on the left side, which will be coming out today. Labs show sodium 138, potassium 4.5, chloride 108, BUN 17, serum creatinine 2.5. Hemoglobin was 8.1. ASSESSMENT: 1. Acute kidney injury secondary to vancomycin toxicity. UA showed 1+ protein; otherwise fairly benign. There was no blood noted. We will repeat another urinalysis down the road. Patient can be discharged from nephrology standpoint. We will see her in the office for followup in about one week's time. 2. Loculated left pleural effusion, status post tPA and chest tube placement. 3. Left lower lobe pneumonia with empyema. PLAN: Okay to discharge patient. She is advised to avoid nephrotoxic agents, including nonsteroidal anti-inflammatory agents. I will see the patient in the office within one week's time. She is advised to monitor blood pressure at home and avoid hypotension as well. She is normally not on any antihypertensive medications. MMODL / IJN: [id number] /
--- NOTE | 2018-10-24 07:30 | DS ---
DISCHARGE SUMMARY DATE OF ADMISSION: 10/10/2018 DATE OF DISCHARGE: 10/23/2018 FINAL DIAGNOSES: 1. Left-sided pneumonia with parapneumonic effusion. Cultures were negative. 2. Chronic nicotine dependence, patient is a cigarette smoker. 3. Chronic obstructive pulmonary disease in a current smoker. 4. Hypothyroid. 5. Anxiety, depression not otherwise specified. 6. Acute renal failure likely acute tubular necrosis/drug-induced from Vancomycin, slowly improving. 7. Normocytic anemia. 8. Severe aortic stenosis, nonrheumatic. 9. Secondary pulmonary hypertension due to chronic obstructive pulmonary disease. 10.Normocytic anemia probably from underlying infection. 11.Reactive thrombocytosis. CONSULTATIONS: Dr. Sow and colleagues from Pulmonary; Dr. Butler from Infectious Disease; Dr. Hayden from Cardiothoracic Surgery; Dr. Singh from Nephrology. HOSPITAL COURSE: This patient who failed outpatient treatment for pneumonia, presented with pneumonia and parapneumonic effusion. A pigtail catheter was placed. Patient did drain a significant amount. Repeat as above placed and the output greatly decreased and the pigtail was actually removed. The patient did have a PICC line placed. Overall breathing is better. PHYSICAL EXAMINATION: On examination, temperature 97.9, pulse 70, respirations 14, blood pressure 130/72, pulse ox 97% on 2 L and repeat pulse ox 98% on room air. LUNGS: Decreased breath sounds. CARDIOVASCULAR: Ejection systolic murmur. LABS: White count 10.7, hemoglobin 8.1, BUN 17, creatinine 1.50. DISCHARGE MEDICATIONS: 1. Xanax 0.5 p.o. daily p.r.n. 2. Vitamin B12, 1000 mcg every 14 days. 3. Lexapro 20 mg p.o. daily. 4. Tylenol 650 mg q.6 p.r.n. 5. DuoNeb t.i.d. 6. Melatonin 3 mg q.h.s. 7. Zofran 4 mg q.8 p.r.n. 8. Ceftriaxone 2 grams IV piggyback q.24 at least for 14 days. Follow up with Dr. Lion on 11/04/2018. [facility] to follow. [facility] infusion. Follow up with Dr. Murtaza Silver on 10/28/2018. Follow up with Dr. Butler on 11/04/2018. Follow up with Dr. Sow on 10/29/2018. LABS: JAYLEEN, DIANNE ON 10/30/2018. MMODL / IJN: [id number] /
== END 2018-10-23 15:46 | disposition home health service (06) | DRG 871 ==
LOC: EC 15:31 → 4SSUR 19:22
PROVIDERS: ADMIT Hospitalist; ATTEND Hospitalist
PROC: 0W9B3ZX Drainage of Left Pleural Cavity, Percutaneous Approach, Diagnostic (ICD-10-PCS; principal; 2018-10-11)
PROC: 3E0L3GC Introduction of Other Therapeutic Substance into Pleural Cavity, Percutaneous Approach (ICD-10-PCS; 2018-10-13)
PROC: 0W9B30Z Drainage of Left Pleural Cavity with Drainage Device, Percutaneous Approach (ICD-10-PCS; 2018-10-16)
PROC: 02HV33Z Insertion of Infusion Device into Superior Vena Cava, Percutaneous Approach (ICD-10-PCS; 2018-10-18)
DX: A41.9 Sepsis, unspecified organism (principal); J86.9 Pyothorax without fistula; N17.0 Acute kidney failure with tubular necrosis; J18.1 Lobar pneumonia, unspecified organism; J44.0 Chronic obstructive pulmonary disease with (acute) lower respiratory infection; E87.2 Acidosis; J91.8 Pleural effusion in other conditions classified elsewhere; I27.29 Other secondary pulmonary hypertension; I08.3 Combined rheumatic disorders of mitral, aortic and tricuspid valves; N14.1 Nephropathy induced by other drugs, medicaments and biological substances; T36.8X5A Adverse effect of other systemic antibiotics, initial encounter; E89.0 Postprocedural hypothyroidism; F41.9 Anxiety disorder, unspecified; F32.9 Major depressive disorder, single episode, unspecified; D64.9 Anemia, unspecified; R79.1 Abnormal coagulation profile; R91.1 Solitary pulmonary nodule; R73.9 Hyperglycemia, unspecified; E66.9 Obesity, unspecified; Z68.26 Body mass index [BMI] 26.0-26.9, adult; Z71.3 Dietary counseling and surveillance; F17.210 Nicotine dependence, cigarettes, uncomplicated; Z71.6 Tobacco abuse counseling; Z79.899 Other long term (current) drug therapy; Z87.01 Personal history of pneumonia (recurrent); Z90.49 Acquired absence of other specified parts of digestive tract; Z90.711 Acquired absence of uterus with remaining cervical stump; Z88.5 Allergy status to narcotic agent; Z88.8 Allergy status to other drugs, medicaments and biological substances; Z82.49 Family history of ischemic heart disease and other diseases of the circulatory system; Z84.1 Family history of disorders of kidney and ureter
CPT/HCPCS: 32551; 36415; 36573; 71045; 71046; 71250; 71260; 71275; 76770; 80048; 80053; 80202; 81001; 82565; 82728; 82945; 83540; 83550; 83605; 83615; 83880; 84157; 84484; 85025; 85027; 85379; 85610; 85652; 85730; 86140; 87040; 87070; 87102; 87116; 87205; 87206; 87252; 87496; 87498; 87502; 87529; 87634; 87798; 88108; 88305; 89050; 93005; 93306; 94640; 94760; 96361; 96365; 96367; 96375; 96376; 99285

== ENCOUNTER → 2018-11-04 | Outpatient (CLI) | payer MEDICARE ==
--- NOTE | 2018-11-04 11:50 | XR ---
EXAMINATION TYPE: XR chest 2V DATE OF EXAM: 11/04/2018 COMPARISON: Prior chest x-ray 10/23/2018, 10/29/2018 HISTORY: Empyema, pneumonia, J 18.8 TECHNIQUE: Frontal and lateral views of the chest are obtained. FINDINGS: Left-sided PICC line is in place. No pneumothorax. There is some residual blunting of the left costophrenic angle, overall lung bases show improved aeration. Heart size is normal. Patient is rotated. There is a hiatal hernia with partial intrathoracic stomach. Prominent lung volume is indica tive of COPD, emphysema. IMPRESSION: Findings of the left lung base may represent some chronic pleural reaction. There is imp roved aeration at the right lung base. Improved aeration overall.
== END | disposition home or self-care (01) ==
LOC: RADXRMAIN 10:11
PROVIDERS: ATTEND Internal Medicine Infectious Disease
DX: J18.8 Other pneumonia, unspecified organism (principal)
CPT/HCPCS: 71046

== ENCOUNTER → 2018-11-25 | Outpatient (CLI) | payer MEDICARE ==
[2018-11-25 13:53] LABS: HCT 32.5 % (34.0-46.0); HGB 10.2 gm/dL (11.4-16.0); Hypochromasia Moderate; MCH 25.9 pg (25.0-35.0); MCHC 31.3 g/dL (31.0-37.0); MCV 82.5 fL (80.0-100.0); Mean Platelet Volume 7.7; Platelet Count 249 k/uL (150-450); RBC 3.94 m/uL (3.80-5.40); RDW 15.6 % (11.5-15.5); WBC 7.2 k/uL (3.8-10.6)
[2018-11-25 14:11] LABS: Potassium 4.8 mmol/L (3.5-5.1)
== END | disposition home or self-care (01) ==
LOC: LABPAT 11:17
PROVIDERS: ATTEND Internal Medicine Interventional Cardiology
DX: Z01.812 Encounter for preprocedural laboratory examination (principal); R06.02 Shortness of breath; I35.0 Nonrheumatic aortic (valve) stenosis
CPT/HCPCS: 36415; 80051; 82565; 84520; 85027

== ENCOUNTER 2018-12-02 06:28 | Day surgery (SDC) | payer MEDICARE ==
[2018-11-27 10:58] VITALS: BMI 24.7
[2018-12-02] MEDS ORDERED: ATORVASTATIN 80 MG TAB PO STA (06:37)
[2018-12-02] MEDS ORDERED: ALPRAZolam 0.25 MG TAB PO PRN (06:37)
[2018-12-02] MEDS ORDERED: SODIUM CHLORIDE 0.9% 1,000 ML in EMPTY BAG 1 BAG IV ONE (06:37)
[2018-12-02] MEDS ORDERED: NITROGLYCERIN SL TABS 0.4 MG TAB SUBLINGUAL PRN (06:37)
[2018-12-02] MEDS ORDERED: ALPRAZolam 0.5 MG TAB PO PRN (06:37)
[2018-12-02] MEDS ORDERED: ASPIRIN 325 MG TAB PO STA (06:37)
[2018-12-02 07:08] LABS: Basophils % (A) 0 %; Eosinophils # (A) 0.3 k/uL (0-0.7); Eosinophils % (A) 5 %; HCT 32.2 % (34.0-46.0); HGB 10.1 gm/dL (11.4-16.0); Hypochromasia Slight; Lymphocytes % (A) 43 %; MCH 25.6 pg (25.0-35.0); MCHC 31.3 g/dL (31.0-37.0); MCV 81.9 fL (80.0-100.0); Mean Platelet Volume 7.2; Monocytes # (A) 0.4 k/uL (0-1.0); Monocytes % (A) 5 %; Neutrophils # (A) 3.1 k/uL (1.3-7.7); Neutrophils % (A) 44 %; Platelet Count 258 k/uL (150-450); RBC 3.93 m/uL (3.80-5.40); RDW 15.6 % (11.5-15.5); WBC 6.9 k/uL (3.8-10.6)
[2018-12-02 07:16] VITALS: TEMP 98.3
[2018-12-02 07:18] LABS: Calcium 9.5 mg/dL (8.4-10.2); Potassium 4.5 mmol/L (3.5-5.1)
[2018-12-02] MEDS ORDERED: IV FLUID CONTINUATION 1,000 ML IV ONE (07:30)
[2018-12-02] MEDS ORDERED: fentaNYL (PF) 50 MCG/ML 2 ML AMP ONE (07:37)
[2018-12-02] MEDS ORDERED: BENZOCAINE SPRAY 1 CAN MUCOUS MEM ONE ×2 (07:58→08:10)
[2018-12-02 08:00] VITALS: RESP 18
[2018-12-02] MEDS ORDERED: MIDAZOLAM 2 MG/2 ML VIAL IVP ONE ×3 (08:14→08:45)
[2018-12-02] MEDS ORDERED: fentaNYL (PF) 50 MCG/ML 2 ML AMP IVP ONE (08:14)
[2018-12-02] MEDS ORDERED: HEPARIN SODIUM 1,000 UN/ML (10ML VL) ONE (08:32)
[2018-12-02] MEDS ORDERED: VERAPAMIL 2.5 MG/ML 2 ML AMP ONE (08:32)
[2018-12-02] MEDS ORDERED: LIDOCAINE 1% INJ 10MG/ML (20 ML MDV) SQ ONE (08:46)
[2018-12-02] MEDS ORDERED: VERAPAMIL SYRINGE (5 MG/10 ML) INTRAARTER ONE ×2 (08:48→08:57)
[2018-12-02] MEDS ORDERED: IOPAMIDOL-370 100ML BTL INJ ONE (08:57)
[2018-12-02] MEDS ORDERED: RX INFO: IV CONTRAST WAS GIVEN 1 EACH MISC MISCELLANE PRN (09:03)
[2018-12-02] MEDS ORDERED: HEPARIN SODIUM 1,000 UN/ML (10ML VL) IV ONE (09:11)
[2018-12-02] MEDS ORDERED: SODIUM CHLORIDE 0.9% 1,000 ML IV SCH (09:15)
--- NOTE | 2018-12-02 09:16 | ECHOT ---
TRANSESOPHAGEAL ECHOCARDIOGRAM DATE OF SERVICE: 12/02/2018 PERFORMING PHYSICIAN: Kyle Lion MD, Business Support Assistant. PROCEDURE PERFORMED: Transesophageal echocardiogram. INDICATION: This is a 68-year-old female patient who was diagnosed recently with severe aortic stenosis and a transesophageal echocardiogram is for more clarification. COMPLICATION: None. LEVEL OF SEDATION: Moderate with sedation length of 10 minutes. PROCEDURE DESCRIPTION: After obtaining an informed consent, explaining the procedure, benefits, risks, complications and alternatives, the patient was brought to the transesophageal echocardiogram suite. A pulse oximetry and heart rate monitors were attached to the patient prior to the procedure. The patient's throat was sprayed using lidocaine locally. Following that, the patient was turned into left lateral position. A bite guard was placed and the patient was then sedated with the above doses of Versed and fentanyl in divided doses. Following that, the transesophageal echocardiogram probe was advanced through the bite guard into the mid esophagus where 2-D echocardiogram images as well as color Doppler images of various cardiac structures were obtained. We evaluated the interatrial septum using 2-D echocardiogram, color Doppler, and contrast study. The procedure was completed. There were no complications. FINDINGS: The left ventricular dimension and systolic function appeared to be within normal limits. The ejection fraction appeared to be in the range of 60%. There is mild to moderate concentric LVH. Right ventricle appeared to be of normal size and function. The left atrium and right atrium appeared to be within normal limits for dimension. The left atrial appendage appeared to be free from any thrombus. The interatrial septum appeared to be intact. There is no color-flow across the septum. The aortic valve is very thickened and calcified with evidence of severe aortic stenosis with a mean gradient of more than 70 mmHg. The mitral valve has mild to moderate MR. There was mild tricuspid regurgitation seen. The aortic root appeared to be within normal limits for dimension. CONCLUSION: 1. Normal left ventricular dimension and systolic function with ejection fraction between 60%-65%. 2. Moderate concentric left ventricular hypertrophy. 3. Normal left atrium and right atrium dimension. 4. Normal left atrial appendage without any evidence of thrombus. 5. Intact interatrial septum without any evidence of shunt by color-flow Doppler. 6. Severe aortic stenosis with a peak gradient of 123 and mean gradient of 72 mmHg. 7. Mildly thickened mitral valve leaflets with mild to moderate mitral regurgitation. 8. Mild tricuspid regurgitation. 9. No evidence of pericardial effusion. MMODL / IJN: [id number] /
--- NOTE | 2018-12-02 10:32 | CC ---
CARDIAC CATHETERIZATION REPORT DATE OF SERVICE: 12/02/2018 PERFORMING PHYSICIAN: Kyle Lion MD, Seam Hammerer. PROCEDURE PERFORMED: Selective right and left coronary angiogram. INDICATION: This is a 68-year-old female patient who was diagnosed simply severe aortic stenosis which was confirmed by transesophageal echocardiogram. The heart catheterization is to assess the anatomy of her coronary before AVR. COMPLICATION: None. LEVEL OF SEDATION: Moderate with sedation length of 13 minutes. PROCEDURE DESCRIPTION: After obtained an informed consent, the patient was brought the cardiac forestry laborer. The right radial artery was cannulated using micropuncture technique. The micropuncture wire passed easily, then I placed a 5 Korean sheath in the right radial artery. After that I have the patient 7000 units of heparin IV as well as 2 mg of verapamil IA. Selective right and left coronary angiogram was performed using JR4 and JL3.5 catheters. The procedure was completed without any complication. SELECTIVE CORONARY ANGIOGRAM: 1. The right coronary artery is a small to medium caliber vessel and is a dominant vessel but it is angiographically normal. It bifurcates distally into PDA and PLV branches, both appeared to be angiographically normal. 2. The left main is angiographically normal. It bifurcates into the left circumflex, ramus intermedius, and left anterior descending artery. 3. Left circumflex is a large caliber vessel. It is a codominant vessel. The proximal circumflex appeared to be angiographically normal. The mid circumflex is normal. It gives rise into a large OM branch which seems to be normal and the circumflex distally normal bifurcates into PDA and PLV branches both appeared to be angiographically normal. 4. The ramus intermedius is a moderate caliber vessel and seems to be angiographically normal. 5. The LAD, the proximal LAD appeared to be angiographically normal. It gives rise into a large diagonal branch which has mild ostial disease. The mid and distal LAD appears to be angiographically normal. CONCLUSION: Mild nonobstructive coronary artery disease. POSTPROCEDURE MANAGEMENT: 1. Medical treatment. 2. Follow up with the patient. MMDIETERL / SAMIN: [id number] /
[2018-12-02 14:52] VITALS: BP 130/61; PULSE 78
== END 2018-12-02 14:00 | disposition home or self-care (01) ==
LOC: CATHCVL 06:28
PROVIDERS: ATTEND Internal Medicine Interventional Cardiology
DX: I08.3 Combined rheumatic disorders of mitral, aortic and tricuspid valves (principal); I25.10 Atherosclerotic heart disease of native coronary artery without angina pectoris; E78.00 Pure hypercholesterolemia, unspecified; I10 Essential (primary) hypertension; Z72.0 Tobacco use; I27.20 Pulmonary hypertension, unspecified; Z79.2 Long term (current) use of antibiotics; Z79.890 Hormone replacement therapy; Z79.899 Other long term (current) drug therapy; Z87.01 Personal history of pneumonia (recurrent)
CPT/HCPCS: 93312; 93325; 93454; 80048; 85025; C1769 ×2; C1894; J2250; J2001; J3010; J1644; Q9967; 93320

== ENCOUNTER → 2018-12-26 | Outpatient (CLI) | payer MEDICARE ==
[2018-12-26 10:10] LABS: HCT 31.4 % (34.0-46.0); HGB 9.8 gm/dL (11.4-16.0); Hypochromasia Moderate; MCH 25.8 pg (25.0-35.0); MCHC 31.2 g/dL (31.0-37.0); MCV 82.6 fL (80.0-100.0); Mean Platelet Volume 7.8; Platelet Count 267 k/uL (150-450); RBC 3.81 m/uL (3.80-5.40); RDW 15.3 % (11.5-15.5); WBC 6.6 k/uL (3.8-10.6)
[2018-12-26 10:24] LABS: Albumin 4.2 g/dL (3.5-5.0); Calcium 9.4 mg/dL (8.4-10.2); Magnesium 1.8 mg/dL (1.6-2.3); Potassium 4.4 mmol/L (3.5-5.1); Total Bilirubin 0.3 mg/dL (0.2-1.3); Total Protein 6.9 g/dL (6.3-8.2)
[2018-12-26 10:27] LABS: Appearance,Urine Clear (Clear); Bilirubin,Urine Negative (Negative); Blood,Urine Negative (Negative); Color,Urine Yellow; Glucose,Urine (UA) Negative (Negative); Hyaline Casts,Urine 3 /lpf (0-2); Ketones,Urine Negative (Negative); Leukocyte Esterase,Urine Trace (Negative); Mucus,Urine Few /hpf; Nitrite,Urine Negative (Negative); PH, Urine 5.5 (5.0-8.0); Protein,Urine Trace (Negative); RBC,Urine <1 /hpf (0-5); Squamous Epithelial Cell,Urine 3 /hpf (0-4); WBC,Urine 1 /hpf (0-5)
[2018-12-26 10:29] LABS: Partial Thromboplastin Time 23.2 sec (22.0-30.0); Prothrombin Time 10.3 sec (9.0-12.0)
--- NOTE | 2018-12-26 11:50 | US ---
EXAMINATION TYPE: US carotid duplex BILAT DATE OF EXAM: 12/26/2018 COMPARISON: NONE CLINICAL HISTORY: Open Heart. Pre surgical EXAM MEASUREMENTS: RIGHT: Peak Systolic Velocity (PSV) cm/sec ----- Right CCA: 71.2 ----- Right ICA: 107.0 ----- Right ECA: 69.5 ICA/CCA ratio: 1.5 RIGHT: End Diastole cm/sec ----- Right CCA: 27.6 ----- Right ICA: 40.9 ----- Right ECA: 14.5 LEFT: Peak Systolic Velocity (PSV) cm/sec ----- Left CCA: 72.2 ----- Left ICA: 91.0 ----- Left ECA: 46.8 ICA/CCA ratio: 1.3 LEFT: End Diastole cm/sec ----- Left CCA: 22.7 ----- Left ICA: 42.5 ----- Left ECA: 13.3 VERTEBRALS (direction of flow): Right Vertebral: Antegrade Left Vertebral: Antegrade Rhythm: Arrhythmia Bilateral plaque at bulb. Mildly elevated ICA's bilaterally as compared to CCA's. IMPRESSION: 1. There is plaque bilaterally with no significant hemodynamic stenosis. 2. Cardiac dysrhythmia. Criteria for Assigning % of Stenosis / Diameter reduction (Estimation based on the indirect measurements of the internal carotid artery velocities (ICA PSV). 1. Normal (no stenosis)=ICA PSV < 125 cm/s: ratio < 2.0: ICA EDV<40 cm/s. 2. Less than 50% stenosis=ICA PSV < 125 cm/s: ratio < 2.0: ICA EDV<40 cm/s. 3. 50 to 69% stenosis=ICA PSV of 125 to 230 cm/s: ration 2.0 ? 4.0: ICA EDV 40-100 cm/s. 4. Greater than 70% stenosis to near occlusion= ICA PSV > 230 cm/s: ratio > 4.0: ICA EDV > 100 cm/s. 5. Near occlusion= ICA PSV velocities may be low or undetectable: variable ratio and ICA EDV. 6. Total occlusion=unable to detect flow.
--- NOTE | 2018-12-26 14:36 | XR ---
EXAMINATION TYPE: XR chest 2V DATE OF EXAM: 12/26/2018 COMPARISON: 11/04/2018 TECHNIQUE: PA and lateral views submitted. HISTORY: Presurgical FINDINGS: There is left lower lobe consolidation and small effusion or pleural thickening. Atherosclerotic storm ge aorta. No overt failure. Heart size stable. Retrocardiac density likely represents a large hiatal hernia. Hypertrophic and degenerative change of the spine. Surgical clips in the abdomen. 4 mm nodule overlying the right anterior margin first rib and clavicle. IMPRESSION: 1. Subsegmental left lower lobe atelectasis or infiltrate with small effusion or pleural thickening. 2. Large hiatal hernia.. 3. 4 mm nodule right upper lobe overlies 2 osseous structures may be related to superimposed structur es. Not seen on CT scan of . Recommend short-term follow-up chest x-ray in 3 months to further assess with apical lordotic view.
[2018-12-26 18:03] LABS: Hepatitis A Antibody IgM Non-Reactive (Non-Reactive); Hepatitis B Core IgM Non-Reactive (Non-Reactive)
[2018-12-26 18:54] LABS: Hemoglobin A1C 5.8 % (4.0-6.0)
== END | disposition home or self-care (01) ==
LOC: LABPAT 08:38
PROVIDERS: ATTEND Thoracic Surgery (Cardiothoracic Vascular Surgery)
DX: Z01.810 Encounter for preprocedural cardiovascular examination (principal); R73.9 Hyperglycemia, unspecified; I65.23 Occlusion and stenosis of bilateral carotid arteries; I35.0 Nonrheumatic aortic (valve) stenosis; J44.9 Chronic obstructive pulmonary disease, unspecified; R06.02 Shortness of breath; R53.83 Other fatigue; K44.9 Diaphragmatic hernia without obstruction or gangrene; R91.1 Solitary pulmonary nodule; Z79.01 Long term (current) use of anticoagulants
CPT/HCPCS: 36415; 71046; 80053; 80061; 80074; 81001; 83036; 83735; 84443; 85027; 85610; 85730; 87070; 87086; 93880; 93970

== ENCOUNTER 2019-01-01 06:43 | Inpatient (IN) | payer MEDICARE ==
[~2019-01-01 06:43] MED LIST: ALBUMIN HUMAN 25% 50 ML IV ONE; ALBUMIN HUMAN 5% 500 ML IVPB ONE; ASPIRIN 325 MG TAB PO ONE; ATORVASTATIN 10 MG TAB PO ONE; CALCIUM CHLORIDE 100 MG/ML 10 ML SYRINGE IV ONE; CARDIOPLEGIC SOLN (K+ 16 MEQ/L 1,000 ML with SODIUM BICARB (1 MEQ/ML) 20 ML, LIDOCAINE ... PERFUSION ONE; CHLORHEXIDINE GLUCONATE 15 ML CUP MUCOUS MEM ONE; HEPARIN SODIUM 1,000 UN/ML (10ML VL) IV ONE; HEPARIN SODIUM,PORCINE 5,000 UNIT in SODIUM CHLORIDE 0.9% 500 ML 500 ML IV ONE; INSULIN REGULAR 100 UNIT in SODIUM CHLORIDE 0.9% 100 ML IV ONE; LACTATED RINGERS 1,000 ML IV ONE; MAGNESIUM SULFATE MG 500 MG/ML IV ONE; MANNITOL 25% 12.5 GM/50 ML VIAL IV ONE; METOPROLOL TARTRATE 12.5 MG TAB PO ONE; NITROGLYCERIN SL TABS 0.4 MG TAB SUBLINGUAL ONE; NITROGLYCERIN-D5W PMX 25 MG/250 ML BTL IV ONE; NOREPINEPHRINE 4 MG in SODIUM CHLORIDE 0.9% 250 ML IV ONE; PAPAVERINE 360 MG in SODIUM CHLORIDE 0.9% 90 ML IV ONE; PHENYLEPHRINE 10 MG/ML VIAL IV ONE; PHENYLEPHRINE 40 MG in SODIUM CHLORIDE 0.9% 250 ML IV ONE; PROPOFOL 1,000 MG/100 ML VIAL IV ONE; PROTAMINE SULFATE 10 MG/ML 25 ML VIAL IV ONE; PROTAMINE SULFATE 250 MG in EMPTY BAG 1 BAG IV ONE; SODIUM BICARB 8.4% 50 ML SYR (1 MEQ/ML) IV ONE; SODIUM CHLORIDE 0.9% 1,000 ML IV ONE; TRANEXAMIC ACID 2,000 MG in SODIUM CHLORIDE 0.9% 80 ML IV ONE; VANCOMYCIN 1,000 MG VIAL MISCELLANE ONE; ceFAZolin 2,000 MG in SODIUM CHLORIDE 0.9% 30 ML IVPB ONE
[2019-01-01] MEDS ORDERED: PHENYLEPHRINE-0.9% NACL SYG 1 MG/10 ML SYRINGE ONE (08:10)
[2019-01-01] MEDS ORDERED: CALCIUM CHLORIDE 100 MG/ML 10 ML SYRINGE ONE (08:10)
[2019-01-01] MEDS ORDERED: PROTAMINE SULFATE 10 MG/ML 25 ML VIAL IV ONE (08:10)
[2019-01-01] MEDS ORDERED: fentaNYL (PF) 50 MCG/ML 2 ML AMP ONE (08:10)
[2019-01-01] MEDS ORDERED: PROPOFOL 10 MG/ML 20 ML VIAL IV ONE (08:10)
[2019-01-01] MEDS ORDERED: ELECTROLYTE-R (PH 7.4) 1,000 ML IV.SOLN IV ONE (08:10)
[2019-01-01] MEDS ORDERED: LACTATED RINGERS 1,000 ML BAG IV ONE (08:10)
[2019-01-01] MEDS ORDERED: SODIUM CHLORIDE 0.9% 250 ML BAG ONE (08:10)
[2019-01-01] MEDS ORDERED: GLYCOPYRROLATE 0.2 MG/ML 2 ML VIAL ONE (08:10)
[2019-01-01] MEDS ORDERED: TRANEXAMIC ACID 1,000 MG/10 ML VIAL ONE (08:10)
[2019-01-01] MEDS ORDERED: HEPARIN SODIUM,PORCINE 10,000 UNIT/ML 1 ML VIAL ONE (08:10)
[2019-01-01] MEDS ORDERED: fentaNYL (PF) 50 MCG/ML 50 ML VIAL ONE (08:10)
[2019-01-01] MEDS ORDERED: ATROPINE SULFATE 0.1 MG/ML 10ML SYRINGE ONE (08:10)
[2019-01-01] MEDS ORDERED: INSULIN REGULAR 100 UNIT/ML VIAL ONE (08:10)
[2019-01-01] MEDS ORDERED: VECURONIUM 10 MG VIAL IV ONE (08:10)
[2019-01-01] MEDS ORDERED: MIDAZOLAM 2 MG/2 ML VIAL ONE (08:10)
[2019-01-01] MEDS ORDERED: ePHEDrine SULFATE/0.9% NACL/PF 50 MG/5 ML SYRINGE IV ONE (08:10)
[2019-01-01 08:58] LABS: ABG Base Excess 1.2 mmol/L; ABG HCO3 26 mmol/L (21-25); ABG PCO2 40 mmHg (35-45); ABG PH 7.42 (7.35-7.45); ABG Potassium Whole Blood 3.9 mmol/L (3.4-4.5); ABG Sodium Whole Blood 144 mmol/L (135-146); ABG TCO2 27 mmol/L (19-24)
[2019-01-01 09:38] LABS: ABG Base Excess 1.8 mmol/L; ABG HCO3 27 mmol/L (21-25); ABG PCO2 42 mmHg (35-45); ABG PH 7.42 (7.35-7.45); ABG PO2 386 mmHg (83-108); ABG Potassium Whole Blood 4.1 mmol/L (3.4-4.5); ABG Sodium Whole Blood 143 mmol/L (135-146); ABG TCO2 28 mmol/L (19-24)
[2019-01-01] MEDS ORDERED: SODIUM CHLORIDE 0.9% 500 ML 500 ML with HEPARIN SODIUM,PORCINE 5,000 UNIT IV ONE ×2 (09:43)
[2019-01-01 09:58] LABS: ABG Base Excess -3.7 mmol/L; ABG HCO3 21 mmol/L (21-25); ABG PCO2 37 mmHg (35-45); ABG PH 7.37 (7.35-7.45); ABG Potassium Whole Blood 4.5 mmol/L (3.4-4.5); ABG Sodium Whole Blood 139 mmol/L (135-146); ABG TCO2 22 mmol/L (19-24)
[2019-01-01 10:34] LABS: ABG Base Excess 2.6 mmol/L; ABG HCO3 28 mmol/L (21-25); ABG PCO2 44 mmHg (35-45); ABG PH 7.41 (7.35-7.45); ABG PO2 313 mmHg (83-108); ABG Potassium Whole Blood 4.5 mmol/L (3.4-4.5); ABG Sodium Whole Blood 142 mmol/L (135-146); ABG TCO2 29 mmol/L (19-24)
[2019-01-01 11:03] LABS: ABG Base Excess 2.2 mmol/L; ABG HCO3 27 mmol/L (21-25); ABG PCO2 40 mmHg (35-45); ABG PH 7.43 (7.35-7.45); ABG PO2 337 mmHg (83-108); ABG Potassium Whole Blood 4.6 mmol/L (3.4-4.5); ABG Sodium Whole Blood 142 mmol/L (135-146); ABG TCO2 28 mmol/L (19-24)
[2019-01-01] MEDS ORDERED: ceFAZolin 1,000 MG in SODIUM CHLORIDE 0.9% 1,000 ML IRRIGATION ONE (12:05)
[2019-01-01] MEDS ORDERED: METOCLOPRAMIDE 5 MG/ML 2 ML VIAL IVP PRN (12:10)
[2019-01-01] MEDS ORDERED: IPRATROPIUM-ALBUTEROL 3 ML NEB INHALATION PRN (12:10)
[2019-01-01] MEDS ORDERED: BENZOCAINE/MENTHOL LOZENG 1 EACH LOZENGE MUCOUS MEM PRN (12:10)
[2019-01-01] MEDS ORDERED: Magnesium Replacement Protocol 1 EACH MISC MISCELLANE PRN (12:10)
[2019-01-01] MEDS ORDERED: CALCIUM GLUCONATE 2 GM in SODIUM CHLORIDE 0.9% 100 ML IVPB PRN (12:10)
[2019-01-01] MEDS ORDERED: DEXTROSE 5% IN WATER 100 ML with AMIODARONE 150 MG IV PRN (12:10)
[2019-01-01] MEDS ORDERED: Phosphorus Replacement Protoco 1 EACH MISC MISCELLANE PRN (12:10)
[2019-01-01] MEDS ORDERED: Potassium Replacement Protocol 1 EACH MISC MISCELLANE PRN (12:10)
[2019-01-01] MEDS ORDERED: PROPOFOL 1,000 MG in EMPTY BAG 1 BAG IV SCH (12:10)
[2019-01-01] MEDS ORDERED: AMIODARONE 300 MG in DEXTROSE 5% IN WATER 250 ML IV PRN ×2 (12:10)
[2019-01-01 12:58] LABS: ABG PO2 >420 mmHg (83-108)
[2019-01-01] MEDS: LACTATED RINGERS 1,000 ML IV SCH (13:00)
[2019-01-01 13:01] LABS: ABG PO2 >420 mmHg (83-108)
[2019-01-01 13:07] LABS: ABG Base Excess -0.6 mmol/L; ABG HCO3 25 mmol/L (21-25); ABG PCO2 44 mmHg (35-45); ABG PH 7.37 (7.35-7.45); ABG PO2 >420 mmHg (83-108); ABG Potassium Whole Blood 4.3 mmol/L (3.4-4.5); ABG Sodium Whole Blood 142 mmol/L (135-146); ABG TCO2 26 mmol/L (19-24)
--- NOTE | 2019-01-01 13:14 | P.OP ---
Date of Procedure: 01/01/19 Preoperative Diagnosis: Aortic valvular stenosis Postoperative Diagnosis: Aortic valvular stenosis Procedure(s) Performed: Aortic valve replacement with 23 mm Inspiris Bovine pericardial valve, ligation of the left atrial appendage with a 35 mm AtriCure clip, epi-aortic ultrasound Implants: 35mm AtriCure clip, 23 mm bovine pericardial valve Anesthesia: ANSELMOA Surgeon: Davis Vizcaino Gas Torch Brazier #1: Jimbo Samuel Estimated Blood Loss (ml): 200 IV fluids (ml): 1,500 Urine output (ml): 800 Pathology: other (Aortic valve) Condition: stable Disposition: ICU Indications for Procedure: 68-year-old female with severely stenotic and calcific bicuspid aortic valve which is symptomatic Operative Findings: Heavily calcified bicuspid valve, epi-aortic ultrasonography revealed relatively normal appearing aorta however on exploration of the aorta there were small less than 5 mm atheroma present within the lumen of the aorta. Description of Procedure: The patient was brought to the operating room, placed supine on the operating table, anesthetized and intubated. The anterior torso and lower extremities were sterilely prepped and draped. MARIO probe had been placed as had [place]-Donna catheter and arterial line and [place] catheter. In line sternotomy was performed. On attempting to enter the left pleural space it was noted that it was completely fused. The right was similar. Midline pericardiotomy was performed. Patient was systemically heparinized. Epi-aortic ultrasonography was performed with findings as noted above. Patient was heparinized and cannulated for cardiopulmonary bypass with a 7 mm soft flow cannula in the distal ascending aorta, a two-stage venous cannula through the right atrium into the inferior vena cava, antegrade and retrograde cardioplegia lines in standard fashion. Patient was placed on cardiotomy bypass and stabilized. The left atrial appendage was sized and a 35 mm AtriCure clip was applied to the base of the left atrial appendage. Pursestring suture was placed in the right superior pulmonary vein. Aorta was crossclamped and the heart was arrested with cold crystalloid antegrade cardioplegia followed by retrograde cardioplegia. Through the pursestring in the right superior pulmonary vein and a vent was threaded into the left atrium. Transverse aortotomy was performed and carried down through the sinotubular junction into the noncoronary sinus of Valsalva. The valve was exposed with findings as noted above. The valve was excised. The annulus was decalcified. Circumferential valve sutures of 2-0 Tycron were placed with the pledgets on the ventricular side to allow a supra-annular implantation. The annulus was sized and a 23 mm Inspiris Bovine pericardial valve was chosen and brought up on the field. Valve sutures were passed through the sewing ring of the valve and it was seated without difficulty. The silk sutures were tied and cut. The valve was noted to have seated well. Copious irrigation was performed during debridement, prior to implantation of the valve and following implantation of the valve. The aorta was closed with a 2 layer 4- 0 Prolene suture closure. Patient was placed in Trendelenburg and the left atrial vent was removed and the pursestring suture tied. The aortotomy was reinforced with some pro-gel. Cross-clamp was removed and the patient returned to a spontaneous sinus rhythm. Retrograde cardioplegia line was removed and atrial and ventricular pacing wires were placed. De-airing was performed through the apex of the left ventricle using a 16-gauge Angiocath under MARIO guidance. Once full de-airing had been performed and the patient had been rewarmed to systemic temperature from a jose of 34 the patient was weaned from cardiopulmonary bypass without inotropic support. She easily. Heparin was reversed with protamine and hemostasis was obtained throughout. Once good hemostasis and been obtained patient was decannulated in standard fashion. The redo aortic cannulation sites were reinforced with 40 pledgeted Prolene sutures. The mediastinum was drained with 236-German chest tubes brought out through separate stab incisions and secured with 0 Ethibond sutures. Chest was irrigated with antibiotic solution and the sternum was closed with 8 sternal wires. Fascia was closed with 0 Ethibond subcutaneous and subcuticular layers with layers of Vicryl suture. Dry sterile dressings were applied and the patient was transferred to CV ICU in stable condition. Final MARIO demonstrated excellent ventricular function with no evidence of aortic insufficiency and a broadly patent and functioning aortic valve prosthesis. Patient was given 2 units of packed red blood cells upon going on cardioplegia bypass due to a starting hematocrit of 24 and significant hematoma dilution from the pump. We also gave 2 units of FFP and 6 units of platelets at the time of closure in order to assure good hemostasis.
[2019-01-01] MEDS: CLEVIDIPINE BUTYRATE 25 MG in EMPTY BAG 1 BAG IV ONE ×3 (13:15→14:06)
[2019-01-01 13:19] LABS: Glucose,Whole Blood 124 mg/dL (75-99)
[2019-01-01] MEDS: CLEVIDIPINE BUTYRATE 25 MG in EMPTY BAG 1 BAG IV SCH ×2 (13:20→15:20)
[2019-01-01 13:27] LABS: Ionized Calcium 4.6 mg/dL (4.5-5.3)
[2019-01-01 13:30] LABS: Basophils % (A) 0 %; Eosinophils # (A) 0.1 k/uL (0-0.7); Eosinophils % (A) 2 %; HCT 26.8 % (34.0-46.0); HGB 8.6 gm/dL (11.4-16.0); Hypochromasia Slight; Lymphocytes # (A) 1.1 k/uL (1.0-4.8); Lymphocytes % (A) 18 %; MCH 26.6 pg (25.0-35.0); MCV 82.9 fL (80.0-100.0); Mean Platelet Volume 7.7; Monocytes # (A) 0.1 k/uL (0-1.0); Monocytes % (A) 2 %; Neutrophils # (A) 4.6 k/uL (1.3-7.7); Neutrophils % (A) 77 %; Platelet Count 141 k/uL (150-450); Poikilocytosis Slight; RBC 3.23 m/uL (3.80-5.40); RDW 15.3 % (11.5-15.5)
--- NOTE | 2019-01-01 13:33 | XR ---
EXAMINATION TYPE: XR chest 1V portable DATE OF EXAM: 01/01/2019 COMPARISON: 12/26/2018 HISTORY: Postop cardiac surgery TECHNIQUE: Single frontal view of the chest is obtained. FINDINGS: Aurora-Donna catheter is located deep within the right main pulmonary artery. Endotracheal tu be is appropriately placed terminating at the level of the aortic arch approximately 2.1 cm from the chip. Mediastinal drains are noted. Cardiac valvular replacement has been performed with median sarah rnotomy wires. There is a new trace left pleural effusion and retrocardiac airspace disease. Right vernon ng remains well aerated. Cardiomediastinal silhouette is nonenlarged. Osseous structures are grossly intact. Enteric tube is also placed terminating off the distal end of the image. No pneumothorax is s een. IMPRESSION: Lines and tubes as described above with interval development of a small left pleural eff usion and retrocardiac airspace disease, likely atelectasis.
[2019-01-01 13:35] LABS: INR 1.1 (<1.2); Partial Thromboplastin Time 26.4 sec (22.0-30.0); Prothrombin Time 11.7 sec (9.0-12.0)
[2019-01-01 13:38] LABS: ALT 64 U/L (9-52); AST 103 U/L (14-36); Albumin 2.8 g/dL (3.5-5.0); Alkaline Phosphatase 52 U/L (38-126); Anion Gap 3 mmol/L; Blood Urea Nitrogen 11 mg/dL (7-17); Calcium 8.3 mg/dL (8.4-10.2); Carbon Dioxide 27 mmol/L (22-30); Chloride 113 mmol/L (98-107); Glucose 110 mg/dL (74-99); Magnesium 3.2 mg/dL (1.6-2.3); Potassium 4.3 mmol/L (3.5-5.1); Sodium 143 mmol/L (137-145); Total Bilirubin 0.9 mg/dL (0.2-1.3); Total Protein 4.9 g/dL (6.3-8.2)
[2019-01-01 14:07] LABS: Glucose,Whole Blood 132 mg/dL (75-99)
[2019-01-01] MEDS ORDERED: INSULIN REGULAR 100 UNIT in SODIUM CHLORIDE 0.9% 100 ML IV SCH (14:15)
[2019-01-01] MEDS: ACETAMINOPHEN IV (For NPO) 1,000 MG in EMPTY BAG 1 BAG IVPB SCH ×2 (14:36→18:33)
[2019-01-01 14:45] LABS: Glucose,Whole Blood 180 mg/dL (75-99)
[2019-01-01 15:07] LABS: ABG HCO3 29 mmol/L (21-25); ABG Oxygen Saturation 99.5 % (94-97); ABG PCO2 67 mmHg (35-45); ABG PH 7.24 (7.35-7.45); ABG PO2 237 mmHg (83-108); ABG TCO2 31 mmol/L (19-24)
[2019-01-01 15:27] LABS: Glucose,Whole Blood 164 mg/dL (75-99)
[2019-01-01] MEDS: IPRATROPIUM-ALBUTEROL 3 ML NEB INHALATION SCH ×4 (15:55→20:34)
--- NOTE | 2019-01-01 15:55 | P.CNPUL ---
History of Present Illness Consult date: 01/01/19 Requesting physician: Davis Vizcaino Reason for consult: other Chief complaint: Severe aortic valve stenosis, that is post aortic valve replacement History of present illness: This a 68-year-old white female patient with history of severe aortic valve stenosis, who underwent aortic valve replacement with 23 mm Inspiris bovine pericardial valve, ligation of the left atrial appendage with the AtriCure clip. Patient initially presented to the hospital in September with left lower lobe pneumonia with the parapneumonic loculated left-sided effusion and acute congestive heart failure, echocardiogram was completed showing a new finding of severe aortic stenosis. Patient has been symptomatic, with exertional dyspnea, and lightheadedness, and episodic mild anterior chest pain. Cardiac kiera terization was performed and was negative for any significant coronary artery disease. Patient was initially seen in consultation by Dr. of severe adam in September, and the surgical revision to replace the aortic valve was recommended, however at that time patient had a parapneumonic effusion, and empyema, requiring placement of a pigtail catheter, infusion of TPA, with negative cultures, she was treated with broad-spectrum antibiotics, cytology showed no malignant cells, patient had good response to alteplase infusions, did not require VATS and decortication of the left lung empyema. She is seen in the intensive care unit following surgery, she is sedated, intubated on mechanical ventilator, with current vent settings of SIMV mode with a rate of 12, tidal volume 400, FiO2 of 100% and PEEP of 5, and postoperative blood gases showed pO2 of 237, pCO2 of 67, and pH of 7.24, patient was then placed on assist-control mode of ventilation, with a rate of 18, tidal volume of 400, FiO2 of 50%, and PEEP of 5. Postop blood work revealed white blood cell count of 6.0, hemoglobin of 8.6, sodium of 143, potassium is 4.3, chloride is 113, BUN is 11, creatinine is 0.62, ionized calcium was 4.6, magnesium 3.2, AST was 103, ALT was 64, alkaline phosphatase was 52, postop chest x-ray revealed ET tube, [place] catheter, a sterile drains in appropriate positions, small left pleural effusion, and retrocardiac airspace disease likely atelectasis, patient is hemodynamically stable, currently on lactated Ringer's a rate of 50 ML per hour, Cleviprex is at 10 mg per hour, insulin drip is at 5 units per hour, and proBNP is a 50 mics per kilo per minutes. Sinus rhythm with a rate of 77, patient is on VVI backup rate of 50, PA pressures of 35/19, blood pressure is 104/53, cardiac output and index of 4.9 and 2.7 respectively, patient has a mediastinal chest tube and left pleural chest tube with small amount of serosanguineous output. The catheter is in place, and patient is producing urin e in the order of 75-350 ML per hour. Patient has received 2 units of fresh frozen plasma, 2 units of packed red blood cells, and now 1 unit of platelets. Review of Systems All systems: negative Constitutional: Denies chills, Denies fever Eyes: denies blurred vision, denies pain Ears, nose, mouth and throat: Denies headache, Denies sore throat Cardiovascular: Reports chest pain, Reports dyspnea on exertion, Denies shortness of breath Respiratory: Reports dyspnea, Denies cough Gastrointestinal: Denies abdominal pain, Denies diarrhea, Denies nausea, Denies vomiting Genitourinary: Denies dysuria, Denies hematuria Musculoskeletal: Denies myalgias Integumentary: Denies pruritus, Denies rash Neurological: Denies numbness, Denies weakness Psychiatric: Denies anxiety, Denies depression Endocrine: Denies fatigue, Denies weight change Past Medical History Past Medical History: COPD, Pneumonia, Thyroid Disorder Additional Past Medical History / Comment(s): bicupsid valve,heart murmur, rec ent pneumonia now resolved, SOB w/exertion, occasional lightheaded History of Any Multi-Drug Resistant Organisms: None Reported Past Surgical History: Breast Surgery, Cholecystectomy, Heart Catheterization, Orthopedic Surgery, Tonsillectomy Additional Past Surgical History / Comment(s): breast bx., thyroid lobectomy, partial hysterectomy, multiple D&C, left thumb surg. Past Anesthesia/Blood Transfusion Reactions: No Reported Reaction Smoking Status: Former smoker - Past Family History Father Family Medical History: Coronary Artery Disease (CAD), Liver Disease, Renal Disease Additional Family Medical History / Comment(s): enlarged heart, valve replacement Mother Family Medical History: No Reported History Medications and Allergies Home Medications Medication Instructions Recorded Confirmed Type Cyanocobalamin [Vitamin B-12 1,000 mcg SQ Q14D 10/10/18 01/01/19 History Injection] Escitalopram [Lexapro] 20 mg PO HS 10/10/18 01/01/19 History Melatonin 3 mg PO HS #30 tablet 10/23/18 01/01/19 Rx Levothyroxine Sodium [Synthroid] 75 mcg PO DAILY 11/27/18 01/01/19 History Allergies Allergy/AdvReac Type Severity Reaction Status Date / Time codeine AdvReac Nausea & Verified 01/01/19 12:59 Vomiting prednisone AdvReac Rapid Verified 01/01/19 12:59 Heart Rate Physical Exam Vitals: Vital Signs Temp Pulse Pulse Pulse Resp BP BP 01/01/19 14:30 75 17 01/01/19 14:15 71 15 01/01/19 14:00 67 12 01/01/19 13:45 67 16 01/01/19 13:30 64 12 01/01/19 13:15 61 12 01/01/19 13:10 60 12 01/01/19 13:00 35.8 F L 61 122 H 01/01/19 07:22 98.2 F 76 83 18 120/59 117/61 Pulse Ox 01/01/19 14:30 100 01/01/19 14:15 100 01/01/19 14:00 100 01/01/19 13:45 100 01/01/19 13:30 100 01/01/19 13:15 100 01/01/19 13:10 97 01/01/19 13:00 100 01/01/19 07:22 95 Intake and Output 01/01/19 01/01/19 01/01/19 06:59 14:59 22:59 Intake Total 1739.617 12.805 Output Total 3260 Balance -1520.383 12.805 Intake: IV 151 Cardiac Output 30 Lactated Ringers 1,000 ml 100 @ 50 mls/hr IV .Q20H [facility] Rx#:[id number] Pressure Bag 18 Intake, IV Titration 32.617 12.805 Amount Clevidipine Butyrate 25 32.067 10.633 mg In Empty Bag 1 bag @ 1 MG/HR 2 mls/hr IV .Q24H [facility] Rx#:[id number] Insulin Regular 100 unit 0.55 2.172 In Sodium Chloride 0.9% 100 ml @ Per Protocol IV .Q0M [facility] Rx#:[id number] Blood Product 1556 Ffp 24 Cpd Unit 316 [id number] Ffp 24 Cpd Unit 316 [id number] Platelet Irr Pheresis 2 304 Acda Unit [id number] As-1 Unit 310 [id number] Rc As-1 Unit 310 [id number] Output: Chest Tube Drainage 75 Chest Tube Bilateral 75 Mediastinal Urine 685 Estimated Blood Loss 2500 ABP, PAP, CO, CI - Last 8 Hours Arterial Blood Pressure 113/61 Arterial Blood Pressure 114/60 Arterial Blood Pressure 115/60 Arterial Blood Pressure 129/66 Arterial Blood Pressure 157/87 Arterial Blood Pressure 119/58 Arterial Blood Pressure 113/57 Arterial Blood Pressure 113/57 Pulmonary Artery Pressure 40/22 Pulmonary Artery Pressure 38/21 Pulmonary Artery Pressure 34/20 Pulmonary Artery Pressure 34/20 Pulmonary Artery Pressure 40/23 Pulmonary Artery Pressure 31/15 Pulmonary Artery Pressure 30/15 Cardiac Output 4.9 Cardiac Output 3.4 Cardiac Index 2.7 Cardiac Index 1.9 GENERAL EXAM: Alert, pleasant 68-year-old white female, intubated, sedated on mechanical ventilator comfortable in no apparent distress. HEAD: Normocephalic/atraumatic. EYES: Normal reaction of pupils, equal size. Conjunctiva pink, sclera white. NOSE: Clear with pink turbinates. THROAT: No erythema or exudates. NECK: No masses, no JVD, no thyroid enlargement, no adenopathy. CHEST: No chest wall deformity. Symmetrical expansion. Sternal incision is clean dry and intact, covered with a surgical dressing, mediastinal and left pleural chest tubes are in place, with the small amount of single and his output in the Pleur-evac, no air leak noted, AV wires connected to an external pacemaker with a backup rate of 50 at a rate of VVI, intrinsic rhythm is sinus rhythm with a rate of 77 BPM. LUNGS: Equal air entry with no crackles, wheeze, rhonchi or dullness. CVS: Regular rate and rhythm, normal S1 and S2, no gallops, no murmurs, no rubs ABDOMEN: Soft, nontender. No hepatosplenomegaly, normal bowel sounds, no guarding or rigidity. EXTREMITIES: No clubbing, no edema, no cyanosis, 2+ pulses and upper and lower extremities. MUSCULOSKELETAL: Muscle strength and tone normal. SPINE: No scoliosis or deformity SKIN: No rashes CENTRAL NERVOUS SYSTEM: Sedated, intubated No focal deficits, tone is normal in all 4 extremities. Results - Laboratory Findings CBC and BMP: 01/01/19 13:05 01/01/19 13:05 ABG ABG pH 7.24 (7.35-7.45) L 01/01/19 15:03 ABG pCO2 67 mmHg (35-45) H 01/01/19 15:03 ABG pO2 237 mmHg (83-108) H 01/01/19 15:03 ABG O2 Saturation 99.5 % (94-97) H 01/01/19 15:03 PT/INR, D-dimer PT 11.7 sec (9.0-12.0) 01/01/19 13:05 INR 1.1 (<1.2) 01/01/19 13:05 Abnormal lab findings: Abnormal Labs 12/26/18 01/01/19 01/01/19 08:58 09:15 09:58 RBC Hgb Hct Plt Count ABG pH ABG pCO2 ABG pO2 >420 H 386 H ABG HCO3 26 H 27 H ABG Total CO2 27 H 28 H ABG O2 Saturation 100.0 H 100.0 H ABG Hematocrit 24 L 25 L ABG Potassium ABG Ionized Calcium ABG Glucose 112 H 137 H ABG Lactic Acid 1.9 H Hemoglobin 7.8 L 8.1 L Chloride Glucose POC Glucose (mg/dL) Calcium Magnesium AST ALT Total Protein Albumin Arterial Blood Potassium Arterial Blood Glucose 112 H 137 H Crossmatch See Detail 01/01/19 01/01/19 01/01/19 09:58 10:34 11:03 RBC Hgb Hct Plt Count ABG pH ABG pCO2 ABG pO2 >420 H 313 H 337 H ABG HCO3 28 H 27 H ABG Total CO2 29 H 28 H ABG O2 Saturation 100.0 H 100.0 H 100.0 H ABG Hematocrit 22 L 24 L 23 L ABG Potassium 4.6 H ABG Ionized Calcium 3.9 L 4.3 L 4.4 L ABG Glucose 151 H 143 H 125 H ABG Lactic Acid 1.9 H Hemoglobin 7.2 L 7.9 L 7.5 L Chloride Glucose POC Glucose (mg/dL) Calcium Magnesium AST ALT Total Protein Albumin Arterial Blood Potassium 4.6 H Arterial Blood Glucose 151 H 143 H 125 H Crossmatch 01/01/19 01/01/19 01/01/19 12:06 13:05 13:05 RBC 3.23 L Hgb 8.6 L Hct 26.8 L Plt Count 141 L ABG pH ABG pCO2 ABG pO2 >420 H ABG HCO3 ABG Total CO2 26 H ABG O2 Saturation 100.0 H ABG Hematocrit 28 L ABG Potassium ABG Ionized Calcium ABG Glucose 114 H ABG Lactic Acid 2.8 H* Hemoglobin 9.0 L Chloride 113 H Glucose 110 H POC Glucose (mg/dL) Calcium 8.3 L Magnesium 3.2 H AST 103 H ALT 64 H Total Protein 4.9 L Albumin 2.8 L Arterial Blood Potassium Arterial Blood Glucose 114 H Crossmatch 01/01/19 01/01/19 01/01/19 13:07 13:55 14:32 RBC Hgb Hct Plt Count ABG pH ABG pCO2 ABG pO2 ABG HCO3 ABG Total CO2 ABG O2 Saturation ABG Hematocrit ABG Potassium ABG Ionized Calcium ABG Glucose ABG Lactic Acid Hemoglobin Chloride Glucose POC Glucose (mg/dL) 124 H 132 H 180 H Calcium Magnesium AST ALT Total Protein Albumin Arterial Blood Potassium Arterial Blood Glucose Crossmatch 01/01/19 15:03 RBC Hgb Hct Plt Count ABG pH 7.24 L ABG pCO2 67 H ABG pO2 237 H ABG HCO3 29 H ABG Total CO2 31 H ABG O2 Saturation 99.5 H ABG Hematocrit ABG Potassium ABG Ionized Calcium ABG Glucose ABG Lactic Acid Hemoglobin Chloride Glucose POC Glucose (mg/dL) Calcium Magnesium AST ALT Total Protein Albumin Arterial Blood Potassium Arterial Blood Glucose Crossmatch - Diagnostic Findings Chest x-ray: report reviewed, image reviewed Assessment and Plan Plan: Assessment: #1. Severe aortic valve stenosis, status post aortic valve replacement with 23 mm bovine pericardial valve, and left atrial exclusion with Atriclip, post-op day 0 #2. Routine ventilator management #3. Postoperative blood loss anemia, and expected outcome of valve surgery #4. History of left lower lobe pneumonia, with parapneumonic effusion/empyema in September 2018, requiring placement of pigtail catheter and alteplase infu sions, cytology of the pleural fluid was negative for malignancy, and cultures were negative, patient was treated with broad-spectrum antibiotics had a good response. Pigtail catheter was discontinued #5. History of COPD, outpatient PFT revealed a FEV1 of 1.51 L or 56% of predicted, with FVC of 2.16 L or 61% of predicted with decreased diffusion capacity, consistent with stage III COPD #6. History of nicotine dependence, currently in remission #7. Anxiety #8. Hypothyroidism #9. Depression Plan: Vent adjustments were made, patient was placed on assist-control mode of ventilation, with a rate of 18, tidal volume 400, FiO2 was dropped down to 50%, and PEEP was kept at 5. Obtain a blood gas in 30 minutes. Hemodynamically patient is stable. We will proceed with the spontaneous breathing trial and extubation as soon as the patient wakes up and starts following command. Postop chest x-rays lab work has been reviewed by Dr. Jackson, patient was seen and examined by Dr. Jackson. We'll place the patient on breathing treatments, incentive spirometry to the bedside after extubation, pain control, close hemodynamic monitoring, we'll continue to follow I performed a history & physical examination of the patient and discussed their management with my nurse practitioner, Angelika Sharma. I reviewed the nurse practitioner's note and agree with the documented findings and plan of care. Lung sounds are positive for diminished breath sounds. The findings and the impression was discussed with the patient. I attest to the documentation by the nurse practitioner. Time with Patient: Greater than 30
[2019-01-01] MEDS: ceFAZolin IN SWFI 2 GM/20 ML SYRINGE IVP SCH ×2 (16:04→23:41)
[2019-01-01 16:20] LABS: Glucose,Whole Blood 129 mg/dL (75-99)
[2019-01-01 16:26] LABS: ABG Base Excess 1.8 mmol/L; ABG HCO3 28 mmol/L (21-25); ABG Oxygen Saturation 98.7 % (94-97); ABG PCO2 53 mmHg (35-45); ABG PH 7.33 (7.35-7.45); ABG PO2 124 mmHg (83-108); ABG TCO2 29 mmol/L (19-24)
[2019-01-01 16:48] LABS: Basophils % (A) 0 %; Eosinophils # (A) 0.1 k/uL (0-0.7); Eosinophils % (A) 1 %; HCT 29.5 % (34.0-46.0); HGB 9.1 gm/dL (11.4-16.0); Hypochromasia Moderate; Lymphocytes # (A) 1.1 k/uL (1.0-4.8); Lymphocytes % (A) 14 %; MCH 25.9 pg (25.0-35.0); MCHC 30.9 g/dL (31.0-37.0); MCV 83.6 fL (80.0-100.0); Mean Platelet Volume 8.9; Monocytes # (A) 0.6 k/uL (0-1.0); Monocytes % (A) 8 %; Neutrophils # (A) 5.6 k/uL (1.3-7.7); Neutrophils % (A) 76 %; Platelet Count 182 k/uL (150-450); Poikilocytosis Slight; RBC 3.53 m/uL (3.80-5.40); RDW 15.3 % (11.5-15.5); WBC 7.4 k/uL (3.8-10.6)
[2019-01-01 17:01] LABS: ABG Base Excess 2.1 mmol/L; ABG HCO3 28 mmol/L (21-25); ABG Oxygen Saturation 96.2 % (94-97); ABG PCO2 55 mmHg (35-45); ABG PH 7.32 (7.35-7.45); ABG PO2 86 mmHg (83-108); ABG TCO2 30 mmol/L (19-24)
[2019-01-01 17:11] LABS: Glucose,Whole Blood 112 mg/dL (75-99)
[2019-01-01] MEDS: KETOROLAC 30 MG/ML 1 ML VIAL IVP SCH ×2 (18:34→23:41)
[2019-01-01] MEDS: HEPARIN SODIUM,PORCINE 5,000 UNIT/ML 1 ML VIAL SQ SCH ×2 (18:35→23:41)
[2019-01-01 18:37] LABS: Glucose,Whole Blood 133 mg/dL (75-99)
[2019-01-01 19:16] LABS: Glucose,Whole Blood 145 mg/dL (75-99)
[2019-01-01] MEDS: ONDANSETRON 4 MG/2 ML VIAL IVP PRN (19:52)
[2019-01-01 20:06] LABS: Basophils % (A) 0 %; Eosinophils # (A) 0.1 k/uL (0-0.7); Eosinophils % (A) 1 %; HCT 30.4 % (34.0-46.0); HGB 9.6 gm/dL (11.4-16.0); Hypochromasia Moderate; Lymphocytes # (A) 0.7 k/uL (1.0-4.8); Lymphocytes % (A) 10 %; MCH 26.3 pg (25.0-35.0); MCHC 31.4 g/dL (31.0-37.0); MCV 83.6 fL (80.0-100.0); Mean Platelet Volume 7.5; Monocytes # (A) 0.4 k/uL (0-1.0); Monocytes % (A) 5 %; Neutrophils # (A) 6.5 k/uL (1.3-7.7); Neutrophils % (A) 83 %; Platelet Count 169 k/uL (150-450); Poikilocytosis Slight; RBC 3.64 m/uL (3.80-5.40); RDW 15.3 % (11.5-15.5); WBC 7.8 k/uL (3.8-10.6)
[2019-01-01 20:09] LABS: Glucose,Whole Blood 136 mg/dL (75-99)
[2019-01-01 22:10] LABS: Glucose,Whole Blood 140 mg/dL (75-99)
[2019-01-01 22:10] LABS: Glucose,Whole Blood 142 mg/dL (75-99)
[2019-01-01] MEDS ORDERED: HYDROcodone/APAP 5-325MG 1 EACH TAB PO PRN (22:33)
[2019-01-01] MEDS: ALBUMIN HUMAN 5% 250 ML in EMPTY BAG 1 BAG IVPB PRN (23:42)
[2019-01-02 00:18] LABS: Glucose,Whole Blood 110 mg/dL (75-99)
[2019-01-02 01:40] LABS: Glucose,Whole Blood 116 mg/dL (75-99)
[2019-01-02 02:20] LABS: Glucose,Whole Blood 122 mg/dL (75-99)
[2019-01-02 03:12] LABS: Glucose,Whole Blood 112 mg/dL (75-99)
[2019-01-02 04:06] LABS: Glucose,Whole Blood 114 mg/dL (75-99)
[2019-01-02 05:12] LABS: Glucose,Whole Blood 117 mg/dL (75-99)
[2019-01-02 05:28] LABS: Basophils % (A) 0 %; Eosinophils # (A) 0.1 k/uL (0-0.7); Eosinophils % (A) 1 %; HCT 26.4 % (34.0-46.0); HGB 8.3 gm/dL (11.4-16.0); Hypochromasia Marked; Lymphocytes # (A) 1.3 k/uL (1.0-4.8); Lymphocytes % (A) 21 %; MCH 26.7 pg (25.0-35.0); MCHC 31.5 g/dL (31.0-37.0); MCV 84.6 fL (80.0-100.0); Mean Platelet Volume 8.3; Monocytes # (A) 0.5 k/uL (0-1.0); Monocytes % (A) 8 %; Neutrophils # (A) 4.3 k/uL (1.3-7.7); Neutrophils % (A) 69 %; Platelet Count 133 k/uL (150-450); Poikilocytosis Moderate; RBC 3.12 m/uL (3.80-5.40); RDW 14.8 % (11.5-15.5); WBC 6.2 k/uL (3.8-10.6)
[2019-01-02] MEDS: ONDANSETRON 4 MG/2 ML VIAL IVP PRN ×3 (05:33→21:25)
[2019-01-02] MEDS: KETOROLAC 30 MG/ML 1 ML VIAL IVP SCH ×4 (05:35→23:37)
[2019-01-02 06:09] LABS: Albumin 3.2 g/dL (3.5-5.0); Calcium 8.3 mg/dL (8.4-10.2); Magnesium 2.4 mg/dL (1.6-2.3); Potassium 4.4 mmol/L (3.5-5.1); Total Bilirubin 0.4 mg/dL (0.2-1.3); Total Protein 5.3 g/dL (6.3-8.2)
[2019-01-02 06:37] LABS: Glucose,Whole Blood 137 mg/dL (75-99)
[2019-01-02 07:22] LABS: Glucose,Whole Blood 132 mg/dL (75-99)
[2019-01-02] MEDS: ALBUMIN HUMAN 5% 250 ML in EMPTY BAG 1 BAG IVPB PRN ×2 (07:34→23:39)
[2019-01-02] MEDS: LEVOTHYROXINE 75 MCG TAB PO SCH (07:35)
[2019-01-02] MEDS: IPRATROPIUM-ALBUTEROL 3 ML NEB INHALATION SCH ×4 (08:14→20:34)
[2019-01-02] MEDS: HEPARIN SODIUM,PORCINE 5,000 UNIT/ML 1 ML VIAL SQ SCH ×3 (08:19→23:37)
[2019-01-02] MEDS: ceFAZolin IN SWFI 2 GM/20 ML SYRINGE IVP SCH (08:19)
[2019-01-02] MEDS: ASPIRIN 325 MG TAB PO SCH (08:20)
[2019-01-02] MEDS: ATORVASTATIN 40 MG TAB PO SCH (08:21)
[2019-01-02] MEDS ORDERED: PANTOPRAZOLE 40 MG/10 ML VIAL IVP SCH (09:00)
[2019-01-02] MEDS ORDERED: METOPROLOL TARTRATE 12.5 MG TAB PO SCH (09:00)
[2019-01-02] MEDS ORDERED: BISACODYL 10 MG SUPP RECTAL PRN (09:00)
[2019-01-02] MEDS ORDERED: MAGNESIUM HYDROXIDE 2,400 MG/10 ML CUP PO PRN (09:00)
[2019-01-02] MEDS ORDERED: CLOPIDOGREL 75 MG TAB PO SCH (09:00)
--- NOTE | 2019-01-02 09:06 | P.PN ---
Subjective Progress Note Date: 01/02/19 Principal diagnosis: Severe aortic valve stenosis, status post aortic valve replacement This a 68-year-old white female patient with history of severe aortic valve stenosis, who underwent aortic valve replacement with 23 mm Inspiris bovine pericardial valve, ligation of the left atrial appendage with the AtriCure clip. Patient initially presented to the hospital in September with left lower lobe pneumonia with the parapneumonic loculated left-sided effusion and acute congestive heart failure, echocardiogram was completed showing a new finding of severe aortic stenosis. Patient has been symptomatic, with exertional dyspnea, and lightheadedness, and episodic mild anterior chest pain. Cardiac catheterization was performed and was negative for any significant coronary art carol ann disease. Patient was initially seen in consultation by Dr. of severe adam in September, and the surgical revision to replace the aortic valve was recommended, however at that time patient had a parapneumonic effusion, and empyema, requiring placement of a pigtail catheter, infusion of TPA, with negative cultures, she was treated with broad-spectrum antibiotics, cytology showed no malignant cells, patient had good response to alteplase infusions, did not require VATS and decortication of the left lung empyema. She is seen in the intensive care unit following surgery, she is sedated, intub ated on mechanical ventilator, with current vent settings of SIMV mode with a rate of 12, tidal volume 400, FiO2 of 100% and PEEP of 5, and postoperative blood gases showed pO2 of 237, pCO2 of 67, and pH of 7.24, patient was then placed on assist-control mode of ventilation, with a rate of 18, tidal volume of 400, FiO2 of 50%, and PEEP of 5. Postop blood work revealed white blood cell count of 6.0, hemoglobin of 8.6, sodium of 143, potassium is 4.3, chloride is 113, BUN is 11, creatinine is 0.62, ionized calcium was 4.6, magnesium 3.2, AST was 103, ALT was 64, alkaline phosphatase was 52, postop chest x-ray revealed ET tube, [place]-Donna catheter, a sterile drains in appropriate positions, small left pleural effusion, and retrocardiac airspace disease likely atelectasis, patient is hemodynamically stable, currently on lactated Ringer's a rate of 50 ML per hour, Cleviprex is at 10 mg per hour, insulin drip is at 5 units per hour, and proBNP is a 50 mics per kilo per minutes. Sinus rhythm with a rate of 77, patient is on VVI backup rate of 50, PA pressures of 35/19, blood pressure is 10 4/53, cardiac output and index of 4.9 and 2.7 respectively, patient has a mediastinal chest tube and left pleural chest tube with small amount of serosanguineous output. The catheter is in place, and patient is producing urine in the order of 75-350 ML per hour. Patient has received 2 units of fresh frozen plasma, 2 units of packed red blood cells, and now 1 unit of platelets. On 01/02/2019 patient seen in follow-up in the intensive care unit. Postop day 1, status post aortic valve replacement for severe aortic valve stenosis. Patient was successfully extubated on postop day 0, within 6 hours of the OR exit time, is tolerating extubation quite well, currently on 2 L of oxygen, with a pulse ox of 96%, afebrile, hemodynamically stable, sitting up in the recliner, she is tolerating oral diet, IVs include LR at 50 ML per hour, no other drips, she sinus rhythm on the monitor with a rate of 96, PA pressures 32/13, with a CVP of 5, cardiac output and index are 5.6 and 3.1 respectively. IS 750 ML today, his chest x-ray has been reviewed with Dr. Jackson, and shows left lower lobe atelectasis, and small pleural effusion. Lung sounds reveal some limited crackles at the left lower base, and diminished breath sounds overall. His labs have been reviewed, and showed white blood cell, 6.2, hemoglobin of 8.3, electrolytes and renal profile within normal limits. Mediastinal and left pleu ral chest tube with 430 mL of serosanguineous output and last 24 hours, EBL was estimated to be at 2500, and patient did receive 2 units of packed red blood cells, 2 units of fresh frozen plasma, and 1 unit of platelets intraoperatively. He was dynamically patient is stable, she is without any specific complaints, her pain is reasonably controlled. no acute events overnight. Objective - Vital Signs Vital signs: Vital Signs Temp 36.9 F L 01/01/19 15:00 Pulse 84 01/02/19 08:20 Resp 19 01/02/19 07:00 BP 108/56 01/02/19 06:00 Pulse Ox 96 01/02/19 07:00 Intake & Output 01/01/19 01/02/19 01/02/19 18:59 06:59 18:59 Intake Total 2041.527 2274.111 919 Output Total 3720 654 10 Balance -0253.743 9061.111 909 Weight 94.1 kg Intake: IV 407 1100 339 Albumin 250 250 Cardiac Output 50 260 30 Lactated Ringers 1,000 ml 300 500 50 @ 50 mls/hr IV .Q20H [facility]I Rx#:[id number] Pressure Bag 54 90 9 Intake, IV Titration 78.527 14.111 Amount Clevidipine Butyrate 25 49.367 8.867 mg In Empty Bag 1 bag @ 1 MG/HR 2 mls/hr IV .Q24H [facility]I Rx#:[id number] Insulin Regular 100 unit 6.047 5.244 In Sodium Chloride 0.9% 100 ml @ Per Protocol IV .Q0M [facility]I Rx#:[id number] Propofol 1,000 mg In 23.113 Empty Bag 1 bag @ Titrate IV .Q0M [facility]I Rx#: [id number] Oral 1160 580 Blood Product 1556 Ffp 24 Cpd Unit 316 [id number] Ffp 24 Cpd Unit 316 [id number] Platelet Irr Pheresis 2 304 Acda Unit [id number] Rc As-1 Unit 310 [id number] Rc As-1 Unit 310 [id number] Output: Chest Tube Drainage 180 250 Chest Tube Bilateral 180 250 Mediastinal Urine 1040 404 10 Estimated Blood Loss 2500 Other: Voiding Method Indwelling Catheter Indwelling Catheter ABP, PAP, CO, CI - Last Documented Arterial Blood Pressure 100/84 Pulmonary Artery Pressure 22/8 Cardiac Output 5.6 Cardiac Index 3.1 - Exam GENERAL EXAM: Alert, pleasant 68-year-old white female, 2 L of oxygen c omfortable in no apparent distress. HEAD: Normocephalic/atraumatic. EYES: Normal reaction of pupils, equal size. Conjunctiva pink, sclera white. NOSE: Clear with pink turbinates. THROAT: No erythema or exudates. NECK: No masses, no JVD, no thyroid enlargement, no adenopathy. CHEST: No chest wall deformity. Symmetrical expansion. Sternal incision is clean dry and intact, covered with a surgical dressing, mediastinal and left pleural chest tubes are in place, with the small amount of sero sang output in the Pleur-evac, no air leak noted, AV wires connected to an external pacemaker with a backup rate of 50 at a rate of VVI, intrinsic rhythm is sinus rhythm with a rate of 84 BPM. LUNGS: Equal air entry with no crackles, wheeze, rhonchi or dullness. CVS: Regular rate and rhythm, normal S1 and S2, no gallops, no murmurs, no rubs ABDOMEN: Soft, nontender. No hepatosplenomegaly, normal bowel sounds, no guarding or rigidity. EXTREMITIES: No clubbing, no edema, no cyanosis, 2+ pulses and upper and lower extremities. MUSCULOSKELETAL: Muscle strength and tone normal. SPINE: No scoliosis or deformity SKIN: No rashes CENTRAL NERVOUS SYSTEM: Sedated, intubated No focal deficits, tone is normal in all 4 extremities - Labs CBC & Chem 7: 01/02/19 05:00 01/02/19 05:00 Labs: Abnormal Lab Results - Last 24 Hours (Table) 12/26/18 01/01/19 01/01/19 Range/Units 08:58 09:15 09:58 RBC (3.80-5.40) m/uL Hgb (11.4-16.0) gm/dL Hct (34.0-46.0) % MCHC (31.0-37.0) g/dL Plt Count (150-450) k/uL Lymphocytes # (1.0-4.8) k/uL ABG pH (7.35-7.45) ABG pCO2 (35-45) mmHg ABG pO2 >420 H 386 H (83-108) mmHg ABG HCO3 26 H 27 H (21-25) mmol/L ABG Total CO2 27 H 28 H (19-24) mmol/L ABG O2 Saturation 100.0 H 100.0 H (94-97) % ABG Hematocrit 24 L 25 L (34.0-46.0) % ABG Potassium (3.4-4.5) mmol/L ABG Ionized Calcium (4.5-5.3) mg/dL ABG Glucose 112 H 137 H (75-99) mg/dL ABG Lactic Acid 1.9 H (0.5-1.6) mmol/L Hemoglobin 7.8 L 8.1 L (11.4-16.0) gm/dL Chloride (98-107) mmol/L Glucose (74-99) mg/dL POC Glucose (mg/dL) (75-99) mg/dL Calcium (8.4-10.2) mg/dL Ionized Calcium Dejan (4.5-5.3) mg/dL Magnesium (1.6-2.3) mg/dL AST (14-36) U/L ALT (9-52) U/L Total Protein (6.3-8.2) g/dL Albumin (3.5-5.0) g/dL Arterial Blood Potassium (3.4-4.5) mmol/L Arterial Blood Glucose 112 H 137 H (75-99) mg/dL Crossmatch See Detail 01/01/19 01/01/19 01/01/19 Range/Units 09:58 10:34 11:03 RBC (3.80-5.40) m/uL Hgb (11.4-16.0) gm/dL Hct (34.0-46.0) % MCHC (31.0-37.0) g/dL Plt Count (150-450) k/uL Lymphocytes # (1.0-4.8) k/uL ABG pH (7.35-7.45) ABG pCO2 (35-45) mmHg ABG pO2 >420 H 313 H 337 H (83-108) mmHg ABG HCO3 28 H 27 H (21-25) mmol/L ABG Total CO2 29 H 28 H (19-24) mmol/L ABG O2 Saturation 100.0 H 100.0 H 100.0 H (94-97) % ABG Hematocrit 22 L 24 L 23 L (34.0-46.0) % ABG Potassium 4.6 H (3.4-4.5) mmol/L ABG Ionized Calcium 3.9 L 4.3 L 4.4 L (4.5-5.3) mg/dL ABG Glucose 151 H 143 H 125 H (75-99) mg/dL ABG Lactic Acid 1.9 H (0.5-1.6) mmol/L Hemoglobin 7.2 L 7.9 L 7.5 L (11.4-16.0) gm/dL Chloride (98-107) mmol/L Glucose (74-99) mg/dL POC Glucose (mg/dL) (75-99) mg/dL Calcium (8.4-10.2) mg/dL Ionized Calcium Dejan (4.5-5.3) mg/dL Magnesium (1.6-2.3) mg/dL AST (14-36) U/L ALT (9-52) U/L Total Protein (6.3-8.2) g/dL Albumin (3.5-5.0) g/dL Arterial Blood Potassium 4.6 H (3.4-4.5) mmol/L Arterial Blood Glucose 151 H 143 H 125 H (75-99) mg/dL Crossmatch 01/01/19 01/01/19 01/01/19 Range/Units 12:06 13:05 13:05 RBC 3.23 L (3.80-5.40) m/uL Hgb 8.6 L (11.4-16.0) gm/dL Hct 26.8 L (34.0-46.0) % MCHC (31.0-37.0) g/dL Plt Count 141 L (150-450) k/uL Lymphocytes # (1.0-4.8) k/uL ABG pH (7.35-7.45) ABG pCO2 (35-45) mmHg ABG pO2 >420 H (83-108) mmHg ABG HCO3 (21-25) mmol/L ABG Total CO2 26 H (19-24) mmol/L ABG O2 Saturation 100.0 H (94-97) % ABG Hematocrit 28 L (34.0-46.0) % ABG Potassium (3.4-4.5) mmol/L ABG Ionized Calcium (4.5-5.3) mg/dL ABG Glucose 114 H (75-99) mg/dL ABG Lactic Acid 2.8 H* (0.5-1.6) mmol/L Hemoglobin 9.0 L (11.4-16.0) gm/dL Chloride 113 H (98-107) mmol/L Glucose 110 H (74-99) mg/dL POC Glucose (mg/dL) (75-99) mg/dL Calcium 8.3 L (8.4-10.2) mg/dL Ionized Calcium Dejan (4.5-5.3) mg/dL Magnesium 3.2 H (1.6-2.3) mg/dL AST 103 H (14-36) U/L ALT 64 H (9-52) U/L Total Protein 4.9 L (6.3-8.2) g/dL Albumin 2.8 L (3.5-5.0) g/dL Arterial Blood Potassium (3.4-4.5) mmol/L Arterial Blood Glucose 114 H (75-99) mg/dL Crossmatch 01/01/19 01/01/19 01/01/19 Range/Units 13:07 13:55 14:32 RBC (3.80-5.40) m/uL Hgb (11.4-16.0) gm/dL Hct (34.0-46.0) % MCHC (31.0-37.0) g/dL Plt Count (150-450) k/uL Lymphocytes # (1.0-4.8) k/uL ABG pH (7.35-7.45) ABG pCO2 (35-45) mmHg ABG pO2 (83-108) mmHg ABG HCO3 (21-25) mmol/L ABG Total CO2 (19-24) mmol/L ABG O2 Saturation (94-97) % ABG Hematocrit (34.0-46.0) % ABG Potassium (3.4-4.5) mmol/L ABG Ionized Calcium (4.5-5.3) mg/dL ABG Glucose (75-99) mg/dL ABG Lactic Acid (0.5-1.6) mmol/L Hemoglobin (11.4-16.0) gm/dL Chloride (98-107) mmol/L Glucose (74-99) mg/dL POC Glucose (mg/dL) 124 H 132 H 180 H (75-99) mg/dL Calcium (8.4-10.2) mg/dL Ionized Calcium Dejan (4.5-5.3) mg/dL Magnesium (1.6-2.3) mg/dL AST (14-36) U/L ALT (9-52) U/L Total Protein (6.3-8.2) g/dL Albumin (3.5-5.0) g/dL Arterial Blood Potassium (3.4-4.5) mmol/L Arterial Blood Glucose (75-99) mg/dL Crossmatch 01/01/19 01/01/19 01/01/19 Range/Units 15:03 15:16 16:09 RBC (3.80-5.40) m/uL Hgb (11.4-16.0) gm/dL Hct (34.0-46.0) % MCHC (31.0-37.0) g/dL Plt Count (150-450) k/uL Lymphocytes # (1.0-4.8) k/uL ABG pH 7.24 L (7.35-7.45) ABG pCO2 67 H (35-45) mmHg ABG pO2 237 H (83-108) mmHg ABG HCO3 29 H (21-25) mmol/L ABG Total CO2 31 H (19-24) mmol/L ABG O2 Saturation 99.5 H (94-97) % ABG Hematocrit (34.0-46.0) % ABG Potassium (3.4-4.5) mmol/L ABG Ionized Calcium (4.5-5.3) mg/dL ABG Glucose (75-99) mg/dL ABG Lactic Acid (0.5-1.6) mmol/L Hemoglobin (11.4-16.0) gm/dL Chloride (98-107) mmol/L Glucose (74-99) mg/dL POC Glucose (mg/dL) 164 H 129 H (75-99) mg/dL Calcium (8.4-10.2) mg/dL Ionized Calcium Dejan (4.5-5.3) mg/dL Magnesium (1.6-2.3) mg/dL AST (14-36) U/L ALT (9-52) U/L Total Protein (6.3-8.2) g/dL Albumin (3.5-5.0) g/dL Arterial Blood Potassium (3.4-4.5) mmol/L Arterial Blood Glucose (75-99) mg/dL Crossmatch 01/01/19 01/01/19 01/01/19 Range/Units 16:22 16:39 16:59 RBC 3.53 L (3.80-5.40) m/uL Hgb 9.1 L (11.4-16.0) gm/dL Hct 29.5 L (34.0-46.0) % MCHC 30.9 L (31.0-37.0) g/dL Plt Count (150-450) k/uL Lymphocytes # (1.0-4.8) k/uL ABG pH 7.33 L 7.32 L (7.35-7.45) ABG pCO2 53 H 55 H (35-45) mmHg ABG pO2 124 H (83-108) mmHg ABG HCO3 28 H 28 H (21-25) mmol/L ABG Total CO2 29 H 30 H (19-24) mmol/L ABG O2 Saturation 98.7 H (94-97) % ABG Hematocrit (34.0-46.0) % ABG Potassium (3.4-4.5) mmol/L ABG Ionized Calcium (4.5-5.3) mg/dL ABG Glucose (75-99) mg/dL ABG Lactic Acid (0.5-1.6) mmol/L Hemoglobin (11.4-16.0) gm/dL Chloride (98-107) mmol/L Glucose (74-99) mg/dL POC Glucose (mg/dL) (75-99) mg/dL Calcium (8.4-10.2) mg/dL Ionized Calcium Dejan (4.5-5.3) mg/dL Magnesium (1.6-2.3) mg/dL AST (14-36) U/L ALT (9-52) U/L Total Protein (6.3-8.2) g/dL Albumin (3.5-5.0) g/dL Arterial Blood Potassium (3.4-4.5) mmol/L Arterial Blood Glucose (75-99) mg/dL Crossmatch 01/01/19 01/01/19 01/01/19 Range/Units 16:59 18:25 19:05 RBC (3.80-5.40) m/uL Hgb (11.4-16.0) gm/dL Hct (34.0-46.0) % MCHC (31.0-37.0) g/dL Plt Count (150-450) k/uL Lymphocytes # (1.0-4.8) k/uL ABG pH (7.35-7.45) ABG pCO2 (35-45) mmHg ABG pO2 (83-108) mmHg ABG HCO3 (21-25) mmol/L ABG Total CO2 (19-24) mmol/L ABG O2 Saturation (94-97) % ABG Hematocrit (34.0-46.0) % ABG Potassium (3.4-4.5) mmol/L ABG Ionized Calcium (4.5-5.3) mg/dL ABG Glucose (75-99) mg/dL ABG Lactic Acid (0.5-1.6) mmol/L Hemoglobin (11.4-16.0) gm/dL Chloride (98-107) mmol/L Glucose (74-99) mg/dL POC Glucose (mg/dL) 112 H 133 H 145 H (75-99) mg/dL Calcium (8.4-10.2) mg/dL Ionized Calcium Dejan (4.5-5.3) mg/dL Magnesium (1.6-2.3) mg/dL AST (14-36) U/L ALT (9-52) U/L Total Protein (6.3-8.2) g/dL Albumin (3.5-5.0) g/dL Arterial Blood Potassium (3.4-4.5) mmol/L Arterial Blood Glucose (75-99) mg/dL Crossmatch 01/01/19 01/01/19 01/01/19 Range/Units 19:57 20:00 21:00 RBC 3.64 L (3.80-5.40) m/uL Hgb 9.6 L (11.4-16.0) gm/dL Hct 30.4 L (34.0-46.0) % MCHC (31.0-37.0) g/dL Plt Count (150-450) k/uL Lymphocytes # 0.7 L (1.0-4.8) k/uL ABG pH (7.35-7.45) ABG pCO2 (35-45) mmHg ABG pO2 (83-108) mmHg ABG HCO3 (21-25) mmol/L ABG Total CO2 (19-24) mmol/L ABG O2 Saturation (94-97) % ABG Hematocrit (34.0-46.0) % ABG Potassium (3.4-4.5) mmol/L ABG Ionized Calcium (4.5-5.3) mg/dL ABG Glucose (75-99) mg/dL ABG Lactic Acid (0.5-1.6) mmol/L Hemoglobin (11.4-16.0) gm/dL Chloride (98-107) mmol/L Glucose (74-99) mg/dL POC Glucose (mg/dL) 136 H 142 H (75-99) mg/dL Calcium (8.4-10.2) mg/dL Ionized Calcium Dejan (4.5-5.3) mg/dL Magnesium (1.6-2.3) mg/dL AST (14-36) U/L ALT (9-52) U/L Total Protein (6.3-8.2) g/dL Albumin (3.5-5.0) g/dL Arterial Blood Potassium (3.4-4.5) mmol/L Arterial Blood Glucose (75-99) mg/dL Crossmatch 01/01/19 01/02/19 01/02/19 Range/Units 21:59 00:06 01:27 RBC (3.80-5.40) m/uL Hgb (11.4-16.0) gm/dL Hct (34.0-46.0) % MCHC (31.0-37.0) g/dL Plt Count (150-450) k/uL Lymphocytes # (1.0-4.8) k/uL ABG pH (7.35-7.45) ABG pCO2 (35-45) mmHg ABG pO2 (83-108) mmHg ABG HCO3 (21-25) mmol/L ABG Total CO2 (19-24) mmol/L ABG O2 Saturation (94-97) % ABG Hematocrit (34.0-46.0) % ABG Potassium (3.4-4.5) mmol/L ABG Ionized Calcium (4.5-5.3) mg/dL ABG Glucose (75-99) mg/dL ABG Lactic Acid (0.5-1.6) mmol/L Hemoglobin (11.4-16.0) gm/dL Chloride (98-107) mmol/L Glucose (74-99) mg/dL POC Glucose (mg/dL) 140 H 110 H 116 H (75-99) mg/dL Calcium (8.4-10.2) mg/dL Ionized Calcium Dejan (4.5-5.3) mg/dL Magnesium (1.6-2.3) mg/dL AST (14-36) U/L ALT (9-52) U/L Total Protein (6.3-8.2) g/dL Albumin (3.5-5.0) g/dL Arterial Blood Potassium (3.4-4.5) mmol/L Arterial Blood Glucose (75-99) mg/dL Crossmatch 01/02/19 01/02/19 01/02/19 Range/Units 02:08 03:01 03:54 RBC (3.80-5.40) m/uL Hgb (11.4-16.0) gm/dL Hct (34.0-46.0) % MCHC (31.0-37.0) g/dL Plt Count (150-450) k/uL Lymphocytes # (1.0-4.8) k/uL ABG pH (7.35-7.45) ABG pCO2 (35-45) mmHg ABG pO2 (83-108) mmHg ABG HCO3 (21-25) mmol/L ABG Total CO2 (19-24) mmol/L ABG O2 Saturation (94-97) % ABG Hematocrit (34.0-46.0) % ABG Potassium (3.4-4.5) mmol/L ABG Ionized Calcium (4.5-5.3) mg/dL ABG Glucose (75-99) mg/dL ABG Lactic Acid (0.5-1.6) mmol/L Hemoglobin (11.4-16.0) gm/dL Chloride (98-107) mmol/L Glucose (74-99) mg/dL POC Glucose (mg/dL) 122 H 112 H 114 H (75-99) mg/dL Calcium (8.4-10.2) mg/dL Ionized Calcium Dejan (4.5-5.3) mg/dL Magnesium (1.6-2.3) mg/dL AST (14-36) U/L ALT (9-52) U/L Total Protein (6.3-8.2) g/dL Albumin (3.5-5.0) g/dL Arterial Blood Potassium (3.4-4.5) mmol/L Arterial Blood Glucose (75-99) mg/dL Crossmatch 01/02/19 01/02/19 01/02/19 Range/Units 05:00 05:00 05:00 RBC 3.12 L (3.80-5.40) m/uL Hgb 8.3 L (11.4-16.0) gm/dL Hct 26.4 L (34.0-46.0) % MCHC (31.0-37.0) g/dL Plt Count 133 L (150-450) k/uL Lymphocytes # (1.0-4.8) k/uL ABG pH (7.35-7.45) ABG pCO2 (35-45) mmHg ABG pO2 (83-108) mmHg ABG HCO3 (21-25) mmol/L ABG Total CO2 (19-24) mmol/L ABG O2 Saturation (94-97) % ABG Hematocrit (34.0-46.0) % ABG Potassium (3.4-4.5) mmol/L ABG Ionized Calcium (4.5-5.3) mg/dL ABG Glucose (75-99) mg/dL ABG Lactic Acid (0.5-1.6) mmol/L Hemoglobin (11.4-16.0) gm/dL Chloride (98-107) mmol/L Glucose 100 H (74-99) mg/dL POC Glucose (mg/dL) 117 H (75-99) mg/dL Calcium 8.3 L (8.4-10.2) mg/dL Ionized Calcium Dejan 4.0 L (4.5-5.3) mg/dL Magnesium 2.4 H (1.6-2.3) mg/dL AST 89 H (14-36) U/L ALT 66 H (9-52) U/L Total Protein 5.3 L (6.3-8.2) g/dL Albumin 3.2 L (3.5-5.0) g/dL Arterial Blood Potassium (3.4-4.5) mmol/L Arterial Blood Glucose (75-99) mg/dL Crossmatch 01/02/19 01/02/19 Range/Units 06:25 07:11 RBC (3.80-5.40) m/uL Hgb (11.4-16.0) gm/dL Hct (34.0-46.0) % MCHC (31.0-37.0) g/dL Plt Count (150-450) k/uL Lymphocytes # (1.0-4.8) k/uL ABG pH (7.35-7.45) ABG pCO2 (35-45) mmHg ABG pO2 (83-108) mmHg ABG HCO3 (21-25) mmol/L ABG Total CO2 (19-24) mmol/L ABG O2 Saturation (94-97) % ABG Hematocrit (34.0-46.0) % ABG Potassium (3.4-4.5) mmol/L ABG Ionized Calcium (4.5-5.3) mg/dL ABG Glucose (75-99) mg/dL ABG Lactic Acid (0.5-1.6) mmol/L Hemoglobin (11.4-16.0) gm/dL Chloride (98-107) mmol/L Glucose (74-99) mg/dL POC Glucose (mg/dL) 137 H 132 H (75-99) mg/dL Calcium (8.4-10.2) mg/dL Ionized Calcium Dejan (4.5-5.3) mg/dL Magnesium (1.6-2.3) mg/dL AST (14-36) U/L ALT (9-52) U/L Total Protein (6.3-8.2) g/dL Albumin (3.5-5.0) g/dL Arterial Blood Potassium (3.4-4.5) mmol/L Arterial Blood Glucose (75-99) mg/dL Crossmatch Assessment and Plan Plan: Assessment: #1. Severe aortic valve stenosis, status post aortic valve replacement with 23 mm bovine pericardial valve, and left atrial exclusion with Atriclip, post-op day 1 #2. Routine ventilator management, patient was successfully extubated postop day 0, within 6 hours of OR exit time, tolerating extubation quite well #3. Postoperative blood loss anemia, an expected outcome of valve surgery, status post transfusion with 2 units of PRBC, 2 units of fresh frozen plasma and 1 unit of platelets. #4. History of left lower lobe pneumonia, with parapneumonic effusion/empyema in September 2018, requiring placement of pigtail catheter and alteplase infusions, cytology of the pleural fluid was negative for malignancy, and cultures were negative, patient was treated with broad-spectrum antibiotics had a good response. Pigtail catheter was discontinued #5. History of COPD, outpatient PFT revealed a FEV1 of 1.51 L or 56% of pre dicted, with FVC of 2.16 L or 61% of predicted with decreased diffusion capacity, consistent with stage III COPD #6. History of nicotine dependence, currently in remission #7. Anxiety #8. Hypothyroidism #9. Depression Plan: Continue encouraging deep breathing and coughing, incentive spirometry use, pain control, hemodynamically patient is stable, doing very well, on no drips. Continue breathing treatments, close hemodynamic monitoring, she needs to follow with CT surgery make further recommendations. I performed a history & physical examination of the patient and discussed their management with my nurse practitioner, Angelika Sharma. I reviewed the nurse practitioner's note and agree with the documented findings and plan of care. Lung sounds are positive for diminished breath sounds. The findings and the impression was discussed with the patient. I attest to the documentation by the nurse practitioner. Time with Patient: Less than 30
--- NOTE | 2019-01-02 09:23 | XR ---
EXAMINATION TYPE: XR chest 1V portable DATE OF EXAM: 01/02/2019 COMPARISON: Prior chest x-ray 01/01/2019 HISTORY: Postop cardiac surgery TECHNIQUE: Single frontal view of the chest is obtained. FINDINGS: There is been interval removal of the endotracheal and gastric tubes. Right jugular centra l venous sheath with coaxial Dwight-Donna catheter is present, distal tip of the catheter overlying the right pulmonary artery. There are overlying cardiac leads. There is no evident pneumothorax. Heart is enlarged. Median sternal drain remains in place. Atrial appendage clipping is noted. Retrocardiac de nsity persists, there is bibasilar increased density. Patient is rotated. IMPRESSION: Interval extubation. Possible basilar atelectasis versus edema, difficult to exclude sma ll effusion.
[2019-01-02] MEDS: METOPROLOL TARTRATE 25 MG TAB PO SCH ×2 (10:04→20:34)
[2019-01-02] MEDS: HYDROcodone/APAP 5-325MG 1 EACH TAB PO PRN ×3 (11:19→21:24)
--- NOTE | 2019-01-02 11:49 | CONS ---
CONSULTATION Mrs. Johnson is a 68-year-old female who underwent aortic valve replacement yesterday. She is followed by Dr. Mascorro and Dr. Lion and has been having progressive dyspnea on exertion and fatigue. She had pneumonia and since that time she was feeling worse. Subsequently underwent coronary angiography by Dr. Lion in November and was found to have severe aortic stenosis with no evidence of significant obstructive coronary artery disease. Her left ventricular systolic function was normal. Her mean gradient across the aortic valve was 72 mmHg by transesophageal echocardiogram. She received yesterday a size 23 mm Inspiris bovine pericardial valve for severe bicuspid aortic valve stenosis. She is in sinus mechanism. Hemodynamically stable on no pressor. She denies any chest pain her. She had lightheadedness prior to surgery, but no syncope. She has no history of PND or orthopnea. Her coronary risk factors are positive for prior history of smoking, which she stopped at the time of her pneumonia. She is nondiabetic. Her lipid profile is not available. MEDICATION: Her medications at home include melatonin, levothyroxine, Lexapro, and vitamin B12. REVIEW OF SYSTEMS: RESPIRATORY SYSTEM: She has dyspnea on exertion, recent pneumonia. GI SYSTEM: No recent GI bleeding. No peptic ulcer disease. SYSTEM: No dysuria or hematuria. NERVOUS SYSTEM: No stroke or seizure. PHYSICAL EXAMINATION: On examination, she is a 68-year-old female, alert, oriented, in no apparent distress, sitting up in the chair. Blood pressure 108/56 with the heart rate in 90s. HEAD: Normocephalic. EYES: Sclerae anicteric. NECK: Good carotid upstroke. No bruit. No jugular venous distention. LUNGS: Clear to auscultation. HEART: Regular rate and rhythm. S1, S2. No S3 with a systolic murmur. No rub appreciated. No gallop. ABDOMEN: Soft, nontender. Positive bowel sounds. No organomegaly. EXTREMITIES: No edema. Intact distal pulses. LAB DATA: Lab data revealed BUN and creatinine of 13 and 0.81, potassium 4.4, ALT of 66, AST of 89, hemoglobin of 8.3. IMPRESSION: 1. Status post aortic valve replacement with severe bicuspid aortic valve stenosis. 2. Prior history of smoking. 3. Prior history of pneumonia. 4. Hypothyroidism. RECOMMENDATION: From the cardiac standpoint, she is stable. I will continue incentive spirometry. Increase her level activity and depending on her progress, further recommendation will be made. MMODL / IJN: [id number] /
[2019-01-02 12:28] LABS: Glucose,Whole Blood 114 mg/dL (75-99)
[2019-01-02] MEDS: INSULIN ASPART (NovoLOG) 100 UNIT/ML VIAL SQ SCH ×3 (12:49→21:07)
[2019-01-02 12:50] VITALS: BMI 32.5
--- NOTE | 2019-01-02 13:01 | P.CONS ---
History of Present Illness - Reason for Consult Consult date: 01/02/19 Medical management - History of Present Illness Patient is a 68-year-old white female patient with history of severe aortic valve stenosis, who underwent aortic valve replacement with 23 mm Inspiris bovine pericardial valve, ligation of the left atrial appendage with the AtriCure clip. Echo in September was consistent with new finding of severe aortic stenosis. Cardiac catheterization was performed and was negative for any significant coronary artery disease. She successfully underwent an aortic valve replacement. She was initially intubated but currently is extubated. At the time of examination patient denies chest pain, shortness of breath, no nausea no vomiting no abdominal pain. No cross bleeding. Review of Systems 10 systems reviewed, pertinent positive and negative findings as in HPI number no chest pain no abdominal pain no nausea no vomiting. All systems: negative Past Medical History Past Medical History: COPD, Pneumonia, Thyroid Disorder Additional Past Medical History / Comment(s): bicupsid valve,heart murmur, recent pneumonia now resolved, SOB w/exertion, occasional lightheaded History of Any Multi-Drug Resistant Organisms: None Reported Past Surgical History: Breast Surgery, Cholecystectomy, Heart Catheterization, Orthopedic Surgery, Tonsillectomy Additional Past Surgical History / Comment(s): breast bx., thyroid lobectomy, partial hysterectomy, multiple D&C, left thumb surg. Past Anesthesia/Blood Transfusion Reactions: No Reported Reaction Smoking Status: Former smoker - Past Family History Father Family Medical History: Coronary Artery Disease (CAD), Liver Disease, Renal Disease Additional Family Medical History / Comment(s): enlarged heart, valve re placement Mother Family Medical History: No Reported History Medications and Allergies Home Medications Medication Instructions Recorded Confirmed Type Cyanocobalamin [Vitamin B-12 1,000 mcg SQ Q14D 10/10/18 01/01/19 History Injection] Escitalopram [Lexapro] 20 mg PO HS 10/10/18 01/01/19 History Melatonin 3 mg PO HS #30 tablet 10/23/18 01/01/19 Rx Levothyroxine Sodium [Synthroid] 75 mcg PO DAILY 11/27/18 01/01/19 History Allergies Allergy/AdvReac Type Severity Reaction Status Date / Time codeine AdvReac Nausea & Verified 01/01/19 12:59 Vomiting prednisone AdvReac Rapid Verified 01/01/19 12:59 Heart Rate Physical Exam Vitals: Vital Signs Temp Pulse Resp BP Pulse Ox 01/02/19 12:07 73 01/02/19 12:01 70 01/02/19 11:31 13 01/02/19 11:00 71 13 100/53 97 01/02/19 10:00 76 10 L 102/50 96 01/02/19 09:00 86 15 103/83 96 01/02/19 08:20 84 01/02/19 08:15 83 01/02/19 08:00 37.9 F L 83 22 98/69 97 01/02/19 07:45 10 L 01/02/19 07:00 82 19 96 01/02/19 06:00 92 19 108/56 92 L 01/02/19 05:00 81 17 115/60 94 L 01/02/19 04:00 81 13 104/55 94 L 01/02/19 03:00 80 28 H 105/57 87 L 01/02/19 02:00 76 14 106/61 94 L 01/02/19 01:00 74 15 93/56 96 01/02/19 00:08 77 12 99/57 95 01/02/19 00:00 77 11 L 108/51 95 01/01/19 23:00 77 10 L 86/60 97 01/01/19 22:00 78 25 H 96/52 97 01/01/19 21:00 81 10 L 95 01/01/19 20:47 78 01/01/19 20:39 74 01/01/19 20:00 77 13 93 L 01/01/19 19:00 76 12 96 01/01/19 18:30 77 13 97 01/01/19 18:00 76 11 L 95 01/01/19 17:30 76 11 L 95 01/01/19 17:15 82 12 93 L 01/01/19 17:00 80 14 95 01/01/19 16:45 76 10 L 96 01/01/19 16:35 95 01/01/19 16:30 75 18 98 01/01/19 16:15 75 19 98 01/01/19 16:06 76 01/01/19 16:00 75 18 99 01/01/19 15:55 77 01/01/19 15:45 73 22 95 01/01/19 15:30 80 15 95 01/01/19 15:15 78 12 97 01/01/19 15:00 36.9 F L 78 14 01/01/19 14:45 80 15 100 01/01/19 14:30 75 17 100 01/01/19 14:15 71 15 01/01/19 14:00 67 12 100 01/01/19 13:45 67 16 01/01/19 13:30 64 12 100 01/01/19 13:15 61 12 01/01/19 13:10 60 12 01/01/19 13:00 35.8 F L 61 122 H 100 Intake and Output 01/01/19 01/02/19 01/02/19 22:59 06:59 14:59 Intake Total 116.741 2735.949 1755 Output Total 795 319 170 Balance -041.641 9019.949 1585 Intake: IV 582 774 675 Albumin 250 250 Calcium Gluconate 2 gm In 100 Sodium Chloride 0.9% 100 ml @ 100 mls/hr IVPB ONCE PRN Rx#:[id number] Cardiac Output 110 170 30 Lactated Ringers 1,000 ml 400 300 250 @ 50 mls/hr IV .Q20H SAVI Rx#:[id number] Pressure Bag 72 54 45 Intake, IV Titration 43.426 4.949 Amount Clevidipine Butyrate 25 26.167 mg In Empty Bag 1 bag @ 1 MG/HR 2 mls/hr IV .Q24H SAVI Rx#:[id number] Insulin Regular 100 unit 5.792 4.949 In Sodium Chloride 0.9% 100 ml @ Per Protocol IV .Q0M SAVI Rx#:[id number] Propofol 1,000 mg In 11.467 Empty Bag 1 bag @ Titrate IV .Q0M SAVI Rx#: [id number] Oral 1160 1080 Output: Chest Tube Drainage 185 170 80 Chest Tube Bilateral 185 170 80 Mediastinal Urine 610 149 90 Other: Voiding Method Indwelling Catheter Indwelling Catheter Indwelling Catheter Weight 94.1 kg ABP, PAP, CO, CI - Last 8 Hours Arterial Blood Pressure 100/84 Arterial Blood Pressure 88/79 Pulmonary Artery Pressure 34/17 Pulmonary Artery Pressure 32/13 Pulmonary Artery Pressure 32/13 Pulmonary Artery Pressure 22/8 Pulmonary Artery Pressure 25/8 Pulmonary Artery Pressure 29/9 Cardiac Output 5.6 Cardiac Output 5.6 Cardiac Output 5.6 Cardiac Output 5.3 Cardiac Output 5.7 Cardiac Index 3.1 Cardiac Index 2.9 Cardiac Index 3.1 Constitutional: No acute distress, conversant, pleasant Eyes: Anicteric sclerae, PERRLA ENMT: NC/AT Neck:Supple, no masses, or JVD Lungs: Clear to auscultation, Clear to percussion, no accessory muscle use , Sternal incision is clean and dry mediastinal and left pleural chest tubes are in place, AV wires connected to an external pacemaker Cardiovascular: Heart regular in rate and rhythm, No murmurs, gallops, or rubs no peripheral edema Abdominal: Soft Nontender, nom distended, no guarding, no rebound or rigidity Skin: Normal temperature, tone, texture, turgor, No induration No subcutaneous nodules, No rash, lesions, No ulcers Extremities:No digital cyanosis No clubbing, No calf tenderness Psychiatric: Alert and oriented to person, place and time, Appropriate affect Intact judgement Neuro: Muscles Strength 5/5 in all 4 extremities, Cranial nerves II-XII grossly intact. No focal sensory deficits Results CBC & Chem 7: 01/02/19 05:00 01/02/19 05:00 Labs: Abnormal Lab Results - Last 24 Hours (Table) 12/26/18 01/01/19 01/01/19 Range/Units 08:58 09:15 09:58 RBC (3.80-5.40) m/uL Hgb (11.4-16.0) gm/dL Hct (34.0-46.0) % MCHC (31.0-37.0) g/dL Plt Count (150-450) k/uL Lymphocytes # (1.0-4.8) k/uL ABG pH (7.35-7.45) ABG pCO2 (35-45) mmHg ABG pO2 >420 H 386 H (83-108) mmHg ABG HCO3 26 H 27 H (21-25) mmol/L ABG Total CO2 27 H 28 H (19-24) mmol/L ABG O2 Saturation 100.0 H 100.0 H (94-97) % ABG Hematocrit 24 L 25 L (34.0-46.0) % ABG Potassium (3.4-4.5) mmol/L ABG Ionized Calcium (4.5-5.3) mg/dL ABG Glucose 112 H 137 H (75-99) mg/dL ABG Lactic Acid 1.9 H (0.5-1.6) mmol/L Hemoglobin 7.8 L 8.1 L (11.4-16.0) gm/dL Chloride (98-107) mmol/L Glucose (74-99) mg/dL POC Glucose (mg/dL) (75-99) mg/dL Calcium (8.4-10.2) mg/dL Ionized Calcium Dejan (4.5-5.3) mg/dL Magnesium (1.6-2.3) mg/dL AST (14-36) U/L ALT (9-52) U/L Total Protein (6.3-8.2) g/dL Albumin (3.5-5.0) g/dL Arterial Blood Potassium (3.4-4.5) mmol/L Arterial Blood Glucose 112 H 137 H (75-99) mg/dL Crossmatch See Detail 01/01/19 01/01/19 01/01/19 Range/Units 09:58 10:34 11:03 RBC (3.80-5.40) m/uL Hgb (11.4-16.0) gm/dL Hct (34.0-46.0) % MCHC (31.0-37.0) g/dL Plt Count (150-450) k/uL Lymphocytes # (1.0-4.8) k/uL ABG pH (7.35-7.45) ABG pCO2 (35-45) mmHg ABG pO2 >420 H 313 H 337 H (83-108) mmHg ABG HCO3 28 H 27 H (21-25) mmol/L ABG Total CO2 29 H 28 H (19-24) mmol/L ABG O2 Saturation 100.0 H 100.0 H 100.0 H (94-97) % ABG Hematocrit 22 L 24 L 23 L (34.0-46.0) % ABG Potassium 4.6 H (3.4-4.5) mmol/L ABG Ionized Calcium 3.9 L 4.3 L 4.4 L (4.5-5.3) mg/dL ABG Glucose 151 H 143 H 125 H (75-99) mg/dL ABG Lactic Acid 1.9 H (0.5-1.6) mmol/L Hemoglobin 7.2 L 7.9 L 7.5 L (11.4-16.0) gm/dL Chloride (98-107) mmol/L Glucose (74-99) mg/dL POC Glucose (mg/dL) (75-99) mg/dL Calcium (8.4-10.2) mg/dL Ionized Calcium Dejan (4.5-5.3) mg/dL Magnesium (1.6-2.3) mg/dL AST (14-36) U/L ALT (9-52) U/L Total Protein (6.3-8.2) g/dL Albumin (3.5-5.0) g/dL Arterial Blood Potassium 4.6 H (3.4-4.5) mmol/L Arterial Blood Glucose 151 H 143 H 125 H (75-99) mg/dL Crossmatch 01/01/19 01/01/19 01/01/19 Range/Units 12:06 13:05 13:05 RBC 3.23 L (3.80-5.40) m/uL Hgb 8.6 L (11.4-16.0) gm/dL Hct 26.8 L (34.0-46.0) % MCHC (31.0-37.0) g/dL Plt Count 141 L (150-450) k/uL Lymphocytes # (1.0-4.8) k/uL ABG pH (7.35-7.45) ABG pCO2 (35-45) mmHg ABG pO2 >420 H (83-108) mmHg ABG HCO3 (21-25) mmol/L ABG Total CO2 26 H (19-24) mmol/L ABG O2 Saturation 100.0 H (94-97) % ABG Hematocrit 28 L (34.0-46.0) % ABG Potassium (3.4-4.5) mmol/L ABG Ionized Calcium (4.5-5.3) mg/dL ABG Glucose 114 H (75-99) mg/dL ABG Lactic Acid 2.8 H* (0.5-1.6) mmol/L Hemoglobin 9.0 L (11.4-16.0) gm/dL Chloride 113 H (98-107) mmol/L Glucose 110 H (74-99) mg/dL POC Glucose (mg/dL) (75-99) mg/dL Calcium 8.3 L (8.4-10.2) mg/dL Ionized Calcium Dejan (4.5-5.3) mg/dL Magnesium 3.2 H (1.6-2.3) mg/dL AST 103 H (14-36) U/L ALT 64 H (9-52) U/L Total Protein 4.9 L (6.3-8.2) g/dL Albumin 2.8 L (3.5-5.0) g/dL Arterial Blood Potassium (3.4-4.5) mmol/L Arterial Blood Glucose 114 H (75-99) mg/dL Crossmatch 01/01/19 01/01/19 01/01/19 Range/Units 13:07 13:55 14:32 RBC (3.80-5.40) m/uL Hgb (11.4-16.0) gm/dL Hct (34.0-46.0) % MCHC (31.0-37.0) g/dL Plt Count (150-450) k/uL Lymphocytes # (1.0-4.8) k/uL ABG pH (7.35-7.45) ABG pCO2 (35-45) mmHg ABG pO2 (83-108) mmHg ABG HCO3 (21-25) mmol/L ABG Total CO2 (19-24) mmol/L ABG O2 Saturation (94-97) % ABG Hematocrit (34.0-46.0) % ABG Potassium (3.4-4.5) mmol/L ABG Ionized Calcium (4.5-5.3) mg/dL ABG Glucose (75-99) mg/dL ABG Lactic Acid (0.5-1.6) mmol/L Hemoglobin (11.4-16.0) gm/dL Chloride (98-107) mmol/L Glucose (74-99) mg/dL POC Glucose (mg/dL) 124 H 132 H 180 H (75-99) mg/dL Calcium (8.4-10.2) mg/dL Ionized Calcium Dejan (4.5-5.3) mg/dL Magnesium (1.6-2.3) mg/dL AST (14-36) U/L ALT (9-52) U/L Total Protein (6.3-8.2) g/dL Albumin (3.5-5.0) g/dL Arterial Blood Potassium (3.4-4.5) mmol/L Arterial Blood Glucose (75-99) mg/dL Crossmatch 01/01/19 01/01/19 01/01/19 Range/Units 15:03 15:16 16:09 RBC (3.80-5.40) m/uL Hgb (11.4-16.0) gm/dL Hct (34.0-46.0) % MCHC (31.0-37.0) g/dL Plt Count (150-450) k/uL Lymphocytes # (1.0-4.8) k/uL ABG pH 7.24 L (7.35-7.45) ABG pCO2 67 H (35-45) mmHg ABG pO2 237 H (83-108) mmHg ABG HCO3 29 H (21-25) mmol/L ABG Total CO2 31 H (19-24) mmol/L ABG O2 Saturation 99.5 H (94-97) % ABG Hematocrit (34.0-46.0) % ABG Potassium (3.4-4.5) mmol/L ABG Ionized Calcium (4.5-5.3) mg/dL ABG Glucose (75-99) mg/dL ABG Lactic Acid (0.5-1.6) mmol/L Hemoglobin (11.4-16.0) gm/dL Chloride (98-107) mmol/L Glucose (74-99) mg/dL POC Glucose (mg/dL) 164 H 129 H (75-99) mg/dL Calcium (8.4-10.2) mg/dL Ionized Calcium Dejan (4.5-5.3) mg/dL Magnesium (1.6-2.3) mg/dL AST (14-36) U/L ALT (9-52) U/L Total Protein (6.3-8.2) g/dL Albumin (3.5-5.0) g/dL Arterial Blood Potassium (3.4-4.5) mmol/L Arterial Blood Glucose (75-99) mg/dL Crossmatch 01/01/19 01/01/19 01/01/19 Range/Units 16:22 16:39 16:59 RBC 3.53 L (3.80-5.40) m/uL Hgb 9.1 L (11.4-16.0) gm/dL Hct 29.5 L (34.0-46.0) % MCHC 30.9 L (31.0-37.0) g/dL Plt Count (150-450) k/uL Lymphocytes # (1.0-4.8) k/uL ABG pH 7.33 L 7.32 L (7.35-7.45) ABG pCO2 53 H 55 H (35-45) mmHg ABG pO2 124 H (83-108) mmHg ABG HCO3 28 H 28 H (21-25) mmol/L ABG Total CO2 29 H 30 H (19-24) mmol/L ABG O2 Saturation 98.7 H (94-97) % ABG Hematocrit (34.0-46.0) % ABG Potassium (3.4-4.5) mmol/L ABG Ionized Calcium (4.5-5.3) mg/dL ABG Glucose (75-99) mg/dL ABG Lactic Acid (0.5-1.6) mmol/L Hemoglobin (11.4-16.0) gm/dL Chloride (98-107) mmol/L Glucose (74-99) mg/dL POC Glucose (mg/dL) (75-99) mg/dL Calcium (8.4-10.2) mg/dL Ionized Calcium Dejan (4.5-5.3) mg/dL Magnesium (1.6-2.3) mg/dL AST (14-36) U/L ALT (9-52) U/L Total Protein (6.3-8.2) g/dL Albumin (3.5-5.0) g/dL Arterial Blood Potassium (3.4-4.5) mmol/L Arterial Blood Glucose (75-99) mg/dL Crossmatch 01/01/19 01/01/19 01/01/19 Range/Units 16:59 18:25 19:05 RBC (3.80-5.40) m/uL Hgb (11.4-16.0) gm/dL Hct (34.0-46.0) % MCHC (31.0-37.0) g/dL Plt Count (150-450) k/uL Lymphocytes # (1.0-4.8) k/uL ABG pH (7.35-7.45) ABG pCO2 (35-45) mmHg ABG pO2 (83-108) mmHg ABG HCO3 (21-25) mmol/L ABG Total CO2 (19-24) mmol/L ABG O2 Saturation (94-97) % ABG Hematocrit (34.0-46.0) % ABG Potassium (3.4-4.5) mmol/L ABG Ionized Calcium (4.5-5.3) mg/dL ABG Glucose (75-99) mg/dL ABG Lactic Acid (0.5-1.6) mmol/L Hemoglobin (11.4-16.0) gm/dL Chloride (98-107) mmol/L Glucose (74-99) mg/dL POC Glucose (mg/dL) 112 H 133 H 145 H (75-99) mg/dL Calcium (8.4-10.2) mg/dL Ionized Calcium Dejan (4.5-5.3) mg/dL Magnesium (1.6-2.3) mg/dL AST (14-36) U/L ALT (9-52) U/L Total Protein (6.3-8.2) g/dL Albumin (3.5-5.0) g/dL Arterial Blood Potassium (3.4-4.5) mmol/L Arterial Blood Glucose (75-99) mg/dL Crossmatch 01/01/19 01/01/19 01/01/19 Range/Units 19:57 20:00 21:00 RBC 3.64 L (3.80-5.40) m/uL Hgb 9.6 L (11.4-16.0) gm/dL Hct 30.4 L (34.0-46.0) % MCHC (31.0-37.0) g/dL Plt Count (150-450) k/uL Lymphocytes # 0.7 L (1.0-4.8) k/uL ABG pH (7.35-7.45) ABG pCO2 (35-45) mmHg ABG pO2 (83-108) mmHg ABG HCO3 (21-25) mmol/L ABG Total CO2 (19-24) mmol/L ABG O2 Saturation (94-97) % ABG Hematocrit (34.0-46.0) % ABG Potassium (3.4-4.5) mmol/L ABG Ionized Calcium (4.5-5.3) mg/dL ABG Glucose (75-99) mg/dL ABG Lactic Acid (0.5-1.6) mmol/L Hemoglobin (11.4-16.0) gm/dL Chloride (98-107) mmol/L Glucose (74-99) mg/dL POC Glucose (mg/dL) 136 H 142 H (75-99) mg/dL Calcium (8.4-10.2) mg/dL Ionized Calcium Dejan (4.5-5.3) mg/dL Magnesium (1.6-2.3) mg/dL AST (14-36) U/L ALT (9-52) U/L Total Protein (6.3-8.2) g/dL Albumin (3.5-5.0) g/dL Arterial Blood Potassium (3.4-4.5) mmol/L Arterial Blood Glucose (75-99) mg/dL Crossmatch 01/01/19 01/02/19 01/02/19 Range/Units 21:59 00:06 01:27 RBC (3.80-5.40) m/uL Hgb (11.4-16.0) gm/dL Hct (34.0-46.0) % MCHC (31.0-37.0) g/dL Plt Count (150-450) k/uL Lymphocytes # (1.0-4.8) k/uL ABG pH (7.35-7.45) ABG pCO2 (35-45) mmHg ABG pO2 (83-108) mmHg ABG HCO3 (21-25) mmol/L ABG Total CO2 (19-24) mmol/L ABG O2 Saturation (94-97) % ABG Hematocrit (34.0-46.0) % ABG Potassium (3.4-4.5) mmol/L ABG Ionized Calcium (4.5-5.3) mg/dL ABG Glucose (75-99) mg/dL ABG Lactic Acid (0.5-1.6) mmol/L Hemoglobin (11.4-16.0) gm/dL Chloride (98-107) mmol/L Glucose (74-99) mg/dL POC Glucose (mg/dL) 140 H 110 H 116 H (75-99) mg/dL Calcium (8.4-10.2) mg/dL Ionized Calcium Dejan (4.5-5.3) mg/dL Magnesium (1.6-2.3) mg/dL AST (14-36) U/L ALT (9-52) U/L Total Protein (6.3-8.2) g/dL Albumin (3.5-5.0) g/dL Arterial Blood Potassium (3.4-4.5) mmol/L Arterial Blood Glucose (75-99) mg/dL Crossmatch 01/02/19 01/02/19 01/02/19 Range/Units 02:08 03:01 03:54 RBC (3.80-5.40) m/uL Hgb (11.4-16.0) gm/dL Hct (34.0-46.0) % MCHC (31.0-37.0) g/dL Plt Count (150-450) k/uL Lymphocytes # (1.0-4.8) k/uL ABG pH (7.35-7.45) ABG pCO2 (35-45) mmHg ABG pO2 (83-108) mmHg ABG HCO3 (21-25) mmol/L ABG Total CO2 (19-24) mmol/L ABG O2 Saturation (94-97) % ABG Hematocrit (34.0-46.0) % ABG Potassium (3.4-4.5) mmol/L ABG Ionized Calcium (4.5-5.3) mg/dL ABG Glucose (75-99) mg/dL ABG Lactic Acid (0.5-1.6) mmol/L Hemoglobin (11.4-16.0) gm/dL Chloride (98-107) mmol/L Glucose (74-99) mg/dL POC Glucose (mg/dL) 122 H 112 H 114 H (75-99) mg/dL Calcium (8.4-10.2) mg/dL Ionized Calcium Dejan (4.5-5.3) mg/dL Magnesium (1.6-2.3) mg/dL AST (14-36) U/L ALT (9-52) U/L Total Protein (6.3-8.2) g/dL Albumin (3.5-5.0) g/dL Arterial Blood Potassium (3.4-4.5) mmol/L Arterial Blood Glucose (75-99) mg/dL Crossmatch 01/02/19 01/02/19 01/02/19 Range/Units 05:00 05:00 05:00 RBC 3.12 L (3.80-5.40) m/uL Hgb 8.3 L (11.4-16.0) gm/dL Hct 26.4 L (34.0-46.0) % MCHC (31.0-37.0) g/dL Plt Count 133 L (150-450) k/uL Lymphocytes # (1.0-4.8) k/uL ABG pH (7.35-7.45) ABG pCO2 (35-45) mmHg ABG pO2 (83-108) mmHg ABG HCO3 (21-25) mmol/L ABG Total CO2 (19-24) mmol/L ABG O2 Saturation (94-97) % ABG Hematocrit (34.0-46.0) % ABG Potassium (3.4-4.5) mmol/L ABG Ionized Calcium (4.5-5.3) mg/dL ABG Glucose (75-99) mg/dL ABG Lactic Acid (0.5-1.6) mmol/L Hemoglobin (11.4-16.0) gm/dL Chloride (98-107) mmol/L Glucose 100 H (74-99) mg/dL POC Glucose (mg/dL) 117 H (75-99) mg/dL Calcium 8.3 L (8.4-10.2) mg/dL Ionized Calcium Dejan 4.0 L (4.5-5.3) mg/dL Magnesium 2.4 H (1.6-2.3) mg/dL AST 89 H (14-36) U/L ALT 66 H (9-52) U/L Total Protein 5.3 L (6.3-8.2) g/dL Albumin 3.2 L (3.5-5.0) g/dL Arterial Blood Potassium (3.4-4.5) mmol/L Arterial Blood Glucose (75-99) mg/dL Crossmatch 01/02/19 01/02/19 01/02/19 Range/Units 06:25 07:11 12:16 RBC (3.80-5.40) m/uL Hgb (11.4-16.0) gm/dL Hct (34.0-46.0) % MCHC (31.0-37.0) g/dL Plt Count (150-450) k/uL Lymphocytes # (1.0-4.8) k/uL ABG pH (7.35-7.45) ABG pCO2 (35-45) mmHg ABG pO2 (83-108) mmHg ABG HCO3 (21-25) mmol/L ABG Total CO2 (19-24) mmol/L ABG O2 Saturation (94-97) % ABG Hematocrit (34.0-46.0) % ABG Potassium (3.4-4.5) mmol/L ABG Ionized Calcium (4.5-5.3) mg/dL ABG Glucose (75-99) mg/dL ABG Lactic Acid (0.5-1.6) mmol/L Hemoglobin (11.4-16.0) gm/dL Chloride (98-107) mmol/L Glucose (74-99) mg/dL POC Glucose (mg/dL) 137 H 132 H 114 H (75-99) mg/dL Calcium (8.4-10.2) mg/dL Ionized Calcium Dejan (4.5-5.3) mg/dL Magnesium (1.6-2.3) mg/dL AST (14-36) U/L ALT (9-52) U/L Total Protein (6.3-8.2) g/dL Albumin (3.5-5.0) g/dL Arterial Blood Potassium (3.4-4.5) mmol/L Arterial Blood Glucose (75-99) mg/dL Crossmatch Assessment and Plan Plan: 1. Severe aortic valve stenosis, status post aortic valve replacement post-op day 1, clinically stable, management per cardiothoracic surgery. On amiodarone, aspirin, Lipitor, Clevidipine, metoprolol and Plavix 2. Postoperative blood loss anemia, status post transfusion with 2 units of PRBC, 2 units of fresh frozen plasma and 1 unit of platelets, hemoglobin 8.3 from 9.6.plat down to 133 3. History of left lower lobe pneumonia, with parapneumonic effusion/empyema in September 2018, requiring placement of pigtail catheter and alteplase infusions 4. History of COPD without exacerbation, pulmonology following oxygen and bronchodilators. 5. Anxiety/depression: Continue Lexapro 6. Hypothyroidism: Continue Synthroid Thank you for the consultation we will follow with you
[2019-01-02] MEDS ORDERED: FUROSEMIDE 10 MG/ML 2 ML VIAL IV STA (15:18)
[2019-01-02 17:17] LABS: Glucose,Whole Blood 142 mg/dL (75-99)
[2019-01-02] MEDS: LACTATED RINGERS 1,000 ML IV SCH (18:40)
[2019-01-02] MEDS: ESCITALOPRAM 20 MG TAB PO SCH (20:34)
[2019-01-02] MEDS: SENNOSIDES-DOCUSATE SODIUM 1 EACH TAB PO SCH (20:35)
[2019-01-02 20:51] LABS: Glucose,Whole Blood 132 mg/dL (75-99)
[2019-01-03 05:19] LABS: Basophils % (A) 0 %; Eosinophils # (A) 0.2 k/uL (0-0.7); Eosinophils % (A) 4 %; HGB 7.1 gm/dL (11.4-16.0); Hypochromasia Moderate; Lymphocytes # (A) 1.5 k/uL (1.0-4.8); Lymphocytes % (A) 29 %; MCHC 30.7 g/dL (31.0-37.0); MCV 84.7 fL (80.0-100.0); Mean Platelet Volume 8.5; Monocytes # (A) 0.3 k/uL (0-1.0); Monocytes % (A) 6 %; Neutrophils # (A) 3.1 k/uL (1.3-7.7); Neutrophils % (A) 58 %; Platelet Count 115 k/uL (150-450); RBC 2.71 m/uL (3.80-5.40); RDW 15.7 % (11.5-15.5); WBC 5.3 k/uL (3.8-10.6)
[2019-01-03 06:35] LABS: Albumin 3.1 g/dL (3.5-5.0); Calcium 8.9 mg/dL (8.4-10.2); Potassium 4.3 mmol/L (3.5-5.1); Total Bilirubin 0.6 mg/dL (0.2-1.3); Total Protein 5.1 g/dL (6.3-8.2)
[2019-01-03] MEDS: ONDANSETRON 4 MG/2 ML VIAL IVP PRN ×2 (06:35→17:49)
[2019-01-03] MEDS: LEVOTHYROXINE 75 MCG TAB PO SCH (06:46)
[2019-01-03] MEDS: KETOROLAC 30 MG/ML 1 ML VIAL IVP SCH ×4 (06:52→23:06)
[2019-01-03 07:22] LABS: Glucose,Whole Blood 115 mg/dL (75-99)
[2019-01-03] MEDS: METOPROLOL TARTRATE 25 MG TAB PO SCH ×2 (07:30→20:17)
[2019-01-03] MEDS: IPRATROPIUM-ALBUTEROL 3 ML NEB INHALATION SCH ×4 (08:10→20:28)
[2019-01-03] MEDS: PANTOPRAZOLE 40 MG TABLET PO SCH (08:15)
[2019-01-03] MEDS: ATORVASTATIN 40 MG TAB PO SCH (08:15)
[2019-01-03] MEDS: ASPIRIN 325 MG TAB PO SCH (08:15)
[2019-01-03] MEDS: INSULIN ASPART (NovoLOG) 100 UNIT/ML VIAL SQ SCH ×4 (08:15→21:16)
[2019-01-03] MEDS: HEPARIN SODIUM,PORCINE 5,000 UNIT/ML 1 ML VIAL SQ SCH ×3 (08:15→23:06)
--- NOTE | 2019-01-03 08:18 | XR ---
EXAMINATION TYPE: XR chest 1V portable DATE OF EXAM: 01/03/2019 COMPARISON: 01/02/2019 HISTORY: Postop TECHNIQUE: Single frontal view of the chest is obtained. FINDINGS: Bilateral consolidation and pleural effusion. Postsurgical change and cardiomegaly. Inters titial pattern noted. No pneumothorax. [place]-Donna catheter has been removed. IMPRESSION: Correlate for CHF otherwise consider pneumonia. Findings stable.
--- NOTE | 2019-01-03 08:44 | PN ---
PROGRESS NOTE DATE OF SERVICE: 01/03/2019 This is a 68-year-old female with a history of severe aortic valve stenosis and she is status post day #2 aortic valve replacement. She had it replaced with a 23 mm bovine pericardial valve and she had a left atrial excision as well. She had routine postop ventilator management. She was extubated within the 6-hour window. She had some postoperative blood loss anemia and got 2 units of PRBCs and 2 units of fresh frozen plasma with 1 unit of platelets. She has a previous history of left lower lobe pneumonia with parapneumonic effusion and empyema in September of this year. At that time, she had a pigtail catheter placed in infusions of tPA. She does have a history of underlying COPD. Her FEV1 is at 1.5 L or 56% of predicted suggesting stage II COPD. She also has history of chronic nicotine dependence, anxiety, hypothyroidism, and depression. Currently, she is doing well. She is on O2 at 3 L by nasal cannula. She is not receiving any IV fluids. She is postop day #2. The patient has no particular complaints other than for some mild pain at the surgical site. She is resting comfortably in bed. Current vital signs are reviewed. Temperature 99.5, heart rate 68, respiratory rate 16, blood pressure 109/70, mean 83 and 3 L saturation 97% to 98%. Appears in no acute distress. HEENT examination is grossly unremarkable. Mucous membranes are moist. No oral lesions. NECK: Supple. Full range of motion. No adenopathy or thyromegaly. Neck veins are flat. CARDIOVASCULAR: Examination reveals regular rhythm and rate. S1, S2 normal. No murmur. LUNGS: Clear. Breath sounds equal. ABDOMEN: Soft. Bowel sounds are heard. EXTREMITIES: Are intact. No cyanosis, clubbing or significant edema. SKIN: Without rash. NEUROLOGIC: Examination is brief but nonfocal. Microbiologic studies are negative or pending. White count 5.3, hemoglobin 7.1, hematocrit 23.0, platelet count 115,000. Sodium 136. Potassium, chloride, CO2 all normal. Anion gap normal. BUN and creatinine were 17 and 1.18. The rest of the labs look good. AST is modestly elevated at 82, ALT 57. Chest x-ray shows some cardiomegaly. There is small effusion on the right, a little bit larger effusion on the left. Some postsurgical changes are noted. Medications are reviewed. ASSESSMENT: 1. Postoperative day #2, status post aortic valve replacement with a 23 mm bovine valve and left atrial excision in a patient with severe calcific aortic valve stenosis. 2. Routine postoperative ventilator management with successful extubation within 6 hours. 3. Postoperative blood-loss anemia, status post transfusion with 2 units PRBC, 2 units of fresh frozen plasma and 1 unit of platelets. 4. Recent history of left lower lobe pneumonia with parapneumonic effusion/empyema, treated with pigtail catheter insertion and infusions of 100 mg of alteplase. 5. History of stage II chronic obstructive pulmonary disease with an FEV1 that was 1.51 L or 56% of predicted. 6. History of nicotine dependence, currently in remission. 7. Anxiety. 8. Hypothyroidism. 9. Depression. PLAN: The patient is doing well. We encourage deep breathing, coughing, clearing of secretions and hourly use of incentive spirometer. The patient will continue to be followed. No additional recommendations are made. Prognosis is guarded. We will continue to follow. We have continued to talk to the family and kept them updated as to her condition. MMODL / IJN: [id number] /
--- NOTE | 2019-01-03 08:57 | PN ---
PROGRESS NOTE Mrs. Johnson is a 68-year-old female who underwent aortic valve replacement. She is doing well this morning. She denies any dizziness. Her chest soreness is better. Her breathing is stable. She continued be in sinus mechanism. Hemodynamically, she is stable. She has no evidence of atrial fibrillation. She continues to be on aspirin once a day, Lipitor 40 mg daily, levothyroxine, metoprolol tartrate 25 mg twice a day. PHYSICAL EXAMINATION: Blood pressure 109/70 with the heart rate in the 60s. LUNGS: Clear. HEART: Regular rate and rhythm. S1, S2. No S3 with systolic murmur heard at the base 1/6 with a rub. ABDOMEN: Soft, nontender, obese. EXTREMITIES: No edema. LAB DATA: Lab data revealed BUN creatinine 17 and 1.18, potassium 4.3, hemoglobin of 7.1. IMPRESSION: 1. Status post aortic valve replacement, stable. 2. Prior history of smoking. 3. History of hypothyroidism. RECOMMENDATION: From the cardiac standpoint, she is stable. We will continue increasing her physical activity. Continue incentive spirometry. Follow her renal function. Depending on her progress, further recommendation will be made. MMODL / IJN: [id number] /
--- NOTE | 2019-01-03 09:40 | P.PN ---
Subjective Progress Note Date: 01/03/19 HPI: Patient is a 68-year-old white female patient with history of severe aortic valve stenosis, who underwent aortic valve replacement with 23 mm Inspiris bovine pericardial valve, ligation of the left atrial appendage with the AtriCure clip. Echo in September was consistent with new finding of severe aortic stenosis. Cardiac catheterization was performed and was negative for any significant coronary artery disease. She successfully underwent an aortic valve replacement. She was initially intubated but currently is extubated. At the time of examination patient denies chest pain, shortness of breath, no nausea no vomiting no abdominal pain. No cross bleeding. 01/03/2019: Patient feels well today, no chest pain no shortness of breath nausea no vomiting no abdominal pain. Family at bedside. Objective - Vital Signs Vital signs: Vital Signs Temp 100.2 F H 01/03/19 08:00 Pulse 71 01/03/19 09:00 Resp 20 01/03/19 09:00 BP 103/39 01/03/19 09:00 Pulse Ox 97 01/03/19 09:00 Intake & Output 01/02/19 01/03/19 01/03/19 18:59 06:59 18:59 Intake Total 2120 550 240 Output Total 492 278 50 Balance 1628 272 190 Weight 94.1 kg 85.5 kg Intake: IV 1040 250 Albumin 250 Albumin Human 5% 250 ml 250 In Empty Bag 1 bag @ 250 mls/hr IVPB Q1HR PRN Rx#: [id number] Calcium Gluconate 2 gm In 100 Sodium Chloride 0.9% 100 ml @ 100 mls/hr IVPB ONCE PRN Rx#:[id number] Cardiac Output 30 Lactated Ringers 1,000 ml 600 0 @ 50 mls/hr IV .Q20H [facility] Rx#:[id number] Pressure Bag 60 Oral 1080 300 240 Output: Chest Tube Drainage 140 80 20 Chest Tube Bilateral 140 80 20 Mediastinal Urine 352 198 30 Other: Voiding Method Indwelling Catheter Indwelling Catheter ABP, PAP, CO, CI - Last Documented Arterial Blood Pressure 100/84 Pulmonary Artery Pressure 34/17 Cardiac Output 5.6 Cardiac Index 3.1 - Exam Constitutional: No acute distress, conversant, pleasant Eyes: Anicteric sclerae, PERRLA ENMT: NC/AT Neck:Supple, no masses, or JVD Lungs: Clear to auscultation, Sternal incision is clean and dry, no wheezing mediastinal and left pleural chest tubes are in place, AV wires connected to an external pacemaker Cardiovascular: S1-S2 normal, No murmurs, gallops, or rubs no peripheral edema Abdominal: Soft Nontender, nom distended, no guarding, no rebound or rigidity Skin: Normal temperature, tone, texture, turgor Extremities:No digital cyanosis No clubbing, No calf tenderness Psychiatric: Alert and oriented to person, place and time, Appropriate affect Intact judgement Neuro: Muscles Strength 5/5 in all 4 extremities, Cranial nerves II-XII grossly intact. No focal sensory deficits - Labs CBC & Chem 7: 01/03/19 04:34 01/03/19 04:34 Labs: Abnormal Lab Results - Last 24 Hours (Table) 12/26/18 01/02/19 01/02/19 Range/Units 08:58 12:16 17:06 RBC (3.80-5.40) m/uL Hgb (11.4-16.0) gm/dL Hct (34.0-46.0) % MCHC (31.0-37.0) g/dL RDW (11.5-15.5) % Plt Count (150-450) k/uL Sodium (137-145) mmol/L Creatinine (0.52-1.04) mg/dL POC Glucose (mg/dL) 114 H 142 H (75-99) mg/dL AST (14-36) U/L ALT (9-52) U/L Total Protein (6.3-8.2) g/dL Albumin (3.5-5.0) g/dL Crossmatch See Detail 01/02/19 01/03/19 01/03/19 Range/Units 20:39 04:34 04:34 RBC 2.71 L (3.80-5.40) m/uL Hgb 7.1 L (11.4-16.0) gm/dL Hct 23.0 L (34.0-46.0) % MCHC 30.7 L (31.0-37.0) g/dL RDW 15.7 H (11.5-15.5) % Plt Count 115 L (150-450) k/uL Sodium 136 L (137-145) mmol/L Creatinine 1.18 H (0.52-1.04) mg/dL POC Glucose (mg/dL) 132 H (75-99) mg/dL AST 82 H (14-36) U/L ALT 57 H (9-52) U/L Total Protein 5.1 L (6.3-8.2) g/dL Albumin 3.1 L (3.5-5.0) g/dL Crossmatch 01/03/19 Range/Units 07:11 RBC (3.80-5.40) m/uL Hgb (11.4-16.0) gm/dL Hct (34.0-46.0) % MCHC (31.0-37.0) g/dL RDW (11.5-15.5) % Plt Count (150-450) k/uL Sodium (137-145) mmol/L Creatinine (0.52-1.04) mg/dL POC Glucose (mg/dL) 115 H (75-99) mg/dL AST (14-36) U/L ALT (9-52) U/L Total Protein (6.3-8.2) g/dL Albumin (3.5-5.0) g/dL Crossmatch Assessment and Plan Plan: 1. Severe aortic valve stenosis, status post aortic valve replacement post-op day 2, clinically stable, management per cardiothoracic surgery. On amiodarone, aspirin, Lipitor, and metoprolol off Plavix and Clevidipine. 2. Postoperative blood loss anemia, status post transfusion with 2 units of PRBC, 2 units of fresh frozen plasma and 1 unit of platelets, hemoglobin down from 8.3 to 7.1 .plat down to 115 , monitor 3. History of left lower lobe pneumonia, with parapneumonic effusion/empyema in September 2018, requiring placement of pigtail catheter and alteplase infusions: stable ,pulmonology following 4. History of COPD without exacerbation, pulmonology following oxygen and bronchodilators. 5. Anxiety/depression: Continue Lexapro 6. Hypothyroidism: Continue Synthroid Time with Patient: Less than 30
[2019-01-03 11:57] LABS: Glucose,Whole Blood 128 mg/dL (75-99)
--- NOTE | 2019-01-03 14:25 | P.PN ---
Subjective Progress Note Date: 01/03/19 Principal diagnosis: Severe aortic valvular stenosis, history of left lower lobe pneumonia with parapneumonic effusion/empyema in September 2018 requiring placement of pigtail catheter and also alteplase instillation, chronic obstructive pulmonary disease with a preoperative FEV1 of 56% of protected value, history of nicotine dependence, currently in remission, thyroid disorder, history of depression and anxiety. POD #2 aortic valve replacement with a 23 mm Inspiris Bovine pericardial valve, ligation of the left atrial appendage with a 35 mm Atriclip, intraoperative transesophageal echocardiogram and epi-aortic ultrasound. Patient is sitting up to the bedside chair. She is in no acute distress. She denies any complaints of pain or shortness of breath this time. She is hemodynamically stable and is currently on no inotropic or pressor support. She has been ambulating in the hallway with minimal assistance from physical, occupational therapy and nursing staff. Mediastinal chest tube remains in place to low continuous wall suction -20 cm H2O. No air leak is present. Draining thin serosanguineous drainage with 80 mL output in the last 8 hours, 200 mL output in the last 24 hours. Objective - Vital Signs Vital signs: Vital Signs Temp 100.2 F H 01/03/19 08:00 Pulse 75 01/03/19 12:08 Resp 24 01/03/19 11:00 BP 92/58 01/03/19 11:00 Pulse Ox 97 01/03/19 11:00 Intake & Output 01/02/19 01/03/19 01/03/19 18:59 06:59 18:59 Intake Total 2120 550 240 Output Total 492 278 105 Balance 1628 272 135 Weight 94.1 kg 85.5 kg Intake: IV 1040 250 Albumin 250 Albumin Human 5% 250 ml 250 In Empty Bag 1 bag @ 250 mls/hr IVPB Q1HR PRN Rx#: [id number] Calcium Gluconate 2 gm In 100 Sodium Chloride 0.9% 100 ml @ 100 mls/hr IVPB ONCE PRN Rx#:[id number] Cardiac Output 30 Lactated Ringers 1,000 ml 600 0 @ 50 mls/hr IV .Q20H [facility] Rx#:[id number] Pressure Bag 60 Oral 1080 300 240 Output: Chest Tube Drainage 140 80 20 Chest Tube Bilateral 140 80 20 Mediastinal Urine 352 198 85 Other: Voiding Method Indwelling Catheter Indwelling Catheter Indwelling Catheter # Voids 0 ABP, PAP, CO, CI - Last Documented Arterial Blood Pressure 100/84 Pulmonary Artery Pressure 34/17 Cardiac Output 5.6 Cardiac Index 3.1 - Constitutional General appearance: Present: cooperative, no acute distress, obese - Respiratory Details: Lung sounds essentially clear throughout, diminished her bilateral bases. Respirations are symmetrical and nonlabored. Oxygen saturation are 98% on 2 L nasal cannula. Achieving 500-750 mL on her incentive spirometry. Mediastinal chest tube in place to low continuous wall suction -20 cm H2O. Draining thin serosanguineous drainage. 80 mL output in the last 8 hours, 200 mL output last 24 hours. - Cardiovascular Details: Regular rhythm and rate. S1 and S2 present, negative for S3, gallop or murmur. Sternum is stable. Bedside telemetry showing normal sinus rhythm heart rate 74. Heart hugger is in place and she is demonstrating appropriate use. Atrial and ventricular epicardial pacemaker wires in place and grounded. Knee-high TACHO hose and sequential compression devices in place to bilateral lower extremities. No edema present. - Gastrointestinal Gastrointestinal Comment(s): Abdomen is soft, nontender and nondistended. Hypoactive bowel sounds all 4 abdominal quadrants. No guarding or rigidity. No organomegaly. Passing flatus. Tolerating oral intake. - Genitourinary Genitourinary Comment(s): Fulton catheter for accurate I&O. Marginal urine output. - Integumentary Integumentary Comment(s): Skin is warm and dry. No clubbing or cyanosis is present. Midline sternal incision is clean, dry and approximated. No drainage or redness is present. Gauze dressing is clean, dry and in place. - Neurologic Neurologic: Present: CNII-XII intact - Musculoskeletal Musculoskeletal: Present: gait normal, generalized weakness, strength equal bilaterally - Psychiatric Psychiatric: Present: A&O x's 3, appropriate affect, intact judgment & insight - Allied health notes Allied health notes reviewed: nursing - Labs CBC & Chem 7: 01/03/19 04:34 01/03/19 04:34 Labs: Abnormal Lab Results - Last 24 Hours (Table) 12/26/18 01/02/19 01/02/19 Range/Units 08:58 17:06 20:39 RBC (3.80-5.40) m/uL Hgb (11.4-16.0) gm/dL Hct (34.0-46.0) % MCHC (31.0-37.0) g/dL RDW (11.5-15.5) % Plt Count (150-450) k/uL Sodium (137-145) mmol/L Creatinine (0.52-1.04) mg/dL POC Glucose (mg/dL) 142 H 132 H (75-99) mg/dL AST (14-36) U/L ALT (9-52) U/L Total Protein (6.3-8.2) g/dL Albumin (3.5-5.0) g/dL Crossmatch See Detail 01/03/19 01/03/19 01/03/19 Range/Units 04:34 04:34 07:11 RBC 2.71 L (3.80-5.40) m/uL Hgb 7.1 L (11.4-16.0) gm/dL Hct 23.0 L (34.0-46.0) % MCHC 30.7 L (31.0-37.0) g/dL RDW 15.7 H (11.5-15.5) % Plt Count 115 L (150-450) k/uL Sodium 136 L (137-145) mmol/L Creatinine 1.18 H (0.52-1.04) mg/dL POC Glucose (mg/dL) 115 H (75-99) mg/dL AST 82 H (14-36) U/L ALT 57 H (9-52) U/L Total Protein 5.1 L (6.3-8.2) g/dL Albumin 3.1 L (3.5-5.0) g/dL Crossmatch 01/03/19 Range/Units 11:46 RBC (3.80-5.40) m/uL Hgb (11.4-16.0) gm/dL Hct (34.0-46.0) % MCHC (31.0-37.0) g/dL RDW (11.5-15.5) % Plt Count (150-450) k/uL Sodium (137-145) mmol/L Creatinine (0.52-1.04) mg/dL POC Glucose (mg/dL) 128 H (75-99) mg/dL AST (14-36) U/L ALT (9-52) U/L Total Protein (6.3-8.2) g/dL Albumin (3.5-5.0) g/dL Crossmatch - Imaging and Cardiology Chest x-ray: report reviewed, image reviewed Assessment and Plan Assessment: 1. Severe aortic valvular stenosis, status post aortic valve replacement 2. History of left lower lobe pneumonia with parapneumonic effusion/empyema in September 2017 requiring placement of pigtail catheter and also alteplase instillation 3. Chronic obstructive pulmonary disease with a preoperative FEV1 of 56% of predicted value 4. History of nicotine dependence currently in remission 5. Thyroid disorder 6. History of depression 6. History of anxiety Plan: 1. Continue aspirin, statin, and beta francine. Will increase metoprolol tartrate as tolerated. 2. Wean O2 as tolerated. Encourage incentive spirometry use 10 times every hour while awake. 3. Will monitor daily labs, x-rays. Electrolyte replacement per protocol. 4. Pain control with current medication regimen. 5. Insulin management per primary care service 6. Bronchodilators management per pulmonology. 7. Increase activity, ambulate as tolerated. PT/OT/cardiac rehab following. 8. Keep mediastinal chest tube in place to low continuous wall suction, anticipate we will remove mediastinal chest tube tomorrow 01/04/2019. 9. GI/DVT prophylaxis. 10. Albumin 25% 50 mL 1 now for low urine output. 11. More recommendations to follow based on patient's clinical course. Time with Patient: Greater than 30
[2019-01-03] MEDS ORDERED: ALBUMIN HUMAN 25% 50 ML in EMPTY BAG 1 BAG IVPB ONE (14:30)
[2019-01-03 17:22] LABS: Glucose,Whole Blood 135 mg/dL (75-99)
[2019-01-03] MEDS: SENNOSIDES-DOCUSATE SODIUM 1 EACH TAB PO SCH (20:18)
[2019-01-03] MEDS: ESCITALOPRAM 20 MG TAB PO SCH (20:18)
[2019-01-03 20:58] LABS: Glucose,Whole Blood 128 mg/dL (75-99)
[2019-01-03] MEDS: ACETAMINOPHEN TAB 500 MG TAB PO PRN (21:24)
[2019-01-03] MEDS: ALPRAZolam 0.25 MG TAB PO PRN (23:06)
[2019-01-04 04:53] LABS: Basophils % (A) 0 %; Eosinophils # (A) 0.3 k/uL (0-0.7); Eosinophils % (A) 6 %; HCT 23.7 % (34.0-46.0); HGB 7.1 gm/dL (11.4-16.0); Hypochromasia Moderate; Lymphocytes # (A) 1.5 k/uL (1.0-4.8); Lymphocytes % (A) 31 %; MCH 25.5 pg (25.0-35.0); Mean Platelet Volume 8.8; Monocytes # (A) 0.4 k/uL (0-1.0); Monocytes % (A) 8 %; Neutrophils # (A) 2.6 k/uL (1.3-7.7); Neutrophils % (A) 52 %; Platelet Count 130 k/uL (150-450); RBC 2.79 m/uL (3.80-5.40); WBC 4.9 k/uL (3.8-10.6)
[2019-01-04 05:02] LABS: Albumin 2.9 g/dL (3.5-5.0); Calcium 8.9 mg/dL (8.4-10.2); Potassium 4.4 mmol/L (3.5-5.1); Total Bilirubin 0.6 mg/dL (0.2-1.3)
[2019-01-04] MEDS: LEVOTHYROXINE 75 MCG TAB PO SCH (05:58)
[2019-01-04] MEDS: KETOROLAC 30 MG/ML 1 ML VIAL IVP SCH (05:58)
--- NOTE | 2019-01-04 06:36 | XR ---
EXAMINATION TYPE: XR chest 1V portable DATE OF EXAM: 01/04/2019 HISTORY: Postoperative aortic valve replacement. REFERENCE: Previous study dated 01/03/2019. FINDINGS: There has been a midline sternotomy and aortic valve replacement. There is bibasilar airspace disease, worse in the left than the right. There are bilateral effusions, worse on the left than the right. The heart is enlarged. There is vascular congestion without sejal edema. IMPRESSION: 1. BIBASILAR AIRSPACE DISEASE. 2. BILATERAL EFFUSIONS, WORSE ON THE LEFT THAN THE RIGHT.
[2019-01-04 06:44] LABS: Glucose,Whole Blood 111 mg/dL (75-99)
[2019-01-04] MEDS: INSULIN ASPART (NovoLOG) 100 UNIT/ML VIAL SQ SCH ×4 (06:58→21:31)
[2019-01-04] MEDS: PANTOPRAZOLE 40 MG TABLET PO SCH (06:59)
[2019-01-04] MEDS: METOPROLOL TARTRATE 25 MG TAB PO SCH ×2 (07:32→20:41)
[2019-01-04] MEDS: IPRATROPIUM-ALBUTEROL 3 ML NEB INHALATION SCH (07:33)
[2019-01-04] MEDS: ATORVASTATIN 40 MG TAB PO SCH (08:14)
[2019-01-04] MEDS: HEPARIN SODIUM,PORCINE 5,000 UNIT/ML 1 ML VIAL SQ SCH ×3 (08:14→23:03)
[2019-01-04] MEDS: ASPIRIN 325 MG TAB PO SCH (08:14)
--- NOTE | 2019-01-04 09:03 | PN ---
PROGRESS NOTE Mrs. Johnson is 68-year-old female who underwent aortic valve replacement. She is doing well this morning, sitting up in the chair. Hemodynamically stable. She continued to be in sinus mechanism. She is doing better with the incentive spirometry. She denies any dizziness or palpitation. She denies any nausea. She continues to be on aspirin once a day, Lipitor 40 mg daily, metoprolol tartrate 25 mg twice a day. PHYSICAL EXAMINATION: VITAL SIGNS: Blood pressure 106/60 with a heart in 70s. LUNGS with few crackles at the bases. HEART: Regular rate and rhythm, S1, S2 with systolic murmur. No diastolic murmur. ABDOMEN: Soft, nontender. EXTREMITIES: No edema. LAB DATA: Lab data revealed BUN and creatinine 24 and 1.18, hemoglobin of 7.1. IMPRESSION: 1. Status post aortic valve replacement. 2. Hyperlipidemia. 3. Pleural effusion. RECOMMENDATIONS: From the cardiac standpoint, we will continue present therapy. Continue incentive spirometry. Follow the pleural effusion to see if thoracentesis is needed. MMODL / IJN: [id number] /
[2019-01-04] MEDS: AMIODARONE 360 MG in DEXTROSE 5% IN WATER 200 ML IV PRN ×4 (09:33→15:41)
--- NOTE | 2019-01-04 09:48 | P.PN ---
Subjective Progress Note Date: 01/04/19 Principal diagnosis: Severe aortic valvular stenosis, history of left lower lobe pneumonia with parapneumonic effusion/empyema in September 2018 requiring placement of pigtail catheter and also alteplase instillation, chronic obstructive pulmonary disease with a preoperative FEV1 of 56% of protected value, history of nicotine dependence, currently in remission, thyroid disorder, history of depression and anxiety. POD #3 aortic valve replacement with a 23 mm Inspiris Bovine pericardial valve, ligation of the left atrial appendage with a 35 mm Atriclip, intraoperative transesophageal echocardiogram and epi-aortic ultrasound. The patient is sitting up to the bedside chair. She is in no acute distress. She denies any complaints of pain or shortness of breath this time. She is hemodynamically stable and is currently on no inotropic or pressor support. She has been ambulating in the hallway with minimal assistance from physical, occupational therapy and nursing staff. Mediastinal chest tube remains in place to low continuous wall suction -20 cm H2O. No air leak is present. Draining thin serosanguineous drainage with 60 mL output in the last 24 hours. Bedside monitor showing normal sinus rhythm with frequent PACs. Objective - Vital Signs Vital signs: Vital Signs Temp 98.3 F 01/04/19 08:00 Pulse 70 01/04/19 09:00 Resp 25 H 01/04/19 09:00 BP 100/67 01/04/19 09:00 Pulse Ox 95 01/04/19 09:00 Intake & Output 01/03/19 01/04/19 01/04/19 18:59 06:59 18:59 Intake Total 650 240 Output Total 355 409 150 Balance 295 -409 90 Weight 84.1 kg Intake: Intake, IV Titration 50 Amount Albumin Human 25% 50 ml 50 In Empty Bag 1 bag @ 50 mls/hr IVPB ONCE ONE Rx#: [id number] Oral 600 240 Output: Chest Tube Drainage 100 0 50 Chest Tube Bilateral 100 0 50 Mediastinal Urine 255 409 100 Other: Voiding Method Indwelling Catheter Indwelling Catheter # Voids 0 ABP, PAP, CO, CI - Last Documented Arterial Blood Pressure 100/84 Pulmonary Artery Pressure 34/17 Cardiac Output 5.6 Cardiac Index 3.1 - Constitutional General appearance: Present: cooperative, no acute distress, obese - Respiratory Details: Lung sounds are diminished to her bilateral bases, left greater than right. Respirations are symmetrical and nonlabored. Oxygen saturation are 94% on 2 L nasal cannula. Achieving 1000 mL on her incentive spirometry. Mediastinal chest tubes in place to low continuous wall suction -20 cm H2O. No air leak is present. Draining thin serosanguineous drainage. 20 mL output in the last 24 hours. - Cardiovascular Details: Irregular rhythm and controlled rate. S1 and S2 present, negative for S3, gallop or murmur. Sternum is stable. Bedside telemetry showing normal sinus rhythm with frequent PACs heart rate 77. Heart hugger is in place and she is demonstrating appropriate use. Knee-high TACHO hose and sequential compression devices in place to her bilateral lower extremities. Atrial and ventricular epicardial pacemaker wires in place and grounded. - Genitourinary Genitourinary Comment(s): Fulton catheter for accurate I&O. Draining clear bienvenido urine. Marginal urine output. - Neurologic Neurologic: Present: CNII-XII intact - Musculoskeletal Musculoskeletal: Present: gait normal, strength equal bilaterally - Psychiatric Psychiatric: Present: A&O x's 3, appropriate affect, intact judgment & insight - Allied health notes Allied health notes reviewed: nursing - Labs CBC & Chem 7: 01/04/19 04:31 01/04/19 04:31 Labs: Abnormal Lab Results - Last 24 Hours (Table) 01/03/19 01/03/19 01/03/19 Range/Units 11:46 17:10 20:47 RBC (3.80-5.40) m/uL Hgb (11.4-16.0) gm/dL Hct (34.0-46.0) % MCHC (31.0-37.0) g/dL RDW (11.5-15.5) % Plt Count (150-450) k/uL Sodium (137-145) mmol/L BUN (7-17) mg/dL Creatinine (0.52-1.04) mg/dL POC Glucose (mg/dL) 128 H 135 H 128 H (75-99) mg/dL AST (14-36) U/L Total Protein (6.3-8.2) g/dL Albumin (3.5-5.0) g/dL 01/04/19 01/04/19 01/04/19 Range/Units 04:31 04:31 06:32 RBC 2.79 L (3.80-5.40) m/uL Hgb 7.1 L (11.4-16.0) gm/dL Hct 23.7 L (34.0-46.0) % MCHC 30.0 L (31.0-37.0) g/dL RDW 16.0 H (11.5-15.5) % Plt Count 130 L (150-450) k/uL Sodium 136 L (137-145) mmol/L BUN 24 H (7-17) mg/dL Creatinine 1.18 H (0.52-1.04) mg/dL POC Glucose (mg/dL) 111 H (75-99) mg/dL AST 75 H (14-36) U/L Total Protein 5.0 L (6.3-8.2) g/dL Albumin 2.9 L (3.5-5.0) g/dL - Imaging and Cardiology Chest x-ray: report reviewed, image reviewed Assessment and Plan Assessment: 1. Severe aortic valvular stenosis, status post aortic valve replacement 2. History of left lower lobe pneumonia with parapneumonic effusion/empyema in September 2017 requiring placement of pigtail catheter and also alteplase instillation 3. Chronic obstructive pulmonary disease with a preoperative FEV1 of 56% of predicted value 4. History of nicotine dependence currently in remission 5. Thyroid disorder 6. History of depression 6. History of anxiety Plan: 1. Continue aspirin, statin, and beta francine. Will increase metoprolol tartra te as tolerated. 2. Wean O2 as tolerated. Encourage incentive spirometry use 10 times every hour while awake. 3. Will monitor daily labs, x-rays. Electrolyte replacement per protocol. 4. Pain control with current medication regimen. Discontinue Toradol as her BUN and creatinine are starting to trend up. 5. Insulin management per primary care service 6. Bronchodilators management per pulmonology. 7. Increase activity, ambulate as tolerated. PT/OT/cardiac rehab following. 8. Discontinue mediastinal chest tube. Ground atrial and ventricular epicardial pacemaker wires. 9. GI/DVT prophylaxis. 10. Start amiodarone drip per protocol for atrial fibrillation prophylaxis. Bedside monitor showing normal sinus rhythm with frequent PACs. 11. Transfer to [address] [place] [address] cardiac stepdown unit. 12. More recommendations to follow based on patient's clinical course. Time with Patient: Greater than 30
--- NOTE | 2019-01-04 10:21 | P.PN ---
Subjective Progress Note Date: 01/04/19 Principal diagnosis: Severe aortic stenosis, status post aortic valve replacement. The patient is seen today 01/04/2019 in follow-up in the intensive care unit. This is postoperative day #3 of an aortic valve replacement with a 23 mm Inspris bovine pericardial valve. She is currently awake and alert in no acute distress. Maintaining good O2 saturations in the 90s on 2 L/m per nasal cannula. She's afebrile. Hemodynamically stable. She is having issues with frequent PACs this morning. She has been initiated on amiodarone drip at 1 mg/m. Chest x-ray shows evidence of fluid volume overload. Chest tubes in place. White count 4.9. Hemoglobin 7.1. Creatinine 1.18. She has received 2 units of packed red blood cells this admission. He is working well with the incentive spirometer. Heparin for DVT prophylaxis. Objective - Vital Signs Vital signs: Vital Signs Temp 98.3 F 01/04/19 08:00 Pulse 60 01/04/19 10:00 Resp 20 01/04/19 10:00 BP 105/60 01/04/19 10:00 Pulse Ox 97 01/04/19 10:00 Intake & Output 01/03/19 01/04/19 01/04/19 18:59 06:59 18:59 Intake Total 650 373.3 Output Total 355 409 190 Balance 295 -409 183.3 Weight 84.1 kg Intake: IV 133.3 Amiodarone 360 mg In 33.3 Dextrose 5% in Water 200 ml @ 1 MG/MIN 33.333 mls/ hr IV .Q6H PRN Rx#: [id number] Dextrose 5% in Water 100 100 ml @ 618 mls/hr IV .Q10M PRN with Amiodarone 150 mg Rx#:[id number] Intake, IV Titration 50 Amount Albumin Human 25% 50 ml 50 In Empty Bag 1 bag @ 50 mls/hr IVPB ONCE ONE Rx#: [id number] Oral 600 240 Output: Chest Tube Drainage 100 0 50 Chest Tube Bilateral 100 0 50 Mediastinal Urine 255 409 140 Other: Voiding Method Indwelling Catheter Indwelling Catheter # Voids 0 ABP, PAP, CO, CI - Last Documented Arterial Blood Pressure 100/84 Pulmonary Artery Pressure 34/17 Cardiac Output 5.6 Cardiac Index 3.1 - Exam GENERAL EXAM: Alert, pleasant 68-year-old female, 2 L of oxygen comfortable in no apparent distress. HEAD: Normocephalic/atraumatic. EYES: Normal reaction of pupils, equal size. Conjunctiva pink, sclera white. NOSE: Clear with pink turbinates. THROAT: No erythema or exudates. NECK: No masses, no JVD, no thyroid enlargement, no adenopathy. CHEST: No chest wall deformity. Symmetrical expansion. Sternal incision is clean dry and intact, covered with a surgical dressing, mediastinal and left pleural chest tubes are in place, with the small amount of sero sang output in the Pleur-evac, no air leak noted. LUNGS: Equal air entry with cost in the bilateral posterior bases, diminished. CVS: Regular rate and rhythm, normal S1 and S2, no gallops, no murmurs, no rubs, frequent PACs today. ABDOMEN: Soft, nontender. No hepatosplenomegaly, normal bowel sounds, no guarding or rigidity. EXTREMITIES: No clubbing, no edema, no cyanosis, 2+ pulses and upper and lower extremities. MUSCULOSKELETAL: Muscle strength and tone normal. SPINE: No scoliosis or deformity SKIN: No rashes CENTRAL NERVOUS SYSTEM: Sedated, intubated No focal deficits, tone is normal in all 4 extremities - Labs CBC & Chem 7: 01/04/19 04:31 01/04/19 04:31 Labs: Abnormal Lab Results - Last 24 Hours (Table) 01/03/19 01/03/19 01/03/19 Range/Units 11:46 17:10 20:47 RBC (3.80-5.40) m/uL Hgb (11.4-16.0) gm/dL Hct (34.0-46.0) % MCHC (31.0-37.0) g/dL RDW (11.5-15.5) % Plt Count (150-450) k/uL Sodium (137-145) mmol/L BUN (7-17) mg/dL Creatinine (0.52-1.04) mg/dL POC Glucose (mg/dL) 128 H 135 H 128 H (75-99) mg/dL AST (14-36) U/L Total Protein (6.3-8.2) g/dL Albumin (3.5-5.0) g/dL 01/04/19 01/04/19 01/04/19 Range/Units 04:31 04:31 06:32 RBC 2.79 L (3.80-5.40) m/uL Hgb 7.1 L (11.4-16.0) gm/dL Hct 23.7 L (34.0-46.0) % MCHC 30.0 L (31.0-37.0) g/dL RDW 16.0 H (11.5-15.5) % Plt Count 130 L (150-450) k/uL Sodium 136 L (137-145) mmol/L BUN 24 H (7-17) mg/dL Creatinine 1.18 H (0.52-1.04) mg/dL POC Glucose (mg/dL) 111 H (75-99) mg/dL AST 75 H (14-36) U/L Total Protein 5.0 L (6.3-8.2) g/dL Albumin 2.9 L (3.5-5.0) g/dL Assessment and Plan Assessment: Assessment: #1. Severe aortic valve stenosis, status post aortic valve replacement with 23 mm bovine pericardial valve, and left atrial exclusion with Atriclip, post-op day 3 #2. Routine ventilator management, patient was successfully extubated postop day 0, within 6 hours of OR exit time, tolerating extubation quite well on 2 L nasal cannula. #3. Postoperative blood loss anemia, an expected outcome of valve surgery, status post transfusion with 2 units of PRBC, 2 units of fresh frozen plasma and 1 unit of platelets. #4. History of left lower lobe pneumonia, with parapneumonic effusion/empyema in September 2018, requiring placement of pigtail catheter and alteplase infusio ns, cytology of the pleural fluid was negative for malignancy, and cultures were negative, patient was treated with broad-spectrum antibiotics had a good response. Pigtail catheter was discontinued #5. History of COPD, outpatient PFT revealed a FEV1 of 1.51 L or 56% of predicted, with FVC of 2.16 L or 61% of predicted with decreased diffusion capacity, consistent with stage III COPD #6. History of nicotine dependence, currently in remission #7. Anxiety #8. Hypothyroidism #9. Depression #10 Sinus rhythm with frequent PACs, amiodarone initiated. Plan: The patient was seen and evaluated by Dr. Jackson. Chest x-ray and labs were reviewed. The plan is for removal of mediastinal chest tubes today. Amiodarone for frequent PACs. Encouraged increased use the incentive spirometer cough and deep breathing exercises. Hold the albuterol nebulized treatments for now. Increase her activity as tolerated. We'll continue to follow and make further recommendations based on her clinical status. I, the cosigning physician, performed a history & physical examination of the patient. Lungs sounds crackles in the bilateral posterior bases. Maintaining good O2 saturations in the 90s on 2 L/m per nasal cannula. I discussed the assessment and plan of care with my nurse practitioner, Evelyn Benites. I attest to the above note as dictated by her.
[2019-01-04 12:12] LABS: Glucose,Whole Blood 141 mg/dL (75-99)
[2019-01-04] MEDS: ACETAMINOPHEN TAB 500 MG TAB PO PRN ×2 (15:39→21:30)
--- NOTE | 2019-01-04 16:16 | P.PN ---
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 She underwent the procedure on 01/01. She was admitted to the ICU and extubated the same evening. Patient seen and examined at bedside. Pain is relatively well controlled, having shortness of breath when up and ambulating but not at baseline. No nausea or vomiting. No bowel movement since surgery. Objective - Vital Signs Vital signs: Vital Signs Temp 98.1 F 01/04/19 12:00 Pulse 65 01/04/19 12:00 Resp 13 01/04/19 12:00 BP 106/60 01/04/19 12:00 Pulse Ox 88 L 01/04/19 12:00 Intake & Output 01/03/19 01/04/19 01/04/19 18:59 06:59 18:59 Intake Total 650 1220.356 Output Total 355 409 380 Balance 295 -409 840.356 Weight 84.1 kg Intake: IV 299.8 Amiodarone 360 mg In 199.8 Dextrose 5% in Water 200 ml @ 1 MG/MIN 33.333 mls/ hr IV .Q6H PRN Rx#: [id number] Dextrose 5% in Water 100 100 ml @ 618 mls/hr IV .Q10M PRN with Amiodarone 150 mg Rx#:[id number] Intake, IV Titration 50 200.556 Amount Albumin Human 25% 50 ml 50 In Empty Bag 1 bag @ 50 mls/hr IVPB ONCE ONE Rx#: [id number] Amiodarone 360 mg In 200.556 Dextrose 5% in Water 200 ml @ 1 MG/MIN 33.333 mls/ hr IV .Q6H PRN Rx#: [id number] Oral 600 720 Output: Chest Tube Drainage 100 0 50 Chest Tube Bilateral 100 0 50 Mediastinal Urine 255 409 330 Other: Voiding Method Indwelling Catheter Indwelling Catheter Indwelling Catheter # Voids 0 ABP, PAP, CO, CI - Last Documented Arterial Blood Pressure 100/84 Pulmonary Artery Pressure 34/17 Cardiac Output 5.6 Cardiac Index 3.1 - Exam General: non toxic, no distress, appears at stated age Derm: warm, dry Head: atraumatic, normocephalic, symmetric Eyes: EOMI, no lid lag, anicteric sclera Mouth: no lip lesion, mucus membranes moist Cardiovascular: S1-S2 with systolic ejection murmur, positive posterior tibial pulse bilateral, mediastinal chest tube in place Lungs: Increased breath sounds bilateral, no rhonchi, no rales , no accessory muscle use Abdominal: soft, nontender to palpation, no guarding, no appreciable organomegaly Ext: no gross muscle atrophy, trace edema, no contractures Neuro: CN II-XI grossly intact, no focal neuro deficits Psych: Alert, oriented, appropriate affect - Labs CBC & Chem 7: 01/04/19 04:31 01/04/19 04:31 Labs: Abnormal Lab Results - Last 24 Hours (Table) 01/03/19 01/03/19 01/04/19 Range/Units 17:10 20:47 04:31 RBC 2.79 L (3.80-5.40) m/uL Hgb 7.1 L (11.4-16.0) gm/dL Hct 23.7 L (34.0-46.0) % MCHC 30.0 L (31.0-37.0) g/dL RDW 16.0 H (11.5-15.5) % Plt Count 130 L (150-450) k/uL Sodium (137-145) mmol/L BUN (7-17) mg/dL Creatinine (0.52-1.04) mg/dL POC Glucose (mg/dL) 135 H 128 H (75-99) mg/dL AST (14-36) U/L Total Protein (6.3-8.2) g/dL Albumin (3.5-5.0) g/dL 01/04/19 01/04/19 01/04/19 Range/Units 04:31 06:32 12:01 RBC (3.80-5.40) m/uL Hgb (11.4-16.0) gm/dL Hct (34.0-46.0) % MCHC (31.0-37.0) g/dL RDW (11.5-15.5) % Plt Count (150-450) k/uL Sodium 136 L (137-145) mmol/L BUN 24 H (7-17) mg/dL Creatinine 1.18 H (0.52-1.04) mg/dL POC Glucose (mg/dL) 111 H 141 H (75-99) mg/dL AST 75 H (14-36) U/L Total Protein 5.0 L (6.3-8.2) g/dL Albumin 2.9 L (3.5-5.0) g/dL Assessment and Plan Assessment: 68-year-old female with a history of severe aortic stenosis status post aortic valve replacement Acute blood loss anemia, anticipated outcome of surgery - s/p 2 units pRBC - follow CBC Thrombocytopenia - reactive - follow CBC Transaminitis, due to fluid shifts - improving - follow CMP - no additional testing at this time. Increasing Cr with oliguria - follow urine output closely - peter stallworth - stop toradol. COPD without exacerbation - pulm recs appreciated Anxiety/ depression -Lexapro Hypothyroidism -Synthroid Overweight, BMI 29 -Outpatient structured weight loss History of left lower lobe pneumonia with empyema in September 2018
[2019-01-04 16:48] LABS: Glucose,Whole Blood 116 mg/dL (75-99)
[2019-01-04] MEDS: ONDANSETRON 4 MG/2 ML VIAL IVP PRN (17:21)
[2019-01-04] MEDS: ESCITALOPRAM 20 MG TAB PO SCH (20:41)
[2019-01-04] MEDS: SENNOSIDES-DOCUSATE SODIUM 1 EACH TAB PO SCH (20:41)
[2019-01-04 20:55] LABS: Glucose,Whole Blood 133 mg/dL (75-99)
[2019-01-04] MEDS: ALPRAZolam 0.25 MG TAB PO PRN (21:30)
[2019-01-04 22:31] VITALS: RESP 18
[2019-01-05 02:00] LABS: Glucose,Whole Blood 126 mg/dL (75-99)
[2019-01-05 06:16] LABS: Glucose,Whole Blood 137 mg/dL (75-99)
--- NOTE | 2019-01-05 06:30 | XR ---
EXAMINATION TYPE: XR chest 2V DATE OF EXAM: 01/05/2019 HISTORY: Postoperative aortic valve replacement. REFERENCE: Previous study dated 01/04/2019. FINDINGS: There has been a midline sternotomy. The heart is mildly enlarged. There is improved aeration of the left lung base. There is mild vascula r congestion without sejal edema. I could not exclude a small left effusion. IMPRESSION: IMPROVED AERATION, LEFT LUNG BASE.
[2019-01-05] MEDS: INSULIN ASPART (NovoLOG) 100 UNIT/ML VIAL SQ SCH ×4 (06:31→20:58)
[2019-01-05] MEDS: LEVOTHYROXINE 75 MCG TAB PO SCH (06:31)
[2019-01-05] MEDS: PANTOPRAZOLE 40 MG TABLET PO SCH (06:31)
[2019-01-05 07:38] LABS: Anisocytosis Slight; HCT 26.1 % (34.0-46.0); HGB 7.9 gm/dL (11.4-16.0); Hypochromasia Moderate; MCH 25.9 pg (25.0-35.0); MCHC 30.2 g/dL (31.0-37.0); MCV 85.7 fL (80.0-100.0); Mean Platelet Volume 8.5; Platelet Count 191 k/uL (150-450); RBC 3.04 m/uL (3.80-5.40); RDW 16.2 % (11.5-15.5); WBC 7.4 k/uL (3.8-10.6)
[2019-01-05 07:51] LABS: Calcium 8.9 mg/dL (8.4-10.2); Magnesium 1.8 mg/dL (1.6-2.3); Potassium 4.9 mmol/L (3.5-5.1)
[2019-01-05] MEDS: ASPIRIN 325 MG TAB PO SCH (08:44)
[2019-01-05] MEDS: ACETAMINOPHEN TAB 500 MG TAB PO PRN (08:44)
[2019-01-05] MEDS: HEPARIN SODIUM,PORCINE 5,000 UNIT/ML 1 ML VIAL SQ SCH ×3 (08:44→23:33)
[2019-01-05] MEDS: ATORVASTATIN 40 MG TAB PO SCH (08:45)
[2019-01-05] MEDS: METOPROLOL TARTRATE 25 MG TAB PO SCH ×2 (08:45→21:02)
[2019-01-05] MEDS: AMIODARONE 200 MG TAB PO SCH ×2 (09:12→21:01)
--- NOTE | 2019-01-05 09:34 | P.PN ---
Subjective Progress Note Date: 01/05/19 Principal diagnosis: Severe aortic valvular stenosis, history of left lower lobe pneumonia with parapneumonic effusion/empyema in September 2018 requiring placement of pigtail catheter and also alteplase instillation, chronic obstructive pulmonary disease with a preoperative FEV1 of 56% of protected value, history of nicotine dependence, currently in remission, thyroid disorder, history of depression and anxiety. POD #4 aortic valve replacement with a 23 mm Inspiris Bovine pericardial valve, ligation of the left atrial appendage with a 35 mm Atriclip, intraoperative transesophageal echocardiogram and epi-aortic ultrasound. The patient is laying in bed on the 3 S. cardiac stepdown unit. She is in no acute distress. Reports she did not sleep well last night due to some surgical type pain, denies any complaints of shortness of breath. She ambulated in the intensive care unit hallway yesterday 1 with minimal assistance. Encouraged her to ambulate in the 3 S. cardiac stepdown unit hallway 3 today. She is achieving 750 mL on her incentive spirometry, remains on 2 L nasal cannula with oxygen saturations 95%. Remote telemetry showing normal sinus rhythm with [facility] PACs heart rate 64. Her Toradol was discontinued yesterday as her creatinine was starting to trend up and was 1.18 and today her creatinine is 0.97. Objective - Vital Signs Vital signs: Vital Signs Temp 97.4 F L 01/05/19 03:27 Pulse 57 L 01/05/19 03:27 Resp 18 01/05/19 03:27 BP 125/49 01/05/19 03:27 Pulse Ox 99 01/05/19 03:27 Intake & Output 01/04/19 01/05/19 01/05/19 18:59 06:59 18:59 Intake Total 1460.356 240 Output Total 380 Balance 1080.356 240 Weight 79.9 kg Intake: IV 299.8 Amiodarone 360 mg In 199.8 Dextrose 5% in Water 200 ml @ 1 MG/MIN 33.333 mls/ hr IV .Q6H PRN Rx#: [id number] Dextrose 5% in Water 100 100 ml @ 618 mls/hr IV .Q10M PRN with Amiodarone 150 mg Rx#:[id number] Intake, IV Titration 200.556 Amount Amiodarone 360 mg In 200.556 Dextrose 5% in Water 200 ml @ 1 MG/MIN 33.333 mls/ hr IV .Q6H PRN Rx#: [id number] Oral 960 240 Output: Chest Tube Drainage 50 Chest Tube Bilateral 50 Mediastinal Urine 330 Other: Voiding Method Indwelling Catheter # Voids 1 ABP, PAP, CO, CI - Last Documented Arterial Blood Pressure 100/84 Pulmonary Artery Pressure 34/17 Cardiac Output 5.6 Cardiac Index 3.1 - Constitutional General appearance: Present: cooperative, no acute distress, obese - Respiratory Details: Lung sounds essentially clear to her bilateral upper lobes, diminished bilateral bases. Respirations are symmetrical and nonlabored. Oxygen saturation are 95% on 2 L nasal cannula. Achieving 750 mL on her incentive spirometry. - Cardiovascular Details: Irregular rhythm with controlled rate. S1 and S2 present, negative for S3, gallop or murmur. Sternum is stable. Remote telemetry showing normal sinus rhythm with occasional PACs heart rate 64. Atrial and ventricular epicardial pacemaker wires in place and grounded. Heart hugger is in place and she is demonstrating appropriate use. Knee-high TACHO hose and sequential compression devices in place to her bilateral lower extremities. No edema present. - Gastrointestinal Gastrointestinal Comment(s): Abdomen is soft, nontender and nondistended. Active bowel sounds all 4 abdominal quadrants. No guarding or rigidity. No organomegaly. Tolerating oral intake. - Genitourinary Genitourinary Comment(s): Voiding clear yellow urine. - Integumentary Integumentary Comment(s): Skin is warm and dry. No clubbing or cyanosis is present. Midline sternal incision is clean, dry and approximated. Exofin dressing is clean and intact. No drainage or redness is present. - Neurologic Neurologic: Present: CNII-XII intact - Musculoskeletal Musculoskeletal: Present: gait normal, generalized weakness, strength equal bilaterally - Psychiatric Psychiatric: Present: A&O x's 3, appropriate affect, intact judgment & insight - Allied health notes Allied health notes reviewed: nursing - Labs CBC & Chem 7: 01/05/19 06:55 01/05/19 06:55 Labs: Abnormal Lab Results - Last 24 Hours (Table) 01/04/19 01/04/19 01/04/19 Range/Units 12:01 16:46 20:55 RBC (3.80-5.40) m/uL Hgb (11.4-16.0) gm/dL Hct (34.0-46.0) % MCHC (31.0-37.0) g/dL RDW (11.5-15.5) % BUN (7-17) mg/dL Glucose (74-99) mg/dL POC Glucose (mg/dL) 141 H 116 H 133 H (75-99) mg/dL 01/05/19 01/05/19 01/05/19 Range/Units 01:59 06:15 06:55 RBC 3.04 L (3.80-5.40) m/uL Hgb 7.9 L (11.4-16.0) gm/dL Hct 26.1 L (34.0-46.0) % MCHC 30.2 L (31.0-37.0) g/dL RDW 16.2 H (11.5-15.5) % BUN (7-17) mg/dL Glucose (74-99) mg/dL POC Glucose (mg/dL) 126 H 137 H (75-99) mg/dL 01/05/19 Range/Units 06:55 RBC (3.80-5.40) m/uL Hgb (11.4-16.0) gm/dL Hct (34.0-46.0) % MCHC (31.0-37.0) g/dL RDW (11.5-15.5) % BUN 23 H (7-17) mg/dL Glucose 109 H (74-99) mg/dL POC Glucose (mg/dL) (75-99) mg/dL - Imaging and Cardiology Chest x-ray: report reviewed, image reviewed Assessment and Plan Assessment: 1. Severe aortic valvular stenosis, status post aortic valve replacement 2. History of left lower lobe pneumonia with parapneumonic effusion/empyema in September 2017 requiring placement of pigtail catheter and also alteplase instillation 3. Chronic obstructive pulmonary disease with a preoperative FEV1 of 56% of predicted value 4. History of nicotine dependence currently in remission 5. Thyroid disorder 6. History of depression 6. History of anxiety Plan: 1. Continue aspirin, statin, and beta francine. Will increase metoprolol tartrate as tolerated. 2. Wean O2 as tolerated. Encourage incentive spirometry use 10 times every hour while awake. 3. Will monitor daily labs, x-rays. Replace magnesium per protocol. 4. Pain control with current medication regimen. Add Ultram 50 mg by mouth 3 times a day. 5. Insulin management per primary care service 6. Bronchodilators management per pulmonology. 7. Increase activity, ambulate as tolerated. PT/OT/cardiac rehab following. 8. Add melatonin 3 mg by mouth daily at bedtime per her home dose. 9. GI/DVT prophylaxis. 10. Continue amiodarone, discontinue amiodarone drip and initiate amiodarone 400 mg by mouth twice a day 7 days, then decrease to amiodarone 200 mg by mouth twice a day 7 days, then decrease to amiodarone 200 mg by mouth daily x 1 week. 11. Discharge planning in place. Anticipate discharge home with home health care within the next 24 hours. 12. More recommendations to follow based on patient's clinical course. Time with Patient: Greater than 30
--- NOTE | 2019-01-05 11:16 | P.PN ---
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 She underwent the procedure on 01/01. She was admitted to the ICU and extubated the same evening. Patient seen and examined at bedside. Feeling better today, pain is better controlled, mild shortness of breath after her walk today. + BM today. Walked 1 lap around the third floor. Objective - Vital Signs Vital signs: Vital Signs Temp 97.4 F L 01/05/19 03:27 Pulse 57 L 01/05/19 03:27 Resp 18 01/05/19 03:27 BP 125/49 01/05/19 03:27 Pulse Ox 99 01/05/19 03:27 Intake & Output 01/04/19 01/05/19 01/05/19 18:59 06:59 18:59 Intake Total 1460.356 240 0 Output Total 380 Balance 1080.356 240 0 Weight 79.9 kg Intake: IV 299.8 Amiodarone 360 mg In 199.8 Dextrose 5% in Water 200 ml @ 1 MG/MIN 33.333 mls/ hr IV .Q6H PRN Rx#: [id number] Dextrose 5% in Water 100 100 ml @ 618 mls/hr IV .Q10M PRN with Amiodarone 150 mg Rx#:[id number] Intake, IV Titration 200.556 Amount Amiodarone 360 mg In 200.556 Dextrose 5% in Water 200 ml @ 1 MG/MIN 33.333 mls/ hr IV .Q6H PRN Rx#: [id number] Oral 960 240 0 Output: Chest Tube Drainage 50 Chest Tube Bilateral 50 Mediastinal Urine 330 Other: Voiding Method Indwelling Catheter # Voids 1 ABP, PAP, CO, CI - Last Documented Arterial Blood Pressure 100/84 Pulmonary Artery Pressure 34/17 Cardiac Output 5.6 Cardiac Index 3.1 - Exam General: non toxic, no distress, appears at stated age Derm: warm, dry Head: atraumatic, normocephalic, symmetric Eyes: EOMI, no lid lag, anicteric sclera Mouth: no lip lesion, mucus membranes moist Cardiovascular: S1-S2 with systolic ejection murmur, positive posterior tibial pulse bilateral Lungs: Increased breath sounds bilateral, no rhonchi, no rales , no accessory muscle use Abdominal: soft, nontender to palpation, no guarding, no appreciable organomegaly Ext: no gross muscle atrophy, trace edema, no contractures Neuro: CN II-XI grossly intact, no focal neuro deficits Psych: Alert, oriented, appropriate affect - Labs CBC & Chem 7: 01/05/19 06:55 01/05/19 06:55 Labs: Abnormal Lab Results - Last 24 Hours (Table) 01/04/19 01/04/19 01/04/19 Range/Units 12:01 16:46 20:55 RBC (3.80-5.40) m/uL Hgb (11.4-16.0) gm/dL Hct (34.0-46.0) % MCHC (31.0-37.0) g/dL RDW (11.5-15.5) % BUN (7-17) mg/dL Glucose (74-99) mg/dL POC Glucose (mg/dL) 141 H 116 H 133 H (75-99) mg/dL 01/05/19 01/05/19 01/05/19 Range/Units 01:59 06:15 06:55 RBC 3.04 L (3.80-5.40) m/uL Hgb 7.9 L (11.4-16.0) gm/dL Hct 26.1 L (34.0-46.0) % MCHC 30.2 L (31.0-37.0) g/dL RDW 16.2 H (11.5-15.5) % BUN (7-17) mg/dL Glucose (74-99) mg/dL POC Glucose (mg/dL) 126 H 137 H (75-99) mg/dL 01/05/19 Range/Units 06:55 RBC (3.80-5.40) m/uL Hgb (11.4-16.0) gm/dL Hct (34.0-46.0) % MCHC (31.0-37.0) g/dL RDW (11.5-15.5) % BUN 23 H (7-17) mg/dL Glucose 109 H (74-99) mg/dL POC Glucose (mg/dL) (75-99) mg/dL Assessment and Plan Assessment: 68-year-old female with a history of severe aortic stenosis status post aortic valve replacement Acute blood loss anemia, anticipated outcome of surgery - s/p 2 units pRBC - follow CBC, stable Transaminitis, due to fluid shifts - improving - follow CMP - no additional testing at this time. - Fe deficiency noted in September. Start oral iron COPD without exacerbation - pulm recs appreciated Anxiety/ depression -Lexapro Hypothyroidism -Synthroid Overweight, BMI 29 -Outpatient structured weight loss Thrombocytopenia, resolved Increasing Cr with oliguria, resolved History of left lower lobe pneumonia with empyema in September 2018 DVT prophylaxis: Heparin Discussed with: jhony [place] Anticipated discharge: per CT surgery Anticipated discharge place: home with home health A total of 35 minutes was spent on the care of this complex patient more than 50% of the time was spent in counseling and care coordination.
--- NOTE | 2019-01-05 11:38 | PN ---
PROGRESS NOTE Mrs. Johnson is a 68-year-old female status post aortic valve replacement. She is feeling well this morning. Her breathing is stable. She has been ambulating. She denies any symptoms of chest pain. No dizziness. No palpitation. She denies any nausea. She is in sinus mechanism and continues to be on amiodarone 40 mg twice a day, aspirin once a day, Lipitor 40 mg daily, metoprolol tartrate 25 mg twice a day. PHYSICAL EXAMINATION: Blood pressure 125/49 with a heart rate in the 60s. LUNGS: Clear. HEART: Regular rate and rhythm S1, S2. No S3 with systolic murmur. No diastolic murmur. ABDOMEN: Soft, nontender. EXTREMITIES: No edema. LAB DATA: Lab data revealed BUN and creatinine 23 and 0.97, potassium 4.9, hemoglobin of 7.9. IMPRESSION: 1. Status post aortic valve replacement, stable. 2. History of chronic obstructive lung disease. 3. Hyperlipidemia. RECOMMENDATION: We will continue present therapy. Increase incentive spirometry. Her chest x-ray looks better. Thoracentesis does not appear to be needed. I would expect if she is stable, she may be able to be discharged home tomorrow. MMODL / IJN: [id number] /
[2019-01-05] MEDS: ONDANSETRON 4 MG/2 ML VIAL IVP PRN (12:05)
[2019-01-05] MEDS: traMADol 50 MG TAB PO SCH ×3 (12:05→21:02)
[2019-01-05] MEDS: MAGNESIUM SULFATE-D5W PMX 1 GM in DEXTROSE/WATER 1 100ML.BAG IVPB SCH ×2 (12:06→13:46)
[2019-01-05 12:08] LABS: Glucose,Whole Blood 122 mg/dL (75-99)
--- NOTE | 2019-01-05 13:14 | P.PN ---
Subjective Progress Note Date: 01/05/19 Principal diagnosis: Severe aortic valve stenosis, status post aortic valve replacement This a 68-year-old white female patient with history of severe aortic valve stenosis, who underwent aortic valve replacement with 23 mm Inspiris bovine pericardial valve, ligation of the left atrial appendage with the AtriCure clip. Patient initially presented to the hospital in September with left lower lobe pneumonia with the parapneumonic loculated left-sided effusion and acute congestive heart failure, echocardiogram was completed showing a new finding of severe aortic stenosis. Patient has been symptomatic, with exertional dyspnea, and lightheadedness, and episodic mild anterior chest pain. Cardiac catheterization was performed and was negative for any significant coronary art carol ann disease. Patient was initially seen in consultation by Dr. of severe adam in September, and the surgical revision to replace the aortic valve was recommended, however at that time patient had a parapneumonic effusion, and empyema, requiring placement of a pigtail catheter, infusion of TPA, with negative cultures, she was treated with broad-spectrum antibiotics, cytology showed no malignant cells, patient had good response to alteplase infusions, did not require VATS and decortication of the left lung empyema. She is seen in the intensive care unit following surgery, she is sedated, intub ated on mechanical ventilator, with current vent settings of SIMV mode with a rate of 12, tidal volume 400, FiO2 of 100% and PEEP of 5, and postoperative blood gases showed pO2 of 237, pCO2 of 67, and pH of 7.24, patient was then placed on assist-control mode of ventilation, with a rate of 18, tidal volume of 400, FiO2 of 50%, and PEEP of 5. Postop blood work revealed white blood cell count of 6.0, hemoglobin of 8.6, sodium of 143, potassium is 4.3, chloride is 113, BUN is 11, creatinine is 0.62, ionized calcium was 4.6, magnesium 3.2, AST was 103, ALT was 64, alkaline phosphatase was 52, postop chest x-ray revealed ET tube, Proctor-Donna catheter, a sterile drains in appropriate positions, small left pleural effusion, and retrocardiac airspace disease likely atelectasis, patient is hemodynamically stable, currently on lactated Ringer's a rate of 50 ML per hour, Cleviprex is at 10 mg per hour, insulin drip is at 5 units per hour, and proBNP is a 50 mics per kilo per minutes. Sinus rhythm with a rate of 77, patient is on VVI backup rate of 50, PA pressures of 35/19, blood pressure is 10 4/53, cardiac output and index of 4.9 and 2.7 respectively, patient has a mediastinal chest tube and left pleural chest tube with small amount of serosanguineous output. The catheter is in place, and patient is producing urine in the order of 75-350 ML per hour. Patient has received 2 units of fresh frozen plasma, 2 units of packed red blood cells, and now 1 unit of platelets. On 01/02/2019 patient seen in follow-up in the intensive care unit. Postop day 1, status post aortic valve replacement for severe aortic valve stenosis. Patient was successfully extubated on postop day 0, within 6 hours of the OR exit time, is tolerating extubation quite well, currently on 2 L of oxygen, with a pulse ox of 96%, afebrile, hemodynamically stable, sitting up in the recliner, she is tolerating oral diet, IVs include LR at 50 ML per hour, no other drips, she sinus rhythm on the monitor with a rate of 96, PA pressures 32/13, with a CVP of 5, cardiac output and index are 5.6 and 3.1 respectively. IS 750 ML today, his chest x-ray has been reviewed with Dr. Jackson, and shows left lower lobe atelectasis, and small pleural effusion. Lung sounds reveal some limited crackles at the left lower base, and diminished breath sounds overall. His labs have been reviewed, and showed white blood cell, 6.2, hemoglobin of 8.3, electrolytes and renal profile within normal limits. Mediastinal and left pleu ral chest tube with 430 mL of serosanguineous output and last 24 hours, EBL was estimated to be at 2500, and patient did receive 2 units of packed red blood cells, 2 units of fresh frozen plasma, and 1 unit of platelets intraoperatively. He was dynamically patient is stable, she is without any specific complaints, her pain is reasonably controlled. no acute events overnight. On 01/05/2019 patient seen in follow-up on selective care unit, he is awake and alert, in relating in the room, tolerating activity well, room air pulse ox is 86%, patient sats 99% on 2 L of oxygen, hemodynamically stable, afebrile. Doing extremely well. No complains of shortness of breath, he is working on her Ioxus spirometer. Today's labs have been reviewed, white blood cell count is 7.4, hemoglobin is 7.9, electrodes were within normal limits, BUN is 23 creatinine 0.97. His chest x-ray has been reviewed with Dr. Jackson, and shows improved aeration of the left lung base, mild vascular congestion without sejal edema. Patient has ambulated in the hallway, she is achieving 750 ML on her incentive spirometer. Sinus rhythm on a monitor with occasional PACs. Pain is under reasonable control. No acute events overnight. Objective - Vital Signs Vital signs: Vital Signs Temp 98.7 F 01/05/19 09:00 Pulse 68 01/05/19 09:00 Resp 18 01/05/19 09:00 BP 138/67 01/05/19 09:00 Pulse Ox 86 L 01/05/19 09:00 Intake & Output 01/04/19 01/05/19 01/05/19 18:59 06:59 18:59 Intake Total 1460.356 240 0 Output Total 380 Balance 1080.356 240 0 Weight 79.9 kg Intake: IV 299.8 Amiodarone 360 mg In 199.8 Dextrose 5% in Water 200 ml @ 1 MG/MIN 33.333 mls/ hr IV .Q6H PRN Rx#: [id number] Dextrose 5% in Water 100 100 ml @ 618 mls/hr IV .Q10M PRN with Amiodarone 150 mg Rx#:[id number] Intake, IV Titration 200.556 Amount Amiodarone 360 mg In 200.556 Dextrose 5% in Water 200 ml @ 1 MG/MIN 33.333 mls/ hr IV .Q6H PRN Rx#: [id number] Oral 960 240 0 Output: Chest Tube Drainage 50 Chest Tube Bilateral 50 Mediastinal Urine 330 Other: Voiding Method Indwelling Catheter # Voids 1 ABP, PAP, CO, CI - Last Documented Arterial Blood Pressure 100/84 Pulmonary Artery Pressure 34/17 Cardiac Output 5.6 Cardiac Index 3.1 - Exam GENERAL EXAM: Alert, pleasant 68-year-old white female, 2 L of oxygen comfortable in no apparent distress. HEAD: Normocephalic/atraumatic. EYES: Normal reaction of pupils, equal size. Conjunctiva pink, sclera white. NOSE: Clear with pink turbinates. THROAT: No erythema or exudates. NECK: No masses, no JVD, no thyroid enlargement, no adenopathy. CHEST: No chest wall deformity. Symmetrical expansion. Sternal incision is clean dry and intact, covered with a surgical dressing, interval removal of the chest tubes, and AV wires LUNGS: Equal air entry with no crackles, wheeze, rhonchi or dullness. CVS: Regular rate and rhythm, normal S1 and S2, no gallops, no murmurs, no rubs ABDOMEN: Soft, nontender. No hepatosplenomegaly, normal bowel sounds, no guarding or rigidity. EXTREMITIES: No clubbing, no edema, no cyanosis, 2+ pulses and upper and lower extremities. MUSCULOSKELETAL: Muscle strength and tone normal. SPINE: No scoliosis or deformity SKIN: No rashes CENTRAL NERVOUS SYSTEM: Sedated, intubated No focal deficits, tone is normal in all 4 extremities - Labs CBC & Chem 7: 01/05/19 06:55 01/05/19 06:55 Labs: Abnormal Lab Results - Last 24 Hours (Table) 01/04/19 01/04/19 01/05/19 Range/Units 16:46 20:55 01:59 RBC (3.80-5.40) m/uL Hgb (11.4-16.0) gm/dL Hct (34.0-46.0) % MCHC (31.0-37.0) g/dL RDW (11.5-15.5) % BUN (7-17) mg/dL Glucose (74-99) mg/dL POC Glucose (mg/dL) 116 H 133 H 126 H (75-99) mg/dL 01/05/19 01/05/19 01/05/19 Range/Units 06:15 06:55 06:55 RBC 3.04 L (3.80-5.40) m/uL Hgb 7.9 L (11.4-16.0) gm/dL Hct 26.1 L (34.0-46.0) % MCHC 30.2 L (31.0-37.0) g/dL RDW 16.2 H (11.5-15.5) % BUN 23 H (7-17) mg/dL Glucose 109 H (74-99) mg/dL POC Glucose (mg/dL) 137 H (75-99) mg/dL 01/05/19 Range/Units 12:06 RBC (3.80-5.40) m/uL Hgb (11.4-16.0) gm/dL Hct (34.0-46.0) % MCHC (31.0-37.0) g/dL RDW (11.5-15.5) % BUN (7-17) mg/dL Glucose (74-99) mg/dL POC Glucose (mg/dL) 122 H (75-99) mg/dL Assessment and Plan Plan: Assessment: #1. Severe aortic valve stenosis, status post aortic valve replacement with 23 mm bovine pericardial valve, and left atrial exclusion with Atriclip, post-op day 4 #2. Routine ventilator management, patient was successfully extubated postop day 0, within 6 hours of OR exit time, tolerating extubation quite well #3. Postoperative blood loss anemia, an expected outcome of valve surgery, status post transfusion with 2 units of PRBC, 2 units of fresh frozen plasma and 1 unit of platelets. #4. History of left lower lobe pneumonia, with parapneumonic effusion/empyema in September 2018, requiring placement of pigtail catheter and alteplase infusions, cytology of the pleural fluid was negative for malignancy, and cultures were negative, patient was treated with broad-spectrum antibiotics had a good response. Pigtail catheter was discontinued #5. History of COPD, outpatient PFT revealed a FEV1 of 1.51 L or 56% of predicted, with FVC of 2.16 L or 61% of predicted with decreased diffusion cap acity, consistent with stage III COPD #6. History of nicotine dependence, currently in remission #7. Anxiety #8. Hypothyroidism #9. Depression Plan: Continue encouraging deep breathing and coughing, incentive spirometry use, ambulation, pain control. Chest x-ray has been reviewed by Dr. Jackson and shows improved aeration, patient was seen and evaluated by Dr. Huff, doing very well, this is postoperative day 4 status post aortic valve replacement. Today's labs have been reviewed, no acute events overnight, no specific complaints, pain is well controlled. Continue to follow. I performed a history & physical examination of the patient and discussed their management with my nurse practitioner, Angelika Sharma. I reviewed the nurse practitioner's note and agree with the documented findings and plan of care. Lung sounds are positive for diminished breath sounds. The findings and the impression was discussed with the patient. I attest to the documentation by the nurse practitioner. Time with Patient: Less than 30
[2019-01-05 17:16] LABS: Glucose,Whole Blood 105 mg/dL (75-99)
[2019-01-05 20:54] LABS: Glucose,Whole Blood 104 mg/dL (75-99)
[2019-01-05] MEDS: SENNOSIDES-DOCUSATE SODIUM 1 EACH TAB PO SCH (20:58)
[2019-01-05] MEDS ORDERED: MELATONIN 3 MG TABLET PO SCH (21:00)
[2019-01-05] MEDS: ESCITALOPRAM 20 MG TAB PO SCH (21:01)
[2019-01-06 02:16] LABS: Glucose,Whole Blood 106 mg/dL (75-99)
[2019-01-06] MEDS: ACETAMINOPHEN TAB 500 MG TAB PO PRN (02:24)
[2019-01-06 06:17] LABS: Glucose,Whole Blood 148 mg/dL (75-99)
[2019-01-06] MEDS: LEVOTHYROXINE 75 MCG TAB PO SCH (06:48)
[2019-01-06] MEDS: PANTOPRAZOLE 40 MG TABLET PO SCH (06:48)
[2019-01-06] MEDS: INSULIN ASPART (NovoLOG) 100 UNIT/ML VIAL SQ SCH ×2 (06:48→12:52)
[2019-01-06] MEDS ORDERED: traMADol 50 MG TAB PO PRN (06:57)
[2019-01-06 08:00] LABS: Calcium 8.6 mg/dL (8.4-10.2); Magnesium 1.9 mg/dL (1.6-2.3); Potassium 4.6 mmol/L (3.5-5.1)
--- NOTE | 2019-01-06 08:02 | XR ---
EXAMINATION TYPE: XR chest 1V portable DATE OF EXAM: 01/06/2019 COMPARISON: Prior chest x-ray 01/05/2019 HISTORY: Postop aortic valve replacement TECHNIQUE: Single frontal view of the chest is obtained. FINDINGS: Patient is rotated. Post median sternotomy and atrial appendage clipping changes again not ed. Bibasilar increased density is present, costophrenic angles are obscured. No pneumothorax. Promin ent lung volumes could be indicative of underlying COPD. Heart size is likely stable. There are overl sulma cardiac leads. IMPRESSION: Basilar atelectasis versus pneumonia and associated effusions.
[2019-01-06 08:05] LABS: HCT 23.8 % (34.0-46.0); HGB 7.5 gm/dL (11.4-16.0); Hypochromasia Marked; MCH 27.1 pg (25.0-35.0); MCHC 31.5 g/dL (31.0-37.0); MCV 85.9 fL (80.0-100.0); Mean Platelet Volume 8.5; Platelet Count 209 k/uL (150-450); RBC 2.77 m/uL (3.80-5.40); RDW 15.8 % (11.5-15.5); WBC 6.4 k/uL (3.8-10.6)
[2019-01-06] MEDS: HEPARIN SODIUM,PORCINE 5,000 UNIT/ML 1 ML VIAL SQ SCH (08:11)
[2019-01-06] MEDS: AMIODARONE 200 MG TAB PO SCH (08:11)
[2019-01-06] MEDS: ASPIRIN 325 MG TAB PO SCH (08:11)
[2019-01-06] MEDS: METOPROLOL TARTRATE 25 MG TAB PO SCH (08:11)
[2019-01-06] MEDS: ATORVASTATIN 40 MG TAB PO SCH (08:11)
[2019-01-06 08:57] LABS: Glucose,Whole Blood 128 mg/dL (75-99)
[2019-01-06 08:57] LABS: Glucose,Whole Blood 59 mg/dL (75-99)
[2019-01-06 08:57] LABS: Glucose,Whole Blood 57 mg/dL (75-99)
[2019-01-06] MEDS: MAGNESIUM SULFATE-D5W PMX 1 GM in DEXTROSE/WATER 1 100ML.BAG IVPB SCH ×2 (09:36→11:25)
--- NOTE | 2019-01-06 09:47 | P.PN ---
Subjective Progress Note Date: 01/06/19 Principal diagnosis: Severe aortic valve stenosis. History of left lower lobe pneumonia with parapneumonic effusion/empyema in September 2018 requiring placement of pigtail catheter and alteplase instillation, chronic obstructive pulmonary disease with preoperative FEV1 56% of predicted, previous tobacco dependence, hypothyroid, depression/anxiety. POD #5 aortic valve replacement with 23 mm Inspiris bovine pericardial valve, ligation of the left atrial appendage with a 35 mm AtriCure clip, epi-aortic ultrasound. Intraoperative transesophageal echocardiogram performed by a bertram. the patient is currently sitting up in bed in no acute distress. States she did not get a lot of sleep last night but otherwise has no new complaints. States pain is controlled on current medication regimen, denies shortness of breath. Has been ambulatory in the hallway multiple times. States she feels ready to go home today. Objective - Vital Signs Vital signs: Vital Signs Temp 97.8 F 01/06/19 08:12 Pulse 61 01/06/19 08:12 Resp 18 01/06/19 08:12 BP 113/53 01/06/19 08:12 Pulse Ox 92 L 01/06/19 08:12 Intake & Output 01/05/19 01/06/19 01/06/19 18:59 06:59 18:59 Intake Total 240 360 Balance 240 360 Weight 80.4 kg Intake: Oral 240 360 Other: Voiding Method Indwelling Catheter # Voids 1 # Bowel Movements 1 ABP, PAP, CO, CI - Last Documented Arterial Blood Pressure 100/84 Pulmonary Artery Pressure 34/17 Cardiac Output 5.6 Cardiac Index 3.1 - Constitutional General appearance: Present: cooperative, no acute distress - Respiratory Details: Lungs sounds clear but diminished in the bases. Respirations even, nonlabored. Currently on room air with oxygen saturation 92%. Able to achieve 750 mL on her incentive spirometry. Strong cough. - Cardiovascular Details: S1, S2 present. Regular rate and rhythm, sinus rhythm on telemetry. Sternum stable. A/V epicardial pacemaker wires present, grounded. Palpable peripheral pulses bilaterally. No edema present. No calf pain or tenderness noted. Antiembolism stockings, SCDs present. - Gastrointestinal Gastrointestinal Comment(s): Abdomen soft, nontender, nondistended. Active bowel sounds 4 quadrants. Tolerating diet. Positive bowel movement. - Genitourinary Genitourinary Comment(s): Continues to void clear, yellow urine. - Integumentary Integumentary Comment(s): Skin is warm and dry with evidence of good perfusion. Anterior chest incision well approximated and covered with dry intact dressing. - Neurologic Neurologic: Present: CNII-XII intact - Musculoskeletal Musculoskeletal: Present: gait normal, strength equal bilaterally - Psychiatric Psychiatric: Present: A&O x's 3, appropriate affect, intact judgment & insight - Allied health notes Allied health notes reviewed: nursing - Labs CBC & Chem 7: 01/06/19 06:37 01/06/19 06:37 Labs: Abnormal Lab Results - Last 24 Hours (Table) 01/01/19 01/01/19 01/01/19 Range/Units 23:08 23:10 23:13 RBC (3.80-5.40) m/uL Hgb (11.4-16.0) gm/dL Hct (34.0-46.0) % RDW (11.5-15.5) % BUN (7-17) mg/dL Glucose (74-99) mg/dL POC Glucose (mg/dL) 57 L 59 L 128 H (75-99) mg/dL 01/05/19 01/05/19 01/05/19 Range/Units 12:06 17:10 20:52 RBC (3.80-5.40) m/uL Hgb (11.4-16.0) gm/dL Hct (34.0-46.0) % RDW (11.5-15.5) % BUN (7-17) mg/dL Glucose (74-99) mg/dL POC Glucose (mg/dL) 122 H 105 H 104 H (75-99) mg/dL 01/06/19 01/06/19 01/06/19 Range/Units 02:14 06:16 06:37 RBC 2.77 L (3.80-5.40) m/uL Hgb 7.5 L (11.4-16.0) gm/dL Hct 23.8 L (34.0-46.0) % RDW 15.8 H (11.5-15.5) % BUN (7-17) mg/dL Glucose (74-99) mg/dL POC Glucose (mg/dL) 106 H 148 H (75-99) mg/dL 01/06/19 Range/Units 06:37 RBC (3.80-5.40) m/uL Hgb (11.4-16.0) gm/dL Hct (34.0-46.0) % RDW (11.5-15.5) % BUN 21 H (7-17) mg/dL Glucose 123 H (74-99) mg/dL POC Glucose (mg/dL) (75-99) mg/dL - Imaging and Cardiology Chest x-ray: report reviewed, image reviewed Assessment and Plan Assessment: 1. Severe aortic valve stenosis, status post bioprosthetic aortic valve replacement 2. History of left lower lobe pneumonia/parapneumonic effusion/empyema 3. Previous tobacco dependence 4. COPD with preoperative FEV1 56% of predicted 5. Hypothyroid 6. Depression/anxiety Plan: 1. Continue aspirin, statin, beta francine therapy. Will increase beta francine therapy as tolerated. 2. Continue amiodarone for A. fib prophylaxis with tapering of dose weekly. 3. Encourage incentive spirometry use 10 times every hour while awake. Bronchodilators per pulmonology. 4. Pain control with current medication regimen. 5. Encourage continued smoking cessation. 6. Increase activity, ambulate in hallway. PT/OT/cardiac rehab following. 7. Insulin management per primary care service. 8. GI/DVT prophylaxis. 9. Discharge planning in progress. Anticipate discharge to home with home care later this afternoon. 10. More recommendations to follow Time with Patient: Greater than 30
--- NOTE | 2019-01-06 10:02 | PN ---
PROGRESS NOTE Mrs. Johnson is a 68-year-old female status post aortic valve replacement. She is doing quite well this morning, ambulating without difficulty, continued to be in sinus mechanism. She denies any dizziness or palpitation. She denies any nausea. She denies any chest discomfort except mild soreness in the upper sternal area. Hemodynamically, she has been stable and she has continued to be in sinus mechanism. She continues to be at this time on amiodarone 400 mg twice a day, aspirin once a day, Lipitor 40 mg daily, metoprolol tartrate 25 mg twice a day. PHYSICAL EXAMINATION: Blood pressure 113/50 with the heart in the 60s. LUNGS: Clear. HEART: Regular rate and rhythm. S1, S2. No S3 with systolic murmur. No diastolic murmur. No rub. ABDOMEN: Soft, nontender. EXTREMITIES: No edema. LAB DATA: Lab data revealed hemoglobin of 7.5. BUN and creatinine 21 and 0.82. IMPRESSION: 1. Status post aortic valve replacement, stable. 2. Hyperlipidemia. 3. Prior history of chronic obstructive lung disease with prior history of smoking. RECOMMENDATION: From the cardiac standpoint, she is stable. I would expect she should be able to be discharged home soon and follow up as an outpatient. The dose of her amiodarone will be decreased gradually. MMODL / IJN: [id number] /
[2019-01-06 11:39] LABS: Glucose,Whole Blood 118 mg/dL (75-99)
[2019-01-06 13:36] VITALS: BP 123/60; PULSE 53; TEMP 96.9
--- NOTE | 2019-01-06 16:34 | P.PN ---
Subjective Progress Note Date: 01/06/19 Principal diagnosis: Severe aortic valve stenosis, status post aortic valve replacement This a 68-year-old white female patient with history of severe aortic valve stenosis, who underwent aortic valve replacement with 23 mm Inspiris bovine pericardial valve, ligation of the left atrial appendage with the AtriCure clip. Patient initially presented to the hospital in September with left lower lobe pneumonia with the parapneumonic loculated left-sided effusion and acute congestive heart failure, echocardiogram was completed showing a new finding of severe aortic stenosis. Patient has been symptomatic, with exertional dyspnea, and lightheadedness, and episodic mild anterior chest pain. Cardiac catheterization was performed and was negative for any significant coronary art carol ann disease. Patient was initially seen in consultation by Dr. of severe adam in September, and the surgical revision to replace the aortic valve was recommended, however at that time patient had a parapneumonic effusion, and empyema, requiring placement of a pigtail catheter, infusion of TPA, with negative cultures, she was treated with broad-spectrum antibiotics, cytology showed no malignant cells, patient had good response to alteplase infusions, did not require VATS and decortication of the left lung empyema. She is seen in the intensive care unit following surgery, she is sedated, intub ated on mechanical ventilator, with current vent settings of SIMV mode with a rate of 12, tidal volume 400, FiO2 of 100% and PEEP of 5, and postoperative blood gases showed pO2 of 237, pCO2 of 67, and pH of 7.24, patient was then placed on assist-control mode of ventilation, with a rate of 18, tidal volume of 400, FiO2 of 50%, and PEEP of 5. Postop blood work revealed white blood cell count of 6.0, hemoglobin of 8.6, sodium of 143, potassium is 4.3, chloride is 113, BUN is 11, creatinine is 0.62, ionized calcium was 4.6, magnesium 3.2, AST was 103, ALT was 64, alkaline phosphatase was 52, postop chest x-ray revealed ET tube, [place] catheter, a sterile drains in appropriate positions, small left pleural effusion, and retrocardiac airspace disease likely atelectasis, patient is hemodynamically stable, currently on lactated Ringer's a rate of 50 ML per hour, Cleviprex is at 10 mg per hour, insulin drip is at 5 units per hour, and proBNP is a 50 mics per kilo per minutes. Sinus rhythm with a rate of 77, patient is on VVI backup rate of 50, PA pressures of 35/19, blood pressure is 10 4/53, cardiac output and index of 4.9 and 2.7 respectively, patient has a mediastinal chest tube and left pleural chest tube with small amount of serosanguineous output. The catheter is in place, and patient is producing urine in the order of 75-350 ML per hour. Patient has received 2 units of fresh frozen plasma, 2 units of packed red blood cells, and now 1 unit of platelets. On 01/02/2019 patient seen in follow-up in the intensive care unit. Postop day 1, status post aortic valve replacement for severe aortic valve stenosis. Patient was successfully extubated on postop day 0, within 6 hours of the OR exit time, is tolerating extubation quite well, currently on 2 L of oxygen, with a pulse ox of 96%, afebrile, hemodynamically stable, sitting up in the recliner, she is tolerating oral diet, IVs include LR at 50 ML per hour, no other drips, she sinus rhythm on the monitor with a rate of 96, PA pressures 32/13, with a CVP of 5, cardiac output and index are 5.6 and 3.1 respectively. IS 750 ML today, his chest x-ray has been reviewed with Dr. Jackson, and shows left lower lobe atelectasis, and small pleural effusion. Lung sounds reveal some limited crackles at the left lower base, and diminished breath sounds overall. His labs have been reviewed, and showed white blood cell, 6.2, hemoglobin of 8.3, electrolytes and renal profile within normal limits. Mediastinal and left pleu ral chest tube with 430 mL of serosanguineous output and last 24 hours, EBL was estimated to be at 2500, and patient did receive 2 units of packed red blood cells, 2 units of fresh frozen plasma, and 1 unit of platelets intraoperatively. He was dynamically patient is stable, she is without any specific complaints, her pain is reasonably controlled. no acute events overnight. On 01/05/2019 patient seen in follow-up on selective care unit, he is awake and alert, in relating in the room, tolerating activity well, room air pulse ox is 86%, patient sats 99% on 2 L of oxygen, hemodynamically stable, afebrile. Doing extremely well. No complains of shortness of breath, he is working on her [employer] spirometer. Today's labs have been reviewed, white blood cell count is 7.4, hemoglobin is 7.9, electrodes were within normal limits, BUN is 23 creatinine 0.97. His chest x-ray has been reviewed with Dr. Jackson, and shows improved aeration of the left lung base, mild vascular congestion without sejal edema. Patient has ambulated in the hallway, she is achieving 750 ML on her incentive spirometer. Sinus rhythm on a monitor with occasional PACs. Pain is under reasonable control. No acute events overnight. On 01/06/2019 patient seen in follow-up selective care unit, she is awake and al ert, in no acute distress, she has been ambulating in the room and in the hallway, tolerating activity quite well, her pulse ox is 93%, patient is afebrile, hemodynamically stable. Chest tubes have been removed, worse have been removed, lung sounds are diminished, with some limited crackles at the bases. His lab work has been reviewed, with blood cell, 6.4, hemoglobin is 7.5, electrolytes and renal profile were within normal limits. Today's chest x-ray has been reviewed, shows basilar atelectasis and associated pleural effusions. Patient is working on her incentive spirometer, she denies any acute complaints. Her pain is reasonably controlled, just some mild soreness in the upper sternal area, is in sinus rhythm, she is on oral amiodarone and beta blockers with metoprolol 25 mg twice daily. Patient has remained stable, this is postoperative day 5 status post aortic valve replacement at the left atrial exclusion, and is being discharged home today. Objective - Vital Signs Vital signs: Vital Signs Temp 96.9 F L 01/06/19 12:00 Pulse 53 L 01/06/19 12:00 Resp 18 01/06/19 12:00 BP 123/60 01/06/19 12:00 Pulse Ox 93 L 01/06/19 12:00 Intake & Output 01/05/19 01/06/19 01/06/19 18:59 06:59 18:59 Intake Total 240 600 Output Total 400 Balance 240 200 Weight 80.4 kg Intake: Oral 240 600 Output: Urine 400 Other: Voiding Method Indwelling Catheter Indwelling Catheter # Voids 1 # Bowel Movements 1 ABP, PAP, CO, CI - Last Documented Arterial Blood Pressure 100/84 Pulmonary Artery Pressure 34/17 Cardiac Output 5.6 Cardiac Index 3.1 - Exam GENERAL EXAM: Alert, pleasant 68-year-old white female, 2 L of oxygen comfortable in no apparent distress. HEAD: Normocephalic/atraumatic. EYES: Normal reaction of pupils, equal size. Conjunctiva pink, sclera white. NOSE: Clear with pink turbinates. THROAT: No erythema or exudates. NECK: No masses, no JVD, no thyroid enlargement, no adenopathy. CHEST: No chest wall deformity. Symmetrical expansion. Sternal incision is clean dry and intact, covered with a surgical dressing, interval removal of the chest tubes, and AV wires LUNGS: Equal air entry with no crackles, wheeze, rhonchi or dullness. CVS: Regular rate and rhythm, normal S1 and S2, no gallops, no murmurs, no rubs ABDOMEN: Soft, nontender. No hepatosplenomegaly, normal bowel sounds, no guarding or rigidity. EXTREMITIES: No clubbing, no edema, no cyanosis, 2+ pulses and upper and lower extremities. MUSCULOSKELETAL: Muscle strength and tone normal. SPINE: No scoliosis or deformity SKIN: No rashes CENTRAL NERVOUS SYSTEM: Sedated, intubated No focal deficits, tone is normal in all 4 extremities - Labs CBC & Chem 7: 01/06/19 06:37 01/06/19 06:37 Labs: Abnormal Lab Results - Last 24 Hours (Table) 01/01/19 01/01/19 01/01/19 Range/Units 23:08 23:10 23:13 RBC (3.80-5.40) m/uL Hgb (11.4-16.0) gm/dL Hct (34.0-46.0) % RDW (11.5-15.5) % BUN (7-17) mg/dL Glucose (74-99) mg/dL POC Glucose (mg/dL) 57 L 59 L 128 H (75-99) mg/dL 01/05/19 01/05/19 01/06/19 Range/Units 17:10 20:52 02:14 RBC (3.80-5.40) m/uL Hgb (11.4-16.0) gm/dL Hct (34.0-46.0) % RDW (11.5-15.5) % BUN (7-17) mg/dL Glucose (74-99) mg/dL POC Glucose (mg/dL) 105 H 104 H 106 H (75-99) mg/dL 01/06/19 01/06/19 01/06/19 Range/Units 06:16 06:37 06:37 RBC 2.77 L (3.80-5.40) m/uL Hgb 7.5 L (11.4-16.0) gm/dL Hct 23.8 L (34.0-46.0) % RDW 15.8 H (11.5-15.5) % BUN 21 H (7-17) mg/dL Glucose 123 H (74-99) mg/dL POC Glucose (mg/dL) 148 H (75-99) mg/dL 01/06/19 Range/Units 11:37 RBC (3.80-5.40) m/uL Hgb (11.4-16.0) gm/dL Hct (34.0-46.0) % RDW (11.5-15.5) % BUN (7-17) mg/dL Glucose (74-99) mg/dL POC Glucose (mg/dL) 118 H (75-99) mg/dL Assessment and Plan Plan: Assessment: #1. Severe aortic valve stenosis, status post aortic valve replacement with 23 mm bovine pericardial valve, and left atrial exclusion with Atriclip, post-op day 5 #2. Routine ventilator management, patient was successfully extubated postop day 0, within 6 hours of OR exit time, tolerating extubation quite well #3. Postoperative blood loss anemia, an expected outcome of valve surgery, status post transfusion with 2 units of PRBC, 2 units of fresh frozen plasma and 1 unit of platelets. #4. History of left lower lobe pneumonia, with parapneumonic effusion/empyema in September 2018, requiring placement of pigtail catheter and alteplase infusions, cytology of the pleural fluid was negative for malignancy, and cultures were negative, patient was treated with broad-spectrum antibiotics had a good response. Pigtail catheter was discontinued #5. History of COPD, outpatient PFT revealed a FEV1 of 1.51 L or 56% of predicted, with FVC of 2.16 L or 61% of predicted with decreased diffusion capacity, consistent with stage III COPD #6. History of nicotine dependence, currently in remission #7. Anxiety #8. Hypothyroidism #9. Depression Plan: Patient is doing well, stable, maintaining good oxygenation on room air, no fever or chills, hemodynamically stable, sinus mechanism. Continue encouraging deep breathing and coughing, ambulation. [facility], she will need outpatient follow-up with Dr. Jackson in the office in 7-10 days. I performed a history & physical examination of the patient and discussed their management with my nurse practitioner, Angelika Sharma. I reviewed the nurse practitioner's note and agree with the documented findings and plan of care. Lung sounds are positive for diminished breath sounds. The findings and the impression was discussed with the patient. I attest to the documentation by the nurse practitioner. Time with Patient: Less than 30
--- NOTE | 2019-01-06 17:55 | P.PN ---
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 She underwent the procedure on 01/01. She was admitted to the ICU and extubated the same evening. Patient seen and examined at bedside. Doing good, pain controlled, no nausea, e ating well, up and moving well. Will see Pepper Mcginnis is DrSpeedy Mascorro is out of town. Objective - Vital Signs Vital signs: Vital Signs Temp 96.9 F L 01/06/19 12:00 Pulse 53 L 01/06/19 12:00 Resp 18 01/06/19 12:00 BP 123/60 01/06/19 12:00 Pulse Ox 93 L 01/06/19 12:00 Intake & Output 01/05/19 01/06/19 01/06/19 18:59 06:59 18:59 Intake Total 240 600 Output Total 400 Balance 240 200 Weight 80.4 kg Intake: Oral 240 600 Output: Urine 400 Other: Voiding Method Indwelling Catheter Indwelling Catheter # Voids 1 # Bowel Movements 1 ABP, PAP, CO, CI - Last Documented Arterial Blood Pressure 100/84 Pulmonary Artery Pressure 34/17 Cardiac Output 5.6 Cardiac Index 3.1 - Exam General: non toxic, no distress, appears at stated age Derm: warm, dry Head: atraumatic, normocephalic, symmetric Cardiovascular: S1-S2 with systolic ejection murmur, positive posterior tibial pulse bilateral Lungs: Increased breath sounds bilateral, no rhonchi, no rales , no accessory muscle use Abdominal: soft, nontender to palpation, no guarding, no appreciable organomegaly Ext: no gross muscle atrophy, no edema, no contractures Neuro: CN II-XI grossly intact, no focal neuro deficits Psych: Alert, oriented, appropriate affect - Labs CBC & Chem 7: 01/06/19 06:37 01/06/19 06:37 Labs: Abnormal Lab Results - Last 24 Hours (Table) 01/01/19 01/01/19 01/01/19 Range/Units 23:08 23:10 23:13 RBC (3.80-5.40) m/uL Hgb (11.4-16.0) gm/dL Hct (34.0-46.0) % RDW (11.5-15.5) % BUN (7-17) mg/dL Glucose (74-99) mg/dL POC Glucose (mg/dL) 57 L 59 L 128 H (75-99) mg/dL 01/05/19 01/06/19 01/06/19 Range/Units 20:52 02:14 06:16 RBC (3.80-5.40) m/uL Hgb (11.4-16.0) gm/dL Hct (34.0-46.0) % RDW (11.5-15.5) % BUN (7-17) mg/dL Glucose (74-99) mg/dL POC Glucose (mg/dL) 104 H 106 H 148 H (75-99) mg/dL 01/06/19 01/06/19 01/06/19 Range/Units 06:37 06:37 11:37 RBC 2.77 L (3.80-5.40) m/uL Hgb 7.5 L (11.4-16.0) gm/dL Hct 23.8 L (34.0-46.0) % RDW 15.8 H (11.5-15.5) % BUN 21 H (7-17) mg/dL Glucose 123 H (74-99) mg/dL POC Glucose (mg/dL) 118 H (75-99) mg/dL Assessment and Plan Assessment: 68-year-old female with a history of severe aortic stenosis status post aortic valve replacement Acute blood loss anemia, anticipated outcome of surgery - s/p 2 units pRBC - follow CBC, stable - Fe deficiency noted in September. Start oral iron as outpatient if no constipation. Will send communication to Pepper Mcginnis to follow-up on this. Transaminitis, due to fluid shifts - improving - follow CMP - no additional testing at this time. COPD without exacerbation - pulm recs appreciated Anxiety/ depression -Lexapro Hypothyroidism -Synthroid Overweight, BMI 29 -Outpatient structured weight loss Thrombocytopenia, resolved Increasing Cr with oliguria, resolved History of left lower lobe pneumonia with empyema in September 2018 DVT prophylaxis: Heparin Discussed with: Patient, nursing, Pat Donaldson Anticipated discharge: per CT surgery Anticipated discharge place: home with home health A total of 20 minutes was spent on the care of this complex patient more than 50% of the time was spent in counseling and care coordination.
--- NOTE | 2019-01-07 06:07 | P.DS ---
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 Severe aortic valve stenosis 2. History of left lower lobe pneumonia with parapneumonic effusion, empyema 3. Previous tobacco dependence 4. COPD with preoperative FEV1 56% of predicted 5. Hypothyroid 6. Depression/anxiety PRINCIPAL PROCEDURE: 1. Aortic valve replacement with 23 mm Inspiris bovine pericardial valve 2. Ligation of the left atrial appendage with a 35 mm AtriCure clip 3. Epi-aortic ultrasound 4. Intraoperative transesophageal echocardiogram performed by anesthesia HISTORY OF PRESENT ILLNESS: This is a 68-year-old active female patient who follows with Dr Mascorro on an outpatient basis. She was treated in September of this year for pneumonia with parapneumonic effusion/empyema, a pigtail catheter was placed and alteplase was instilled. She did recover, however during her hospitalization a heart murmur was detected and a transthoracic echocardiogram was completed. The echo demonstrated normal systolic function with an EF 55- 60%, and severe aortic stenosis with peak/mean gradient 84.36 mmHg/55.38 mmHg. Cardiology consultation was placed, and the patient followed up on an outpatient basis with Dr. Lion. In November of this year she had a transesophageal echocardiogram which confirmed severe aortic stenosis with peak gradient 123 mmHg and mean gradient 72 mmHg. In the same setting a heart catheterization was performed which did not demonstrate any obstructive coronary artery disease. The patient was referred to Dr. Vizcaino from cardiothoracic surgery. She was recommended to undergo bioprosthetic aortic valve replacement. The usual perioperative course was discussed in detail with the patient and her family, all risks and benefits were explained, all questions were answered, and consent was obtained to proceed with surgery. The patient obtained dental clearance, and surgery was scheduled at the earliest possible date. HOSPITAL COURSE: The patient was brought to the hospital on 01/01/2019, taken to the preoperative area, prepared in the usual fashion, and subsequently taken to the operating room where Dr. Vizcaino performed aortic valve replacement with 23 mm Inspiris bovine pericardial valve, ligation of the left atrial appendage with a 35 mm AtriCure clip, and epi-aortic ultrasound with intraoperative transesophageal echocardiogram performed by anesthesia . Upon completion of surgery the patient was transferred to the cardiovascular intensive care unit where she was recovered, monitored hemodynamically, and where she progressed to cardiac rehabilitation phase 1. She was extubated, all lines, tubes, and drips were discontinued when appropriate, and she was transferred to 3 S cardiac stepdown unit for further monitoring and rehabilitation. Her oxygen was titrated down, she continued to work with physical and occupational therapy, she was tolerating oral diet, her pain was controlled, and she was ready to be discharged to home with [facility] care on postoperative day #5. She received written and verbal instruction regarding her medications, activity restrictions, signs and symptoms requiring physician notification, and follow-up appointments. COMPLICATIONS: The patient experienced no postoperative complications. Patient Condition at Discharge: Stable Plan - Discharge Summary Discharge Rx Participant: Yes New Discharge Prescriptions: New Aspirin 325 mg PO DAILY #30 tab Amiodarone [Cordarone] 400 mg PO BID #43 tab Atorvastatin [Lipitor] 40 mg PO DAILY #30 tab Metoprolol Tartrate [Lopressor] 25 mg PO BID #60 tab Pantoprazole [Protonix] 40 mg PO AC-BRKFST #30 tablet.dr Vidal-Docusate Sodium [Senokot-S] 2 each PO HS PRN tab PRN Reason: Congestion Acetaminophen Tab [Tylenol] 1,000 mg PO Q6HR PRN tab PRN Reason: Fever And/ Or Pain traMADol HCl [Ultram] 50 mg PO TID PRN #10 tab PRN Reason: Pain Continue Escitalopram [Lexapro] 20 mg PO HS Cyanocobalamin [Vitamin B-12 Injection] 1,000 mcg SQ Q14D Melatonin 3 mg PO HS #30 tablet Levothyroxine Sodium [Synthroid] 75 mcg PO DAILY Discharge Medication List Cyanocobalamin [Vitamin B-12 Injection] 1,000 mcg SQ Q14D 10/10/18 [History] Escitalopram [Lexapro] 20 mg PO HS 10/10/18 [History] Melatonin 3 mg PO HS #30 tablet 10/23/18 [Rx] Levothyroxine Sodium [Synthroid] 75 mcg PO DAILY 11/27/18 [History] Acetaminophen Tab [Tylenol] 1,000 mg PO Q6HR PRN tab 01/06/19 [Rx] Amiodarone [Cordarone] 400 mg PO BID #43 tab 01/06/19 [Rx] Aspirin 325 mg PO DAILY #30 tab 01/06/19 [Rx] Atorvastatin [Lipitor] 40 mg PO DAILY #30 tab 01/06/19 [Rx] Metoprolol Tartrate [Lopressor] 25 mg PO BID #60 tab 01/06/19 [Rx] Pantoprazole [Protonix] 40 mg PO AC-BRKFST #30 tablet. 01/06/19 [Rx] Sennosides-Docusate Sodium [Senokot-S] 2 each PO HS PRN tab 01/06/19 [Rx] traMADol HCl [Ultram] 50 mg PO TID PRN #10 tab 01/06/19 [Rx] Follow up Appointment(s)/Referral(s): Pat Donaldson NPC [Nurse Practitioner] - 01/10/19 11:00 am Kyle Lion MD [STAFF PHYSICIAN] - 01/20/19 3:45 pm Evelyn Benites NPC [Nurse Practitioner] - 01/24/19 2:30 pm Davis Vizcaino MD [STAFF PHYSICIAN] - 02/13/19 1:00 pm Pepper Mcginnis NPC [Nurse Practitioner] - 01/15/19 9:45 am (Covering for Dr. Mascorro while out of [facility]) [facility], [NON-STAFF] - 1-2 Days Ambulatory/Diagnostic Orders: Complete Blood Count w/diff [LAB.AMB] Time Frame: 3 Days, Location: None Selected Comprehensive Metabolic Panel [LAB.AMB] Time Frame: 3 Days, Location: None Selected Patient Instructions/Handouts: Aortic Valve Replacement (DC), Sternal Precautions (GEN) Activity/Diet/Wound Care/Special Instructions: DISCHARGE INSTRUCTIONS: 1. No driving for 4 weeks, or until physician gives their ok. 2. The patient should sleep in their own bed, no medical bed needed. 3. Stairs are not an issue. If the bedroom is upstairs, it is advised that the patient go up at night and down in the morning for the first week. Go slowly, using handrail and take 1 step at a time. 4. TACHO hose are to be worn for 30 days or until physician discontinues. 5. Heart hugger is to be worn 100% of the time until physician discontinues.(except when showering) 6. No lifting, pushing, or pulling more than 10 pounds for 12 weeks. The physician will advise of any restriction changes. 7. The patient is expected to continue the prescribed walking program. 8. Continue pain control per as needed orders. 9. Continue with incentive spirometry and splinting/heart hugger until otherwise directed by the physician. 10. Must shower daily using liquid antibacterial soap and a separate white washcloth for each individual incision. 11. Routine sternal incision care. No powders, lotions, ointments on incisions. 12. Please call surgeon/SEISMIC PROSPECTING OBSERVER for temp greater than 101 F or purulent drainage from incisions. 13. Narcotic medications were discussed with the patient, including the potential for misuse, addiction, and abuse. Opiod Start Talking form was reviewed with the patient. 14. All prescriptions given by surgeon for 30 days. Refills need to be filled through napper tender/primary care physician. 15. A Red armband has been placed on the patient. It should be worn for 30 days post surgery and will be removed by the cardiac surgeons. If an ER visit is necessary, please make sure the number on the Red armband is called. Amidarone to be taken 400 mg twice daily until 01/12/19, then 200 mg twice daily until 01/19/19, then 200 mg daily until 01/26/19, then stop HOME HEALTH SERVICES TO PROVIDE: RN SKILLED HOME CARE SERVICES FOR POST-OP SURGICAL PATIENTS WITH THE FOLLOWING: Coronary Artery Bypass Surgery (CABG), Mitral Valve Replacement/Repair ( MVR), Aortic Valve Replacement/Repair (AVR) RN TO CONTINUE EDUCATION FROM ``ROAD TO A HEALTH HEART PATIENT EDUCATION MANUAL (GIVEN TO PATIENT IN THE HOSPITAL) MEDICATION RECONCILIATION WITH EDUCATION NEEDED ON FIRST HOME VISIT EMPHASIZE IMPORTANCE OF WEARING BREAST SUPPORT/HEART HUGGER ENCOURAGE USE OF INCENTIVE SPIROMETER 10 X EVERY HOUR WHILE AWAKE ENCOURAGE UTILIZATION OF LOWER EXTREMITY COMPRESSION STOCKINGS/TACHO HOSE and ELEVATE LEGS ABOVE LEVEL OF HEART WHILE AT REST. ENCOURAGE AMBULATION 3-5x/day INCREASING TOLERATES, WHILE AVOID EXTREMES IN TEMPERATURE FREQUENCY: RN TO OPEN THE PATIENT WITHIN 24 HOURS OF DISCHARGE FROM THE HOSPITAL WITH TELEHEALTH INSTALLED AT [facility] [place] TO VISIT 2-3 X A WEEK FOR 4 WEEKS ESTABLISHED BY PATIENT NEEDS. LABORATORY: CBC, CMP TO BE DRAWN ON THE THIRD DAY HOME, (RAN STAT) FAX RESULTS TO [phone]. TELEHEALTH PARAMETERS: WEIGHT: NOTIFY MD OF WEIGHT GAIN OF 2 LBS IN 24 HOURS OR 5 LBS IN ONE WEEK HR: NOTIFY MD OF HR <55 BPM OR HR>100 BPM BP: NOTIFY MD IF BP <90/55 OR BP>140/100 O2 SAT: NOTIFY MD IF PO2<93% ON ROOM AIR SEND TELEHEALTH REPORT TO RUBBER INSULATOR AND CARDIOVASCULAR SURGEON THE FIRST WEEK OF CARE AND THEN BI-WEEKLY. PLEASE ADDITIONALLY COMMUNICATE ANY ABNORMALS AND NEW FINDINGS TO THE SURGEONS OFFICE. Discharge Disposition: HOME WITH HOME HEALTH SERVICES
== END 2019-01-06 16:50 | disposition home health service (06) | DRG 220 ==
LOC: 2ORMAIN 06:43 → 2SICU 12:46 → 3SCARD 01-04 15:51
PROVIDERS: ADMIT Thoracic Surgery (Cardiothoracic Vascular Surgery); ATTEND Thoracic Surgery (Cardiothoracic Vascular Surgery)
PROC: 30233R1 Transfusion of Nonautologous Platelets into Peripheral Vein, Percutaneous Approach (ICD-10-PCS; principal; 2019-01-01 09:00)
PROC: 5A1221Z Performance of Cardiac Output, Continuous (ICD-10-PCS; principal; 2019-01-01 09:00)
PROC: 30233N1 Transfusion of Nonautologous Red Blood Cells into Peripheral Vein, Percutaneous Approach (ICD-10-PCS; principal; 2019-01-01 09:00)
PROC: 30233K1 Transfusion of Nonautologous Frozen Plasma into Peripheral Vein, Percutaneous Approach (ICD-10-PCS; principal; 2019-01-01 09:00)
PROC: 5A1935Z Respiratory Ventilation, Less than 24 Consecutive Hours (ICD-10-PCS; principal; 2019-01-01 09:00)
PROC: 02L70CK Occlusion of Left Atrial Appendage with Extraluminal Device, Open Approach (ICD-10-PCS; principal; 2019-01-01 09:00)
PROC: 02RF08Z Replacement of Aortic Valve with Zooplastic Tissue, Open Approach (ICD-10-PCS; principal; 2019-01-01 09:00)
DX: I35.0 Nonrheumatic aortic (valve) stenosis (principal); D62 Acute posthemorrhagic anemia; J98.11 Atelectasis; J90 Pleural effusion, not elsewhere classified; I11.0 Hypertensive heart disease with heart failure; J44.9 Chronic obstructive pulmonary disease, unspecified; E78.5 Hyperlipidemia, unspecified; E89.0 Postprocedural hypothyroidism; I50.9 Heart failure, unspecified; F41.9 Anxiety disorder, unspecified; F32.9 Major depressive disorder, single episode, unspecified; E66.3 Overweight; D69.6 Thrombocytopenia, unspecified; R74.0 Nonspecific elevation of levels of transaminase and lactic acid dehydrogenase [LDH]; Z68.27 Body mass index [BMI] 27.0-27.9, adult; Z90.49 Acquired absence of other specified parts of digestive tract; Z90.710 Acquired absence of both cervix and uterus; Z79.890 Hormone replacement therapy; Z87.01 Personal history of pneumonia (recurrent); Z87.891 Personal history of nicotine dependence; Z82.49 Family history of ischemic heart disease and other diseases of the circulatory system; Z68.29 Body mass index [BMI] 29.0-29.9, adult; Z79.899 Other long term (current) drug therapy; Z90.711 Acquired absence of uterus with remaining cervical stump; Z90.89 Acquired absence of other organs; Z88.5 Allergy status to narcotic agent; Z88.8 Allergy status to other drugs, medicaments and biological substances
CPT/HCPCS: 71045; 71046; 80048; 80053; 82330; 82805; 83735; 85025; 85027; 85520; 85610; 85730; 86850; 86891; 86900; 86901; 86920; 88305; 88311; 94002; 94640

== ENCOUNTER 2020-05-11 10:35 | Day surgery (SDC) | payer MEDICARE ==
[2020-05-07 09:20] VITALS: BMI 26.6
[~2020-05-11 10:35] MED LIST changes: -ALBUMIN HUMAN 25% 50 ML IV ONE; -ALBUMIN HUMAN 5% 500 ML IVPB ONE; -ASPIRIN 325 MG TAB PO ONE; -ATORVASTATIN 10 MG TAB PO ONE; -CALCIUM CHLORIDE 100 MG/ML 10 ML SYRINGE IV ONE; -CARDIOPLEGIC SOLN (K+ 16 MEQ/L 1,000 ML with SODIUM BICARB (1 MEQ/ML) 20 ML, LIDOCAINE ... PERFUSION ONE; -CHLORHEXIDINE GLUCONATE 15 ML CUP MUCOUS MEM ONE; -HEPARIN SODIUM 1,000 UN/ML (10ML VL) IV ONE; -HEPARIN SODIUM,PORCINE 5,000 UNIT in SODIUM CHLORIDE 0.9% 500 ML 500 ML IV ONE; -INSULIN REGULAR 100 UNIT in SODIUM CHLORIDE 0.9% 100 ML IV ONE; -LACTATED RINGERS 1,000 ML IV ONE; +LACTATED RINGERS 1,000 ML IV SCH; -MAGNESIUM SULFATE MG 500 MG/ML IV ONE; -MANNITOL 25% 12.5 GM/50 ML VIAL IV ONE; -METOPROLOL TARTRATE 12.5 MG TAB PO ONE; -NITROGLYCERIN SL TABS 0.4 MG TAB SUBLINGUAL ONE; -NITROGLYCERIN-D5W PMX 25 MG/250 ML BTL IV ONE; -NOREPINEPHRINE 4 MG in SODIUM CHLORIDE 0.9% 250 ML IV ONE; -PAPAVERINE 360 MG in SODIUM CHLORIDE 0.9% 90 ML IV ONE; -PHENYLEPHRINE 10 MG/ML VIAL IV ONE; -PHENYLEPHRINE 40 MG in SODIUM CHLORIDE 0.9% 250 ML IV ONE; -PROPOFOL 1,000 MG/100 ML VIAL IV ONE; -PROTAMINE SULFATE 10 MG/ML 25 ML VIAL IV ONE; -PROTAMINE SULFATE 250 MG in EMPTY BAG 1 BAG IV ONE; -SODIUM BICARB 8.4% 50 ML SYR (1 MEQ/ML) IV ONE; -SODIUM CHLORIDE 0.9% 1,000 ML IV ONE; -TRANEXAMIC ACID 2,000 MG in SODIUM CHLORIDE 0.9% 80 ML IV ONE; -VANCOMYCIN 1,000 MG VIAL MISCELLANE ONE; -ceFAZolin 2,000 MG in SODIUM CHLORIDE 0.9% 30 ML IVPB ONE
[2020-05-11 11:00] VITALS: TEMP 98
[2020-05-11] MEDS ORDERED: PROPOFOL 10 MG/ML 20 ML VIAL IV ONE (11:04)
[2020-05-11 11:53] VITALS: RESP 18
--- NOTE | 2020-05-11 11:54 | P.PCN ---
Date of Procedure: 05/11/20 Description of Procedure: Brief history: Patient is a pleasant 69-year-old female presenting for EGD and colonoscopy for evaluation of iron deficiency anemia. She reports a history of anemia in the past due to menorrhagia. Recent diagnosis of anemia currently on iron supplementation. She denies any gross bleeding. Procedure performed: Esophagogastroduodenoscopy with biopsy Colonoscopy with polypectomy Estimated blood loss: Minimal. Preoperative diagnosis: Iron deficiency anemia Anesthesia: MAC Procedure: After informed consent was obtained from the patient was brought into the endoscopy unit and IV sedation was administered by anesthesia under continuous monitoring. Initially upper endoscopy was done. The Olympus GF 190 video endoscope was inserted into the mouth and esophagus intubated without any difficulty and was gradually advanced into the stomach and duodenum and caref ully examined. The bulb and second part of the duodenum appeared normal, with biopsies taken. The scope was then withdrawn into the stomach adequately insufflated with air and upon careful examination the antrum and body, cardia and fundus appeared normal, except for some mild scattered erythema in the antrum and body suggestive of mild gastritis with biopsies taken. The scope was then withdrawn into the esophagus. The GE junction was located at 35 cm to the incisors, with a 7 cm hiatal hernia noted. It appeared regular with no erythema erosions or ulcerations. Rest of the esophagus appeared normal. Patient tolerated the procedure well. At this time the patient continued to remain sedation. Initial digital rectal examination was normal. Olympus CF 190 video colonoscope was then inserted into the rectum and gradually advanced to the cecum without any difficulty. Careful examination was performed as the scope was gradually being withdrawn. The prep was excellent. The cecum, ascending colon, transverse colon, descending colon, sigmoid colon and rectum appeared normal. Diminutive 2 mm transverse colon polyp removed with cold forcep polypectomy. Multiple diverticula noted throughout the colon. Retroflexion was performed in the rectum and no lesions were noted. Patient tolerated the procedure well. Impression: 1. Mild gastritis. Large hiatal hernia. Biopsies of the duodenum and antrum and body. 2. Diminutive transverse colon polyp removed with cold forcep polypectomy. Mild pandiverticulosis. Recommendations: Findings of this examination were discussed with the patient as well as her family. Okay to resume diet. Okay to resume medication. Await pathology from biopsies and polypectomy. Would recommend repeat colonoscopy in 7 years for screening purposes. Continue iron supplementation.
[2020-05-11 12:13] VITALS: BP 120/68; PULSE 57
== END 2020-05-11 12:13 | disposition home or self-care (01) ==
LOC: ORWHC2ENDO 10:35
PROVIDERS: ATTEND Internal Medicine
DX: K63.5 Polyp of colon (principal); K57.30 Diverticulosis of large intestine without perforation or abscess without bleeding; K29.50 Unspecified chronic gastritis without bleeding; K31.89 Other diseases of stomach and duodenum; K44.9 Diaphragmatic hernia without obstruction or gangrene; D50.9 Iron deficiency anemia, unspecified; J44.9 Chronic obstructive pulmonary disease, unspecified; F17.200 Nicotine dependence, unspecified, uncomplicated; E07.9 Disorder of thyroid, unspecified; F41.9 Anxiety disorder, unspecified; M06.9 Rheumatoid arthritis, unspecified; Z88.0 Allergy status to penicillin; Z88.5 Allergy status to narcotic agent; Z80.0 Family history of malignant neoplasm of digestive organs; Z88.8 Allergy status to other drugs, medicaments and biological substances; Z79.899 Other long term (current) drug therapy; Z79.890 Hormone replacement therapy; Z98.890 Other specified postprocedural states; Z90.710 Acquired absence of both cervix and uterus; Z90.89 Acquired absence of other organs; Z90.49 Acquired absence of other specified parts of digestive tract; Z95.2 Presence of prosthetic heart valve; Z87.898 Personal history of other specified conditions; Z86.2 Personal history of diseases of the blood and blood-forming organs and certain disorders involving the immune mechanism; Z87.42 Personal history of other diseases of the female genital tract
CPT/HCPCS: 88305; 45380; 43239; J2704

== ENCOUNTER → 2021-09-27 | Outpatient (CLI) | payer MEDICARE ==
[2021-09-27 18:37] LABS: % Iron Saturation 24.18 (12.00-45.00); ALT 19 U/L (8-44); AST 23 U/L (13-35); African American GFR (CKD) 75.6 (60.0-200.0); Albumin 4.4 g/dL (3.8-4.9); Albumin/Globulin Ratio 1.76 (1.60-3.17); Alkaline Phosphatase 85 U/L (41-126); BUN/Creat Ratio 16.33 Ratio (12.00-20.00); Blood Urea Nitrogen 14.7 mg/dL (9.0-27.0); Calcium 9.4 mg/dL (8.7-10.3); Carbon Dioxide 26.3 mmol/L (20.0-27.5); Chloride 102 mmol/L (96-109); Ferritin 14.2 ng/mL (10.0-291.0); Globulin 2.5 g/dL (1.6-3.3); Glucose 111 mg/dL (70-110); Iron 129 ug/dL (50-170); Non-African American GFR(CKD) 65.2 (60.0-200.0); Potassium 4.9 mmol/L (3.5-5.5); Sodium 140 mmol/L (135-145); Total Iron Binding Capacity 533 ug/dL (228-460); Total Protein 6.9 g/dL (6.2-8.2)
[2021-09-27 19:19] LABS: HCT 40.5 % (37.2-46.3); HGB 12.4 g/dL (12.0-15.0); MCH 27.9 pg (27.0-32.0); MCHC 30.6 g/dL (32.0-37.0); Mean Platelet Volume 11.1 fL (9.5-12.2); NRBC Per 100 WBC 0 /100 WBCS (0.0-0.0); Platelet Count 223 X 10*3/uL (140-440); RBC 4.45 X 10*6/uL (4.10-5.20); RDW 15.9 % (11.5-14.5); WBC 8.27 X 10*3/uL (4.50-10.00)
[2021-09-27 21:01] LABS: Anti-DNA, DS unit <1.0 IU/mL; DNA Double-Stranded NEGATIVE (NEGATIVE)
[2021-09-27 21:14] LABS: Erythrocyte Sedimentation Rate 9 mm/Hr (0-30)
== END | disposition home or self-care (01) ==
LOC: LABWHC1 09:57
PROVIDERS: ATTEND Internal Medicine
DX: E03.9 Hypothyroidism, unspecified (principal); M32.9 Systemic lupus erythematosus, unspecified; E61.1 Iron deficiency
CPT/HCPCS: 36415; 80053; 82728; 83540; 83550; 84443; 85027; 85652; 86038; 86141; 86225

== ENCOUNTER → 2022-02-21 | Outpatient (CLI) | payer MEDICARE ==
--- NOTE | 2022-02-21 17:44 | BD ---
EXAMINATION TYPE: Axial Bone Density DATE OF EXAM: 02/21/2022 COMPARISON: NONE CLINICAL HISTORY: 71 years year old Female. ICD-10 CODE: M89.9 Disorder of bone Height: 5 FT 5 1/2 IN Weight: 170 FRAX RISK QUESTIONS: Alcohol (3 or more units per day): NO Family History (Parent hip fracture): NO Glucocorticoids (More than 3mos): NO (Ex: prednisone, prednisolone, methylprednisolone, dexamethasone, and hydrocortisone). History of Fracture in Adulthood: YES Secondary Osteoporosis: 1. Type 1 Diabetes: NO 2. Hyperthyroidism: LOBE REMOVED 3. Menopause before 45: YES 4. Malnutrition: NO 5. Chronic liver disease: NO Rheumatoid Arthritis: YES Current Tobacco Use: YES RISK FACTORS HISTORY OF: Surgery to Spine/Hip(right/left)/Wrist (right/left): NO Family History of Osteoporosis: NO Active: YES Diet low in dairy products/other sources of calcium: TRANSITIONAL [employer] Postmenopausal woman: YES Take estrogen and/or progesterone medications: NONE NOW Lost more than 2 inches in height since high school: NO Frequent falls: NO Poor Health: GOOD Hyperparathyroidism: NO Adrenal Insufficiency: NO MEDICATIONS: Additional Medications: HYDROXYCHLOROQUINE, XANAX, AMLODIPINE, ASPIRIN, LEVOTHYROXINE Additional History: BEEN ON LEVOTHYROXINE SINCE AGE 44 EXAM MEASUREMENTS: Bone mineral densitometry was performed using the [employer] System. Bone mineral density as measured about the Lumbar spine is: ----- L1-L4(G/cm2): 1.028 T Score Values are as follows: ----- L1: -1.2 ----- L2: -1.3 ----- L3: -1.0 ----- L4: -1.7 ----- L1-L4: -1.3 BASELINE Bone mineral density about the R hip (g/cm2): 0.604 Bone mineral density about the L hip (g/cm2): 0.646 T Score values are as follows: -----R Neck: -3.1 -----L Neck: -2.8 -----R Total: -2.4 -----L Total: -2.3 BASELINE FRAX%s: The graph provided illustrates a 33.4 % chance for a major osteoporotic fx and a 16.8 % chanc e for the hips probability for fx in 10 years time. IMPRESSION: Osteoporosis (T Score less than -2.5). There is increased fracture risk and therapy is usually indicated based on age. Re-Screen 1-2 years. NOTE: T-SCORE=SD OF THE YOUNG ADULT MEAN.
--- NOTE | 2022-02-23 09:08 | MM ---
Reason for Exam: Screening (asymptomatic). Last mammogram was performed 5 year(s) and 0 month(s) ago. Patient History: Menarche at age 15. First Full-Term at age 21. Hysterectomy at age 62. Postmenopausal. 1989, Lumpectomy on the Right side. 1989, Cyst Aspiration on the Left side. Risk Values: Nina 5 year model risk: 1.2%. NCI Lifetime model risk: 3.9%. Prior Study Comparison: 03/13/2013 Bilateral MG screening mammo w CAD - 2, [facility]. 03/01/2017 Bilateral MG screening mammo w CAD - 2, [facility]. Tissue Density: The breast tissue is heterogeneously dense. This may lower the sensitivity of mammography. Findings: Analyzed By CAD. There is no suspicious group of microcalcifications or new suspicious mass in either breast. Stable calcifications upper outer left breast. Overall Assessment: Benign, BI-RAD 2 Management: Screening Mammogram of both breasts in 1 year. A clinical breast exam by your physician is recommended on an annual basis and results should be correlated with mammographic findings. Electronically signed and approved by: Joe White M.D. Radiologis
== END | disposition home or self-care (01) ==
LOC: RADBDWWP 15:25
PROVIDERS: ATTEND Internal Medicine
DX: Z12.31 Encounter for screening mammogram for malignant neoplasm of breast (principal); M81.0 Age-related osteoporosis without current pathological fracture; Z78.0 Asymptomatic menopausal state
CPT/HCPCS: 77063; 77067; 77080

== ENCOUNTER → 2023-09-13 | Outpatient (CLI) | payer MEDICARE ==
--- NOTE | 2023-09-14 19:09 | MM ---
Reason for Exam: Screening (asymptomatic). Last mammogram was performed 1 year(s) and 6 month(s) ago. Patient History: Menarche at age 15. First Full-Term at age 21. Hysterectomy at age 62. Postmenopausal. 1989, Lumpectomy on the Right side. 1989, Cyst Aspiration on the Left side. Risk Values: Nina 5 year model risk: 1.3%. NCI Lifetime model risk: 3.5%. Prior Study Comparison: 03/13/2013 Bilateral MG screening mammo w CAD - 2, [facility]. 03/01/2017 Bilateral MG screening mammo w CAD - 2, [facility]. 02/21/2022 Bilateral MG 3D screening mammo w/cad, [facility]. Tissue Density: There are scattered fibroglandular densities. Findings: Analyzed By CAD. Increasing grouped microcalcifications left upper-outer quadrant for which further magnification views are recommended. Otherwise, no significant change. Overall Assessment: Incomplete: need additional imaging evaluation, BI-RAD 0 Management: Special View Mammogram of the left breast. . [facility] will attempt to contact patient to return for supplemental views and ultrasound if indicated. Electronically signed and approved by: Arlen Browne M.D. Radiologist
== END | disposition home or self-care (01) ==
LOC: RADMAMWWP 10:38
PROVIDERS: ATTEND Family Medicine
DX: Z12.31 Encounter for screening mammogram for malignant neoplasm of breast (principal); Z78.0 Asymptomatic menopausal state
CPT/HCPCS: 77067

== ENCOUNTER → 2023-09-18 | Outpatient (CLI) | payer MEDICARE ==
--- NOTE | 2023-09-18 09:26 | MM ---
Reason for Exam: Additional evaluation requested from abnormal screening. Last screening mammogram was performed less than 1 month ago. Patient History: Menarche at age 15. First Full-Term at age 21. Hysterectomy at age 62. Postmenopausal. 1989, Lumpectomy on the Right side. 1989, Cyst Aspiration on the Left side. Risk Values: Nina 5 year model risk: 1.3%. NCI Lifetime model risk: 3.5%. Prior Study Comparison: 03/13/2013 Bilateral MG screening mammo w CAD - 2, [facility]. 03/01/2017 Bilateral MG screening mammo w CAD - 2, [facility]. 02/21/2022 Bilateral MG 3D screening mammo w/cad, [facility]. 09/13/2023 Bilateral MG screening mammo w CAD, [facility]. Tissue Density: Left: The breast tissue is heterogeneously dense. This may lower the sensitivity of mammography. Findings: Analyzed By CAD. There are new pleomorphic calcifications noted upper outer left breast with adjacent punctate calcifications seen. Tissue diagnosis is recommended. Overall Assessment: Suspicious, BI-RAD 4 Management: Stereotactic Core Biopsy of the left breast. . Results were given to the patient verbally at the time of exam. Patient should continue monthly self-breast exams. A clinical breast exam by your physician is recommended on an annual basis. This exam should not preclude additional follow-up of suspicious palpable abnormalities. Note on Nina scores and lifetime risk: 1. A Nina score greater than 3% is considered moderate risk. If this is the case, consider specialist referral to assess eligibility for a risk reducing agent. 2. If overall lifetime risk for the development of breast cancer is 20% or higher, the patient may qualify for future screening with alternating mammogram and breast MRI. Electronically signed and approved by: Joe White M.D. Radiologis
== END | disposition home or self-care (01) ==
LOC: RADMAMWWP 08:26
PROVIDERS: ATTEND Family Medicine
DX: R92.332 Mammographic heterogeneous density, left breast (principal); Z78.0 Asymptomatic menopausal state
CPT/HCPCS: 77065; G0279; 77061

== ENCOUNTER → 2023-10-04 | Outpatient (CLI) | payer MEDICARE ==
[2023-10-04 08:51] VITALS: BP 122/73; PULSE 98; RESP 17; TEMP 97.8
== END ==
LOC: WWCWWP 08:20
PROVIDERS: ATTEND Surgery
DX: Z53.9 Procedure and treatment not carried out, unspecified reason (principal)

== ENCOUNTER → 2023-10-04 | Day surgery (SDC) | payer MEDICARE ==
--- NOTE | 2023-10-04 08:16 | P.GSHP ---
History of Present Illness H&P Date: 10/04/23 Chief Complaint: Microcalcifications of concern left breast Betina is a 73-year-old white female seen in consultation for Dr. Ernandez regarding an abnormal left breast mammogram. She underwent a bilateral screening mammogram on 09-13-2023. This led to a diagnostic mammogram of the left breast. This was performed on 09-18-2023. This revealed microcalcifications of concern in the upper outer quadrant region of the left breast. This was reviewed personally with Dr. Browne and stereotactic core biopsy of 2 areas of calcification in the upper outer quadrant region and in the midportion of the left breast were recommended. The patient feels slight nodular fullness in her lateral left breast noted after the mammogram. She has undergone cyst aspiration of the breast in the past. She has had an open biopsy of the right breast in the remote past which was benign. She has not had any recent trauma or infection in the breast. She is not complaining of any nipple discharge or skin changes. Caffeine: 2 cups/day nicotine: 10 cigarettes/day, since a teenages chocolate: occasional BCP: none hormones: less than 1 year, caused anxiety Family History: maternal grandmother: breast cancer Hormonal History: menarche: 14 M1 age at first : 24, breast fed: no menopause: 44 Surgical History: right breast biopsy thyroid lobectomy gallbladder D&C hysterectomy/cystocele tonsil left thumb aortic valve replacement Medical History: hypothyroid HTN aspirin Social History: nicotine: as above alcohol: wine daily drugs: Marijuana Gummies to relieve arthritis pain - Constitutional Constitutional: Denies chills, Denies fever - EENT Eyes: denies blurred vision, denies pain Ears: deny: decreased hearing, tinnitus Ears, nose, mouth and throat: Denies headache, Denies sore throat - Breasts Breasts: bilateral: as per HPI - Cardiovascular Cardiovascular: Reports as per HPI - Respiratory Respiratory: Denies cough, Denies 7 - Gastrointestinal Gastrointestinal: Denies abdominal pain, Denies diarrhea, Denies nausea, Denies vomiting - Genitourinary (Female) Genitourinary: Denies dysuria, Denies hematuria - Menstruation Menstruation: Reports as per HPI - Musculoskeletal Comment: arthritis - Integumentary Integumentary: Denies pruritus, Denies rash - Neurological Neurological: Denies numbness, Denies weakness - Psychiatric Psychiatric: Denies anxiety, Denies depression - Endocrine Endocrine: Denies fatigue, Denies weight change - Hematologic/Lymphatic Hematologic/Lymphatic: Reports as per HPI - Allergic/Immunologic Allergic/Immunologic: Reports seasonal allergies Past Medical History Past Medical History: COPD, Pneumonia, Rheumatoid Arthritis (RA), Skin Disorder, Thyroid Disorder Additional Past Medical History / Comment(s): pernicious anemia, eczema, gets rash over eyes, History of Any Multi-Drug Resistant Organisms: None Reported Past Surgical History: Breast Surgery, Cardiac Valve Replacement, Cholecystectomy, Hysterectomy, Tonsillectomy Additional Past Surgical History / Comment(s): left thyroid lobectomy, aortic valve replacement 2018, multiple D&C, left breast fibroid removed, hysterectomy with cystocele surgery, Past Anesthesia/Blood Transfusion Reactions: Motion Sickness Past Drug Use History: None Reported - Past Family History Father Additional Family Medical History / Comment(s): enlarged heart, valve replacement Mother Family Medical History: No Reported History Medications and Allergies Home Medications Medication Instructions Recorded Confirmed Type Cyanocobalamin [Vitamin B-12 1,000 mcg SQ Q14D 10/10/18 09/18/23 History Injection] Escitalopram [Lexapro] 20 mg PO HS 10/10/18 09/18/23 History Levothyroxine Sodium [Synthroid] 75 mcg PO DAILY 11/27/18 09/18/23 History Aspirin [Adult Low Dose Aspirin EC] 81 mg PO DAILY 05/07/20 09/18/23 History Pedi Multivit No.25/Folic Acid 2 tab PO DAILY 05/07/20 09/18/23 History [Flintstones Multivit Chew Tab] amLODIPine [Norvasc] 2.5 mg PO DAILY 09/18/23 09/18/23 History Allergies Allergy/AdvReac Type Severity Reaction Status Date / Time Penicillins Allergy Rash/Hives Verified 05/11/20 10:50 codeine AdvReac Nausea & Verified 05/11/20 10:50 Vomiting morphine AdvReac Nausea & Verified 09/18/23 12:17 Vomiting prednisone AdvReac Rapid Verified 05/11/20 10:50 Heart Rate Surgical - Exam - General no distress - Eyes normal ocular movement - Neck trachea midline - Respiratory normal respiratory effort, clear to auscultation - Cardiovascular Heart Sounds: normal: S1, S2 - Abdomen Abdomen: soft, non tender, no guarding, no rigid, no rebound - Integumentary normal turgor - Neurologic no disoriented, no combative - Musculoskeletal normal gait, normal posture - Psychiatric oriented to time, oriented to person, oriented to place, speech is normal, memory intact Breast Exam: BRA: 42D Inspection: Bilateral grade 3 ptosis, well-healed scar mid chest from valve replacement Palpation: Right breast: Multi positional exam fibrocystic changes no dominant masses or nodules of concern Right axilla: No adenopathy of concern Left breast: Multi positional exam fibrocystic changes no dominant masses or nodules of concern Left axilla: No adenopathy of concern Results Mammogram reviewed personally with Dr. Browne, 2 areas of microcalcification to target for stereotactic core biopsy, additionally there is some questionable nodularity in the lateral aspect of the left breast seen on the mediolateral view, depending on results of the stereo biopsy it may be necessary to further evaluate this area Assessment and Plan Assessment: Impression: Radiographic abnormality left breast Prior aortic valve replacement Hypothyroid Plan: Stereotactic core biopsy 2 sites left breast, questionable area of density in the left breast associated near one of the areas of microcalcification depending on results of the biopsy further radiographic evaluation of this area may be necessary Risk and benefits of the procedure discussed with the patient and her daughter. Risk include but are not limited to bleeding, infection, reaction to the anesthetic. If adequate tissue acquisition were not obtained then further tissue acquisition may be necessary. They understand and wish to proceed. CC: Dr. Ernandez
--- NOTE | 2023-10-04 09:25 | P.PCN ---
Date of Procedure: 10/04/23 Preoperative Diagnosis: Microcalcifications of concern left breast Postoperative Diagnosis: Same Procedure(s) Performed: Stereotactic core biopsy microcalcifications of concern 2 sites left breast inferior and superior Anesthesia: local Surgeon: Laura Leiva Pathology: other (Breast tissue 2 sites/radiograph of specimen reveals calcifications from each site) Condition: stable Disposition: same day Indications for Procedure: Microcalcifications of concern 2 sites left breast Operative Findings: Radiograph of specimen reveals microcalcifications 2 sites left breast Description of Procedure: The patient was seen and examined prior to the procedure. On examination no dominant masses or nodules of concern were identified in either breast. Risk and benefits of the procedure were discussed with the patient. Risk include but were not limited to bleeding, infection, reaction to the anesthetic. If the lesion could not be seen on the radiograph it would not be possible for the lesion to be targeted. Additionally if there was discordance in the biopsy specimen further tissue acquisition may be necessary. The patient and her daughter understood and she wished to proceed. The patient was taken to the stereotactic core biopsy room. A lesion in the lateral inferior left breast was targeted. She was positioned in the upright chair. A crusher loader operator film was obtained. A lateral to medial approach was utilized. 2 areas of concern were identified in the breast. The more inferior area was targeted initially. The lesion was identified. The lesion was targeted. The breast was prepped using Hibiclens. 16 cc of 1% lidocaine was used to anesthetize the area of concern. A 9 gauge vacuum-assisted core rotating biopsy needle was driven to the correct coordinates. A prefire film was obtained. The needle was noted to be in the correct location. 12 core biopsy specimens were obtained. Radiograph of the specimens revealed the microcalcifications of concern in the specimen. A secure jenna Top-Hat clip was placed. The clip was noted to be in the correct location. The second area of concern in the upper lateral left breast was targeted. A lateral to medial approach was utilized. A crusher loader operator film was obtained. The lesion of concern was identified. The lesion was targeted. A 9 gauge vacuum-assisted core rotating biopsy needle was driven to the correct coordinates. A prefire film was obtained. The needle was noted to be in the correct location. 12 core biopsy specimens were obtained. Radiograph of the specimens revealed the microcalcifications of concern in the specimen. A Tri Jenna bowtie clip was placed. The clip was noted to be in the correct location. The patient tolerated the procedure in stable condition. She will follow-up with Dr. Morocho in 1 week. The specimen is sent to pathology. A postbiopsy radiograph will be done to confirm placement of the clips in the correct location.
--- NOTE | 2023-10-04 11:04 | MM ---
Date of Procedure: 10/04/23 Preoperative Diagnosis: Microcalcifications of concern left breast Postoperative Diagnosis: Same Procedure(s) Performed: Stereotactic core biopsy microcalcifications of concern 2 sites left breast inferior and superior Anesthesia: local Surgeon: Laura Leiva Pathology: other (Breast tissue 2 sites/radiograph of specimen reveals calcifications from each site) Condition: stable Disposition: same day Indications for Procedure: Microcalcifications of concern 2 sites left breast Operative Findings: Radiograph of specimen reveals microcalcifications 2 sites left breast Description of Procedure: The patient was seen and examined prior to the procedure. On examination no dominant masses or nodules of concern were identified in either breast. Risk and benefits of the procedure were discussed with the patient. Risk include but were not limited to bleeding, infection, reaction to the anesthetic. If the lesion could not be seen on the radiograph it would not be possible for the lesion to be targeted. Additionally if there was discordance in the biopsy specimen further tissue acquisition may be necessary. The patient and her daughter understood and she wished to proceed. The patient was taken to the stereotactic core biopsy room. A lesion in the lateral inferior left breast was targeted. She was positioned in the upright chair. A procurement representative film was obtained. A lateral to medial approach was utilized. 2 areas of concern were identified in the breast. The more inferior area was targeted initially. The lesion was identified. The lesion was targeted. The breast was prepped using Hibiclens. 16 cc of 1% lidocaine was used to anesthetize the area of concern. A 9 gauge vacuum-assisted core rotating biopsy needle was driven to the correct coordinates. A prefire film was obtained. The needle was noted to be in the correct location. 12 core biopsy specimens were obtained. Radiograph of the specimens revealed the microcalcifications of concern in the specimen. A secure jenna Top-Hat clip was placed. The clip was noted to be in the correct location. The second area of concern in the upper lateral left breast was targeted. A lateral to medial approach was utilized. A procurement representative film was obtained. The lesion of concern was identified. The lesion was targeted. A 9 gauge vacuum-assisted core rotating biopsy needle was driven to the correct coordinates. A prefire film was obtained. The needle was noted to be in the correct location. 12 core biopsy specimens were obtained. Radiograph of the specimens revealed the microcalcifications of concern in the specimen. A Tri Jenna bowtie clip was placed. The clip was noted to be in the correct location. The patient tolerated the procedure in stable condition. She will follow-up with Dr. Morocho in 1 week. The specimen is sent to pathology. A postbiopsy radiograph will be done to confirm placement of the clips in the correct location. MIA
== END ==
LOC: RADMAMWWP 07:14
PROVIDERS: ATTEND Surgery
DX: D05.12 Intraductal carcinoma in situ of left breast (principal)
CPT/HCPCS: 88305; 88342; 88341; 19081; 19082; A4648

== ENCOUNTER → 2023-10-12 | Outpatient (CLI) | payer MEDICARE ==
--- NOTE | 2023-10-12 11:35 | P.PN ---
Subjective Progress Note Date: 10/12/23 Principal diagnosis: DCIS left breast Microcalcifications of concern left breast Betina is a 73-year-old white female seen in consultation for Dr. Ernandez regarding an abnormal left breast mammogram. She underwent a bilateral screening mammogram on 09-13-2023. This led to a diagnostic mammogram of the left breast. This was performed on 09-18-2023. This revealed microcalcifications of concern in the upper outer quadrant region of the left breast. This was reviewed personally with Dr. Browne and stereotactic core biopsy of 2 areas of calcification in the upper outer quadrant region and in the midportion of the left breast were recommended. The patient feels slight nodular fullness in her lateral left breast noted after the mammogram. She has undergone cyst aspiration of the breast in the past. She has had an open biopsy of the right breast in the remote past which was benign. She has not had any recent trauma or infection in the breast. She is not complaining of any nipple discharge or skin changes. post stero biopsy + for high grade DCIS, spans about 5 cm by [address] Martin; ER-, Pr-, she tolerated the procedure well Caffeine: 2 cups/day nicotine: 10 cigarettes/day, since a teenages chocolate: occasional BCP: none hormones: less than 1 year, caused anxiety Family History: maternal grandmother: breast cancer Hormonal History: menarche: 14 M1 age at first : 24, breast fed: no menopause: 44 Surgical History: right breast biopsy thyroid lobectomy gallbladder D&C hysterectomy/cystocele tonsil left thumb aortic valve replacement Medical History: hypothyroid HTN aspirin Social History: nicotine: as above alcohol: wine daily drugs: Marijuana Gummies to relieve arthritis pain - Constitutional Constitutional: Denies chills, Denies fever - EENT Eyes: denies blurred vision, denies pain Ears: deny: decreased hearing, tinnitus Ears, nose, mouth and throat: Denies headache, Denies sore throat - Breasts Breasts: bilateral: as per HPI - Cardiovascular Cardiovascular: Reports as per HPI - Respiratory Respiratory: Denies cough, Denies 7 - Gastrointestinal Gastrointestinal: Denies abdominal pain, Denies diarrhea, Denies nausea, Denies vomiting - Genitourinary (Female) Genitourinary: Denies dysuria, Denies hematuria - Menstruation Menstruation: Reports as per HPI - Musculoskeletal Comment: arthritis - Integumentary Integumentary: Denies pruritus, Denies rash - Neurological Neurological: Denies numbness, Denies weakness - Psychiatric Psychiatric: Denies anxiety, Denies depression - Endocrine Endocrine: Denies fatigue, Denies weight change - Hematologic/Lymphatic Hematologic/Lymphatic: Reports as per HPI - Allergic/Immunologic Allergic/Immunologic: Reports seasonal allergies Past Medical History Past Medical History: COPD, Pneumonia, Rheumatoid Arthritis (RA), Skin Disorder, Thyroid Disorder Additional Past Medical History / Comment(s): pernicious anemia, eczema, gets rash over eyes, History of Any Multi-Drug Resistant Organisms: None Reported Past Surgical History: Breast Surgery, Cardiac Valve Replacement, Cholecystectomy, Hysterectomy, Tonsillectomy Additional Past Surgical History / Comment(s): left thyroid lobectomy, aortic valve replacement 2018, multiple D&C, left breast fibroid removed, hysterectomy with cystocele surgery, Past Anesthesia/Blood Transfusion Reactions: Motion Sickness Past Drug Use History: None Reported - Past Family History Father Additional Family Medical History / Comment(s): enlarged heart, valve replacement Mother Family Medical History: No Reported History Medications and Allergies Home Medications Medication Instructions Recorded Confirmed Type Cyanocobalamin [Vitamin B-12 1,000 mcg SQ Q14D 10/10/18 09/18/23 History Injection] Escitalopram [Lexapro] 20 mg PO HS 10/10/18 09/18/23 History Levothyroxine Sodium [Synthroid] 75 mcg PO DAILY 11/27/18 09/18/23 History Aspirin [Adult Low Dose Aspirin EC] 81 mg PO DAILY 05/07/20 09/18/23 History Pedi Multivit No.25/Folic Acid 2 tab PO DAILY 05/07/20 09/18/23 History [Flintstones Multivit Chew Tab] amLODIPine [Norvasc] 2.5 mg PO DAILY 09/18/23 09/18/23 History Allergies Allergy/AdvReac Type Severity Reaction Status Date / Time Penicillins Allergy Rash/Hives Verified 05/11/20 10:50 codeine AdvReac Nausea & Verified 05/11/20 10:50 Vomiting morphine AdvReac Nausea & Verified 09/18/23 12:17 Vomiting prednisone AdvReac Rapid Verified 05/11/20 10:50 Heart Rate Objective - Constitutional General appearance: Present: cooperative - EENT Eyes: Present: EOMI ENT: Present: hearing grossly normal - Neck Neck: Present: normal ROM - Respiratory Respiratory: bilateral: CTA - Cardiovascular Rhythm: regular Heart sounds: normal: S1, S2 - Integumentary Integumentary: Present: normal turgor - Musculoskeletal Musculoskeletal: Present: gait normal - Psychiatric Psychiatric: Present: A&O x's 3, appropriate affect, intact judgment & insight - Additional findings Additional findings: Breast Exam: BRA: 42D Inspection: Bilateral grade 3 ptosis, well-healed scar mid chest from valve replacement Palpation: Right breast: Multi positional exam fibrocystic changes no dominant masses or nodules of concern Right axilla: No adenopathy of concern Left breast: Multi positional exam fibrocystic changes no dominant masses or nodules of concern Left axilla: No adenopathy of concern Left breast post stereo biopsy changes mild ecchymosis no evidence of hematoma or infection Assessment and Plan Assessment: Impression: Radiographic abnormality left breast; 5 centimeters by 5 cm when reviewed with Dr. Browne Prior aortic valve replacement Hypothyroid Plan: presentation of case at tumor board Pathology as well as operative choices discussed with the patient. At this time she would prefer to save her breast if possible. CC: Dr. Ernandez
[2023-10-12 12:05] VITALS: BP 157/82; PULSE 61; RESP 17; TEMP 98.3
== END ==
LOC: WWCWWP 11:14
PROVIDERS: ATTEND Surgery
DX: E03.9 Hypothyroidism, unspecified (principal); J44.9 Chronic obstructive pulmonary disease, unspecified; M06.9 Rheumatoid arthritis, unspecified; J18.9 Pneumonia, unspecified organism; M19.90 Unspecified osteoarthritis, unspecified site; F12.90 Cannabis use, unspecified, uncomplicated; Z90.49 Acquired absence of other specified parts of digestive tract; Z90.710 Acquired absence of both cervix and uterus; Z98.84 Bariatric surgery status; Z79.890 Hormone replacement therapy; Z88.0 Allergy status to penicillin; Z88.5 Allergy status to narcotic agent; Z88.8 Allergy status to other drugs, medicaments and biological substances; Z95.2 Presence of prosthetic heart valve; Z79.82 Long term (current) use of aspirin; Z87.891 Personal history of nicotine dependence

== ENCOUNTER → 2023-12-04 | Outpatient (CLI) | payer MEDICARE ==
[2023-12-04 16:14] LABS: BUN/Creat Ratio 18.38 Ratio (12.00-20.00); Blood Urea Nitrogen 14.7 mg/dL (9.0-27.0); Calcium 9.8 mg/dL (8.7-10.3); Carbon Dioxide 23.2 mmol/L (21.6-31.8); Chloride 104 mmol/L (96-109); Glucose 150 mg/dL (70-110); Potassium 4.6 mmol/L (3.5-5.5); Sodium 141 mmol/L (135-145)
[2023-12-04 17:36] LABS: INR 0.99 sec (0.93-1.11); Prothrombin Time 10.7 sec (9.9-11.9)
[2023-12-04 17:54] LABS: HGB 12.4 g/dL (12.0-15.0); MCH 27.7 pg (27.0-32.0); MCV 89.5 FL (80.0-97.0); Mean Platelet Volume 11.4 FL (9.5-12.2); NRBC Per 100 WBC 0 X 10*3/uL (0.00-0.01); Platelet Count 295 X 10*3/uL (140-440); RBC 4.47 X 10*6/uL (4.10-5.20); RDW 15.9 % (11.5-14.5); WBC 8.52 X 10*3/uL (4.50-10.00)
== END | disposition home or self-care (01) ==
LOC: LABWHC1 11:56
PROVIDERS: ATTEND Family Medicine
DX: Z01.812 Encounter for preprocedural laboratory examination (principal)
CPT/HCPCS: 36415; 80048; 85027; 85610

== ENCOUNTER → 2023-12-06 | Outpatient (CLI) | payer MEDICARE ==
--- NOTE | 2023-12-06 11:25 | P.BCPRE ---
History of Present Illness H&P Date: 12/06/23 Chief Complaint: DCIS left breast Plan: presentation of case at tumor board clearance with cardiology clearance with DR. Ernandez Left breast bracketed needle localization 5 cm area of high-grade DCIS, left sentinel node injection, left sentinel node biopsy, possible left axillary node dissection, possible oncoplastic tissue transfer Subjective Progress Note Date: 12-06-23 Principal diagnosis: DCIS left breast Microcalcifications of concern left breast Betina is a 73-year-old white female seen in consultation for Dr. Ernandez regarding an abnormal left breast mammogram. She underwent a bilateral screening mammogram on 09-13-2023. This led to a diagnostic mammogram of the left breast. This was performed on 09-18-2023. This revealed microcalcifications of concern in the upper outer quadrant region of the left breast. This was reviewed personally with Dr. Browne and stereotactic core biopsy of 2 areas of calcification in the upper outer quadrant region and in the midportion of the left breast were recommended. The patient feels slight nodular fullness in her lateral left breast noted after the mammogram. She has undergone cyst aspiration of the breast in the past. She has had an open biopsy of the right breast in the remote past which was benign. She has not had any recent trauma or infection in the breast. She is not complaining of any nipple discharge or skin changes. post stero biopsy left breast + for high grade DCIS, spans about 5 cm by [address] Martin; ER-, Pr-, she tolerated the procedure well Caffeine: 2 cups/day nicotine: 10 cigarettes/day, since a teenages chocolate: occasional BCP: none hormones: less than 1 year, caused anxiety Family History: maternal grandmother: breast cancer Hormonal History: menarche: 14 M1 age at first : 24, breast fed: no menopause: 44 Surgical History: right breast biopsy thyroid lobectomy gallbladder D&C hysterectomy/cystocele tonsil left thumb aortic valve replacement Medical History: hypothyroid HTN aspirin Social History: nicotine: as above alcohol: wine daily drugs: Marijuana Gummies to relieve arthritis pain - Constitutional Constitutional: Denies chills, Denies fever - EENT Eyes: denies blurred vision, denies pain Ears: deny: decreased hearing, tinnitus Ears, nose, mouth and throat: Denies headache, Denies sore throat - Breasts Breasts: bilateral: as per HPI - Cardiovascular Cardiovascular: Reports as per HPI - Respiratory Respiratory: Denies cough - Gastrointestinal Gastrointestinal: Denies abdominal pain, Denies diarrhea, Denies nausea, Denies vomiting - Genitourinary (Female) Genitourinary: Denies dysuria, Denies hematuria - Menstruation Menstruation: Reports as per HPI - Musculoskeletal Comment: arthritis - Integumentary Integumentary: Denies pruritus, Denies rash - Neurological Neurological: Denies numbness, Denies weakness - Psychiatric Psychiatric: Denies anxiety, Denies depression - Endocrine Endocrine: Denies fatigue, Denies weight change - Hematologic/Lymphatic Hematologic/Lymphatic: Reports as per HPI - Allergic/Immunologic Allergic/Immunologic: Reports seasonal allergies Past Medical History Past Medical History: COPD, Pneumonia, Rheumatoid Arthritis (RA), Skin Disorder, Thyroid Disorder Additional Past Medical History / Comment(s): pernicious anemia, eczema, gets rash over eyes, History of Any Multi-Drug Resistant Organisms: None Reported Past Surgical History: Breast Surgery, Cardiac Valve Replacement, Cholecystectomy, Hysterectomy, Tonsillectomy Additional Past Surgical History / Comment(s): left thyroid lobectomy, aortic valve replacement 2018, multiple D&C, left breast fibroid removed, hysterectomy with cystocele surgery, Past Anesthesia/Blood Transfusion Reactions: Motion Sickness Past Drug Use History: None Reported - Past Family History Father Additional Family Medical History / Comment(s): enlarged heart, valve replacement Mother Family Medical History: No Reported History Medications and Allergies Home Medications Medication Instructions Recorded Confirmed Type Cyanocobalamin [Vitamin B-12 1,000 mcg SQ Q14D 10/10/18 09/18/23 History Injection] Escitalopram [Lexapro] 20 mg PO HS 10/10/18 09/18/23 History Levothyroxine Sodium [Synthroid] 75 mcg PO DAILY 11/27/18 09/18/23 History Aspirin [Adult Low Dose Aspirin EC] 81 mg PO DAILY 05/07/20 09/18/23 History Pedi Multivit No.25/Folic Acid 2 tab PO DAILY 05/07/20 09/18/23 History [Flintstones Multivit Chew Tab] amLODIPine [Norvasc] 2.5 mg PO DAILY 09/18/23 09/18/23 History Allergies Allergy/AdvReac Type Severity Reaction Status Date / Time Penicillins Allergy Rash/Hives Verified 05/11/20 10:50 codeine AdvReac Nausea & Verified 05/11/20 10:50 Vomiting morphine AdvReac Nausea & Verified 09/18/23 12:17 Vomiting prednisone AdvReac Rapid Verified 05/11/20 10:50 Heart Rate Consent for Procedure: I have explained the operation/procedure to the patient, including the risks, benefits, side effects, alternative therapies (including not receiving the proposed treatment or service), the likelihood of the patient achieving his/her goals, and potential recuperation problems for the procedure/sedation/analgesia, as well as any blood products, if indicated. I also explained to the patient the risks, benefits and side effects of the alternatives, as well as the risks related to not receiving the proposed procedure, care, treatment, or services. Past Medical History Past Medical History: COPD, Pneumonia, Rheumatoid Arthritis (RA), Skin Disorder, Thyroid Disorder Additional Past Medical History / Comment(s): pernicious anemia, eczema, gets rash over eyes, History of Any Multi-Drug Resistant Organisms: None Reported Past Surgical History: Breast Surgery, Cardiac Valve Replacement, Cholecystectomy, Hysterectomy, Tonsillectomy Additional Past Surgical History / Comment(s): left thyroid lobectomy, aortic valve replacement 2019, multiple D&C, left breast fibroid removed, hysterectomy with cystocele surgery, Past Anesthesia/Blood Transfusion Reactions: Motion Sickness Past Psychological History: Anxiety Smoking Status: Current every day smoker Past Alcohol Use History: Daily Additional Past Alcohol Use History / Comment(s): 1/2 PPD, started smoking age 18. 1 glass wine daily Past Drug Use History: None Reported Additional Drug Use History / Comment(s): THC gummy for sleep and pain - Past Family History Father Additional Family Medical History / Comment(s): enlarged heart, valve replacement Mother Family Medical History: No Reported History Medications and Allergies Home Medications Medication Instructions Recorded Confirmed Type Cyanocobalamin [Vitamin B-12 1,000 mcg SQ Q14D 10/10/18 12/06/23 History Injection] Levothyroxine Sodium [Synthroid] 75 mcg PO DAILY 11/27/18 12/06/23 History Aspirin [Adult Low Dose Aspirin EC] 81 mg PO DAILY 05/07/20 12/06/23 History Pedi Multivit No.25/Folic Acid 2 tab PO DAILY 05/07/20 12/06/23 History [Flintstones Multivit Chew Tab] amLODIPine [Norvasc] 2.5 mg PO DAILY 09/18/23 12/06/23 History Allergies Allergy/AdvReac Type Severity Reaction Status Date / Time Penicillins Allergy Rash/Hives Verified 12/06/23 11:02 codeine AdvReac Nausea & Verified 12/06/23 11:02 Vomiting morphine AdvReac Nausea & Verified 12/06/23 11:02 Vomiting prednisone AdvReac Rapid Verified 12/06/23 11:02 Heart Rate Physical Exam - Constitutional General appearance: Reports cooperative - EENT Eyes: Reports normal appearance ENT: Reports hearing grossly normal - Neck Neck: Reports normal ROM - Breast Breast - Narrative: Breast Exam: BRA: 42D Inspection: Bilateral grade 3 ptosis, well-healed scar mid chest from valve replacement Palpation: Right breast: Multi positional exam fibrocystic changes no dominant masses or nodules of concern Right axilla: No adenopathy of concern Left breast: Multi positional exam fibrocystic changes no dominant masses or nodules of concern Left axilla: No adenopathy of concern Left breast post stereo biopsy changes mild ecchymosis no evidence of hematoma or infection - Respiratory Respiratory: bilateral: CTA - Cardiovascular Cardiac: Reports regulatory rate - Gastrointestinal General gastrointestinal: Reports soft - Integumentary Integumentary: Reports normal turgor - Musculoskeletal Musculoskeletal: Reports gait normal - Psychiatric Psychiatric: Reports A&O x's 3 - Additional Findings Additional findings: Breast Exam: BRA: 42D Inspection: Bilateral grade 3 ptosis, well-healed scar mid chest from valve replacement Palpation: Right breast: Multi positional exam fibrocystic changes no dominant masses or nodules of concern Right axilla: No adenopathy of concern Left breast: Multi positional exam fibrocystic changes no dominant masses or nodules of concern Left axilla: No adenopathy of concern Left breast post stereo biopsy resolved ecchymosis no evidence of hematoma or infection Assessment and Plan Assessment: Impression: Radiographic abnormality left breast; 5 centimeters by 5 cm when reviewed with Dr. Browne Prior aortic valve replacement Hypothyroid Plan: presentation of case at tumor board/done 10-23-23 pre-op clearance Dr. Ernandez Pathology as well as operative choices discussed with the patient. At this time she would prefer to save her breast if possible. Functional assessment done Pre-op education CC: Dr. Ernandez
[2023-12-06 11:26] VITALS: BP 133/80; PULSE 79; RESP 16; TEMP 97.8
== END ==
LOC: WWCWWP 10:15
PROVIDERS: ATTEND Surgery
DX: R92.8 Other abnormal and inconclusive findings on diagnostic imaging of breast (principal); R92.0 Mammographic microcalcification found on diagnostic imaging of breast; E03.9 Hypothyroidism, unspecified; D05.12 Intraductal carcinoma in situ of left breast; N63.20 Unspecified lump in the left breast, unspecified quadrant; Z95.2 Presence of prosthetic heart valve; Z80.3 Family history of malignant neoplasm of breast; F17.210 Nicotine dependence, cigarettes, uncomplicated; Z98.890 Other specified postprocedural states; Z88.0 Allergy status to penicillin; Z88.5 Allergy status to narcotic agent; Z88.8 Allergy status to other drugs, medicaments and biological substances; Z79.890 Hormone replacement therapy

== ENCOUNTER 2023-12-18 08:38 | Day surgery (SDC) | payer MEDICARE ==
[~2023-12-18 08:38] MED LIST changes: -LACTATED RINGERS 1,000 ML IV SCH; +MIDAZOLAM 2 MG/2 ML VIAL IV PRN; +fentaNYL (PF) 50 MCG/ML 2 ML AMP IV PRN
[2023-12-18] MEDS: LACTATED RINGERS 1,000 ML IV SCH (09:16)
[2023-12-18] MEDS: ONDANSETRON 4 MG/2 ML VIAL IVP ONE (09:40)
[2023-12-18] MEDS: ACETAMINOPHEN TAB 500 MG TAB PO PRN (09:40)
[2023-12-18] MEDS ORDERED: ALPRAZolam 0.25 MG TAB ONE (09:42)
[2023-12-18] MEDS: ALPRAZolam 0.25 MG TAB PO ONE (09:43)
[2023-12-18] MEDS: LIDOCAINE 1% INJ 10MG/ML (20 ML MDV) SQ ONE ×3 (10:58→13:51)
[2023-12-18] MEDS: HEPARIN SODIUM,PORCINE 5,000 UNIT/ML 1 ML VIAL SQ PRN (11:40)
--- NOTE | 2023-12-18 11:42 | P.NAPBC ---
NAPBC Queries - NAPBC Queries Was patient's case review presented at [facility] tumor board? If no, comment.: Yes Was patient's pathology reviewed at [facility]? If no, comment.: Yes Was breast conservation surgery offered? If no, comment.: Yes Was sentinel node biopsy offered? If no, comment.: Yes Was diagnosis confirmed by percutaneous core biopsy? If no, comment.: Yes Is patient mastectomy patient?: No Was a preop referral to reconstructive surgeon offered?: No Clinical Stage: Left breast high-grade DCIS approximately 5 cm
[2023-12-18] MEDS ORDERED: ePHEDrine 50 MG/ML 1 ML VIAL ONE (12:14)
[2023-12-18] MEDS ORDERED: PHENYLEPHRINE 10 MG/ML VIAL ONE (12:14)
[2023-12-18] MEDS ORDERED: fentaNYL (PF) 50 MCG/ML 2 ML AMP ONE (12:14)
[2023-12-18] MEDS ORDERED: PROPOFOL 10 MG/ML 20 ML VIAL IV ONE (12:14)
[2023-12-18] MEDS ORDERED: LIDOCAINE 1% INJ 10MG/ML (20 ML MDV) ONE (12:14)
[2023-12-18] MEDS ORDERED: MIDAZOLAM 2 MG/2 ML VIAL ONE (12:14)
--- NOTE | 2023-12-18 13:55 | P.BCAON ---
Date of Procedure: 12/18/23 Preoperative Diagnosis: left breast DCIS, extensive Postoperative Diagnosis: same Procedure(s) Performed: left breast needle localization lumpectomy, 67 cm oncoplastic tissue transfer, left sentinel node biopsy Anesthesia: ALEXANDRE Surgeon: Laura Leiva Estimated Blood Loss (ml): 5 IV fluids (ml): 700 Pathology: other (Breast tissue and sentinel node) Condition: stable Disposition: same day Indications for Procedure: Biopsy-proven left breast ductal carcinoma in situ Operative Findings: Fibrofatty breast tissue Description of Procedure: The patient was seen first in the radiology department. Trifurcation of the area of concern in the left breast was performed with needle localization. Radiotracer was injected in the periareolar region. The patient was brought up to the operative suite week. Following induction of anesthesia the neoprobe was used to interrogate the axilla. Radioactivity was detected. The patient was then prepped and draped in a sterile fashion. The axilla was approached initially. Using the neoprobe the area of greatest radioactivity was identified. An incision was made and carried down to the axillary tissue. The tissue was grasped using an Allis clamp. This was dissected free using the harmonic scalpel. A radioactive lymph node was identified and removed. The 10- second count on the lymph node was 2525. The 10-second background count was 3. No other palpable or radioactive lymph nodes of concern were identified. After we are sure that hemostasis was attained the deep tissues were closed using 3-0 Vicryl suture. The skin was closed using 4-0 Monocryl. The area of the breast was approached. An incision was made laterally in the breast between the 3 needles which had been localizing the area of concern. A triangular shaped wedge of tissue was resected. The specimen was 7 x 4 cm. The lesion was removed and painted for orientation. Radiograph revealed the area of concern to been removed. The dissection posterior was onto the pectoralis muscle. After we are sure that hemostasis was attained a superior pillar 5 x 3 cm was formed. An inferior pillar 8 x 3 cm was performed. Titanium clips were placed, prior to closure of the pillars. Surgicel in powder form was placed prior to closure of the pillars. The pillars were brought together to close the defect. Total oncoplastic tissue transfer 67 cm. The skin was closed using 4-0 Monocryl. 10 cc of 1% lidocaine were used to anesthetize the incision. The patient tolerated the procedure in stable condition. All instrument and sponge counts were correct at the end of the case. - Sentinal Node Biopsy Operation performed with curative intent: Yes Tracer(s) used in upfront surgery (non-neoadjuvant): radioactive tracer Tracer(s) used in the neoadjuvant setting: N/A All nodes present at end of dye-filled channel removed: N/A All significantly radioactive nodes were removed: Yes All palpably suspicious nodes were removed: Yes Clipped positive nodes identified and removed: N/A
[2023-12-18] MEDS: LACTATED RINGERS 1,000 ML IV ONE (14:08)
[2023-12-18 14:46] VITALS: TEMP 97.3
--- NOTE | 2023-12-18 15:12 | NM ---
EXAMINATION TYPE: NM sentinel node injection DATE OF EXAM: 12/18/2023 COMPARISON: NONE INDICATION: Abnormal mammogram. Informed consent was obtained. A timeout was performed. The area around the left nipple was cleansed with alcohol. In a single dose, a total of 500.0 uCi T echnetium 99m Tilmanocept was injected. The patient tolerated the procedure very well. IMPRESSION: 1. Successful injection for sentinel node evaluation.
[2023-12-18 15:31] VITALS: BP 11/69; PULSE 70
[2023-12-18 15:32] VITALS: RESP 16
--- NOTE | 2024-01-01 09:13 | MM ---
Pathology Description: Location: posterior. Approach: Lateral to Medial Needle Type: 7 cm Kopan 3 wires inserted...A anterior 7 kopan....B posterior 9 kopan ....C inferior 9 kopan The needle localization procedure with wire placement for surgical excision was explained to the patient. Benefits, alternatives, and risks were discussed. An informed consent was then obtained. A timeout was performed. The overlying skin was prepped in usual sterile fashion. Lidocaine was used as anesthetic into the skin and subcutaneous tissue up to the level of area of concern. Calcifications were bracketed in the AP direction by 2 needles 9 cm posterior labeled B and 7 cm anterior, labeled B. The prior biopsy site more inferior heavy 9 cm needle placed and was labeled C. Site A was marked with a single BB. Site B was marked with 2 BBs. Site was marked with 3 BBs. [place] were placed using a lateral approach under mammographic guidance. Subsequent 90 degrees mammogram show the needle to be in satisfactory position relative to the targeted area. The wires were placed and the needles was withdrawn. The wires were fixed to patient's skin. Images were marked for surgeon. Images and positioning as well as labeling were discussed with the referring surgeon prior to surgery. The patient tolerated the procedure well without any immediate complication. The patient was kept in the radiology department for short stay after the procedure and then taken to surgery for surgical excision. Specimen: Biopsy markers and wires are identified in specimen mammogram. Impression: 1. Successful bracketing needle localization with wire placement and surgical excision of biopsy markers. Pathology Results: Result: Malignant, Ductal carcinoma in situ, comedo type. Pathology and radiology were reviewed. Findings are concordant. A. SENTINEL LYMPH NODE LEFT BREAST: Lymph node negative for metastasis. CK7 immunostain performed on block A1, LEV immunostain performed on block A2 and CKAE1/3 stain performed on block A3 are confirmatory (controls appropriate). B. ADDITIONAL AXILLARY TISSUE: Benign fibroadipose tissue. No lymph node is identified. C. LEFT BREAST, LUMPECTOMY: High grade ductal carcinoma in situ (DCIS) with comedo necrosis and calcifications. Focal lobular neoplasia (ALH/LCIS) associated with flat epithelial atypia/atypical ductal hyperplasia (FEA/ADH) with calcifications. Margins negative for DCIS or ductal atypia. Background fibrocystic changes, previous biopsy site and fibrosis/scar. See Surgical Pathology Cancer Case Summary and Comment. Overall Assessment: Malignant Management: Surgical Consultation of the left breast. Electronically signed and approved by: José Luis Finnegan D.O. Radiologis
== END 2023-12-18 15:34 | disposition home or self-care (01) ==
LOC: OR 08:38
PROVIDERS: ATTEND Surgery
DX: D05.12 Intraductal carcinoma in situ of left breast (principal); N64.1 Fat necrosis of breast; I10 Essential (primary) hypertension; J44.9 Chronic obstructive pulmonary disease, unspecified; M06.9 Rheumatoid arthritis, unspecified; E07.9 Disorder of thyroid, unspecified; F17.210 Nicotine dependence, cigarettes, uncomplicated; Z79.890 Hormone replacement therapy; Z79.899 Other long term (current) drug therapy; Z88.0 Allergy status to penicillin; Z88.5 Allergy status to narcotic agent; Z88.6 Allergy status to analgesic agent
CPT/HCPCS: 88305; 88342; 88307; 88341; 76098; 19281; 38792; 19301; 38500; C1819 ×2; A9520; J2250; J1644; J0690; J2405; J2001; J3010; J2704; J2371

== ENCOUNTER → 2023-12-27 | Outpatient (CLI) | payer MEDICARE ==
--- NOTE | 2023-12-27 11:45 | P.BCPO ---
Progress Note - Text Progress Note Date: 12/27/23 Betina is status post left breast lumpectomy and SNB on 12-19-23. Her pathology showed (-) margins, closest 4mm. The lesions was 36mm DCIS, no invasion. SNB (-). Examination: Lungs: Clear Heart: Regular rate and rhythm Incision breast and axilla clean and dry Seroma present at the lumpectomy site in the breast Following informed consent the area of concern in the left breast will be prepped with alcohol and using a 18-gauge needle on a 20 cc syringe and attempt at fluid aspiration. 180 cc of serous fluid was aspirated. There is no evidence of any infection. There appears to be complete resolution of the seroma Plan: Follow-up 1 week Follow-up medical oncology Follow-up radiation oncology CC: Dr. Ernandez
[2023-12-27 12:10] VITALS: BP 147/78; PULSE 84; RESP 18; TEMP 97.9
== END ==
LOC: WWCWWP 11:07
PROVIDERS: ATTEND Surgery
DX: D05.12 Intraductal carcinoma in situ of left breast (principal); L76.33 Postprocedural seroma of skin and subcutaneous tissue following a dermatologic procedure; Z48.817 Encounter for surgical aftercare following surgery on the skin and subcutaneous tissue; Z98.890 Other specified postprocedural states; Z88.0 Allergy status to penicillin; Z88.5 Allergy status to narcotic agent; Z88.8 Allergy status to other drugs, medicaments and biological substances; Z87.891 Personal history of nicotine dependence

== ENCOUNTER → 2024-01-03 | Outpatient (CLI) | payer MEDICARE ==
--- NOTE | 2024-01-03 11:56 | P.CON ---
Consult Note - . Consult date: 01/03/24 Assessment/Plan:: Betina is status post left breast lumpectomy and SNB on 12-19-23. Her pathology showed (-) margins, closest 4mm. The lesions was 36mm DCIS, no invasion. SNB (- ). A seroma was aspirated on 12-27-23 for 180 cc. Examination: Lungs: Clear Heart: Regular rate and rhythm Incision breast and axilla clean and dry Seroma present at the lumpectomy site in the breast Following informed consent the area of concern in the left breast will be pre pped with alcohol and using a 18-gauge needle on a 20 cc syringe and attempt at fluid aspiration. 190 cc of serous fluid was aspirated. There is no evidence of any infection. There appears to be complete resolution of the seroma Plan: Follow-up 1 week Follow-up medical oncology Follow-up radiation oncology CC: Dr. Ernandez
[2024-01-03 13:08] VITALS: BP 118/72; PULSE 72; RESP 17; TEMP 98.3
== END ==
LOC: WWCWWP 11:00
PROVIDERS: ATTEND Surgery
DX: Z90.12 Acquired absence of left breast and nipple (principal); Z88.0 Allergy status to penicillin; Z88.5 Allergy status to narcotic agent; Z88.8 Allergy status to other drugs, medicaments and biological substances; Z88.1 Allergy status to other antibiotic agents; Z87.891 Personal history of nicotine dependence

== ENCOUNTER → 2024-01-10 | Outpatient (CLI) | payer MEDICARE ==
--- NOTE | 2024-01-10 11:54 | P.PN ---
Subjective Progress Note Date: 01/10/24 01/03/24 Assessment/Plan:: Betina is status post left breast lumpectomy and SNB on 12-19-23. Her pathology showed (-) margins, closest 4mm. The lesions was 36mm DCIS, no invasion. SNB (- ). A seroma was aspirated on 12-27-23 for 180 cc. Examination: Lungs: Clear Heart: Regular rate and rhythm Incision breast and axilla clean and dry Seroma present at the lumpectomy site in the breast Following informed consent the area of concern in the left breast will be prepped with alcohol and using a 18-gauge needle on a 20 cc syringe and attempt at fluid aspiration. 90 cc of serous fluid was aspirated. There is no evidence of any infection. There appears to be complete resolution of the seroma Plan: Follow-up 3 week Follow-up medical oncology Follow-up radiation oncology CC: Dr. Ernandez Objective - Vital Signs Vital signs: Intake & Output 01/09/24 01/10/24 01/10/24 18:59 06:59 18:59 Weight 73.028 kg
[2024-01-10 12:12] VITALS: BP 106/71; PULSE 75; RESP 17; TEMP 98.2
== END ==
LOC: WWCWWP 11:07
PROVIDERS: ATTEND Surgery
DX: Z48.817 Encounter for surgical aftercare following surgery on the skin and subcutaneous tissue (principal); L76.33 Postprocedural seroma of skin and subcutaneous tissue following a dermatologic procedure; Z88.0 Allergy status to penicillin; Z88.5 Allergy status to narcotic agent; Z88.8 Allergy status to other drugs, medicaments and biological substances; Z87.891 Personal history of nicotine dependence; Z98.890 Other specified postprocedural states; Z85.3 Personal history of malignant neoplasm of breast

== ENCOUNTER → 2024-04-01 | Outpatient (CLI) | payer MEDICARE ==
--- NOTE | 2024-05-15 14:39 | WWPCN ---
[facility] - PROCEDURE NOTE Betina is status post a left breast lumpectomy on 12/18/2023. Post procedure, she developed a seroma and was seen in the emergency room last week. At that time, evidently an ultrasound was performed. I do not have access to that information secondary to the computers being down; however, she presents with what appears to be a seroma on today's examination. The patient was seen and evaluated and noted to have a seroma of the left breast. Following informed consent, the patient underwent an aspiration of the seroma. The area was prepped using alcohol. An 18-gauge needle and a 20 mL were used to aspirate 740 mL of straw-colored fluid. The patient's breast was slightly erythematous and she was therefore placed on Keflex. IMPRESSION: 1. Seroma, left breast. 2. Mild erythema. PLAN: 1. Aspiration of seroma. 2. Keflex 500 mg one p.o. q.i.d. 3. The patient to follow up in 1 week. MMODL / IJN: [id number] /
== END ==
LOC: WWCWWP 11:17
PROVIDERS: ATTEND Surgery

== ENCOUNTER → 2024-04-24 | Outpatient (CLI) | payer MEDICARE ==
[2024-04-24 09:00] VITALS: BP 131/79; PULSE 80; RESP 16; TEMP 98.2
--- NOTE | 2024-04-24 09:09 | P.PN ---
Subjective Progress Note Date: 04/24/24 Principal diagnosis: Betina is status post left breast lumpectomy on 12-18-2023. Patient on 12-27-2023 had a seroma of 180 cc aspirated at the lumpectomy site. She then developed another seroma and was seen in the emergency department. At that time an ultrasound was performed and the patient was subsequently seen in the office on 04-01-2024 and a seroma was drained in the left breast. At that time 740 cc of straw-colored fluid was removed. The patient was again seen on 04-10-2024 and noted to have swelling of the left breast. At that time 400 cc of straw-colored fluid was removed. Pathology was a 36 mm area of DCIS with no invasion. All margins were negative. [place] node biopsy was done which was negative. She was seen by radiation oncology on 01-31-2024 and recommended to undergo radiation therapy Note radiation oncology 01-31-2024 reviewed, she decided not to have radiation therapy She was seen by medical oncology but is not having any treatment Patient: Lungs: Clear Heart: Regular rate and rhythm Incision: Clean and dry left breast, mild swelling at the area of the incision site probable small seroma Impression: Patient doing well at this time Plan: Attempted aspiration of seroma cc: Dr. Ernandez Objective - Vital Signs Vital signs: Intake & Output 04/23/24 04/24/24 04/24/24 18:59 06:59 18:59 Weight 73.028 kg
== END ==
LOC: WWCWWP 08:27
PROVIDERS: ATTEND Surgery
DX: Z48.817 Encounter for surgical aftercare following surgery on the skin and subcutaneous tissue (principal); N63.20 Unspecified lump in the left breast, unspecified quadrant; L76.33 Postprocedural seroma of skin and subcutaneous tissue following a dermatologic procedure; Z88.0 Allergy status to penicillin; Z88.5 Allergy status to narcotic agent; Z88.8 Allergy status to other drugs, medicaments and biological substances; Z87.891 Personal history of nicotine dependence

== ENCOUNTER → 2024-05-29 | Outpatient (CLI) | payer MEDICARE ==
[2024-05-29 09:59] VITALS: BP 136/80; PULSE 72; RESP 16; TEMP 97.7
--- NOTE | 2024-05-29 10:17 | P.PN ---
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 Ernandez regarding an abnormal left breast mammogram. She underwent a bilateral screening mammogram on 09-13-2023. This led to a diagnostic mammogram of the left breast. This was performed on 09-18-2023. This revealed micr ocalcifications of concern in the upper outer quadrant region of the left breast. This was reviewed personally with Dr. Browne and stereotactic core biopsy of 2 areas of calcification in the upper outer quadrant region and in the midportion of the left breast were recommended. post stero biopsy left breast + for high grade DCIS, spans about 5 cm by [address] Martin; ER-, Pr-, she tolerated the procedure well statup post left breast lumpectomy and SNB on 12-19-23, her pathology showed (-) margins, 36 mm DCIS, no invasion, SNB (-). seromas aspirated 12-27-23 for 180 cc fluid 01-10-24 90 cc fluid 04-01-24 740 CC fluid 04-10-24 400 cc fluid She was seen by radiation oncology on 01-31-24 and opted not to have radiation therapy medical oncology and no treatment recommended She does have some recurrent swelling at the lumpectomy site on the left. Otherwise she is not complaining of any new lumps masses or nodules of concern in either breast. Caffeine: 2 cups/day nicotine: 10 cigarettes/day, since a teenages chocolate: occasional BCP: none hormones: less than 1 year, caused anxiety Family History: maternal grandmother: breast cancer Hormonal History: menarche: 14 M1 age at first : 24, breast fed: no menopause: 44 Surgical History: right breast biopsy thyroid lobectomy gallbladder D&C hysterectomy/cystocele tonsil left thumb aortic valve replacement Medical History: hypothyroid HTN aspirin Social History: nicotine: as above alcohol: wine daily drugs: Marijuana Gummies to relieve arthritis pain - Constitutional Constitutional: Denies chills, Denies fever - EENT Eyes: denies blurred vision, denies pain Ears: deny: decreased hearing, tinnitus Ears, nose, mouth and throat: Denies headache, Denies sore throat - Breasts Breasts: bilateral: as per HPI - Cardiovascular Cardiovascular: Reports as per HPI - Respiratory Respiratory: Denies cough - Gastrointestinal Gastrointestinal: Denies abdominal pain, Denies diarrhea, Denies nausea, Denies vomiting - Genitourinary (Female) Genitourinary: Denies dysuria, Denies hematuria - Menstruation Menstruation: Reports as per HPI - Musculoskeletal Comment: arthritis - Integumentary Integumentary: Denies pruritus, Denies rash - Neurological Neurological: Denies numbness, Denies weakness - Psychiatric Psychiatric: Denies anxiety, Denies depression - Endocrine Endocrine: Denies fatigue, Denies weight change - Hematologic/Lymphatic Hematologic/Lymphatic: Reports as per HPI - Allergic/Immunologic Allergic/Immunologic: Reports seasonal allergies Past Medical History Past Medical History: COPD, Pneumonia, Rheumatoid Arthritis (RA), Skin Disorder, Thyroid Disorder Additional Past Medical History / Comment(s): pernicious anemia, eczema, gets rash over eyes, History of Any Multi-Drug Resistant Organisms: None Reported Past Surgical History: Breast Surgery, Cardiac Valve Replacement, Cholecystectomy, Hysterectomy, Tonsillectomy Additional Past Surgical History / Comment(s): left thyroid lobectomy, aortic valve replacement 2019, multiple D&C, left breast fibroid removed, hysterectomy with cystocele surgery, Past Anesthesia/Blood Transfusion Reactions: Motion Sickness Past Drug Use History: None Reported - Past Family History Father Additional Family Medical History / Comment(s): enlarged heart, valve replac ement Mother Family Medical History: No Reported History Medications and Allergies Home Medications Medication Instructions Recorded Confirmed Type Cyanocobalamin [Vitamin B-12 1,000 mcg SQ Q14D 10/10/18 09/18/23 History Injection] Escitalopram [Lexapro] 20 mg PO HS 10/10/18 09/18/23 History Levothyroxine Sodium [Synthroid] 75 mcg PO DAILY 11/27/18 09/18/23 History Aspirin [Adult Low Dose Aspirin EC] 81 mg PO DAILY 05/07/20 09/18/23 History Pedi Multivit No.25/Folic Acid 2 tab PO DAILY 05/07/20 09/18/23 History [Flintstones Multivit Chew Tab] amLODIPine [Norvasc] 2.5 mg PO DAILY 09/18/23 09/18/23 History Allergies Allergy/AdvReac Type Severity Reaction Status Date / Time Penicillins Allergy Rash/Hives Verified 05/11/20 10:50 codeine AdvReac Nausea & Verified 05/11/20 10:50 Vomiting morphine AdvReac Nausea & Verified 09/18/23 12:17 Vomiting prednisone AdvReac Rapid Verified 05/11/20 10:50 Heart Rate Past Medical History Past Medical History: COPD, Pneumonia, Rheumatoid Arthritis (RA), Skin Disorder, Thyroid Disorder Additional Past Medical History / Comment(s): pernicious anemia, eczema, gets rash over eyes, History of Any Multi-Drug Resistant Organisms: None Reported Past Surgical History: Breast Surgery, Cardiac Valve Replacement, Cholecystectomy, Hysterectomy, Tonsillectomy Additional Past Surgical History / Comment(s): left thyroid lobectomy, aortic valve replacement 2018, multiple D&C, left breast fibroid removed, hysterectomy with cystocele surgery, Past Anesthesia/Blood Transfusion Reactions: Motion Sickness Past Psychological History: Anxiety Smoking Status: Current every day smoker Past Alcohol Use History: Daily Additional Past Alcohol Use History / Comment(s): 1/2 PPD, started smoking age 18. 1 glass wine daily Past Drug Use History: None Reported Additional Drug Use History / Comment(s): THC gummy for sleep and pain - Past Family History Father Additional Family Medical History / Comment(s): enlarged heart, valve replacement Mother Family Medical History: No Reported History Medications and Allergies Home Medications Medication Instructions Recorded Confirmed Type Cyanocobalamin [Vitamin B-12 1,000 mcg SQ Q14D 10/10/18 12/06/23 History Injection] Levothyroxine Sodium [Synthroid] 75 mcg PO DAILY 11/27/18 12/06/23 History Aspirin [Adult Low Dose Aspirin EC] 81 mg PO DAILY 05/07/20 12/06/23 History Pedi Multivit No.25/Folic Acid 2 tab PO DAILY 05/07/20 12/06/23 History [Flintstones Multivit Chew Tab] amLODIPine [Norvasc] 2.5 mg PO DAILY 09/18/23 12/06/23 History Allergies Allergy/AdvReac Type Severity Reaction Status Date / Time Penicillins Allergy Rash/Hives Verified 12/06/23 11:02 codeine AdvReac Nausea & Verified 12/06/23 11:02 Vomiting morphine AdvReac Nausea & Verified 12/06/23 11:02 Vomiting prednisone AdvReac Rapid Verified 12/06/23 11:02 Heart Rate Objective - Vital Signs Vital signs: Vital Signs Temp 97.7 F 05/29/24 09:23 Pulse 72 05/29/24 09:23 Resp 16 05/29/24 09:23 BP 136/80 05/29/24 09:23 Pulse Ox 97 05/29/24 09:23 FiO2 Intake & Output 05/28/24 05/29/24 05/29/24 18:59 06:59 18:59 Weight 72.575 kg - Constitutional General appearance: Present: cooperative - EENT Eyes: Present: EOMI ENT: Present: hearing grossly normal - Neck Neck: Present: normal ROM - Respiratory Respiratory: bilateral: CTA - Cardiovascular Rhythm: regular Heart sounds: normal: S1, S2 - Integumentary Integumentary: Present: normal turgor - Musculoskeletal Musculoskeletal: Present: gait normal - Psychiatric Psychiatric: Present: A&O x's 3, appropriate affect, intact judgment & insight - Additional findings Additional findings: Breast Exam: BRA: 42D Inspection: Bilateral grade 3 ptosis, well-healed scar mid chest from valve replacement Palpation: Right breast: Multi positional exam fibrocystic changes no dominant masses or nodules of concern Right axilla: No adenopathy of concern Left breast: Multi positional exam fibrocystic changes no dominant masses or nodules of concern, probable seroma left breast UOQ Left axilla: No adenopathy of concern Assessment and Plan Assessment: Impression: DCIS left breast seroma at lumpectomy site Prior aortic valve replacement Hypothyroid Plan: aspiration of seroma left breast bilateral mammogram in August 2024 with appointment CC: Dr. Ernandez
== END ==
LOC: WWCWWP 08:44
PROVIDERS: ATTEND Surgery

== ENCOUNTER → 2024-08-21 | Outpatient (CLI) | payer MEDICARE ==
[2024-08-21 15:32] VITALS: BP 137/76; PULSE 74; RESP 16; TEMP 98.4
--- NOTE | 2024-08-21 15:48 | P.PN ---
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 Ernandez regarding an abnormal left breast mammogram. She underwent a bilateral screening mammogram on 09-13-2023. This led to a diagnostic mammogram of the left breast. This was performed on 09-18-2023. This revealed microcalcifications of concern in the upper outer quadrant region of the left breast. This was reviewed personally with Dr. Browne and stereotactic core biopsy of 2 areas of calcification in the upper outer quadrant region and in the midportion of the left breast were recommended. post stero biopsy left breast + for high grade DCIS, spans about 5 cm by [address] Martin; ER-, Pr-, she tolerated the procedure well statup post left breast lumpectomy and SNB on 12-19-23, her pathology showed (-) margins, 36 mm DCIS, no invasion, SNB (-). seromas aspirated 12-27-23 for 180 cc fluid 01-10-24 90 cc fluid 04-01-24 740 CC fluid 04-10-24 400 cc fluid 05-29-24 260 cc fluid She was seen by radiation oncology on 01-31-24 and opted not to have radiation therapy medical oncology no treatment recommended She does have some recurrent swelling at the lumpectomy site on the left. Otherwise she is not complaining of any new lumps masses or nodules of concern in either breast. Caffeine: 2 cups/day nicotine: 10 cigarettes/day, since a teenages chocolate: occasional BCP: none hormones: less than 1 year, caused anxiety Family History: maternal grandmother: breast cancer Hormonal History: menarche: 14 M1 age at first : 24, breast fed: no menopause: 44 Surgical History: right breast biopsy thyroid lobectomy gallbladder D&C hysterectomy/cystocele tonsil left thumb aortic valve replacement Medical History: hypothyroid HTN aspirin Social History: nicotine: as above alcohol: wine daily drugs: Marijuana Gummies to relieve arthritis pain - Constitutional Constitutional: Denies chills, Denies fever - EENT Eyes: denies blurred vision, denies pain Ears: deny: decreased hearing, tinnitus Ears, nose, mouth and throat: Denies headache, Denies sore throat - Breasts Breasts: bilateral: as per HPI - Cardiovascular Cardiovascular: Reports as per HPI - Respiratory Respiratory: Denies cough - Gastrointestinal Gastrointestinal: Denies abdominal pain, Denies diarrhea, Denies nausea, Denies vomiting - Genitourinary (Female) Genitourinary: Denies dysuria, Denies hematuria - Menstruation Menstruation: Reports as per HPI - Musculoskeletal Comment: arthritis - Integumentary Integumentary: Denies pruritus, Denies rash - Neurological Neurological: Denies numbness, Denies weakness - Psychiatric Psychiatric: Denies anxiety, Denies depression - Endocrine Endocrine: Denies fatigue, Denies weight change - Hematologic/Lymphatic Hematologic/Lymphatic: Reports as per HPI - Allergic/Immunologic Allergic/Immunologic: Reports seasonal allergies Past Medical History Past Medical History: COPD, Pneumonia, Rheumatoid Arthritis (RA), Skin Disorder, Thyroid Disorder Additional Past Medical History / Comment(s): pernicious anemia, eczema, gets rash over eyes, History of Any Multi-Drug Resistant Organisms: None Reported Past Surgical History: Breast Surgery, Cardiac Valve Replacement, Cholecystectomy, Hysterectomy, Tonsillectomy Additional Past Surgical History / Comment(s): left thyroid lobectomy, aortic valve replacement 2019, multiple D&C, left breast fibroid removed, hysterectomy with cystocele surgery, Past Anesthesia/Blood Transfusion Reactions: Motion Sickness Past Drug Use History: None Reported - Past Family History Father Additional Family Medical History / Comment(s): enlarged heart, valve replacement Mother Family Medical History: No Reported History Medications and Allergies Home Medications Medication Instructions Recorded Confirmed Type Cyanocobalamin [Vitamin B-12 1,000 mcg SQ Q14D 10/10/18 09/18/23 History Injection] Escitalopram [Lexapro] 20 mg PO HS 10/10/18 09/18/23 History Levothyroxine Sodium [Synthroid] 75 mcg PO DAILY 11/27/18 09/18/23 History Aspirin [Adult Low Dose Aspirin EC] 81 mg PO DAILY 05/07/20 09/18/23 History Pedi Multivit No.25/Folic Acid 2 tab PO DAILY 05/07/20 09/18/23 History [Flintstones Multivit Chew Tab] amLODIPine [Norvasc] 2.5 mg PO DAILY 09/18/23 09/18/23 History Allergies Allergy/AdvReac Type Severity Reaction Status Date / Time Penicillins Allergy Rash/Hives Verified 05/11/20 10:50 codeine AdvReac Nausea & Verified 05/11/20 10:50 Vomiting morphine AdvReac Nausea & Verified 09/18/23 12:17 Vomiting prednisone AdvReac Rapid Verified 05/11/20 10:50 Heart Rate Past Medical History Past Medical History: COPD, Pneumonia, Rheumatoid Arthritis (RA), Skin Disorder, Thyroid Disorder Additional Past Medical History / Comment(s): pernicious anemia, eczema, gets rash over eyes, History of Any Multi-Drug Resistant Organisms: None Reported Past Surgical History: Breast Surgery, Cardiac Valve Replacement, Cholecystectomy, Hysterectomy, Tonsillectomy Additional Past Surgical History / Comment(s): left thyroid lobectomy, aortic valve replacement 2018, multiple D&C, left breast fibroid removed, hysterectomy with cystocele surgery, Past Anesthesia/Blood Transfusion Reactions: Motion Sickness Past Psychological History: Anxiety Smoking Status: Current every day smoker Past Alcohol Use History: Daily Additional Past Alcohol Use History / Comment(s): 1/2 PPD, started smoking age 18. 1 glass wine daily Past Drug Use History: None Reported Additional Drug Use History / Comment(s): THC gummy for sleep and pain - Past Family History Father Additional Family Medical History / Comment(s): enlarged heart, valve replacement Mother Family Medical History: No Reported History Medications and Allergies Home Medications Medication Instructions Recorded Confirmed Type Cyanocobalamin [Vitamin B-12 1,000 mcg SQ Q14D 10/10/18 12/06/23 History Injection] Levothyroxine Sodium [Synthroid] 75 mcg PO DAILY 11/27/18 12/06/23 History Aspirin [Adult Low Dose Aspirin EC] 81 mg PO DAILY 05/07/20 12/06/23 History Pedi Multivit No.25/Folic Acid 2 tab PO DAILY 05/07/20 12/06/23 History [Flintstones Multivit Chew Tab] amLODIPine [Norvasc] 2.5 mg PO DAILY 09/18/23 12/06/23 History Allergies Allergy/AdvReac Type Severity Reaction Status Date / Time Penicillins Allergy Rash/Hives Verified 12/06/23 11:02 codeine AdvReac Nausea & Verified 12/06/23 11:02 Vomiting morphine AdvReac Nausea & Verified 12/06/23 11:02 Vomiting prednisone AdvReac Rapid Verified 12/06/23 11:02 Heart Rate Objective - Vital Signs Vital signs: Vital Signs Temp 98.4 F 08/21/24 15:29 Pulse 74 08/21/24 15:29 Resp 16 08/21/24 15:29 BP 137/76 08/21/24 15:29 Pulse Ox 96 08/21/24 15:29 FiO2 Intake & Output 08/20/24 08/21/24 08/21/24 18:59 06:59 18:59 Weight 68.492 kg - Constitutional General appearance: Present: cooperative - EENT Eyes: Present: EOMI ENT: Present: hearing grossly normal - Neck Neck: Present: normal ROM - Respiratory Respiratory: bilateral: CTA - Cardiovascular Rhythm: regular Heart sounds: normal: S1, S2 - Integumentary Integumentary: Present: normal turgor - Musculoskeletal Musculoskeletal: Present: gait normal - Psychiatric Psychiatric: Present: A&O x's 3, appropriate affect, intact judgment & insight - Additional findings Additional findings: Breast Exam: BRA: 42D Inspection: Bilateral grade 3 ptosis, well-healed scar mid chest from valve replacement Palpation: Right breast: Multi positional exam fibrocystic changes no dominant masses or nodules of concern Right axilla: No adenopathy of concern Left breast: Multi positional exam fibrocystic changes no dominant masses or nodules of concern, probable seroma left breast UOQ Left axilla: No adenopathy of concern Assessment and Plan Assessment: Impression: DCIS left breast seroma at lumpectomy site Prior aortic valve replacement Hypothyroid Plan: aspiration of seroma left breast bilateral mammogram in August 2024 with appointment will follow up after this CC: Dr. Ernandez
== END ==
LOC: WWCWWP 14:25
PROVIDERS: ATTEND Surgery
DX: N64.89 Other specified disorders of breast (principal); E03.9 Hypothyroidism, unspecified; Z40.01 Encounter for prophylactic removal of breast; Z95.2 Presence of prosthetic heart valve; Z87.891 Personal history of nicotine dependence; Z88.5 Allergy status to narcotic agent; Z88.0 Allergy status to penicillin; Z88.8 Allergy status to other drugs, medicaments and biological substances

== ENCOUNTER → 2024-09-16 | Outpatient (CLI) | payer MEDICARE ==
[2024-09-16 19:26] LABS: Basophils # (A) 0.04 X 10*3/uL (0.00-0.10); Basophils % (A) 0.4 %; HGB 13.4 g/dL (12.0-15.0); Lymphocytes % (A) 29.7 %; MCH 27.9 pg (27.0-32.0); MCHC 32.7 g/dL (32.0-37.0); MCV 85.4 FL (80.0-97.0); Mean Platelet Volume 10.9 FL (9.5-12.2); Monocytes # (A) 0.61 X 10*3/uL (0.20-1.00); Monocytes % (A) 6.3 %; NRBC Per 100 WBC 0 X 10*3/uL (0.00-0.01); Neutrophils # (A) 6.09 X 10*3/uL (1.80-7.70); Neutrophils % (A) 62.4 %; Platelet Count 296 X 10*3/uL (140-440); RDW 15.8 % (11.5-14.5); WBC 9.76 X 10*3/uL (4.50-10.00)
[2024-09-16 19:48] LABS: Erythrocyte Sedimentation Rate 6 mm/Hr (0-30)
[2024-09-16 20:13] LABS: ALT 24 U/L (8-44); AST 23 U/L (13-35); Albumin 4.6 g/dL (3.8-4.9); Albumin/Globulin Ratio 1.92 Ratio (1.60-3.17); Alkaline Phosphatase 101 U/L (41-126); Blood Urea Nitrogen 14.4 mg/dL (9.0-27.0); C Reactive Protein <0.30 mg/dL (0.00-0.80); Carbon Dioxide 23.1 mmol/L (21.6-31.8); Chloride 104 mmol/L (96-109); Globulin 2.4 g/dL (1.6-3.3); Glucose 129 mg/dL (70-110); Potassium 4.3 mmol/L (3.5-5.5); Sodium 140 mmol/L (135-145); Total Bilirubin 0.2 mg/dL (0.3-1.2)
== END | disposition home or self-care (01) ==
LOC: LABWHC1 13:57
PROVIDERS: ATTEND Family Medicine
DX: N64.89 Other specified disorders of breast (principal)
CPT/HCPCS: 36415; 80053; 84145; 85025; 85652; 86140

== ENCOUNTER → 2024-11-28 | Outpatient (CLI) | payer MEDICARE ==
--- NOTE | 2024-11-28 15:45 | BD ---
EXAMINATION TYPE: Axial Bone Density DATE OF EXAM: 11/28/2024 CLINICAL HISTORY: 74 years old Female. ICD-10 CODE: M81.0 OSTEOPOROSIS , Additional History: Height: 64.5 Weight: 149.4 FRAX RISK QUESTIONS: Alcohol (3 or more units per day): no Family History (Parent hip fracture): no Glucocorticoids (More than 3mos): no (Ex: prednisone, prednisolone, methylprednisolone, dexamethasone, and hydrocortisone). History of Fracture in Adulthood: no Secondary Osteoporosis: 1. Type 1 Diabetes: no 2. Hyperthyroidism: no 3. Menopause before 45: yes 4. Malnutrition: no 5. Chronic liver disease: no Rheumatoid Arthritis: no Current Tobacco Use: yes RISK FACTORS HISTORY OF: Hip Fracture (Right/Left): no Spine Fracture: no History of Wrist Fracture: no Surgery to Spine/Hip(right/left)/Wrist (right/left): no MEDICATIONS: Thyroid Medications: Levothyroxine How Long: past 20 years Osteoporosis Medications: no EXAM MEASUREMENTS: Bone mineral densitometry was performed using the [id number] System. Bone mineral density as measured about the Lumbar spine is: ----- L1-L4(G/cm2): 1.021 T Score Values are as follows: ----- L1: -1.4 ----- L2: -1.6 ----- L3: -1.1 ----- L4: -1.3 ----- L1-L4: -1.3 Z Score Values are as follows: ----- L1: 0.2 ----- L2: 0.0 ----- L3: 0.5 ----- L4: 0.3 ----- L1-L4: 0.3 Bone mineral density has: decreased -0.7 % since study of: 02/21/2022 Bone mineral density about the R hip (g/cm2): 0.696 Bone mineral density about the L hip (g/cm2): 0.697 T Score values are as follows: -----R Neck: -3.1 -----L Neck: -2.8 -----R Total: -2.5 -----L Total: -2.5 Z Score values are as follows: -----R Neck: -1.3 -----L Neck: -1.1 -----R Total: -0.9 -----L Total: -0.9 Bone mineral density has: decreased -2.8 since the study of FRAX%s: The graph provided illustrates a 23.9 chance for a major osteoporotic fx and a 12.5 chance fo r the hips probability for fx in 10 years time. IMPRESSION: Osteoporosis (T Score less than -2.5). There is increased fracture risk and therapy is usually indicated based on age. Re-Screen 1-2 years. NOTE: T-SCORE=SD OF THE YOUNG ADULT MEAN. [facility], , 11/28/2024 3:43 PM
== END | disposition home or self-care (01) ==
LOC: RADBDWWP 13:06
PROVIDERS: ATTEND Family Medicine
DX: M81.0 Age-related osteoporosis without current pathological fracture (principal); M85.89 Other specified disorders of bone density and structure, multiple sites; Z78.0 Asymptomatic menopausal state
CPT/HCPCS: 77080

== ENCOUNTER 2024-12-28 11:51 | Emergency (ER) | payer MEDICARE ==
--- NOTE | 2024-12-28 12:20 | ED ---
General Adult HPI - General Chief complaint: Extremity Injury, Lower Stated complaint: Left foot injury Time Seen by Provider: 12/28/24 11:57 Source: patient, RN notes reviewed Mode of arrival: ambulatory Limitations: no limitations - History of Present Illness Initial comments: 74-year-old female presents to the emergency department for evaluation of left foot injury. Patient states that on an open door fell on her left mid foot. She notes that since then she has had pain in the midfoot and difficulty ambulating due to the pain. She states that the pain is worse with movement of the toes and with ambulation. Denies any open wounds. - Related Data Home Medications Medication Instructions Recorded Confirmed Cyanocobalamin [Vitamin B-12 1,000 mcg SQ Q14D 10/10/18 09/29/24 Injection] Levothyroxine Sodium [Synthroid] 75 mcg PO DAILY 11/27/18 09/29/24 Aspirin [Adult Low Dose Aspirin EC] 81 mg PO DAILY 05/07/20 09/29/24 amLODIPine [Norvasc] 2.5 mg PO DAILY 09/18/23 09/29/24 Allergies Allergy/AdvReac Type Severity Reaction Status Date / Time Penicillins Allergy Rash/Hives Verified 12/28/24 11:55 codeine AdvReac Nausea & Verified 12/28/24 11:55 Vomiting morphine AdvReac Nausea & Verified 12/28/24 11:55 Vomiting prednisone AdvReac Rapid Verified 12/28/24 11:55 Heart Rate Review of Systems ROS Statement: Those systems with pertinent positive or pertinent negative responses have been documented in the HPI. ROS Other: All systems not noted in ROS Statement are negative. Past Medical History Past Medical History: COPD, Hypertension, Pneumonia, Rheumatoid Arthritis (RA), Skin Disorder, Thyroid Disorder Additional Past Medical History / Comment(s): hx pernicious anemia, eczema, gets rash over eyes, History of Any Multi-Drug Resistant Organisms: None Reported Past Surgical History: Breast Surgery, Cardiac Valve Replacement, Cholecyst ectomy, Hysterectomy, Tonsillectomy Additional Past Surgical History / Comment(s): left thyroid lobectomy, aortic valve replacement 2018, multiple D&C, left breast fibroid removed, hysterectomy with cystocele surgery, Past Anesthesia/Blood Transfusion Reactions: Motion Sickness Past Psychological History: No Psychological Hx Reported Smoking Status: Current every day smoker Past Alcohol Use History: Daily Past Drug Use History: None Reported - Past Family History Father Additional Family Medical History / Comment(s): aortic valve replaced, liver issues Mother Family Medical History: No Reported History Brother(s) Additional Family Medical History / Comment(s): aortic valve replaced General Exam Limitations: no limitations General appearance: alert, in no apparent distress Head exam: Present: atraumatic, normocephalic, normal inspection Eye exam: Present: normal appearance, PERRL, EOMI. Absent: scleral icterus, conjunctival injection, periorbital swelling Respiratory exam: Present: normal lung sounds bilaterally. Absent: respiratory distress, wheezes, rales, rhonchi, stridor Cardiovascular Exam: Present: regular rate, normal rhythm, normal heart sounds. Absent: systolic murmur, diastolic murmur, rubs, gallop, clicks Extremities exam: Present: full ROM, tenderness, normal capillary refill, other (DP and PT pulses 2+ ). Absent: pedal edema, joint swelling, calf tenderness Neurological exam: Present: alert, oriented X3 Psychiatric exam: Present: normal affect, normal mood Skin exam: Present: warm, dry, intact, normal color. Absent: rash Course Vital Signs 12/28/24 12/28/24 11:53 13:26 Temperature 97.8 F 97.6 F Pulse Rate 92 69 Respiratory 16 18 Rate Blood Pressure 142/82 132/76 O2 Sat by Pulse 96 97 Oximetry Medical Decision Making - Medical Decision Making Was pt. sent in by a medical professional or institution (, PA, HUMAN [employer]GR[employer] FACULTY MEMBER, urgent care, hospital, or fpc...) When possible be specific @ -No Did you speak to anyone other than the patient for history (EMS, parent, family, police, friend...)? What history was obtained from this source @ -No Did you review nursing and triage notes (agree or disagree)? Why? @ -I reviewed and agree with nursing and triage notes Were old charts reviewed (outside hosp., previous admission, EMS record, old EKG, old radiological studies, urgent care reports/EKG's, fpc records)? Report findings @ -No old charts were reviewed Differential Diagnosis (chest pain, altered mental status, abdominal pain women, abdominal pain men, vaginal bleeding, weakness, fever, dyspnea, syncope, headache, dizziness, GI bleed, back pain, seizure, CVA, palpatations, mental health, musculoskeletal)? @ -Differential Musculoskeletal Muscular strain, contusion, ligament sprain, fracture, arthritis, septic arthritis, bursitis, cellulitis, muscle spasm, nerve compression, DVT, arterial occlusion, herpes zoster, electrolyte abnormality, tumor.... This is not meant to be in all inclusive list EKG interpreted by me (3pts min.). @ -None X-rays interpreted by me (1pt min.). @ -X-ray of the left foot reveals no evidence of acute fracture or dislocation CT interpreted by me (1pt min.). @ -None done U/S interpreted by me (1pt. min.). @ -None done What testing was considered but not performed or refused? (CT, X-rays, U/S, labs)? Why? @ -None What meds were considered but not given or refused? Why? @ -None Did you discuss the management of the patient with other professionals (professionals i.e. , PA, HUMAN [employer]ACULTY MEMBER, lab, RT, psych nurse, long term care social worker, health services director, teacher, navigation officer, case supervisor)? Give summary @ -No Was smoking cessation discussed for >3mins.? @ -No Was critical care preformed (if so, how long)? @ -No Were there social determinants of health that impacted care today? How? (Homelessness, low income, unemployed, alcoholism, drug addiction, transportation, low edu. Level, literacy, decrease access to med. care, custodial, rehab)? @ -No Was there de-escalation of care discussed even if they declined (Discuss DNR or withdrawal of care, Hospice)? DNR status @ -No What co-morbidities impacted this encounter? (DM, HTN, Smoking, COPD, CAD, Cancer, CVA, ARF, Chemo, Hep., AIDS, mental health diagnosis, sleep apnea, morbid obesity)? @ -None Was patient admitted / discharged? Hospital course, mention meds given and route, prescriptions, significant lab abnormalities, going to OR and other pertinent info. @ -Discharge. Patient presented emergency department for left foot injury. X- rays obtained revealing no acute fracture or dislocation. Patient was placed in a postop shoe. Advised rest, ice, elevation, compression, follow-up to her PCP. She is understanding agreeable plan. Patient stable at time of discharge. Case discussed with Dr. Bonner Undiagnosed new problem with uncertain prognosis? @ -No Drug Therapy requiring intensive monitoring for toxicity (Heparin, Nitro, Insulin, Cardizem)? @ -No Were any procedures done? @ -No Diagnosis/symptom? @ -Left foot contusion Acute, or Chronic, or Acute on Chronic? @ -acute Uncomplicated (without systemic symptoms) or Complicated (systemic symptoms)? @ -uncomplicated Side effects of treatment? @ -No Exacerbation, Progression, or Severe Exacerbation? @ -No Poses a threat to life or bodily function? How? (Chest pain, [place], [place], pneumonia, PE, COPD, DKA, ARF, appy, cholecystitis, CVA, Diverticulitis, Homicidal, Suicidal, threat to staff... and all critical care pts) @ -No Disposition Clinical Impression: Foot contusion Disposition: HOME SELF-CARE Condition: Stable Instructions (If sedation given, give patient instructions): Foot Contusion (ED) Additional Instructions: Please follow up with your doctor. Return to the emergency department for new or worsening symptoms. Is patient prescribed a controlled substance at d/c from ED?: No Referrals: Eduardo Ernandez MD [Primary Care Provider] - 1-2 days
--- NOTE | 2024-12-28 12:46 | XR ---
EXAMINATION TYPE: XR foot complete LT DATE OF EXAM: 12/28/2024 12:39 PM COMPARISON: CLINICAL INDICATION: Female, 74 years old with history of midfoot pain; PHH, pain TECHNIQUE: XR foot complete LT examined in the AP, oblique, and lateral projections. FINDINGS: No evidence of any acute osseous pathology. Multifocal degeneration changes throughout the joints of the foot with osteophyte formation and joint space narrowing. 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 Calcaneal plantar spurring is present. IMPRESSION: 1. No evidence of acute fracture. 2. Multifocal degeneration changes throughout the joints of the foot. [facility], , 12/28/2024 12:44 PM
[2024-12-28 13:27] VITALS: BP 132/76; PULSE 69; RESP 18; TEMP 97.6
== END 2024-12-28 13:26 | disposition home or self-care (01) ==
LOC: EC 11:51
DX: S90.32XA Contusion of left foot, initial encounter (principal); F17.200 Nicotine dependence, unspecified, uncomplicated; Z88.0 Allergy status to penicillin; Z88.5 Allergy status to narcotic agent; Z88.8 Allergy status to other drugs, medicaments and biological substances; W20.8XXA Other cause of strike by thrown, projected or falling object, initial encounter
CPT/HCPCS: 99283